=== PATIENT | male | born 1995 | race Caucasian/White ===

== ENCOUNTER 2022-10-15 05:54 | Inpatient (IN) | payer OTHER ==
[~2022-10-15 05:54] MED LIST: LORazepam 2 MG/ML INJ IV STA
[2022-10-15 06:49] LABS: Basophils # (A) 0.4 k/uL (0-0.2); Basophils % (A) 1 %; Eosinophils # (A) 0.1 k/uL (0-0.7); Eosinophils % (A) 0 %; HCT 53.2 % (39.0-53.0); Hyperchromasia Slight; Lymphocytes # (A) 1.1 k/uL (1.0-4.8); Lymphocytes % (A) 2 %; MCH 33.2 pg (25.0-35.0); MCHC 37.8 g/dL (31.0-37.0); MCV 87.9 fL (80.0-100.0); Mean Platelet Volume 8.3; Monocytes # (A) 3.8 k/uL (0-1.0); Monocytes % (A) 8 %; Neutrophils # (A) 44.9 k/uL (1.3-7.7); Neutrophils % (A) 88 %; Platelet Count 400 k/uL (150-450); RBC 6.05 m/uL (4.30-5.90)
[2022-10-15 06:52] LABS: HGB 20.1 gm/dL (13.0-17.5); WBC 51.1 k/uL (3.8-10.6)
[2022-10-15] MEDS ORDERED: SODIUM CHLORIDE 0.9% 1,000 ML IV STA (06:54)
[2022-10-15 06:55] LABS: INR 1.1 (<1.2); Partial Thromboplastin Time 23.8 sec (22.0-30.0); Prothrombin Time 11.5 sec (9.0-12.0)
--- NOTE | 2022-10-15 06:59 | ED ---
Altered Mental Status HPI <David Rudolph - Last Filed: 10/15/22 10:57> - General Source: family, EMS, RN notes reviewed Mode of arrival: EMS <Trisha Pickett - Last Filed: 10/15/22 11:16> - General Chief Complaint: Altered Mental Status Stated Complaint: AMS - History of Present Illness Initial Comments: Patient is a 27-year-old male brought in by EMS for altered mental status. His mother reports that she was hearing banging in the apartment that is adjacent to the home where he lives and when she went into the apartment to check on him and found him to be lying on the ground unresponsive and kicking and flailing his arms about. He is girlfriend and mother report that he has been not feeling well for approximately 3 days now with increase in sleeping, nausea or vomiting and body aches. They both state that he has never had an episode like his presentation currently and they deny any known seizure history but to report the muscle spasms as stated below. 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 He also has a history of pericarditis. She states that he they have been told in the past that his symptoms of cyclical nausea and vomiting were due to his marijuana usage. He also was having significant alcohol intake but his girlfriend states that his last drink was 09/02/2022. They deny any other drug use besides marijuana. His mother and brother and girlfriend deny any other significant past medical history. (Trisha Pickett) - Related Data Allergies Allergy/AdvReac Type Severity Reaction Status Date / Time Unable to Assess Allergy Verified 10/15/22 06:08 Review of Systems ROS Other: All systems not noted in ROS Statement are negative. Limitations: ROS unobtainable due to patients medical condition <David Rudolph - Last Filed: 10/15/22 10:57> ROS Other: All systems not noted in ROS Statement are negative. <Trisha Pickett - Last Filed: 10/15/22 11:16> ROS Statement: Those systems with pertinent positive or pertinent negative responses have been documented in the HPI. Past Medical History Past Medical History: Unable to Obtain History of Any Multi-Drug Resistant Organisms: Unobtainable Past Surgical History: Unable to Obtain Past Psychological History: Unable to Obtain Smoking Status: Unknown if ever smoked Past Alcohol Use History: Unable to Obtain Past Drug Use History: Unable to Obtain <Trisha Pickett - Last Filed: 10/15/22 11:16> General Exam Limitations: altered mental status Head exam: Present: other (Forehead abrasion) Neck exam: Present: normal inspection. Absent: tenderness, meningismus Respiratory exam: Present: normal lung sounds bilaterally Cardiovascular Exam: Present: regular rate, normal rhythm Expanded Peripheral pulses: 2+: Radial (R), Radial (L) GI/Abdominal exam: Present: soft. Absent: tenderness Extremities exam: Present: normal inspection Neurological exam: Present: altered. Absent: motor sensory deficit (Limited exam, does move all extremities) Expanded Neurological exam: Present: inattentive <David Rudolph - Last Filed: 10/15/22 10:57> Limitations: altered mental status General appearance: in no apparent distress Expanded Head exam: Present: abrasion (nasal bridge), hematoma (above right eye) Eye exam: Present: PERRL, periorbital swelling (trace). Absent: scleral icterus, conjunctival injection ENT exam: Present: other (unable to adequately assess oral mucosa due to lack of following command; dry blood on lips and teeth) Neck exam: Present: full ROM. Absent: tenderness Respiratory exam: Present: normal lung sounds bilaterally. Absent: respiratory distress, wheezes, rales, rhonchi, stridor Cardiovascular Exam: Present: regular rate, tachycardia, normal heart sounds. Absent: systolic murmur, diastolic murmur, rubs, gallop, clicks GI/Abdominal exam: Present: soft. Absent: distended Back exam: Present: full ROM Neurological exam: Present: altered Expanded Eye Response: (3) open to voice Motor Response: (4) withdraws to pain Verbal Response: incomprehensible sounds Wilder Total: 10 Psychiatric exam: Present: agitated Skin exam: Present: other (Multiple abrasions scratches and bruises to extremities back, buttocks, and face.) <Trisha Pickett - Last Filed: 10/15/22 11:16> Course - Reevaluation(s) Time: 07:36 Time: 09:38 - Consultations Time: 10:31 <Trisha Pickett - Last Filed: 10/15/22 11:16> Vital Signs 10/15/22 10/15/22 10/15/22 05:59 06:49 08:00 Temperature 98.5 F Pulse Rate 132 H 130 H Respiratory 20 16 18 Rate Blood Pressure 122/88 141/77 129/93 O2 Sat by Pulse 96 100 Oximetry 10/15/22 10/15/22 10/15/22 08:24 09:00 09:16 Temperature 101.2 F H Pulse Rate 110 H 142 H 123 H Respiratory 22 20 18 Rate Blood Pressure 149/80 142/96 149/93 O2 Sat by Pulse 100 100 100 Oximetry 10/15/22 10:57 Temperature 98.9 F Pulse Rate 96 Respiratory 18 Rate Blood Pressure 116/78 O2 Sat by Pulse 96 Oximetry - Reevaluation(s) Reevaluation #1: Patient's initial laboratory values have returned showing critical values of white blood cell count at 51.1, elevated hemoglobin at 20.1, Lactic acid 10.1, Chloride 54, carbon dioxide 41; noncritical but abnormal labs of elevated creatinine at 3.63, BUN 63, potassium 3.0. Significant electrolyte derangement noted. Septic protocol with IV fluid bolus vancomycin and Rocephin added. Urinalysis negative for infection. Blood cultures ordered and pending. Will order Mahmood given altered mental status and evidence of septic shock with YENI. Family updated regarding laboratory studies in current plan of care. Second dose of IV Ativan given for agitation. Will plan for covarrubias scanning once excessive movement improved. (Trisha Pickett) Reevaluation #2: Rectal temperature elevated 101.2. One view chest x-ray and one view abdominal x-ray interpreted by me showing no acute process. Cephid swab negative for Covid RSV and influenza. 1 g of IV Tylenol ordered. Will continue to monitor closely. (Trisha Pickett) - Consultations Consultation #1: Spoke with Dr. Horan for [facility] regarding admission for acute renal failure, possible septic shock along with rhabdomyolysis. Will place order for repeat electrolytes 1 hour after completion of potassium. He is accepting of admission to [facility] admission order. No further orders received at this time. (Trisha Pickett) Procedures - Sepsis Sepsis Focused Exam #1 Time Sepsis Criteria Met: 07:15 Sepsis Focused Exam Date: 10/15/22 Sepsis Focused Exam Time: 10:30 Sepsis Focused Exam Complete: Yes Vital Signs & RN Notes Reviewed: Yes Capillary Refill: < 2 Seconds: Fingers, Toes Peripheral Pulses: Normal: Radial (R), Radial (L) Skin Color: Normal for Patient Respiratory Exam: normal lung sounds Cardiovascular Exam: regular rate, normal rhythm <David Rudolph - Last Filed: 10/15/22 10:57> Medical Decision Making - Lab Data Result diagrams: 10/15/22 06:34 10/15/22 06:34 <David Rudolph - Last Filed: 10/15/22 10:57> - Lab Data Result diagrams: 10/15/22 06:34 10/15/22 06:34 - Radiology Data Radiology results: report reviewed, image reviewed <Trisha Pickett - Last Filed: 10/15/22 11:16> - Medical Decision Making Patient was reevaluated by myself several times. I was involved in management. Case also discussed with family who is present. Patient has had several episodes of this nausea and vomiting with associated dehydration and hospital admission. There was discussion regarding potential transfer request per family however at this time I do not feel patient is stable. Labs will be redrawn. Case also discussed with Dr. Jordan, who will admit covering hospital call. Tachycardia has improved. Patient has been significantly restless and this is also significantly improved. Lumbar puncture has not been able to be considered secondary to concern for harm to patient with associated restlessness. Patient did need multiple medications to help with this and continue with medical evaluation and treatment. (David Rudolph) 27-year-old male presenting to the emergency room with altered mental status found in his apartment on the ground flailing about with no known seizure history and reported drug use of marijuana only. Will begin workup with extensive laboratory studies including CMP CBC urine drug screen serum alcohol, lactic acid, CK, coags and urinalysis. Further laboratory studies pending results of initial studies. IV Ativan given upon arrival due to agitation. Will monitor response to initial dose. Excessive bruising throughout the body noted will order covarrubias scan including CT of the brain chest and abdomen x-rays of the femurs and tib-fib. EKG obtained upon arrival showing sinus tachycardia and ST elevation consistent with pericarditis. Initial lab results returned and documented as of below in reevaluation. Will continue with septic protocol with IV fluid boluses and IV antibiotics. Currently stable blood pressure respiratory rate and oxygen levels will continue to monitor closely. CT of the brain and abdomen chest image interpreted by me showing no acute intracranial anterior abdominal or chest processes. No evidence of pericarditis, free air in abdomen, respiratory consolidation, hemorrhage, mass or ischemia intracranially. CT of the facial bones image interpreted by me shows no facial bone fractures. Radiologist reports also reviewed. Restlessness has improved with the use of Geodon. Tachycardia has improved with IV hydration. Potassium and vancomycin IV medications both infusing at this time. Repeat electrolytes ordered for draw after completion of potassium. As stated in consults spoke with Dr. Horan regarding admission. Patient to be admitted to stepdown unit in serious condition. Case discussed with and evaluations completed by Dr. Rudolph. ([facility]) - Lab Data Lab Results 10/15/22 10/15/22 10/15/22 Range/Units 06:21 06:21 06:34 WBC 51.1 H* (3.8-10.6) k/uL RBC 6.05 H (4.30-5.90) m/uL Hgb 20.1 H* (13.0-17.5) gm/dL Hct 53.2 H (39.0-53.0) % MCV 87.9 (80.0-100.0) fL MCH 33.2 (25.0-35.0) pg MCHC 37.8 H (31.0-37.0) g/dL RDW 12.0 (11.5-15.5) % Plt Count 400 (150-450) k/uL MPV 8.3 Neutrophils % 88 % Lymphocytes % 2 % Monocytes % 8 % Eosinophils % 0 % Basophils % 1 % Neutrophils # 44.9 H (1.3-7.7) k/uL Lymphocytes # 1.1 (1.0-4.8) k/uL Monocytes # 3.8 H (0-1.0) k/uL Eosinophils # 0.1 (0-0.7) k/uL Basophils # 0.4 H (0-0.2) k/uL Manual Slide Review Performed Hyperchromasia Slight PT (9.0-12.0) sec INR (<1.2) APTT (22.0-30.0) sec VBG pH (7.31-7.41) VBG pCO2 (37-51) mmHg VBG HCO3 (24-28) mmol/L Sodium (137-145) mmol/L Potassium (3.5-5.1) mmol/L Chloride (98-107) mmol/L Carbon Dioxide (22-30) mmol/L Anion Gap mmol/L BUN (9-20) mg/dL Creatinine (0.66-1.25) mg/dL Est GFR (CKD-EPI)AfAm (>60 ml/min/1.73 sqM) Est GFR (CKD-EPI)NonAf (>60 ml/min/1.73 sqM) Glucose (74-99) mg/dL Lactic Ac Sepsis Rflx Plasma Lactic Acid Marshall (0.7-2.0) mmol/L Calcium (8.4-10.2) mg/dL Phosphorus (2.5-4.5) mg/dL Magnesium (1.6-2.3) mg/dL Total Bilirubin (0.2-1.3) mg/dL AST (17-59) U/L ALT (4-49) U/L Alkaline Phosphatase (38-126) U/L Ammonia (<30) umol/L Creatine Kinase (55-170) U/L Troponin I (0.000-0.034) ng/mL Total Protein (6.3-8.2) g/dL Albumin (3.5-5.0) g/dL Urine Color Yellow Urine Appearance Clear (Clear) Urine pH 6.5 (5.0-8.0) Ur Specific Bovey 1.015 (1.001-1.035) Urine Protein 2+ H (Negative) Urine Glucose (UA) Negative (Negative) Urine Ketones 1+ H (Negative) Urine Blood Small H (Negative) Urine Nitrite Negative (Negative) Urine Bilirubin Negative (Negative) Urine Urobilinogen <2.0 (<2.0) mg/dL Ur Leukocyte Esterase Negative (Negative) Urine RBC 1 (0-5) /hpf Urine WBC 2 (0-5) /hpf Hyaline Casts 4 H (0-2) /lpf Urine Opiates Screen Not Detected (NotDetected) Ur Oxycodone Screen Not Detected (NotDetected) Urine Methadone Screen Not Detected (NotDetected) Ur Propoxyphene Screen Not Detected (NotDetected) Ur Barbiturates Screen Not Detected (NotDetected) U Tricyclic Antidepress Not Detected (NotDetected) Ur Phencyclidine Scrn Not Detected (NotDetected) Ur Amphetamines Screen Not Detected (NotDetected) U Methamphetamines Scrn Not Detected (NotDetected) U Benzodiazepines Scrn Not Detected (NotDetected) Urine Cocaine Screen Not Detected (NotDetected) U Marijuana (THC) Screen Detected H (NotDetected) Serum Alcohol mg/dL Influenza Type A (PCR) (Not Detectd) Influenza Type B (PCR) (Not Detectd) RSV (PCR) (Not Detectd) SARS-CoV-2 (PCR) (Not Detectd) 10/15/22 10/15/22 10/15/22 Range/Units 06:34 06:34 06:34 WBC (3.8-10.6) k/uL RBC (4.30-5.90) m/uL Hgb (13.0-17.5) gm/dL Hct (39.0-53.0) % MCV (80.0-100.0) fL MCH (25.0-35.0) pg MCHC (31.0-37.0) g/dL RDW (11.5-15.5) % Plt Count (150-450) k/uL MPV Neutrophils % % Lymphocytes % % Monocytes % % Eosinophils % % Basophils % % Neutrophils # (1.3-7.7) k/uL Lymphocytes # (1.0-4.8) k/uL Monocytes # (0-1.0) k/uL Eosinophils # (0-0.7) k/uL Basophils # (0-0.2) k/uL Manual Slide Review Hyperchromasia PT 11.5 (9.0-12.0) sec INR 1.1 (<1.2) APTT 23.8 (22.0-30.0) sec VBG pH (7.31-7.41) VBG pCO2 (37-51) mmHg VBG HCO3 (24-28) mmol/L Sodium 124 L (137-145) mmol/L Potassium 3.0 L (3.5-5.1) mmol/L Chloride 54 L* (98-107) mmol/L Carbon Dioxide 41 H* (22-30) mmol/L Anion Gap 29 mmol/L BUN 63 H (9-20) mg/dL Creatinine 3.13 H (0.66-1.25) mg/dL Est GFR (CKD-EPI)AfAm 30 (>60 ml/min/1.73 sqM) Est GFR (CKD-EPI)NonAf 26 (>60 ml/min/1.73 sqM) Glucose 119 H (74-99) mg/dL Lactic Ac Sepsis Rflx Plasma Lactic Acid Marshall (0.7-2.0) mmol/L Calcium 10.3 H (8.4-10.2) mg/dL Phosphorus (2.5-4.5) mg/dL Magnesium (1.6-2.3) mg/dL Total Bilirubin 3.5 H (0.2-1.3) mg/dL AST 151 H (17-59) U/L ALT 65 H (4-49) U/L Alkaline Phosphatase 157 H (38-126) U/L Ammonia (<30) umol/L Creatine Kinase (55-170) U/L Troponin I 0.735 H* (0.000-0.034) ng/mL Total Protein 8.8 H (6.3-8.2) g/dL Albumin 5.5 H (3.5-5.0) g/dL Urine Color Urine Appearance (Clear) Urine pH (5.0-8.0) Ur Specific Bovey (1.001-1.035) Urine Protein (Negative) Urine Glucose (UA) (Negative) Urine Ketones (Negative) Urine Blood (Negative) Urine Nitrite (Negative) Urine Bilirubin (Negative) Urine Urobilinogen (<2.0) mg/dL Ur Leukocyte Esterase (Negative) Urine RBC (0-5) /hpf Urine WBC (0-5) /hpf Hyaline Casts (0-2) /lpf Urine Opiates Screen (NotDetected) Ur Oxycodone Screen (NotDetected) Urine Methadone Screen (NotDetected) Ur Propoxyphene Screen (NotDetected) Ur Barbiturates Screen (NotDetected) U Tricyclic Antidepress (NotDetected) Ur Phencyclidine Scrn (NotDetected) Ur Amphetamines Screen (NotDetected) U Methamphetamines Scrn (NotDetected) U Benzodiazepines Scrn (NotDetected) Urine Cocaine Screen (NotDetected) U Marijuana (THC) Screen (NotDetected) Serum Alcohol <10 mg/dL Influenza Type A (PCR) (Not Detectd) Influenza Type B (PCR) (Not Detectd) RSV (PCR) (Not Detectd) SARS-CoV-2 (PCR) (Not Detectd) 10/15/22 10/15/22 10/15/22 Range/Units 06:34 06:34 06:59 WBC (3.8-10.6) k/uL RBC (4.30-5.90) m/uL Hgb (13.0-17.5) gm/dL Hct (39.0-53.0) % MCV (80.0-100.0) fL MCH (25.0-35.0) pg MCHC (31.0-37.0) g/dL RDW (11.5-15.5) % Plt Count (150-450) k/uL MPV Neutrophils % % Lymphocytes % % Monocytes % % Eosinophils % % Basophils % % Neutrophils # (1.3-7.7) k/uL Lymphocytes # (1.0-4.8) k/uL Monocytes # (0-1.0) k/uL Eosinophils # (0-0.7) k/uL Basophils # (0-0.2) k/uL Manual Slide Review Hyperchromasia PT (9.0-12.0) sec INR (<1.2) APTT (22.0-30.0) sec VBG pH (7.31-7.41) VBG pCO2 (37-51) mmHg VBG HCO3 (24-28) mmol/L Sodium (137-145) mmol/L Potassium (3.5-5.1) mmol/L Chloride (98-107) mmol/L Carbon Dioxide (22-30) mmol/L Anion Gap mmol/L BUN (9-20) mg/dL Creatinine (0.66-1.25) mg/dL Est GFR (CKD-EPI)AfAm (>60 ml/min/1.73 sqM) Est GFR (CKD-EPI)NonAf (>60 ml/min/1.73 sqM) Glucose (74-99) mg/dL Lactic Ac Sepsis Rflx Plasma Lactic Acid Marshall 10.4 H* (0.7-2.0) mmol/L Calcium (8.4-10.2) mg/dL Phosphorus (2.5-4.5) mg/dL Magnesium (1.6-2.3) mg/dL Total Bilirubin (0.2-1.3) mg/dL AST (17-59) U/L ALT (4-49) U/L Alkaline Phosphatase (38-126) U/L Ammonia 19 (<30) umol/L Creatine Kinase 3001 H* (55-170) U/L Troponin I (0.000-0.034) ng/mL Total Protein (6.3-8.2) g/dL Albumin (3.5-5.0) g/dL Urine Color Urine Appearance (Clear) Urine pH (5.0-8.0) Ur Specific Bovey (1.001-1.035) Urine Protein (Negative) Urine Glucose (UA) (Negative) Urine Ketones (Negative) Urine Blood (Negative) Urine Nitrite (Negative) Urine Bilirubin (Negative) Urine Urobilinogen (<2.0) mg/dL Ur Leukocyte Esterase (Negative) Urine RBC (0-5) /hpf Urine WBC (0-5) /hpf Hyaline Casts (0-2) /lpf Urine Opiates Screen (NotDetected) Ur Oxycodone Screen (NotDetected) Urine Methadone Screen (NotDetected) Ur Propoxyphene Screen (NotDetected) Ur Barbiturates Screen (NotDetected) U Tricyclic Antidepress (NotDetected) Ur Phencyclidine Scrn (NotDetected) Ur Amphetamines Screen (NotDetected) U Methamphetamines Scrn (NotDetected) U Benzodiazepines Scrn (NotDetected) Urine Cocaine Screen (NotDetected) U Marijuana (THC) Screen (NotDetected) Serum Alcohol mg/dL Influenza Type A (PCR) Not Detected (Not Detectd) Influenza Type B (PCR) Not Detected (Not Detectd) RSV (PCR) Not Detected (Not Detectd) SARS-CoV-2 (PCR) Not Detected (Not Detectd) 10/15/22 10/15/22 10/15/22 Range/Units 07:14 07:30 07:39 WBC (3.8-10.6) k/uL RBC (4.30-5.90) m/uL Hgb (13.0-17.5) gm/dL Hct (39.0-53.0) % MCV (80.0-100.0) fL MCH (25.0-35.0) pg MCHC (31.0-37.0) g/dL RDW (11.5-15.5) % Plt Count (150-450) k/uL MPV Neutrophils % % Lymphocytes % % Monocytes % % Eosinophils % % Basophils % % Neutrophils # (1.3-7.7) k/uL Lymphocytes # (1.0-4.8) k/uL Monocytes # (0-1.0) k/uL Eosinophils # (0-0.7) k/uL Basophils # (0-0.2) k/uL Manual Slide Review Hyperchromasia PT (9.0-12.0) sec INR (<1.2) APTT (22.0-30.0) sec VBG pH 7.71 H* (7.31-7.41) VBG pCO2 36 L (37-51) mmHg VBG HCO3 47 H (24-28) mmol/L Sodium (137-145) mmol/L Potassium (3.5-5.1) mmol/L Chloride (98-107) mmol/L Carbon Dioxide (22-30) mmol/L Anion Gap mmol/L BUN (9-20) mg/dL Creatinine (0.66-1.25) mg/dL Est GFR (CKD-EPI)AfAm (>60 ml/min/1.73 sqM) Est GFR (CKD-EPI)NonAf (>60 ml/min/1.73 sqM) Glucose (74-99) mg/dL Lactic Ac Sepsis Rflx Y Plasma Lactic Acid Marshall (0.7-2.0) mmol/L Calcium (8.4-10.2) mg/dL Phosphorus 6.0 H (2.5-4.5) mg/dL Magnesium 2.8 H (1.6-2.3) mg/dL Total Bilirubin (0.2-1.3) mg/dL AST (17-59) U/L ALT (4-49) U/L Alkaline Phosphatase (38-126) U/L Ammonia (<30) umol/L Creatine Kinase (55-170) U/L Troponin I (0.000-0.034) ng/mL Total Protein (6.3-8.2) g/dL Albumin (3.5-5.0) g/dL Urine Color Urine Appearance (Clear) Urine pH (5.0-8.0) Ur Specific Bovey (1.001-1.035) Urine Protein (Negative) Urine Glucose (UA) (Negative) Urine Ketones (Negative) Urine Blood (Negative) Urine Nitrite (Negative) Urine Bilirubin (Negative) Urine Urobilinogen (<2.0) mg/dL Ur Leukocyte Esterase (Negative) Urine RBC (0-5) /hpf Urine WBC (0-5) /hpf Hyaline Casts (0-2) /lpf Urine Opiates Screen (NotDetected) Ur Oxycodone Screen (NotDetected) Urine Methadone Screen (NotDetected) Ur Propoxyphene Screen (NotDetected) Ur Barbiturates Screen (NotDetected) U Tricyclic Antidepress (NotDetected) Ur Phencyclidine Scrn (NotDetected) Ur Amphetamines Screen (NotDetected) U Methamphetamines Scrn (NotDetected) U Benzodiazepines Scrn (NotDetected) Urine Cocaine Screen (NotDetected) U Marijuana (THC) Screen (NotDetected) Serum Alcohol mg/dL Influenza Type A (PCR) (Not Detectd) Influenza Type B (PCR) (Not Detectd) RSV (PCR) (Not Detectd) SARS-CoV-2 (PCR) (Not Detectd) - EKG Data EKG Comments: EKG completed at 10 interpreted by me shows sinus tach cardia was shortened MD intervals ST elevation consistent with pericarditis, ventricular rate 136 bpm, MD interval 82 ms, QRS duration 86 ms, QT/QTC 346/426 ms, PRT axes 65, 96, 65 (Trisha Pickett) Critical Care Time Critical Care Time: Yes Total Critical Care Time: 33 <David Rudolph - Last Filed: 10/15/22 10:57> Disposition <David Rudolph - Last Filed: 10/15/22 10:57> Is patient prescribed a controlled substance at d/c from ED?: No Time of Disposition: 11:16 <Trisha Pickett - Last Filed: 10/15/22 11:16> Clinical Impression: Altered mental status, Sepsis, Acute kidney failure Disposition: ADMITTED IP TO THIS [facility] Condition: Serious Referrals: None,Stated [Primary Care Provider] - 1-2 days
[2022-10-15 07:01] LABS: African American GFR (CKD) 30 (>60 ml/min/1.73 sqM); Albumin 5.5 g/dL (3.5-5.0); Alcohol <10 mg/dL; Alkaline Phosphatase 157 U/L (38-126); Blood Urea Nitrogen 63 mg/dL (9-20); Calcium 10.3 mg/dL (8.4-10.2); Glucose 119 mg/dL (74-99); Non-African American GFR(CKD) 26 (>60 ml/min/1.73 sqM); Sodium 124 mmol/L (137-145); Total Bilirubin 3.5 mg/dL (0.2-1.3); Total Protein 8.8 g/dL (6.3-8.2)
[2022-10-15 07:03] LABS: Appearance,Urine Clear (Clear); Bilirubin,Urine Negative (Negative); Blood,Urine Small (Negative); Color,Urine Yellow; Glucose,Urine (UA) Negative (Negative); Hyaline Casts,Urine 4 /lpf (0-2); Ketones,Urine 1+ (Negative); Leukocyte Esterase,Urine Negative (Negative); Nitrite,Urine Negative (Negative); PH, Urine 6.5 (5.0-8.0); Protein,Urine 2+ (Negative); RBC,Urine 1 /hpf (0-5); Specific Gravity,Urine 1.015 (1.001-1.035); Urobilinogen,Urine <2.0 mg/dL (<2.0); WBC,Urine 2 /hpf (0-5)
[2022-10-15] MEDS ORDERED: LORazepam 2 MG/ML INJ IV STA ×2 (07:03→13:24)
[2022-10-15 07:08] LABS: Anion Gap 29 mmol/L
[2022-10-15 07:11] LABS: Amphetamine Screen,Urine Not Detected (NotDetected); Barbiturate Screen,Urine Not Detected (NotDetected); Benzodiazepines Screen,Urine Not Detected (NotDetected); Cocaine Screen,Urine Not Detected (NotDetected); Methadone Screen, Urine Not Detected (NotDetected); Opiate Screen,Urine Not Detected (NotDetected); Oxycodone Screen, Urine Not Detected (NotDetected); Phencyclidine Screen,Urine Not Detected (NotDetected); Tricyclic Antidepressant,Urine Not Detected (NotDetected); Urn Cannabinoid Scrn Detected (NotDetected)
[2022-10-15 07:13] LABS: Chloride 54 mmol/L (98-107)
[2022-10-15 07:14] LABS: ALT 65 U/L (4-49); AST 151 U/L (17-59); Carbon Dioxide 41 mmol/L (22-30); Lactic Acid, Venous 10.4 mmol/L (0.7-2.0)
[2022-10-15] MEDS ORDERED: VANCOMYCIN IV PER PHARMACY 1 EACH MISC MISCELLANE PRN (07:17)
[2022-10-15] MEDS ORDERED: POTASSIUM CHLORIDE 20 MEQ in WATER FOR INJECTION 1 100ML.BAG IVPB STA ×3 (07:20→12:51)
[2022-10-15] MEDS ORDERED: VANCOMYCIN 1,000 MG in SODIUM CHLORIDE 0.9% 250 ML IVPB STA (07:26)
[2022-10-15] MEDS ORDERED: SODIUM CHLORIDE 0.9% 1,000 ML IV SCH (07:30)
[2022-10-15 07:56] LABS: Magnesium 2.8 mg/dL (1.6-2.3)
[2022-10-15 08:07] LABS: VBG PH 7.71 (7.31-7.41)
[2022-10-15] MEDS: SODIUM CHLORIDE 0.9% 500 ML 500 ML IV SCH ×2 (08:17→09:42)
[2022-10-15] MEDS ORDERED: ZIPRASIDONE 20 MG VIAL IM STA ×2 (08:40→08:45)
[2022-10-15] MEDS ORDERED: ACETAMINOPHEN IV (For NPO) 1,000 MG in EMPTY BAG 1 BAG IVPB STA (09:15)
--- NOTE | 2022-10-15 09:20 | XR ---
EXAMINATION TYPE: XR chest 1V portable DATE OF EXAM: 10/15/2022 COMPARISON: NONE HISTORY: Chest pain TECHNIQUE: Single frontal view of the chest is obtained. FINDINGS: There is no focal air space opacity, pleural effusion, or pneumothorax seen. The cardiac silhouette size is within normal limits. The osseous structures are intact. IMPRESSION: 1. No acute process.
--- NOTE | 2022-10-15 09:21 | XR ---
EXAMINATION TYPE: XR abdomen 1V DATE OF EXAM: 10/15/2022 COMPARISON: NONE HISTORY: Pain TECHNIQUE: Single supine KUB image of the abdomen is obtained FINDINGS: Small bowel demonstrates no evidence for dilatation or air fluid levels. Gas and fecal material is seen in non-distended colon. No convincing evidence for pneumoperitoneum. No unusual calcifications. The lung bases are clear. The osseous structures are intact. IMPRESSION: 1. Overall nonobstructive bowel gas pattern.
[2022-10-15] MEDS ORDERED: NALOXONE 0.4 MG/ML 1 ML VIAL IV PRN (10:26)
--- NOTE | 2022-10-15 10:28 | CT ---
EXAMINATION TYPE: CT brain wo con DATE OF EXAM: 10/15/2022 COMPARISON: None HISTORY: Altered mental status. CT DLP: [address] of the brain was performed. The ventricles, basal cisterns and sulci overlying the cerebral convexities demonstrate a normal appe arance. There is no evidence for intracranial hemorrhage or sulcal effacement. No mass effects are seen. Osseous calvarium is intact. If symptoms persist consider MRI as clinically warranted. IMPRESSION: 1. No acute intracranial process is seen at this time.
--- NOTE | 2022-10-15 10:30 | CT ---
EXAMINATION TYPE: CT facial bones wo con DATE OF EXAM: 10/15/2022 COMPARISON: None HISTORY: Altered mental status. CT DLP: [address] of the facial bones was performed in the axial and coronal planes. Bone and soft tissu e window settings are submitted. Suggestion of mild soft tissue swelling frontal region. I do not see evidence for displaced facial bone fracture or depressed facial bone fracture. The globes are intact. Paranasal sinuses are well-aerated. IMPRESSION: 1. No evidence for depressed or displaced facial bone fracture.
--- NOTE | 2022-10-15 10:31 | CT ---
EXAMINATION TYPE: CT ChestAbdPelvis wo con DATE OF EXAM: 10/15/2022 COMPARISON: HISTORY: Altered mental status. CT DLP: 480.4 mGycm CONTRAST: Unenhanced CT of the chest abdomen and pelvis was performed. The lack of contrast does limit evaluati on of the solid and hollow abdominal viscera and vascular structures. Chest: LUNGS: There is no evidence for pneumothorax. The lungs are clear and free of focal contusion or ate lectasis. No pleural effusion MEDIASTINUM: Thoracic aorta is of normal caliber without CT evidence to suggest traumatic induced ao rtic injury. No mediastinal fluid or blood. No pericardial fluid or cardia abnormality. HILAR STRUCTURES: No evidence for mass. No hilar adenopathy is appreciated. OTHER: No significant abnormality. OSSEOUS: No displaced osseous fractures identified. CT ABDOMEN AND PELVIS FINDINGS: LIVER/GB: No focal laceration, contusion or subcapsular hemorrhage. No calcified gallstones. No s pace occupying hepatic lesion. Biliary tree is of normal caliber. PANCREAS: No evidence for transection. No inflammation. No distinct mass. SPLEEN: No focal laceration, contusion or subcapsular hemorrhage. ADRENALS: No hemorrhage. No nodule. No thickening. KIDNEYS/BLADDER: No focal laceration, contusion or subcapsular hemorrhage. No hydronephrosis. No n ephrolithiasis. No disctinct renal mass. Mahmood catheter is noted within the urinary bladder. BOWEL: Bowel is intact. No evidence for pneumoperitoneum. GENITAL ORGANS: No gross abnormality. LYMPH NODES: No greater than 1cm abdominal or pelvic lymph nodes are appreciated. AORTA: No traumatic aortic injury visualized. OSSEOUS STRUCTURES: No displaced fracture seen. OTHER: No evidence for hemoperitoneum. IMPRESSION: 1. No evidence for traumatic injury to the chest. 2. No evidence for traumatic injury to the abdomen or pelvis.
[2022-10-15 12:04] LABS: Calcium 7.7 mg/dL (8.4-10.2)
[2022-10-15 12:25] LABS: Potassium 2.1 mmol/L (3.5-5.1)
[2022-10-15] MEDS ORDERED: LACTATED RINGERS 1,000 ML with POTASSIUM CHLORIDE 40 MEQ IV ONE ×2 (12:44)
[2022-10-15] MEDS: LACTATED RINGERS 1,000 ML with POTASSIUM CHLORIDE 40 MEQ IV ONE ×4 (13:31→17:01)
[2022-10-15] MEDS: POTASSIUM CHLORIDE 10 MEQ in WATER FOR INJECTION 1 100ML.BAG IVPB SCH ×5 (13:32→23:39)
--- NOTE | 2022-10-15 13:50 | P.HPIM ---
History of Present Illness H&P Date: 10/15/22 Chief Complaint: AMS Patient is a 27-year-old with history of marijuana use, cannabis hyperemesis syndrome presenting with acute encephalopathy. Patient's mother is present in the room. She claims that she lives next door, and noted he was last well yesterday evening. He has been complaining of nausea and vomiting for the last 3 days. Overnight, she heard noises next-door, and decided to check on her son. She noted that he was naked and thrashing on the floor, his apartment was a mess. His speech was incoherent. She then decided to bring him to the hospital. She claims that he has not been complaining of any fevers or chills recently. To her knowledge, he does not use any other illicit drugs. He has had prior episodes of marijuana induced hyperemesis, recently was admitted to another hospital 2 months ago. However, this is the most severe he has been with nausea and vomiting. She denies any alcohol use. In the ED, he was tachycardic and febrile. His blood work showed WBC 51.1, hemoglobin 20.1, sodium 124, potassium 3.0, chloride 54, bicarb 41, BUN 63, creatinine 2.13, lactic acid 10.4, CK 3000, troponin 0.7, pH 7.71, pCO2 is 36. His covarrubias CT was negative. EKG showed sinus tachycardia. He was given 3 L of IV fluids, ziprasidone, Ativan, ceftriaxone and vancomycin. He was admitted for acute encephalopathy and severe metabolic derangements. Patient seen and examined at bedside. Pertinent positives and negatives as discussed in HPI, a complete review of systems was performed and all other systems are negative. Vital signs reviewed General: Mild distress, appears at stated age, agitated Derm: warm, dry Head: atraumatic, normocephalic, symmetric Eyes: Not opening eyes spontaneously, pupils equal round and reactive ENT: Nose and ears atraumatic Neck: No thyromegaly, supple Mouth: no lip lesion, mucus membranes moist Cardiovascular: S1S2 tachycardic, reg, no murmur, no edema Lungs: clear to auscultation bilateral, no rhonchi, no rales, no wheeze, no accessory muscle use Abdominal: soft, nontender to palpation, no guarding, no appreciable organomegaly Ext: Moving all extremities Neuro: Not opening eyes spontaneously, moves all extremities, not following commands Psych: Unable to assess Assessment/Plan: Acute metabolic encephalopathy Severe dehydration Nausea and vomiting Cannabis hyperemesis syndrome Hemoconcentration Leukocytosis Hyponatremia Hypokalemia Hypochloremic metabolic alkalosis Acute kidney injury Lactic acidosis Transaminitis Elevated CK Elevated troponin Sinus tachycardia -Negative serum alcohol -Covarrubias CT negative -Respiratory viral panel negative -ICU, nephrology, cardiology consulted -Continue to replete potassium -BMP every 4 hours -Continue aggressive IV fluid resuscitation -Monitor sodium levels closely -Continue antibiotics for now, however unlikely to be meningitis/encephalitis -If no improvement in mental status after correction of electrolytes, consider LP and neurology consult The patient is admitted with an anticipated greater than 2 midnight stay for evaluation of acute metabolic encephalopathy. Surrogate decision-maker: Mother CODE STATUS: Full code DVT prophylaxis: Subcu heparin Anticipated discharge date: Pending clinical course Anticipated discharge place: Pending clinical course A total of minutes was spent on the care of this complex patient more than 50% of the time was spent in counseling and care coordination. Past Medical History Past Medical History: Unable to Obtain History of Any Multi-Drug Resistant Organisms: Unobtainable Past Surgical History: Unable to Obtain Past Psychological History: Unable to Obtain Smoking Status: Unknown if ever smoked Past Alcohol Use History: Unable to Obtain Past Drug Use History: Unable to Obtain Medications and Allergies Home Medications Medication Instructions Recorded Confirmed Type No Known Home Medications 10/15/22 10/15/22 History Allergies Allergy/AdvReac Type Severity Reaction Status Date / Time No Known Allergies Allergy Unverified 10/15/22 12:20 Physical Exam Vitals: Vital Signs Temp Pulse Resp BP Pulse Ox 10/15/22 13:23 111 H 18 132/86 93 L 10/15/22 11:40 98.4 F 100 24 139/92 100 10/15/22 10:57 98.9 F 96 18 116/78 96 10/15/22 09:16 101.2 F H 123 H 18 149/93 100 10/15/22 09:00 142 H 20 142/96 100 10/15/22 08:24 110 H 22 149/80 100 10/15/22 08:00 130 H 18 129/93 100 10/15/22 06:49 16 141/77 10/15/22 05:59 98.5 F 132 H 20 122/88 96 Intake and Output 10/14/22 10/15/22 10/15/22 22:59 06:59 14:59 Other: Weight 56.699 kg Results CBC & Chem 7: 10/15/22 06:34 10/15/22 11:30 Labs: Abnormal Lab Results - Last 24 Hours (Table) 10/15/22 10/15/22 10/15/22 Range/Units 06:21 06:21 06:34 WBC 51.1 H* (3.8-10.6) k/uL RBC 6.05 H (4.30-5.90) m/uL Hgb 20.1 H* (13.0-17.5) gm/dL Hct 53.2 H (39.0-53.0) % MCHC 37.8 H (31.0-37.0) g/dL Neutrophils # 44.9 H (1.3-7.7) k/uL Monocytes # 3.8 H (0-1.0) k/uL Basophils # 0.4 H (0-0.2) k/uL VBG pH (7.31-7.41) VBG pCO2 (37-51) mmHg VBG HCO3 (24-28) mmol/L Sodium (137-145) mmol/L Potassium (3.5-5.1) mmol/L Chloride (98-107) mmol/L Carbon Dioxide (22-30) mmol/L BUN (9-20) mg/dL Creatinine (0.66-1.25) mg/dL Glucose (74-99) mg/dL Plasma Lactic Acid Marshall (0.7-2.0) mmol/L Calcium (8.4-10.2) mg/dL Phosphorus (2.5-4.5) mg/dL Magnesium (1.6-2.3) mg/dL Total Bilirubin (0.2-1.3) mg/dL AST (17-59) U/L ALT (4-49) U/L Alkaline Phosphatase (38-126) U/L Creatine Kinase (55-170) U/L Troponin I (0.000-0.034) ng/mL Total Protein (6.3-8.2) g/dL Albumin (3.5-5.0) g/dL Urine Protein 2+ H (Negative) Urine Ketones 1+ H (Negative) Urine Blood Small H (Negative) Hyaline Casts 4 H (0-2) /lpf U Marijuana (THC) Screen Detected H (NotDetected) 10/15/22 10/15/22 10/15/22 Range/Units 06:34 06:34 06:34 WBC (3.8-10.6) k/uL RBC (4.30-5.90) m/uL Hgb (13.0-17.5) gm/dL Hct (39.0-53.0) % MCHC (31.0-37.0) g/dL Neutrophils # (1.3-7.7) k/uL Monocytes # (0-1.0) k/uL Basophils # (0-0.2) k/uL VBG pH (7.31-7.41) VBG pCO2 (37-51) mmHg VBG HCO3 (24-28) mmol/L Sodium 124 L (137-145) mmol/L Potassium 3.0 L (3.5-5.1) mmol/L Chloride 54 L* (98-107) mmol/L Carbon Dioxide 41 H* (22-30) mmol/L BUN 63 H (9-20) mg/dL Creatinine 3.13 H (0.66-1.25) mg/dL Glucose 119 H (74-99) mg/dL Plasma Lactic Acid Marshall 10.4 H* (0.7-2.0) mmol/L Calcium 10.3 H (8.4-10.2) mg/dL Phosphorus (2.5-4.5) mg/dL Magnesium (1.6-2.3) mg/dL Total Bilirubin 3.5 H (0.2-1.3) mg/dL AST 151 H (17-59) U/L ALT 65 H (4-49) U/L Alkaline Phosphatase 157 H (38-126) U/L Creatine Kinase (55-170) U/L Troponin I 0.735 H* (0.000-0.034) ng/mL Total Protein 8.8 H (6.3-8.2) g/dL Albumin 5.5 H (3.5-5.0) g/dL Urine Protein (Negative) Urine Ketones (Negative) Urine Blood (Negative) Hyaline Casts (0-2) /lpf U Marijuana (THC) Screen (NotDetected) 10/15/22 10/15/22 10/15/22 Range/Units 06:34 07:30 07:39 WBC (3.8-10.6) k/uL RBC (4.30-5.90) m/uL Hgb (13.0-17.5) gm/dL Hct (39.0-53.0) % MCHC (31.0-37.0) g/dL Neutrophils # (1.3-7.7) k/uL Monocytes # (0-1.0) k/uL Basophils # (0-0.2) k/uL VBG pH 7.71 H* (7.31-7.41) VBG pCO2 36 L (37-51) mmHg VBG HCO3 47 H (24-28) mmol/L Sodium (137-145) mmol/L Potassium (3.5-5.1) mmol/L Chloride (98-107) mmol/L Carbon Dioxide (22-30) mmol/L BUN (9-20) mg/dL Creatinine (0.66-1.25) mg/dL Glucose (74-99) mg/dL Plasma Lactic Acid Marshall (0.7-2.0) mmol/L Calcium (8.4-10.2) mg/dL Phosphorus 6.0 H (2.5-4.5) mg/dL Magnesium 2.8 H (1.6-2.3) mg/dL Total Bilirubin (0.2-1.3) mg/dL AST (17-59) U/L ALT (4-49) U/L Alkaline Phosphatase (38-126) U/L Creatine Kinase 3001 H* (55-170) U/L Troponin I (0.000-0.034) ng/mL Total Protein (6.3-8.2) g/dL Albumin (3.5-5.0) g/dL Urine Protein (Negative) Urine Ketones (Negative) Urine Blood (Negative) Hyaline Casts (0-2) /lpf U Marijuana (THC) Screen (NotDetected) 10/15/22 Range/Units 11:30 WBC (3.8-10.6) k/uL RBC (4.30-5.90) m/uL Hgb (13.0-17.5) gm/dL Hct (39.0-53.0) % MCHC (31.0-37.0) g/dL Neutrophils # (1.3-7.7) k/uL Monocytes # (0-1.0) k/uL Basophils # (0-0.2) k/uL VBG pH (7.31-7.41) VBG pCO2 (37-51) mmHg VBG HCO3 (24-28) mmol/L Sodium 128 L (137-145) mmol/L Potassium 2.1 L* (3.5-5.1) mmol/L Chloride 76 L (98-107) mmol/L Carbon Dioxide 40 H (22-30) mmol/L BUN 58 H (9-20) mg/dL Creatinine 2.42 H (0.66-1.25) mg/dL Glucose 122 H (74-99) mg/dL Plasma Lactic Acid Marshall (0.7-2.0) mmol/L Calcium 7.7 L (8.4-10.2) mg/dL Phosphorus (2.5-4.5) mg/dL Magnesium (1.6-2.3) mg/dL Total Bilirubin (0.2-1.3) mg/dL AST (17-59) U/L ALT (4-49) U/L Alkaline Phosphatase (38-126) U/L Creatine Kinase (55-170) U/L Troponin I (0.000-0.034) ng/mL Total Protein (6.3-8.2) g/dL Albumin (3.5-5.0) g/dL Urine Protein (Negative) Urine Ketones (Negative) Urine Blood (Negative) Hyaline Casts (0-2) /lpf U Marijuana (THC) Screen (NotDetected)
[2022-10-15] MEDS: DEXMEDETOMIDINE/0.9% NACL(PMX) 400 MCG in EMPTY BAG 1 BAG IV SCH (14:27)
--- NOTE | 2022-10-15 15:12 | P.CNPUL ---
History of Present Illness Consult date: 10/15/22 Requesting physician: Daryl Horan Reason for consult: other Chief complaint: Severe agitation, encephalopathy. History of present illness: Pulmonary/critical care consult dated 10/15/2022. 27-year-old male, brought in by EMS, for mental status changes. He apparently was found at 4:30 in the morning, by his mother, on the floor, and unresponsive or poorly responsive. The patient was very agitated, kicking and screaming and flailing about. He was last seen to be normal about 3:30 the previous day. The patient apparently does not have any known medical history other than a bleeding ulcer for which she takes Prevacid. He apparently does not drink or smoke excessively, but does smoke marijuana. According to his mother, he has no significant past medical history. Denies hypertension, hyperlipidemia, diabetes, etc. According to the ER elizabeth, the patient does have a prior history of pericarditis. And also was told that he has a history of cyclic nausea and vomiting, due to marijuana use. He apparently used to drink socially/beer, but quit drinking in August. The patient is seen in the emergency department. He is on room air. Getting LR at 125 mL an hour. His drug screen was positive for marijuana. He himself can provide no additional history. He is extremely ortiz tated flailing about in bed. He is restrained. We are going to start him on some dexmedetomidine, and transfer him to the intensive care unit. White count 51.1, hemoglobin 20.1, hematocrit 53.2, and platelet count 400,000. Coagulation studies were normal. Venous blood gases show pCO2 of 36, and a pH of 7.71. Sodium 128, potassium 2.1, chloride 76, CO2 40, anion gap 12, BUN 58, creatinine 2.42. CK 3001. Troponin is 0.735. Albumin 5.5. Alcohol level less than 10. Screening for influenza A, and influenza B, or negative. Testing for RSV, and coronavirus were negative. Drug screen was positive for THC. Abdominal x-ray shows no obstruction. Chest x-ray was normal. Brain CT showed nothing acute. Facial CT was negative. Chest abdomen and pelvic CT was negative. Review of Systems REVIEW OF SYSTEMS: CONSTITUTIONAL: [Negative.] NEUROLOGIC: Extreme agitation, with mental status changes. HEENT: [ Negative.] CARDIAC: [Negative.] PULMONARY: [Negative.] GI: [Negative.] : [Negative.] RHEUMATOLOGIC: [ Negative.] IMMUNOLOGIC: [ Negative.] ENDOCRINE: [Negative. ] DERMATOLOGIC: [Negative.] Past Medical History Past Medical History: Unable to Obtain History of Any Multi-Drug Resistant Organisms: Unobtainable Past Surgical History: Unable to Obtain Past Psychological History: Unable to Obtain Smoking Status: Unknown if ever smoked Past Alcohol Use History: Unable to Obtain Past Drug Use History: Unable to Obtain Medications and Allergies Home Medications Medication Instructions Recorded Confirmed Type No Known Home Medications 10/15/22 10/15/22 History Allergies Allergy/AdvReac Type Severity Reaction Status Date / Time No Known Allergies Allergy Unverified 10/15/22 12:20 Physical Exam Osteopathic Statement: *. No significant issues noted on an osteopathic structural exam other than those noted in the History and Physical/Consult. Vitals: Vital Signs Temp Pulse Resp BP Pulse Ox 10/15/22 14:00 92 22 121/73 95 10/15/22 13:23 111 H 18 132/86 93 L 10/15/22 11:40 98.4 F 100 24 139/92 100 10/15/22 10:57 98.9 F 96 18 116/78 96 10/15/22 09:16 101.2 F H 123 H 18 149/93 100 10/15/22 09:00 142 H 20 142/96 100 10/15/22 08:24 110 H 22 149/80 100 10/15/22 08:00 130 H 18 129/93 100 10/15/22 06:49 16 141/77 10/15/22 05:59 98.5 F 132 H 20 122/88 96 Intake and Output 10/14/22 10/15/22 10/15/22 22:59 06:59 14:59 Other: Weight 56.699 kg Severely agitated, flailing about, yelling out, with no additional history being obtained from him. HEENT examination is grossly unremarkable. Facial bruises and lacerations noted. Neck supple. Full range of motion. No adenopathy thyromegaly or neck vein distention. Cardiovascular examination reveals regular rhythm rate. S1-S2 normal. No S3 or S4. No discernible murmur noted. Heart rate 111 bpm. Lungs reveal mostly clear breath sounds. Breath sounds are equal bilaterally. Minimal scattered rhonchi. No wheezes or crackles. I could not really get a good assessment of his lungs. Abdomen soft, without masses. Extremities are intact. No cyanosis clubbing or edema. Skin is without rash or lesion. Neurologic examination cannot be adequately assessed. Results - Laboratory Findings CBC and BMP: 10/15/22 06:34 10/15/22 11:30 PT/INR, D-dimer PT 11.5 sec (9.0-12.0) 10/15/22 06:34 INR 1.1 (<1.2) 10/15/22 06:34 Abnormal lab findings: Abnormal Labs 10/15/22 10/15/22 10/15/22 06:21 06:21 06:34 WBC 51.1 H* RBC 6.05 H Hgb 20.1 H* Hct 53.2 H MCHC 37.8 H Neutrophils # 44.9 H Monocytes # 3.8 H Basophils # 0.4 H VBG pH VBG pCO2 VBG HCO3 Sodium Potassium Chloride Carbon Dioxide BUN Creatinine Glucose Plasma Lactic Acid Marshall Calcium Phosphorus Magnesium Total Bilirubin AST ALT Alkaline Phosphatase Creatine Kinase Troponin I Total Protein Albumin Urine Protein 2+ H Urine Ketones 1+ H Urine Blood Small H Hyaline Casts 4 H U Marijuana (THC) Screen Detected H 10/15/22 10/15/22 10/15/22 06:34 06:34 06:34 WBC RBC Hgb Hct MCHC Neutrophils # Monocytes # Basophils # VBG pH VBG pCO2 VBG HCO3 Sodium 124 L Potassium 3.0 L Chloride 54 L* Carbon Dioxide 41 H* BUN 63 H Creatinine 3.13 H Glucose 119 H Plasma Lactic Acid Marshall 10.4 H* Calcium 10.3 H Phosphorus Magnesium Total Bilirubin 3.5 H AST 151 H ALT 65 H Alkaline Phosphatase 157 H Creatine Kinase Troponin I 0.735 H* Total Protein 8.8 H Albumin 5.5 H Urine Protein Urine Ketones Urine Blood Hyaline Casts U Marijuana (THC) Screen 10/15/22 10/15/22 10/15/22 06:34 07:30 07:39 WBC RBC Hgb Hct MCHC Neutrophils # Monocytes # Basophils # VBG pH 7.71 H* VBG pCO2 36 L VBG HCO3 47 H Sodium Potassium Chloride Carbon Dioxide BUN Creatinine Glucose Plasma Lactic Acid Marshall Calcium Phosphorus 6.0 H Magnesium 2.8 H Total Bilirubin AST ALT Alkaline Phosphatase Creatine Kinase 3001 H* Troponin I Total Protein Albumin Urine Protein Urine Ketones Urine Blood Hyaline Casts U Marijuana (THC) Screen 10/15/22 11:30 WBC RBC Hgb Hct MCHC Neutrophils # Monocytes # Basophils # VBG pH VBG pCO2 VBG HCO3 Sodium 128 L Potassium 2.1 L* Chloride 76 L Carbon Dioxide 40 H BUN 58 H Creatinine 2.42 H Glucose 122 H Plasma Lactic Acid Marshall Calcium 7.7 L Phosphorus Magnesium Total Bilirubin AST ALT Alkaline Phosphatase Creatine Kinase Troponin I Total Protein Albumin Urine Protein Urine Ketones Urine Blood Hyaline Casts U Marijuana (THC) Screen - Diagnostic Findings Chest x-ray: image reviewed CT scan - chest: image reviewed Assessment and Plan Assessment: Extreme agitation, with mental status changes of unclear etiology. Severe contraction alkalosis secondary to dehydration. Severe hypokalemia. Prerenal azotemia/acute kidney injury. Hyponatremia. Rhabdomyolysis. Lactic acidemia. History of bleeding ulcer. History of pericarditis. History of cyclic nausea and vomiting, secondary to marijuana use. Plan: Plan dated 10/15/2022. The patient is seen in the emergency department. He will be transferred to the intensive care unit for further monitoring and management. For his agitation, we'll place him on dexmedetomidine. I have spoken to the ICU charge nurse already. And, we will aggressively replace his potassium. Additional recommendations and suggestions are forthcoming. He needs significant volume repletion. He has a severe contraction alkalosis. He is also suffering from rhabdomyolysis. Prognosis is guarded. Once the patient is better controlled, consider a lumbar puncture to rule out CSF infection. Time with Patient: Greater than 30
[2022-10-15 16:23] LABS: Glucose,Whole Blood 107 mg/dL (70-110)
[2022-10-15] MEDS ORDERED: HALOPERIDOL LACTATE 5 MG/ML 1 ML VIAL IVP PRN (17:05)
[2022-10-15] MEDS: HEPARIN SODIUM,PORCINE/PF 5,000 UNIT/0.5 ML SYRINGE SQ SCH ×2 (17:07→23:37)
[2022-10-15] MEDS: LORazepam 2 MG/ML INJ IV PRN (19:18)
[2022-10-15] MEDS: HALOPERIDOL LACTATE 5 MG/ML 1 ML VIAL IVP PRN (19:34)
[2022-10-15 22:23] LABS: Calcium 7.9 mg/dL (8.4-10.2)
[2022-10-15 22:49] LABS: Potassium 2.4 mmol/L (3.5-5.1)
[2022-10-15] MEDS ORDERED: Potassium Replacement Protocol 1 EACH MISC MISCELLANE PRN (23:14)
--- NOTE | 2022-10-15 23:31 | P.MHFACE ---
Face to Face Restrain/Seclus - Evaluation Patient's Immediate Situation: Violent behavior Patient's Reaction to the Intervention: Other (see comment) Patient's Reaction to the Intervention - Comment: patient was medicated with haldol, currently sleeping comfortably Patient's Medical & Behavioral Condition: Sleeping Need to Continue or Terminate Restraint or Seclusion: Continue Face to Face Eval of Restraint Date: 10/15/22 Face to Face Eval of Restraint Time: 20:30
[2022-10-16] MEDS: POTASSIUM CHLORIDE 10 MEQ in WATER FOR INJECTION 1 100ML.BAG IVPB SCH ×15 (00:48→21:47)
[2022-10-16] MEDS: DEXMEDETOMIDINE/0.9% NACL(PMX) 400 MCG in EMPTY BAG 1 BAG IV SCH ×2 (04:54→14:38)
[2022-10-16 06:11] LABS: Basophils # (A) 0.1 k/uL (0-0.2); Basophils % (A) 1 %; Eosinophils % (A) 0 %; HCT 39.3 % (39.0-53.0); Lymphocytes # (A) 1.2 k/uL (1.0-4.8); Lymphocytes % (A) 8 %; MCH 33.2 pg (25.0-35.0); MCHC 35.9 g/dL (31.0-37.0); MCV 92.6 fL (80.0-100.0); Mean Platelet Volume 8.5; Monocytes # (A) 1.1 k/uL (0-1.0); Monocytes % (A) 7 %; Neutrophils # (A) 13.5 k/uL (1.3-7.7); Neutrophils % (A) 83 %; RBC 4.25 m/uL (4.30-5.90); RDW 11.7 % (11.5-15.5)
[2022-10-16 06:14] LABS: HGB 14.1 gm/dL (13.0-17.5)
--- NOTE | 2022-10-16 06:20 | P.MHFACE ---
Face to Face Restrain/Seclus - Evaluation Patient's Immediate Situation: Violent behavior Patient's Reaction to the Intervention - Comment: Patient is sleeping and sedated Patient's Medical & Behavioral Condition: Sleeping Need to Continue or Terminate Restraint or Seclusion: Terminate Need to Continue or Terminate Restraint/Seclusion - Comment: Terminate hard restraints only, maintain soft restraints due to patient unpredictable behavior with episodes of agitation trying to pull lines and resist care Face to Face Eval of Restraint Date: 10/16/22 Face to Face Eval of Restraint Time: 01:10
[2022-10-16] MEDS: HALOPERIDOL LACTATE 5 MG/ML 1 ML VIAL IVP PRN ×4 (06:34→21:46)
[2022-10-16 06:38] LABS: WBC 16.3 k/uL (3.8-10.6)
[2022-10-16 06:47] LABS: Platelet Count 195 k/uL (150-450)
[2022-10-16 06:48] LABS: RBC Morphology Normal
--- NOTE | 2022-10-16 07:38 | P.CRDCN ---
History of Present Illness Consult date: 10/16/22 Chief complaint: Reason for the consult is abnormal cardiac enzymes History of present illness: The patient is a 27-year-old gentleman with a past medical history significant for "pericarditis" who we consulted to see for further cardiac evaluation and abnormal cardiac enzymes. The patient currently is in the intensive care unit. Currently the patient is educated severe change in mental status and the history was taken from the chart as well as from the nurse taking care of the patient. The patient was in his usual state of health until yesterday and was found by his mother on the floor around 4:00 in the morning unresponsive. No indication that the patient was experiencing any symptoms of chest pain or chest discomfort or shortness of breath or any dizziness or lightheadedness or any feeling of heart racing or fluttering. He was brought by ambulance to the emergency department for further evaluation. Urine drug screen was performed and came in to be abnormal for marijuana and he is known to smoke marijuana. No other abnor malities was noted in the urine drug screen. The patient does not have any history of alcohol use. He was diagnosed with rhabdomyolysis. Apparently the patient before he was admitted and for the last few days he was experiencing symptoms of nausea and vomiting and diarrhea for about 3 days at least. He was also severely dehydrated. Currently he is on IV fluid. CK is extremely elevated. Troponin is a slightly elevated. He is also in renal failure with severe electrolytes abnormalities including hypokalemia and hyponatremia. He underwent also further investigation an EKG which showed sinus rhythm with sinus tachycardia at the beginning but currently is in sinus rhythm with normal heart rate. No significant ST or T-wave abnormalities noted. Chest x-ray showed no acute abnormalities. Computed tomography scan of the brain showed no acute abnormalities. Computed tomography scan of the abdomen and pelvis and the chest also showed no acute abnormalities. Currently the patient is hemodynamic stable and he has been maintaining normal sinus mechanism. An echocardiogram is in process to be performed. Past Medical History Past Medical History: GI Bleed Additional Past Medical History / Comment(s): pericarditis History of Any Multi-Drug Resistant Organisms: None Reported Past Surgical History: No Surgical Hx Reported Past Psychological History: No Psychological Hx Reported Smoking Status: Never smoker Past Alcohol Use History: None Reported Past Drug Use History: Marijuana Medications and Allergies Home Medications Medication Instructions Recorded Confirmed Type No Known Home Medications 10/15/22 10/15/22 History Allergies Allergy/AdvReac Type Severity Reaction Status Date / Time No Known Allergies Allergy Unverified 10/15/22 12:20 Physical Exam Vitals: Vital Signs Temp Pulse Resp BP BP Pulse Ox 10/16/22 07:00 67 24 116/77 95 10/16/22 06:45 65 22 116/77 94 L 10/16/22 06:30 92 12 98/60 95 10/16/22 06:15 77 21 98/60 93 L 10/16/22 06:00 68 24 93/55 95 10/16/22 05:45 71 22 93/55 96 10/16/22 05:30 70 23 107/61 97 10/16/22 05:15 70 24 107/61 98 10/16/22 05:00 66 22 97 10/16/22 04:45 69 24 99 10/16/22 04:30 86 14 87/55 100 10/16/22 04:15 60 20 87/55 98 10/16/22 04:00 98.1 F 59 L 20 97/57 92 L 10/16/22 03:45 62 20 97/57 98 10/16/22 03:30 61 20 101/62 10/16/22 03:15 61 22 101/62 98 10/16/22 03:00 61 22 105/73 90 L 10/16/22 02:45 71 16 105/73 100 10/16/22 02:30 67 13 93/56 100 10/16/22 02:15 61 21 93/56 98 10/16/22 02:00 63 21 95/59 98 10/16/22 01:45 62 24 95/59 98 10/16/22 01:30 61 22 94/56 98 10/16/22 01:15 62 24 94/56 98 10/16/22 01:00 66 25 H 102/57 98 10/16/22 00:45 67 21 102/57 98 10/16/22 00:30 67 22 93/58 99 10/16/22 00:15 67 11 L 92/56 10/16/22 00:00 97.9 F 67 24 98/52 98 10/15/22 23:45 66 24 98/52 98 10/15/22 23:30 70 23 97/52 98 10/15/22 23:15 70 26 H 105/58 98 10/15/22 23:09 70 25 H 105/58 98 10/15/22 23:00 74 27 H 97/56 98 10/15/22 22:45 71 18 97/56 99 10/15/22 22:30 72 26 H 89/59 99 10/15/22 22:15 73 27 H 98/69 99 10/15/22 22:00 73 25 H 98/52 99 10/15/22 21:45 71 27 H 98/52 98 10/15/22 21:30 114 H 26 H 116/85 98 10/15/22 21:15 72 28 H 102/48 97 10/15/22 21:00 72 28 H 97/43 97 10/15/22 20:45 73 28 H 97/43 97 10/15/22 20:30 73 27 H 97/51 97 10/15/22 20:15 73 48 H 98/51 98 10/15/22 20:00 97.7 F 75 33 H 105/72 98 10/15/22 19:45 93 38 H 105/72 99 10/15/22 19:30 82 21 98/66 98 10/15/22 19:15 86 27 H 95/60 99 10/15/22 19:00 75 21 97/52 97 10/15/22 18:45 71 29 H 98 10/15/22 18:41 98.7 F 22 97/52 96 10/15/22 18:30 73 33 H 92/48 98 10/15/22 18:15 73 30 H 92/52 98 10/15/22 18:00 76 34 H 100/58 97 10/15/22 17:45 77 36 H 100/58 97 10/15/22 17:30 76 34 H 91/48 97 10/15/22 17:25 98.6 F 32 H 100/58 10/15/22 17:15 78 19 107/57 97 10/15/22 17:14 98.7 F 22 107/57 10/15/22 17:00 91 18 103/84 97 10/15/22 16:45 105 H 13 103/84 96 10/15/22 16:30 98.6 F 83 18 96/56 98 10/15/22 15:44 138 H 24 130/89 98 10/15/22 15:00 140 H 26 H 148/96 96 10/15/22 14:00 100 20 110/68 97 10/15/22 13:23 111 H 18 132/86 93 L 10/15/22 11:40 98.4 F 100 24 139/92 100 10/15/22 10:57 98.9 F 96 18 116/78 96 10/15/22 09:16 101.2 F H 123 H 18 149/93 100 10/15/22 09:00 142 H 20 142/96 100 10/15/22 08:24 110 H 22 149/80 100 10/15/22 08:00 130 H 18 129/93 100 Intake and Output 10/15/22 10/16/22 10/16/22 22:59 06:59 14:59 Intake Total 514.181 9005.079 125 Output Total 2225 1190 45 Balance -1275.273 -139.921 80 Intake: IV 875 875 Lactated Ringers 1,000 ml 875 875 @ 125 mls/hr IV .Q8H10M ONE with Potassium Chloride 40 meq Rx#: [id number] Intake, IV Titration 74.727 175.079 125 Amount Dexmedetomidine/0.9% NaCl 74.727 50.079 (Pmx) 400 mcg In Empty Bag 1 bag @ 0.2 MCG/KG/HR 2.835 mls/hr IV .Q24H [facility] Rx#:[id number] Lactated Ringers 1,000 ml 125 125 @ 125 mls/hr IV .Q8H10M ONE with Potassium Chloride 40 meq Rx#: [id number] Output: Urine 2225 1190 45 Other: Voiding Method Indwelling Catheter Indwelling Catheter # Bowel Movements 1 1 Weight 56.699 kg 47.3 kg - Constitutional General appearance: no acute distress - Respiratory Respiratory: bilateral: diminished - Cardiovascular Rhythm: regular Results 10/16/22 04:53 10/16/22 04:53 Cardiac Enzymes 10/15/22 10/15/22 10/15/22 Range/Units 06:34 11:30 21:48 CK-MB (CK-2) 41.9 H (0.0-2.4) ng/mL Troponin I 0.735 H* 0.848 H* (0.000-0.034) ng/mL 10/15/22 Range/Units 21:48 CK-MB (CK-2) 42.4 H (0.0-2.4) ng/mL Troponin I (0.000-0.034) ng/mL CBC 10/16/22 Range/Units 04:53 WBC 16.3 H (3.8-10.6) k/uL RBC 4.25 L (4.30-5.90) m/uL Hgb 14.1 D (13.0-17.5) gm/dL Hct 39.3 (39.0-53.0) % Plt Count 195 D (150-450) k/uL Comprehensive Metabolic Panel 10/15/22 10/15/22 10/16/22 Range/Units 11:30 21:48 04:53 Sodium 128 L 129 L (137-145) mmol/L Potassium 2.1 L* 2.4 L* (3.5-5.1) mmol/L Chloride 76 L 85 L (98-107) mmol/L Carbon Dioxide 40 H 37 H (22-30) mmol/L BUN 58 H 56 H (9-20) mg/dL Creatinine 2.42 H 1.99 H 1.81 H (0.66-1.25) mg/dL Glucose 122 H 75 (74-99) mg/dL Calcium 7.7 L 7.9 L (8.4-10.2) mg/dL Current Medications Generic Name Dose Route Start Last Admin Trade Name Freq PRN Reason Stop Dose Admin Haloperidol Lactate 4 mg 10/15/22 17:05 10/16/22 06:34 Haloperidol Lactate 5 Mg/Ml 1 Ml Vial IVP 4 mg Q4H PRN Administration Agitation or Acute Psychosis Haloperidol Lactate 8 mg 10/15/22 17:05 Haloperidol Lactate 5 Mg/Ml 1 Ml Vial IVP Q4H PRN severe psychosis Heparin Sodium (Porcine) 5,000 unit 10/15/22 16:00 10/15/22 23:37 Heparin Sodium,Porcine/Pf 5,000 Unit/0.5 Ml Syringe SQ 5,000 unit Q8HR [facility] Administration Vancomycin HCl 1,000 mg/ 250 mls @ 125 mls/hr 10/16/22 09:00 Sodium Chloride IVPB 10/16/22 10:59 ONCE ONE Ceftriaxone Sodium 1 gm/ 50 mls @ 100 mls/hr 10/16/22 09:00 Sodium Chloride IVPB Q24HR [facility] Protocol Dexmedetomidine HCl 400 mcg/ 100 mls @ 2.835 mls/hr 10/15/22 14:30 10/16/22 06:39 IV Solution IV 0.8 mcg/kg/hr .Q24H [facility] 11.34 mls/hr Titration Protocol 0.2 MCG/KG/HR Vancomycin HCl 1,000 mg/ 250 mls @ 125 mls/hr 10/17/22 09:00 Sodium Chloride IVPB Q24HR [facility] Lorazepam 1 mg 10/15/22 17:05 10/15/22 19:18 Lorazepam 2 Mg/Ml Inj IV 1 mg Q4HR PRN Administration Anxiety Miscellaneous Information 1 each 10/15/22 23:14 Potassium Replacement Protocol 1 Each Misc MISCELLANE DAILY PRN Per Protocol Protocol Naloxone HCl 0.2 mg 10/15/22 10:26 Naloxone 0.4 Mg/Ml 1 Ml Vial IV Q2M PRN Opioid Reversal Intake and Output 10/15/22 10/16/22 10/16/22 22:59 06:59 14:59 Intake Total 476.300 7984.079 125 Output Total 2225 1190 45 Balance -1275.273 -139.921 80 Intake: IV 875 875 Lactated Ringers 1,000 ml 875 875 @ 125 mls/hr IV .Q8H10M ONE with Potassium Chloride 40 meq Rx#: [id number] Intake, IV Titration 74.727 175.079 125 Amount Dexmedetomidine/0.9% NaCl 74.727 50.079 (Pmx) 400 mcg In Empty Bag 1 bag @ 0.2 MCG/KG/HR 2.835 mls/hr IV .Q24H [facility] Rx#:[id number] Lactated Ringers 1,000 ml 125 125 @ 125 mls/hr IV .Q8H10M ONE with Potassium Chloride 40 meq Rx#: [id number] Output: Urine 2225 1190 45 Other: Voiding Method Indwelling Catheter Indwelling Catheter # Bowel Movements 1 1 Weight 56.699 kg 47.3 kg 10/16/22 04:53 10/16/22 04:53 Assessment and Plan Assessment: Assessment #1 rhabdomyolysis #2 severe dehydration #3 acute renal failure secondary to the above #4 electrolytes abnormalities secondary to the above #5 evidence of myocardial injury was no evidence of ischemia, likely secondary to renal failure #6 history of pericarditis by the chart #7 change in mental status/agitation #8 history of marijuana use Plan #1 follow-up on the echocardiogram #2 continue IV fluid #3 no need for further cardiac intervention at this point #4 the abnormal cardiac enzymes is likely related to the acute renal failure #5 further recommendation to follow the echo
[2022-10-16 07:43] LABS: Calcium 8.1 mg/dL (8.4-10.2); Potassium 2.9 mmol/L (3.5-5.1)
[2022-10-16] MEDS: HEPARIN SODIUM,PORCINE/PF 5,000 UNIT/0.5 ML SYRINGE SQ SCH ×2 (08:31→17:16)
[2022-10-16] MEDS ORDERED: VANCOMYCIN 1,000 MG in SODIUM CHLORIDE 0.9% 250 ML IVPB ONE (09:00)
--- NOTE | 2022-10-16 10:05 | P.NPCON ---
History of Present Illness - Reason for Consult acute renal failure, hyponatremia - History of Present Illness Reason for consultation: Acute kidney injury and electrolyte balance History of present illness: Patient is a 27-year-old male seen in renal consultation for acute kidney injury and electrolytic imbalance. Patient's creatinine on admission was 3.13 and is down to 1.68 today. Unknown baseline renal function. Patient's potassium level was as low as 2.1 this admission and is being aggressively replaced. It was 2.9 this morning. Magnesium level has not been low. Patient was brought to the hospital by the EMS due to altered mental status. Apparently patient's mother heard banging in the apartment and he was subsequently found lying on the ground unresponsive. It is noted in the chart as patient was not feeling well for about 3 days prior to admission and was having episodes of vomiting, body aches and fatigue. Patient tested negative for influenza, RSV as well as coronavirus. I don't see any medications and his home medication list. Patient's white count was significantly elevated and he is currently on IV antibiotics. Patient was just screaming and was given Ativan. He is currently sleeping. Drug screen was negative except for marijuana. Vital signs are stable. General: Resting in bed. HEENT: Head exam is unremarkable. LUNGS: Breath sounds decreased. HEART: Rate and Rhythm are regular. ABDOMEN: Soft, no distention. EXTREMITITES: No edema. Past Medical History Past Medical History: GI Bleed Additional Past Medical History / Comment(s): pericarditis History of Any Multi-Drug Resistant Organisms: None Reported Past Surgical History: No Surgical Hx Reported Past Psychological History: No Psychological Hx Reported Smoking Status: Never smoker Past Alcohol Use History: None Reported Past Drug Use History: Marijuana Medications and Allergies Home Medications Medication Instructions Recorded Confirmed Type No Known Home Medications 10/15/22 10/15/22 History Allergies Allergy/AdvReac Type Severity Reaction Status Date / Time No Known Allergies Allergy Unverified 10/15/22 12:20 Physical Exam Vitals: Vital Signs Temp Pulse Resp BP BP Pulse Ox 10/16/22 09:30 70 23 115/81 96 10/16/22 09:00 76 23 108/64 97 10/16/22 08:30 64 21 102/61 97 10/16/22 08:00 97.4 F L 64 22 112/63 97 10/16/22 07:30 65 27 H 108/65 94 L 10/16/22 07:00 67 24 116/77 95 10/16/22 06:45 65 22 116/77 94 L 10/16/22 06:30 92 12 98/60 95 10/16/22 06:15 77 21 98/60 93 L 10/16/22 06:00 68 24 93/55 95 10/16/22 05:45 71 22 93/55 96 10/16/22 05:30 70 23 107/61 97 10/16/22 05:15 70 24 107/61 98 10/16/22 05:00 66 22 97 10/16/22 04:45 69 24 99 10/16/22 04:30 86 14 87/55 100 10/16/22 04:15 60 20 87/55 98 10/16/22 04:00 98.1 F 59 L 20 97/57 92 L 10/16/22 03:45 62 20 97/57 98 10/16/22 03:30 61 20 101/62 10/16/22 03:15 61 22 101/62 98 10/16/22 03:00 61 22 105/73 90 L 10/16/22 02:45 71 16 105/73 100 10/16/22 02:30 67 13 93/56 100 10/16/22 02:15 61 21 93/56 98 10/16/22 02:00 63 21 95/59 98 10/16/22 01:45 62 24 95/59 98 10/16/22 01:30 61 22 94/56 98 10/16/22 01:15 62 24 94/56 98 10/16/22 01:00 66 25 H 102/57 98 10/16/22 00:45 67 21 102/57 98 10/16/22 00:30 67 22 93/58 99 10/16/22 00:15 67 11 L 92/56 10/16/22 00:00 97.9 F 67 24 98/52 98 10/15/22 23:45 66 24 98/52 98 10/15/22 23:30 70 23 97/52 98 10/15/22 23:15 70 26 H 105/58 98 10/15/22 23:09 70 25 H 105/58 98 10/15/22 23:00 74 27 H 97/56 98 10/15/22 22:45 71 18 97/56 99 10/15/22 22:30 72 26 H 89/59 99 10/15/22 22:15 73 27 H 98/69 99 10/15/22 22:00 73 25 H 98/52 99 10/15/22 21:45 71 27 H 98/52 98 10/15/22 21:30 114 H 26 H 116/85 98 10/15/22 21:15 72 28 H 102/48 97 10/15/22 21:00 72 28 H 97/43 97 10/15/22 20:45 73 28 H 97/43 97 10/15/22 20:30 73 27 H 97/51 97 10/15/22 20:15 73 48 H 98/51 98 10/15/22 20:00 97.7 F 75 33 H 105/72 98 10/15/22 19:45 93 38 H 105/72 99 10/15/22 19:30 82 21 98/66 98 10/15/22 19:15 86 27 H 95/60 99 10/15/22 19:00 75 21 97/52 97 10/15/22 18:45 71 29 H 98 10/15/22 18:41 98.7 F 22 97/52 96 10/15/22 18:30 73 33 H 92/48 98 10/15/22 18:15 73 30 H 92/52 98 10/15/22 18:00 76 34 H 100/58 97 10/15/22 17:45 77 36 H 100/58 97 10/15/22 17:30 76 34 H 91/48 97 10/15/22 17:25 98.6 F 32 H 100/58 10/15/22 17:15 78 19 107/57 97 10/15/22 17:14 98.7 F 22 107/57 10/15/22 17:00 91 18 103/84 97 10/15/22 16:45 105 H 13 103/84 96 10/15/22 16:30 98.6 F 83 18 96/56 98 10/15/22 15:44 138 H 24 130/89 98 10/15/22 15:00 140 H 26 H 148/96 96 10/15/22 14:00 100 20 110/68 97 10/15/22 13:23 111 H 18 132/86 93 L 10/15/22 11:40 98.4 F 100 24 139/92 100 10/15/22 10:57 98.9 F 96 18 116/78 96 Intake and Output 10/15/22 10/16/22 10/16/22 22:59 06:59 14:59 Intake Total 261.945 1621.079 895 Output Total 2225 1190 450 Balance -1275.273 -139.921 445 Intake: IV 875 875 250 Lactated Ringers 1,000 ml 875 875 250 @ 125 mls/hr IV .Q8H10M ONE with Potassium Chloride 40 meq Rx#: [id number] Intake, IV Titration 74.727 175.079 525 Amount Dexmedetomidine/0.9% NaCl 74.727 50.079 (Pmx) 400 mcg In Empty Bag 1 bag @ 0.2 MCG/KG/HR 2.835 mls/hr IV .Q24H [facility] Rx#:[id number] Lactated Ringers 1,000 ml 125 125 @ 125 mls/hr IV .Q8H10M ONE with Potassium Chloride 40 meq Rx#: [id number] Potassium Chloride 10 meq 100 In Water For Injection 1 100ml.bag @ 100 mls/hr IVPB Q1HR [facility] Rx#: [id number] Vancomycin 1,000 mg In 250 Sodium Chloride 0.9% 250 ml @ 125 mls/hr IVPB Q24HR [facility] Rx#:[id number] cefTRIAXone 1 gm In 50 Sodium Chloride 0.9% 50 ml @ 100 mls/hr IVPB Q24HR [facility] Rx#:[id number] Oral 120 Output: Urine 2225 1190 450 Other: Voiding Method Indwelling Catheter Indwelling Catheter # Bowel Movements 1 1 Weight 56.699 kg 47.3 kg Results - Lab Results Most recent lab results Calcium 8.1 mg/dL (8.4-10.2) L 10/16/22 06:53 Phosphorus 6.0 mg/dL (2.5-4.5) H 10/15/22 07:39 Magnesium 2.8 mg/dL (1.6-2.3) H 10/15/22 07:39 10/16/22 04:53 10/16/22 06:53 Assessment and Plan Plan: Assessment: 1. Acute kidney injury mostly prerenal secondary to hypovolemia improving with IV hydration. Creatinine was 3.13 on admission and is 1.68 today. Unknown baseline renal function. 2. Hypokalemia secondary to poor intake and intracellular shifting due to alkalosis. 3. Metabolic alkalosis secondary to vomiting, volume contraction, hypokalemia. Hypochloremia will also contribute to metabolic alkalosis by preventing bicarb secretion. 4. Hypovolemic hyponatremia improved with IV hydration. 6. Mental status changes. Unclear cause. Neurology following. 7. Rhabdomyolysis due to immobility. Plan: Change IV fluids to normal saline at 150 mL an hour. Continue to replace potassium aggressively. Continue to monitor renal function and urine output. Avoid nephrotoxins. Follow-up cultures. Thank you for the consultation. I will continue to follow the patient with you during his hospital stay.
--- NOTE | 2022-10-16 10:08 | P.PN ---
Subjective Progress Note Date: 10/16/22 Principal diagnosis: Severe agitation. Pulmonary/critical care consult dated 10/15/2022. 27-year-old male, brought in by EMS, for mental status changes. He apparently was found at 4:30 in the morning, by his mother, on the floor, and unresponsive or poorly responsive. The patient was very agitated, kicking and screaming and flailing about. He was last seen to be normal about 3:30 the previous day. The patient apparently does not have any known medical history other than a bleeding ulcer for which she takes Prevacid. He apparently does not drink or smoke excessively, but does smoke marijuana. According to his mother, he has no significant past medical history. Denies hypertension, hyperlipidemia, diabetes, etc. According to the ER elizabeth, the patient does have a prior history of pericarditis. And also was told that he has a history of cyclic nausea and vomiting, due to marijuana use. He apparently used to drink socially/beer, but quit drinking in August. The patient is seen in the emergency department. He is on room air. Getting LR at 125 mL an hour. His drug screen was positive for marijuana. He himself can provide no additional history. He is extremely agitated flailing about in bed. He is restrained. We are going to start him on some dexmedetomidine, and transfer him to the intensive care unit. White count 51.1, hemoglobin 20.1, hematocrit 53.2, and platelet count 400,000. Coagulation studies were normal. Venous blood gases show pCO2 of 36, and a pH of 7.71. Sodium 128, potassium 2.1, chloride 76, CO2 40, anion gap 12, BUN 58, creatinine 2.42. CK 3001. Troponin is 0.735. Albumin 5.5. Alcohol level less than 10. Screening for influenza A, and influenza B, or negative. Testing for RSV, and coronavirus were negative. Drug screen was positive for THC. Abdominal x-ray shows no obstruction. Chest x-ray was normal. Brain CT showed nothing acute. Facial CT was negative. Chest abdomen and pelvic CT was negative. Progress note dated 10/16/2022. 27-year-old male seen in the emergency room yesterday. He was brought in by EMS for severe agitation. He was found by his mother on the floor, and he been there for at least 8 hours, and maybe longer. Anyway, the patient was transferred to the ICU for better management and monitoring. His potassium was quite low and needed aggressive replacement. In addition, because of his agitation, he was given dexmedetomidine, and in addition, both Ativan and Haldol. Currently, he is seen in room 254. He is on 2 L of oxygen. Is getting lactated Ringer's at 125 mL an hour. Potassium is up to 2.9. He is getting dexmedetomidine at 0.8 mcg/kg/h. He is on vancomycin and ceftriaxone. White count 16.3 hemoglobin 14.1 hematocrit 39.3 and platelet count 295,000. Sodium 1 33, potassium 2.9, chlorides 90, CO2 36, BUN 52, and creatinine 1.68. CK is 5834. Objective - Vital Signs Vital signs: Vital Signs Temp 97.4 F L 10/16/22 08:00 Pulse 70 10/16/22 09:30 Resp 23 10/16/22 09:30 BP 115/81 10/16/22 09:30 Pulse Ox 96 10/16/22 09:30 FiO2 Intake & Output 10/15/22 10/16/22 10/16/22 18:59 06:59 18:59 Intake Total 910.083 4126.102 895 Output Total 1860 1555 450 Balance -1465.296 50.102 445 Weight 56.699 kg 47.3 kg Intake: IV 375 1375 250 Lactated Ringers 1,000 ml 375 1375 250 @ 125 mls/hr IV .Q8H10M ONE with Potassium Chloride 40 meq Rx#: [id number] Intake, IV Titration 19.704 230.102 525 Amount Dexmedetomidine/0.9% NaCl 19.704 105.102 (Pmx) 400 mcg In Empty Bag 1 bag @ 0.2 MCG/KG/HR 2.835 mls/hr IV .Q24H [facility] Rx#:[id number] Lactated Ringers 1,000 ml 125 125 @ 125 mls/hr IV .Q8H10M ONE with Potassium Chloride 40 meq Rx#: [id number] Potassium Chloride 10 meq 100 In Water For Injection 1 100ml.bag @ 100 mls/hr IVPB Q1HR [facility] Rx#: [id number] Vancomycin 1,000 mg In 250 Sodium Chloride 0.9% 250 ml @ 125 mls/hr IVPB Q24HR [facility] Rx#:[id number] cefTRIAXone 1 gm In 50 Sodium Chloride 0.9% 50 ml @ 100 mls/hr IVPB Q24HR [facility] Rx#:[id number] Oral 120 Output: Urine 1860 1555 450 Other: Voiding Method Indwelling Catheter Indwelling Catheter # Bowel Movements 1 - Exam Cough, resting, currently on 2 L of oxygen. HEENT examination is grossly unremarkable. Facial bruises and lacerations noted. Neck supple. Full range of motion. No adenopathy thyromegaly or neck vein distention. Cardiovascular examination reveals regular rhythm rate. S1-S2 normal. No S3 or S4. No discernible murmur noted. Heart rate 70 bpm. Lungs reveal mostly clear breath sounds. Breath sounds are equal bilaterally. Minimal scattered rhonchi. No wheezes or crackles. 2 L saturation is 97%. Abdomen soft, without masses. Extremities are intact. No cyanosis clubbing or edema. Skin is without rash or lesion. Neurologic examination appears relatively normal. - Labs CBC & Chem 7: 10/16/22 04:53 10/16/22 06:53 Labs: Abnormal Lab Results - Last 24 Hours (Table) 10/15/22 10/15/22 10/15/22 Range/Units 11:30 11:30 21:48 WBC (3.8-10.6) k/uL RBC (4.30-5.90) m/uL Neutrophils # (1.3-7.7) k/uL Monocytes # (0-1.0) k/uL Sodium 128 L (137-145) mmol/L Potassium 2.1 L* (3.5-5.1) mmol/L Chloride 76 L (98-107) mmol/L Carbon Dioxide 40 H (22-30) mmol/L BUN 58 H (9-20) mg/dL Creatinine 2.42 H (0.66-1.25) mg/dL Glucose 122 H (74-99) mg/dL Calcium 7.7 L (8.4-10.2) mg/dL Creatine Kinase (55-170) U/L CK-MB (CK-2) 41.9 H (0.0-2.4) ng/mL Troponin I 0.848 H* (0.000-0.034) ng/mL 10/15/22 10/15/2222 Range/Units 21:48 21:48 04:53 WBC (3.8-10.6) k/uL RBC (4.30-5.90) m/uL Neutrophils # (1.3-7.7) k/uL Monocytes # (0-1.0) k/uL Sodium 129 L (137-145) mmol/L Potassium 2.4 L* (3.5-5.1) mmol/L Chloride 85 L (98-107) mmol/L Carbon Dioxide 37 H (22-30) mmol/L BUN 56 H (9-20) mg/dL Creatinine 1.99 H 1.81 H (0.66-1.25) mg/dL Glucose (74-99) mg/dL Calcium 7.9 L (8.4-10.2) mg/dL Creatine Kinase (55-170) U/L CK-MB (CK-2) 42.4 H (0.0-2.4) ng/mL Troponin I (0.000-0.034) ng/mL 10/16/22 10/16/22 10/16/22 Range/Units 04:53 06:53 06:58 WBC 16.3 H (3.8-10.6) k/uL RBC 4.25 L (4.30-5.90) m/uL Neutrophils # 13.5 H (1.3-7.7) k/uL Monocytes # 1.1 H (0-1.0) k/uL Sodium 133 L (137-145) mmol/L Potassium 2.9 L (3.5-5.1) mmol/L Chloride 90 L (98-107) mmol/L Carbon Dioxide 36 H (22-30) mmol/L BUN 52 H (9-20) mg/dL Creatinine 1.68 H (0.66-1.25) mg/dL Glucose (74-99) mg/dL Calcium 8.1 L (8.4-10.2) mg/dL Creatine Kinase 5834 H* (55-170) U/L CK-MB (CK-2) (0.0-2.4) ng/mL Troponin I (0.000-0.034) ng/mL Microbiology - Last 24 Hours (Table) 10/15/22 07:30 Blood Culture - Preliminary Blood No Growth after 24 hours 10/15/22 07:15 Blood Culture - Preliminary Blood No Growth after 24 hours Assessment and Plan Assessment: Extreme agitation, with mental status changes of unclear etiology, much better this morning. Severe contraction alkalosis secondary to dehydration. Severe hypokalemia. Prerenal azotemia/acute kidney injury. Hyponatremia. Rhabdomyolysis. Lactic acidemia. History of bleeding ulcer. History of pericarditis. History of cyclic nausea and vomiting, secondary to marijuana use. Plan: Plan dated 10/15/2022. The patient is seen in the emergency department. He will be transferred to the intensive care unit for further monitoring and management. For his agitation, we'll place him on dexmedetomidine. I have spoken to the ICU charge nurse already. And, we will aggressively replace his potassium. Additional re commendations and suggestions are forthcoming. He needs significant volume repletion. He has a severe contraction alkalosis. He is also suffering from rhabdomyolysis. Prognosis is guarded. Once the patient is better controlled, consider a lumbar puncture to rule out CSF infection. Plan dated 10/16/2022. The patient remains on dexmedetomidine. The patient did receive both Ativan and Haldol last night. Potassium is up to 2.9. He is on vancomycin and ceftriaxone. He is getting lactated Ringer's at 125 mL an hour. Prognosis is guarded. Still don't have a good explanation for why he was so profoundly agitated in the emergency department yesterday. I did mention in my note that a lumbar puncture might be in order, to rule out meningitis, and or viral encephalitis. The patient is ready being treated for meningitis with vancomycin and ceftriaxone. We will continue to follow. I did tell the nurse, that the gold today to try to get him off the dexmedetomidine, and controlled him just with Haldol and Ativan. Time with Patient: Greater than 30
--- NOTE | 2022-10-16 10:22 | P.PN ---
Subjective Progress Note Date: 10/16/22 Principal diagnosis: AMS Hospital Course: 27-year-old with history of marijuana use, cannabis hyperemesis syndrome presenting with acute encephalopathy. In the ED, he was tachycardic and febrile. His blood work showed WBC 51.1, hemoglobin 20.1, sodium 124, potassium 3.0, chloride 54, bicarb 41, BUN 63, creatinine 2.13, lactic acid 10.4, CK 3000, troponin 0.7, pH 7.71, pCO2 is 36. His covarrubias CT was negative. EKG showed sinus tachycardia. He was given 3 L of IV fluids, ziprasidone, Ativan, ceftriaxone and vancomycin. He was admitted for acute encephalopathy and severe metabolic derangements. He currently remains in the ICU. Electrolytes improving. Subjective: Patient seen and examined at bedside. Overnight patient continue to have periods of agitation. He required Precedex drip, intermittent Haldol. Per nursing, patient has been having stools and good urine output. Pertinent positives and negatives as discussed above, a complete review of systems was performed and all other systems are negative. Vitals Signs Reviewed. General: No acute distress, appears at stated age, somnolent in 2 point soft (upper) restraints Derm: warm, dry Head: atraumatic, normocephalic, symmetric Eyes: Not opening eyes spontaneously, pupils equal round and reactive ENT: Nose and ears atraumatic Neck: No thyromegaly, supple Mouth: no lip lesion, mucus membranes moist Cardiovascular: S1S2 reg, no murmur, no edema Lungs: clear to auscultation bilateral, no rhonchi, no rales, no wheeze, no accessory muscle use Abdominal: soft, nontender to palpation, no guarding, no appreciable organomegaly Ext: Moving all extremities Neuro: Not opening eyes spontaneously, moves all extremities, not following commands Psych: Unable to assess Assessment and Plan: Acute metabolic encephalopathy Severe dehydration Nausea and vomiting Cannabis hyperemesis syndrome Hemoconcentration Leukocytosis Hyponatremia Hypokalemia Hypochloremic metabolic alkalosis Acute kidney injury Lactic acidosis Transaminitis Elevated CK, rhabdomyolysis Elevated troponin Sinus tachycardia -Currently on Precedex drip, plan is to switch him to when necessary Haldol -Negative serum alcohol -Covarrubias CT negative -Respiratory viral panel negative -ICU, nephrology, cardiology, neurology consulted -Continue to replete potassium, improving -Continue aggressive IV fluid resuscitation -Continue antibiotics for now, however unlikely to be meningitis/encephalitis -If no improvement in mental status after correction of electrolytes, consider LP -No cardiac interventions at the moment per cardiology -Echo pending DVT ppx: Subcu heparin Code status: Full code Anticipated discharge place: Pending Clinical course Anticipated discharge time: Pending clinical course Objective - Vital Signs Vital signs: Vital Signs Temp 97.4 F L 10/16/22 08:00 Pulse 70 10/16/22 09:30 Resp 23 10/16/22 09:30 BP 115/81 10/16/22 09:30 Pulse Ox 96 10/16/22 09:30 FiO2 Intake & Output 10/15/22 10/16/22 10/16/22 18:59 06:59 18:59 Intake Total 832.802 2331.102 895 Output Total 1860 1555 450 Balance -1465.296 50.102 445 Weight 56.699 kg 47.3 kg Intake: IV 375 1375 250 Lactated Ringers 1,000 ml 375 1375 250 @ 125 mls/hr IV .Q8H10M ONE with Potassium Chloride 40 meq Rx#: [id number] Intake, IV Titration 19.704 230.102 525 Amount Dexmedetomidine/0.9% NaCl 19.704 105.102 (Pmx) 400 mcg In Empty Bag 1 bag @ 0.2 MCG/KG/HR 2.835 mls/hr IV .Q24H [facility] Rx#:[id number] Lactated Ringers 1,000 ml 125 125 @ 125 mls/hr IV .Q8H10M ONE with Potassium Chloride 40 meq Rx#: [id number] Potassium Chloride 10 meq 100 In Water For Injection 1 100ml.bag @ 100 mls/hr IVPB Q1HR [facility] Rx#: [id number] Vancomycin 1,000 mg In 250 Sodium Chloride 0.9% 250 ml @ 125 mls/hr IVPB Q24HR [facility] Rx#:[id number] cefTRIAXone 1 gm In 50 Sodium Chloride 0.9% 50 ml @ 100 mls/hr IVPB Q24HR [facility] Rx#:[id number] Oral 120 Output: Urine 1860 1555 450 Other: Voiding Method Indwelling Catheter Indwelling Catheter # Bowel Movements 1 - Labs CBC & Chem 7: 10/16/22 04:53 10/16/22 06:53 Labs: Abnormal Lab Results - Last 24 Hours (Table) 10/15/22 10/15/22 10/15/22 Range/Units 11:30 11:30 21:48 WBC (3.8-10.6) k/uL RBC (4.30-5.90) m/uL Neutrophils # (1.3-7.7) k/uL Monocytes # (0-1.0) k/uL Sodium 128 L (137-145) mmol/L Potassium 2.1 L* (3.5-5.1) mmol/L Chloride 76 L (98-107) mmol/L Carbon Dioxide 40 H (22-30) mmol/L BUN 58 H (9-20) mg/dL Creatinine 2.42 H (0.66-1.25) mg/dL Glucose 122 H (74-99) mg/dL Calcium 7.7 L (8.4-10.2) mg/dL Creatine Kinase (55-170) U/L CK-MB (CK-2) 41.9 H (0.0-2.4) ng/mL Troponin I 0.848 H* (0.000-0.034) ng/mL 10/15/22 10/15/22 10/16/22 Range/Units 21:48 21:48 04:53 WBC (3.8-10.6) k/uL RBC (4.30-5.90) m/uL Neutrophils # (1.3-7.7) k/uL Monocytes # (0-1.0) k/uL Sodium 129 L (137-145) mmol/L Potassium 2.4 L* (3.5-5.1) mmol/L Chloride 85 L (98-107) mmol/L Carbon Dioxide 37 H (22-30) mmol/L BUN 56 H (9-20) mg/dL Creatinine 1.99 H 1.81 H (0.66-1.25) mg/dL Glucose (74-99) mg/dL Calcium 7.9 L (8.4-10.2) mg/dL Creatine Kinase (55-170) U/L CK-MB (CK-2) 42.4 H (0.0-2.4) ng/mL Troponin I (0.000-0.034) ng/mL 10/16/22 10/16/22 10/16/22 Range/Units 04:53 06:53 06:58 WBC 16.3 H (3.8-10.6) k/uL RBC 4.25 L (4.30-5.90) m/uL Neutrophils # 13.5 H (1.3-7.7) k/uL Monocytes # 1.1 H (0-1.0) k/uL Sodium 133 L (137-145) mmol/L Potassium 2.9 L (3.5-5.1) mmol/L Chloride 90 L (98-107) mmol/L Carbon Dioxide 36 H (22-30) mmol/L BUN 52 H (9-20) mg/dL Creatinine 1.68 H (0.66-1.25) mg/dL Glucose (74-99) mg/dL Calcium 8.1 L (8.4-10.2) mg/dL Creatine Kinase 5834 H* (55-170) U/L CK-MB (CK-2) (0.0-2.4) ng/mL Troponin I (0.000-0.034) ng/mL Microbiology - Last 24 Hours (Table) 10/15/22 07:30 Blood Culture - Preliminary Blood No Growth after 24 hours 10/15/22 07:15 Blood Culture - Preliminary Blood No Growth after 24 hours
[2022-10-16] MEDS: SODIUM CHLORIDE 0.9% 1,000 ML IV SCH ×2 (10:33→17:17)
--- NOTE | 2022-10-16 15:05 | CA ---
Transthoracic Echo Report Name: Florentino Zaragoza Age: 27 Gender: M : 1995 Exam Date: 10/15/2022 13:09 Exam Location: [facility] Ht (in): 65 Wt (lb): 125 Ordering Physician: David Rudolph DO Attending/Referring Phys: Culinary Arts Instructor Isabella Vee RDCS Procedure CPT: Indications: cardiac evaluation, elevated troponin Cardiac Hx: Technical Quality: Fair Contrast 1: Total Dose (mL): Contrast 2: Total Dose (mL): MEASUREMENTS (Male / Female) Normal Values 2D ECHO LV Diastolic Diameter PLAX 3.2 cm 4.2 - 5.9 / 3.9 - 5.3 cm LV Systolic Diameter PLAX 1.7 cm IVS Diastolic Thickness 1.2 cm 0.6 - 1.0 / 0.6 - 0.9 cm LVPW Diastolic Thickness 1.2 cm 0.6 - 1.0 / 0.6 - 0.9 cm LV Relative Wall Thickness 0.7 DOPPLER AV Peak Velocity 158.6 cm/s AV Peak Gradient 10.1 mmHg FINDINGS Left Ventricle Normal Left ventricular size, wall thickness, systolic function with no obvious regional wall motion abnormalities. Normal Left ventricular diastolic filling pattern. Left ventricular ejection fraction is estimated at 55 %. Right Ventricle Normal right ventricular size and function. Right Atrium Normal right atrial size. Left Atrium Normal left atrial size. Mitral Valve Structurally normal mitral valve. No mitral stenosis, regurgitation or prolapse. Aortic Valve No aortic valve stenosis or regurgitation. Tricuspid Valve Structurally normal tricuspid valve. Mild tricuspid regurgitation. Pulmonic Valve Trace pulmonic regurgitation. Pericardium No pericardial effusion. Bright echogenic pericardium, patient has a history of pericarditis. Aorta Normal size aortic root and proximal ascending aorta. CONCLUSIONS Normal left ventricular dimension and systolic function Previewed by: Dr. Brady Lau MD (Electronically Signed) Final Date: 16 October 2022 15:04
[2022-10-16] MEDS: LORazepam 2 MG/ML INJ IV PRN ×2 (16:03→22:17)
[2022-10-16 16:50] LABS: Potassium 3.4 mmol/L (3.5-5.1)
--- NOTE | 2022-10-16 16:52 | P.CNNES ---
History of Present Illness Consult date: 10/16/22 History of Present Illness: The patient is a 27-year-old male who is seen in neurologic consultation on October 16, 2022, via teleneurology. The patient was reportedly brought in by EMS for altered mental status. According to the emergency department note, the patient's mother "reported that she was hearing banging in the apartment that is adjacent to the home where she lives and when she went into the apartment to check on him. She found him to be lying on the ground unresponsive and kicking and flailing his arms about". The patient's girlfriend, who is present at the bedside at time of the evaluation reports that the patient is been "getting sick" every 3 months or so. She reports that the patient has been having nausea and vomiting and "cramping up" of his entire body. He has reportedly been not feeling well for approximately 3 days now, with increase in sleeping, nausea or vomiting and body aches. The patient's girlfriend is not sure if he has been vomiting or not. She believes that he may have been vomiting while she was at work, over the past week. The patient was admitted to a different hospital for marijuana hyperemesis syndrome. His symptoms were similar with the exception of the this severe confusion and unresponsiveness. There is no reported history of seizure. According to the patient's girlfriend, the patient is doing better today. He is more lucid however continues to be somewhat confused and lethargic. According to the girlfriend, their apartment was in marked disarray. She reports that there was blood on the floor. The girlfriend reports that she and the patient have decreased the frequency of marijuana use. She says they now only smoke one or 2 joints per day. The patient also has stopped drinking alcohol completely. CT scan of the brain was performed in the emergency department. There is no ev idence of acute hemorrhage or infarct. CT scan of the face revealed no signs of fracture. CT scan of the abdomen and pelvis revealed no abnormalities or fracture. Laboratory evaluation revealed a markedly elevated white blood cell count of 51.1. Hemoglobin was markedly elevated at 20. Potassium was found to be extremely low at 2.1 and sodium low at 128 Review of Systems ROS unobtainable: due to mental status Past Medical History Past Medical History: GI Bleed Additional Past Medical History / Comment(s): pericarditis History of Any Multi-Drug Resistant Organisms: None Reported Past Surgical History: No Surgical Hx Reported Past Psychological History: No Psychological Hx Reported Smoking Status: Never smoker Past Alcohol Use History: None Reported Past Drug Use History: Marijuana Medications and Allergies Home Medications Medication Instructions Recorded Confirmed Type No Known Home Medications 10/15/22 10/15/22 History Allergies Allergy/AdvReac Type Severity Reaction Status Date / Time No Known Allergies Allergy Unverified 10/15/22 12:20 Physical Examination - Vital Signs Vital Signs: Vital Signs Temp Pulse Resp BP BP Pulse Ox 10/16/22 12:00 98 F 69 25 H 114/61 97 10/16/22 11:30 80 28 H 101/68 95 10/16/22 11:00 61 23 94/56 96 10/16/22 10:30 66 24 97/61 95 10/16/22 10:00 69 23 106/67 95 10/16/22 09:30 70 23 115/81 96 10/16/22 09:00 76 23 108/64 97 10/16/22 08:30 64 21 102/61 97 10/16/22 08:00 97.4 F L 64 22 112/63 97 10/16/22 07:30 65 27 H 108/65 94 L 10/16/22 07:00 67 24 116/77 95 10/16/22 06:45 65 22 116/77 94 L 10/16/22 06:30 92 12 98/60 95 10/16/22 06:15 77 21 98/60 93 L 10/16/22 06:00 68 24 93/55 95 10/16/22 05:45 71 22 93/55 96 10/16/22 05:30 70 23 107/61 97 10/16/22 05:15 70 24 107/61 98 10/16/22 05:00 66 22 97 10/16/22 04:45 69 24 99 10/16/22 04:30 86 14 87/55 100 10/16/22 04:15 60 20 87/55 98 10/16/22 04:00 98.1 F 59 L 20 97/57 92 L 10/16/22 03:45 62 20 97/57 98 10/16/22 03:30 61 20 101/62 10/16/22 03:15 61 22 101/62 98 12/11/22 03:00 61 22 105/73 90 L 10/16/22 02:45 71 16 105/73 100 10/16/22 02:30 67 13 93/56 100 10/16/22 02:15 61 21 93/56 98 10/16/22 02:00 63 21 95/59 98 10/16/22 01:45 62 24 95/59 98 10/16/22 01:30 61 22 94/56 98 10/16/22 01:15 62 24 94/56 98 10/16/22 01:00 66 25 H 102/57 98 10/16/22 00:45 67 21 102/57 98 10/16/22 00:30 67 22 93/58 99 10/16/22 00:15 67 11 L 92/56 10/16/22 00:00 97.9 F 67 24 98/52 98 10/15/22 23:45 66 24 98/52 98 10/15/22 23:30 70 23 97/52 98 10/15/22 23:15 70 26 H 105/58 98 10/15/22 23:09 70 25 H 105/58 98 10/15/22 23:00 74 27 H 97/56 98 10/15/22 22:45 71 18 97/56 99 10/15/22 22:30 72 26 H 89/59 99 10/15/22 22:15 73 27 H 98/69 99 10/15/22 22:00 73 25 H 98/52 99 10/15/22 21:45 71 27 H 98/52 98 10/15/22 21:30 114 H 26 H 116/85 98 10/15/22 21:15 72 28 H 102/48 97 10/15/22 21:00 72 28 H 97/43 97 10/15/22 20:45 73 28 H 97/43 97 10/15/22 20:30 73 27 H 97/51 97 10/15/22 20:15 73 48 H 98/51 98 10/15/22 20:00 97.7 F 75 33 H 105/72 98 10/15/22 19:45 93 38 H 105/72 99 10/15/22 19:30 82 21 98/66 98 10/15/22 19:15 86 27 H 95/60 99 10/15/22 19:00 75 21 97/52 97 10/15/22 18:45 71 29 H 98 10/15/22 18:41 98.7 F 22 97/52 96 10/15/22 18:30 73 33 H 92/48 98 10/15/22 18:15 73 30 H 92/52 98 10/15/22 18:00 76 34 H 100/58 97 10/15/22 17:45 77 36 H 100/58 97 10/15/22 17:30 76 34 H 91/48 97 10/15/22 17:25 98.6 F 32 H 100/58 10/15/22 17:15 78 19 107/57 97 10/15/22 17:14 98.7 F 22 107/57 10/15/22 17:00 91 18 103/84 97 10/15/22 16:45 105 H 13 103/84 96 10/15/22 16:30 98.6 F 83 18 96/56 98 10/15/22 15:44 138 H 24 130/89 98 10/15/22 15:00 140 H 26 H 148/96 96 10/15/22 14:00 100 20 110/68 97 10/15/22 13:23 111 H 18 132/86 93 L Intake and Output 10/15/22 10/16/22 10/16/22 22:59 06:59 14:59 Intake Total 717.143 0466.079 1434.901 Output Total 2225 1190 1000 Balance -1275.273 -139.921 434.901 Intake: IV 875 875 250 Lactated Ringers 1,000 ml 875 875 250 @ 125 mls/hr IV .Q8H10M ONE with Potassium Chloride 40 meq Rx#: [id number] Intake, IV Titration 74.727 285.315 5402.901 Amount Dexmedetomidine/0.9% NaCl 74.727 50.079 39.901 (Pmx) 400 mcg In Empty Bag 1 bag @ 0.2 MCG/KG/HR 2.835 mls/hr IV .Q24H [facility] Rx#:[id number] Lactated Ringers 1,000 ml 125 125 @ 125 mls/hr IV .Q8H10M ONE with Potassium Chloride 40 meq Rx#: [id number] Potassium Chloride 10 meq 300 In Water For Injection 1 100ml.bag @ 100 mls/hr IVPB Q1HR [facility] Rx#: [id number] Sodium Chloride 0.9% 1, 300 000 ml @ 150 mls/hr IV . Q6H40M [facility] Rx#:[id number] Vancomycin 1,000 mg In 250 Sodium Chloride 0.9% 250 ml @ 125 mls/hr IVPB Q24HR [facility] Rx#:[id number] cefTRIAXone 1 gm In 50 Sodium Chloride 0.9% 50 ml @ 100 mls/hr IVPB Q24HR [facility] Rx#:[id number] Oral 120 Output: Urine 2225 1190 1000 Other: Voiding Method Indwelling Catheter Indwelling Catheter # Bowel Movements 1 1 1 Weight 56.699 kg 47.3 kg Gen.: The patient is reclining in the bed. He has difficulty staying awake. He is in no acute distress. HEENT: Head is normocephalic. There is evidence of ecchymosis and abrasions about the face. There is no scleral icterus. Fundus not visualized. Mucous membranes are moist. There appears to be evidence of ulcers on the right lateral aspect of the tongue. Neck: Supple without carotid bruits Heart: Regular rate and rhythm Extremities: Without edema Neurological examination Mental status: The patient is able to state his name, date of . He states his age to be "26". He initially reports the year to be "1992". When asked again and cued, the patient is able to correctly state the year. He reports the month to be "September". 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 The patient's speech is dysarthric. Cranial nerves: Pupils are 1 mm and sluggishly reactive. Visual martínez are difficult to assess secondary to lethargy. The patient does blink to threat. Extraocular movements are intact. There is no nystagmus. Facial sensation is intact. There is no obvious facial asymmetry. Hearing is grossly intact. Uvula and palate are midline. Shoulder shrug is symmetric. Tongue protrudes midline. There is no evidence of bite. Motor: Strength is 5/5 throughout Coordination: Finger to nose and rapid alternating movements are intact Sensation: Grossly intact to light touch throughout Deep tendon reflexes: Difficult to assess as the patient be begins to become agitated Gait: Not assessed Results - Laboratory Findings CBC and BMP: 10/16/22 04:53 10/16/22 06:53 Abnormal Lab Findings: Abnormal Labs 10/15/22 10/15/22 10/15/22 06:21 06:21 06:34 WBC 51.1 H* RBC 6.05 H Hgb 20.1 H* Hct 53.2 H MCHC 37.8 H Neutrophils # 44.9 H Monocytes # 3.8 H Basophils # 0.4 H VBG pH VBG pCO2 VBG HCO3 Sodium Potassium Chloride Carbon Dioxide BUN Creatinine Glucose Plasma Lactic Acid Marshall Calcium Phosphorus Magnesium Total Bilirubin AST ALT Alkaline Phosphatase Creatine Kinase CK-MB (CK-2) Troponin I Total Protein Albumin Urine Protein 2+ H Urine Ketones 1+ H Urine Blood Small H Hyaline Casts 4 H U Marijuana (THC) Screen Detected H 10/15/22 10/15/22 10/15/22 06:34 06:34 06:34 WBC RBC Hgb Hct MCHC Neutrophils # Monocytes # Basophils # VBG pH VBG pCO2 VBG HCO3 Sodium 124 L Potassium 3.0 L Chloride 54 L* Carbon Dioxide 41 H* BUN 63 H Creatinine 3.13 H Glucose 119 H Plasma Lactic Acid Marshall 10.4 H* Calcium 10.3 H Phosphorus Magnesium Total Bilirubin 3.5 H AST 151 H ALT 65 H Alkaline Phosphatase 157 H Creatine Kinase CK-MB (CK-2) Troponin I 0.735 H* Total Protein 8.8 H Albumin 5.5 H Urine Protein Urine Ketones Urine Blood Hyaline Casts U Marijuana (THC) Screen 10/15/22 10/15/22 10/15/22 06:34 07:30 07:39 WBC RBC Hgb Hct MCHC Neutrophils # Monocytes # Basophils # VBG pH 7.71 H* VBG pCO2 36 L VBG HCO3 47 H Sodium Potassium Chloride Carbon Dioxide BUN Creatinine Glucose Plasma Lactic Acid Marshall Calcium Phosphorus 6.0 H Magnesium 2.8 H Total Bilirubin AST ALT Alkaline Phosphatase Creatine Kinase 3001 H* CK-MB (CK-2) Troponin I Total Protein Albumin Urine Protein Urine Ketones Urine Blood Hyaline Casts U Marijuana (THC) Screen 10/15/22 10/15/22 10/15/22 11:30 11:30 21:48 WBC RBC Hgb Hct MCHC Neutrophils # Monocytes # Basophils # VBG pH VBG pCO2 VBG HCO3 Sodium 128 L Potassium 2.1 L* Chloride 76 L Carbon Dioxide 40 H BUN 58 H Creatinine 2.42 H Glucose 122 H Plasma Lactic Acid Marshall Calcium 7.7 L Phosphorus Magnesium Total Bilirubin AST ALT Alkaline Phosphatase Creatine Kinase CK-MB (CK-2) 41.9 H Troponin I 0.848 H* Total Protein Albumin Urine Protein Urine Ketones Urine Blood Hyaline Casts U Marijuana (THC) Screen 10/15/22 10/15/22 10/16/22 21:48 21:48 04:53 WBC RBC Hgb Hct MCHC Neutrophils # Monocytes # Basophils # VBG pH VBG pCO2 VBG HCO3 Sodium 129 L Potassium 2.4 L* Chloride 85 L Carbon Dioxide 37 H BUN 56 H Creatinine 1.99 H 1.81 H Glucose Plasma Lactic Acid Marshall Calcium 7.9 L Phosphorus Magnesium Total Bilirubin AST ALT Alkaline Phosphatase Creatine Kinase CK-MB (CK-2) 42.4 H Troponin I Total Protein Albumin Urine Protein Urine Ketones Urine Blood Hyaline Casts U Marijuana (THC) Screen 10/16/22 10/16/22 10/16/22 04:53 06:53 06:58 WBC 16.3 H RBC 4.25 L Hgb Hct MCHC Neutrophils # 13.5 H Monocytes # 1.1 H Basophils # VBG pH VBG pCO2 VBG HCO3 Sodium 133 L Potassium 2.9 L Chloride 90 L Carbon Dioxide 36 H BUN 52 H Creatinine 1.68 H Glucose Plasma Lactic Acid Marshall Calcium 8.1 L Phosphorus Magnesium Total Bilirubin AST ALT Alkaline Phosphatase Creatine Kinase 5834 H* CK-MB (CK-2) Troponin I Total Protein Albumin Urine Protein Urine Ketones Urine Blood Hyaline Casts U Marijuana (THC) Screen Assessment and Plan Assessment: 1. Toxic-metabolic encephalopathy, as a result of Marijuana hyperemesis syndrome, with hyponatremia, hypokalemia, 2. Possible unwitnessed seizure, with postictal state provoked by hyponatremia and/or hypokalemia 3. Marked dehydration 4. Leukocytosis Plan: 1. EEG has been ordered 2. The patient's girlfriend was advised that the only way to adequately treat/prevent marijuana hyperemesis syndrome is to stop using marijuana, simply cutting down on the usage is not effective 3. Consider repeat chest x-ray to rule out aspiration pneumonia as an etiology for the leukocytosis Thank you for allowing us to participate in the care of this patient Dr. Eduardo will assume neurologic coverage of this patient as of October 17, 2022 Time with Patient: Greater than 30 (Spent 35 minutes examining the patient and discussing findings and history with the patient's girlfriend and grandmother. An additional 25 minutes was spent reviewing labs, imaging reports, documentation and preparing this note)
[2022-10-16] MEDS ORDERED: Potassium Replacement Protocol 1 EACH MISC MISCELLANE PRN (17:03)
[2022-10-17] MEDS: HEPARIN SODIUM,PORCINE/PF 5,000 UNIT/0.5 ML SYRINGE SQ SCH ×4 (00:21→23:41)
[2022-10-17] MEDS: HALOPERIDOL LACTATE 5 MG/ML 1 ML VIAL IVP PRN ×4 (02:37→16:11)
[2022-10-17] MEDS: LORazepam 2 MG/ML INJ IV PRN ×2 (05:34→08:56)
[2022-10-17] MEDS: SODIUM CHLORIDE 0.9% 1,000 ML IV SCH ×4 (07:29→19:57)
[2022-10-17 07:41] LABS: African American GFR (CKD) >90 (>60 ml/min/1.73 sqM); Anion Gap 5 mmol/L; Blood Urea Nitrogen 20 mg/dL (9-20); Carbon Dioxide 31 mmol/L (22-30); Chloride 99 mmol/L (98-107); Glucose 97 mg/dL (74-99); Magnesium 1.9 mg/dL (1.6-2.3); Non-African American GFR(CKD) 78 (>60 ml/min/1.73 sqM); Potassium 3.2 mmol/L (3.5-5.1); Sodium 135 mmol/L (137-145)
[2022-10-17] MEDS ORDERED: Potassium Replacement Protocol 1 EACH MISC MISCELLANE PRN ×2 (08:04→09:01)
--- NOTE | 2022-10-17 08:56 | P.PN ---
Subjective Progress Note Date: 10/17/22 PROGRESS NOTE The patient is a 27-year-old male who presented with change in mental status, dehydration, acute renal injury with rhabdomyolysis. He had mild troponin elevation. He had evidence of toxic metabolic encephalopathy. He was receiving sedation. He continues to be somnolent. Answering some questions. Quite lethargic. He was diagnosed with hyper emesis syndrome related to the marijuana intake. He had an echocardiogram that showed a normal systolic function with mild tricuspid regurgitation. Hemodynamically he stable. He is in sinus mechanism. Medications: Haldol, subcu heparin, PHYSICAL EXAMINATION: Blood pressure 114/60 heart rate 85, severely lethargic LUNGS: Clear to auscultation HEART: Regular rate and rhythm, S1, S2. No S3. No systolic murmur ABDOMEN: Soft, nontender, no organomegaly EXTREMETIES: No edema LAB: Potassium 3.2, BUN 20, creatinine 1.25. CK down to 4238. IMPRESSION: 1. Metabolic encephalopathy 2. Marijuana use with hyperemesis 3. Acute renal injury resolved, dehydration and severe contraction alkalosis 4. Rhabdomyolysis 5. Mild troponin elevation representing type 2 event PLAN: 1. From the cardiac standpoint no further workup is needed 2. We will see him on as-needed basis 3. Please feel free to call us for any question Objective - Vital Signs Vital signs: Vital Signs Temp 99.0 F 10/17/22 04:00 Pulse 85 10/17/22 07:00 Resp 47 H 10/17/22 06:00 BP 114/67 10/17/22 07:00 Pulse Ox 93 L 10/17/22 07:36 FiO2 Intake & Output 10/16/22 10/17/22 10/17/22 18:59 06:59 18:59 Intake Total 3507.165 1837.375 150 Output Total 2340 2250 90 Balance 1167.165 -412.625 60 Weight 64 kg Intake: IV 250 Lactated Ringers 1,000 ml 250 @ 125 mls/hr IV .Q8H10M ONE with Potassium Chloride 40 meq Rx#: [id number] Intake, IV Titration 2657.165 1837.375 150 Amount Dexmedetomidine/0.9% NaCl 82.165 37.375 (Pmx) 400 mcg In Empty Bag 1 bag @ 0.2 MCG/KG/HR 2.835 mls/hr IV .Q24H [facility] Rx#:[id number] Lactated Ringers 1,000 ml 125 @ 125 mls/hr IV .Q8H10M ONE with Potassium Chloride 40 meq Rx#: [id number] Potassium Chloride 10 meq 600 In Water For Injection 1 100ml.bag @ 100 mls/hr IVPB Q1HR [facility] Rx#: [id number] Potassium Chloride 10 meq 200 In Water For Injection 1 100ml.bag @ 100 mls/hr IVPB Q1HR [facility] Rx#: [id number] Sodium Chloride 0.9% 1, 1350 1800 150 000 ml @ 150 mls/hr IV . Q6H40M [facility] Rx#:[id number] Vancomycin 1,000 mg In 250 Sodium Chloride 0.9% 250 ml @ 125 mls/hr IVPB Q24HR [facility] Rx#:[id number] cefTRIAXone 1 gm In 50 Sodium Chloride 0.9% 50 ml @ 100 mls/hr IVPB Q24HR [facility] Rx#:[id number] Oral 600 Output: Urine 2340 2250 90 Other: Voiding Method Indwelling Catheter Indwelling Catheter # Bowel Movements 1 1 - Labs CBC & Chem 7: 10/16/22 04:53 10/17/22 06:27 Labs: Abnormal Lab Results - Last 24 Hours (Table) 10/16/22 10/16/22 10/17/22 Range/Units 06:58 16:30 06:27 Sodium 135 L (137-145) mmol/L Potassium 3.4 L 3.2 L (3.5-5.1) mmol/L Carbon Dioxide 31 H (22-30) mmol/L Calcium 8.0 L (8.4-10.2) mg/dL Creatine Kinase 5834 H* 4238 H* (55-170) U/L Microbiology - Last 24 Hours (Table) 10/15/22 07:30 Blood Culture - Preliminary Blood No Growth after 24 hours 10/15/22 07:15 Blood Culture - Preliminary Blood No Growth after 24 hours
[2022-10-17] MEDS ORDERED: POTASSIUM CHLORIDE 10 MEQ in WATER FOR INJECTION 1 100ML.BAG IVPB SCH (09:00)
[2022-10-17] MEDS ORDERED: VANCOMYCIN 1,000 MG in SODIUM CHLORIDE 0.9% 250 ML IVPB SCH (09:00)
[2022-10-17] MEDS: POTASSIUM CHLORIDE ER 20 MEQ TAB.ER PO SCH ×4 (09:42→19:58)
--- NOTE | 2022-10-17 09:58 | XR ---
EXAMINATION TYPE: XR chest 1V portable DATE OF EXAM: 10/17/2022 9:43 AM COMPARISON: Chest radiographs from 10/15/2022 TECHNIQUE: XR chest 1V portable Portable AP radiograph of the chest. CLINICAL INDICATION:Male, 27 years old with history of hypoxia; FINDINGS: Lungs/Pleura: Hazy opacities throughout the left lung There is no evidence of pleural effusion, or pn eumothorax. Pulmonary vascularity: Unremarkable. Heart/mediastinum: Cardiomediastinal silhouette is unremarkable. Musculoskeletal: No acute osseous pathology. IMPRESSION: New airspace opacities throughout the left lung, correlate for pneumonia, consider mucous plugging an d or aspiration.
--- NOTE | 2022-10-17 11:01 | P.PN ---
Subjective Progress Note Date: 10/17/22 Principal diagnosis: AMS Hospital Course: 27-year-old with history of marijuana use, cannabis hyperemesis syndrome presenting with acute encephalopathy. In the ED, he was tachycardic and febrile. His blood work showed WBC 51.1, hemoglobin 20.1, sodium 124, potassium 3.0, chloride 54, bicarb 41, BUN 63, creatinine 2.13, lactic acid 10.4, CK 3000, troponin 0.7, pH 7.71, pCO2 is 36. His covarrubias CT was negative. EKG showed sinus tachycardia. He was given 3 L of IV fluids, ziprasidone, Ativan, ceftriaxone and vancomycin. He was admitted for acute encephalopathy and severe metabolic derangements. He currently remains in the ICU. Electrolytes improving. Renal function improving. Mental status improved. Remains on Precedex drip and receiving when necessary Ativan and Haldol. Neurology following. EEG pending. Patient was seen by cardiology. Echocardiogram showed normal systolic function. Nephrology following. Subjective: Patient seen and examined at bedside. Mental status has begun to improve slightly. Patient is able to respond to family. He denies any chest pain, shortness of breath, abdominal pain. Mahmood catheter is in place. Pertinent positives and negatives as discussed above, a complete review of systems was performed and all other systems are negative. Vitals Signs Reviewed. General: No acute distress, appears at stated age Derm: warm, dry Head: atraumatic, normocephalic, symmetric Eyes: Not opening eyes spontaneously, pupils equal round and reactive ENT: Nose and ears atraumatic Neck: No thyromegaly, supple Mouth: no lip lesion, mucus membranes moist Cardiovascular: S1S2 reg, no murmur, no edema Lungs: clear to auscultation bilateral, no rhonchi, no rales, no wheeze, no accessory muscle use Abdominal: soft, nontender to palpation, no guarding, no appreciable organomegaly Ext: Moving all extremities Neuro: Not opening eyes spontaneously, moves all extremities, not following commands Psych: Unable to assess Assessment and Plan: Acute metabolic encephalopathy Severe dehydration Nausea and vomiting Cannabis hyperemesis syndrome Hemoconcentration Leukocytosis Hyponatremia Hypokalemia Hypochloremic metabolic alkalosis Acute kidney injury Lactic acidosis Transaminitis Elevated CK, rhabdomyolysis Elevated troponin Sinus tachycardia -Remains on Precedex drip, plan is to switch him to when necessary Haldol -Negative serum alcohol -Covarrubias CT negative -Respiratory viral panel negative -ICU, nephrology, cardiology, neurology consulted -Continue to replete potassium, improving -Continue aggressive IV fluid resuscitation -Continue antibiotics for now, however unlikely to be meningitis/encephalitis -No cardiac interventions at the moment per cardiology -Echo normal -Mental status improved Acute hypoxic respiratory failure, likely aspiration pneumonia -Currently requiring 6 L oxygen -new opacity on CXR -On ceftriaxone DVT ppx: Subcu heparin Code status: Full code Anticipated discharge place: Pending Clinical course Anticipated discharge time: Pending clinical course Objective - Vital Signs Vital signs: Vital Signs Temp 98.2 F 10/17/22 09:00 Pulse 104 H 10/17/22 10:00 Resp 22 10/17/22 10:00 BP 120/79 10/17/22 09:30 Pulse Ox 90 L 10/17/22 10:00 FiO2 Intake & Output 10/16/22 10/17/22 10/17/22 18:59 06:59 18:59 Intake Total 3507.165 1253.608 8020.238 Output Total 2340 2250 1140 Balance 1167.165 -412.625 132.238 Weight 64 kg Intake: IV 250 Lactated Ringers 1,000 ml 250 @ 125 mls/hr IV .Q8H10M ONE with Potassium Chloride 40 meq Rx#: [id number] Intake, IV Titration 2657.165 1837.375 912.238 Amount Dexmedetomidine/0.9% NaCl 82.165 37.375 12.238 (Pmx) 400 mcg In Empty Bag 1 bag @ 0.2 MCG/KG/HR 2.835 mls/hr IV .Q24H [facility] Rx#:[id number] Lactated Ringers 1,000 ml 125 @ 125 mls/hr IV .Q8H10M ONE with Potassium Chloride 40 meq Rx#: [id number] Potassium Chloride 10 meq 600 In Water For Injection 1 100ml.bag @ 100 mls/hr IVPB Q1HR [facility] Rx#: [id number] Potassium Chloride 10 meq 200 In Water For Injection 1 100ml.bag @ 100 mls/hr IVPB Q1HR [facility] Rx#: [id number] Sodium Chloride 0.9% 1, 1350 1800 600 000 ml @ 150 mls/hr IV . Q6H40M [facility] Rx#:[id number] Vancomycin 1,000 mg In 250 Sodium Chloride 0.9% 250 ml @ 125 mls/hr IVPB Q12HR [facility] Rx#:[id number] Vancomycin 1,000 mg In 250 Sodium Chloride 0.9% 250 ml @ 125 mls/hr IVPB Q24HR [facility] Rx#:[id number] cefTRIAXone 1 gm In 50 50 Sodium Chloride 0.9% 50 ml @ 100 mls/hr IVPB Q24HR [facility] Rx#:[id number] Oral 600 360 Output: Urine 2340 2250 1140 Other: Voiding Method Indwelling Catheter Indwelling Catheter # Bowel Movements 1 1 1 - Labs CBC & Chem 7: 10/16/22 04:53 10/17/22 06:27 Labs: Abnormal Lab Results - Last 24 Hours (Table) 10/16/22 10/17/22 Range/Units 16:30 06:27 Sodium 135 L (137-145) mmol/L Potassium 3.4 L 3.2 L (3.5-5.1) mmol/L Carbon Dioxide 31 H (22-30) mmol/L Calcium 8.0 L (8.4-10.2) mg/dL Creatine Kinase 4238 H* (55-170) U/L Microbiology - Last 24 Hours (Table) 10/15/22 07:15 Blood Culture - Preliminary Blood No Growth after 48 hours 10/15/22 07:30 Blood Culture - Preliminary Blood No Growth after 48 hours
--- NOTE | 2022-10-17 11:20 | P.PN ---
Subjective Patient is seen in follow-up for acute kidney injury. Remains confused. Renal function improving. Nonoliguric. Potassium is being replaced. Hemodynamically stable. Vital signs are stable. General: Agitated. HEENT: Head exam is unremarkable. On nasal cannula. LUNGS: Breath sounds decreased. HEART: Rate and Rhythm are regular. ABDOMEN: Soft, no distention. EXTREMITITES: No edema. Objective - Vital Signs Vital signs: Vital Signs Temp 98.2 F 10/17/22 09:00 Pulse 104 H 10/17/22 10:00 Resp 22 10/17/22 10:00 BP 120/79 10/17/22 09:30 Pulse Ox 90 L 10/17/22 10:00 FiO2 Intake & Output 10/16/22 10/17/22 10/17/22 18:59 06:59 18:59 Intake Total 3507.165 7430.669 5562.238 Output Total 2340 2250 1140 Balance 1167.165 -412.625 132.238 Weight 64 kg Intake: IV 250 Lactated Ringers 1,000 ml 250 @ 125 mls/hr IV .Q8H10M ONE with Potassium Chloride 40 meq Rx#: [id number] Intake, IV Titration 2657.165 1837.375 912.238 Amount Dexmedetomidine/0.9% NaCl 82.165 37.375 12.238 (Pmx) 400 mcg In Empty Bag 1 bag @ 0.2 MCG/KG/HR 2.835 mls/hr IV .Q24H [facility] Rx#:[id number] Lactated Ringers 1,000 ml 125 @ 125 mls/hr IV .Q8H10M ONE with Potassium Chloride 40 meq Rx#: [id number] Potassium Chloride 10 meq 600 In Water For Injection 1 100ml.bag @ 100 mls/hr IVPB Q1HR [facility] Rx#: [id number] Potassium Chloride 10 meq 200 In Water For Injection 1 100ml.bag @ 100 mls/hr IVPB Q1HR [facility] Rx#: [id number] Sodium Chloride 0.9% 1, 1350 1800 600 000 ml @ 150 mls/hr IV . Q6H40M [facility] Rx#:[id number] Vancomycin 1,000 mg In 250 Sodium Chloride 0.9% 250 ml @ 125 mls/hr IVPB Q12HR [facility] Rx#:[id number] Vancomycin 1,000 mg In 250 Sodium Chloride 0.9% 250 ml @ 125 mls/hr IVPB Q24HR [facility] Rx#:[id number] cefTRIAXone 1 gm In 50 50 Sodium Chloride 0.9% 50 ml @ 100 mls/hr IVPB Q24HR [facility] Rx#:[id number] Oral 600 360 Output: Urine 2340 2250 1140 Other: Voiding Method Indwelling Catheter Indwelling Catheter # Bowel Movements 1 1 1 - Labs CBC & Chem 7: 10/16/22 04:53 10/17/22 06:27 Labs: Abnormal Lab Results - Last 24 Hours (Table) 10/16/22 10/17/22 Range/Units 16:30 06:27 Sodium 135 L (137-145) mmol/L Potassium 3.4 L 3.2 L (3.5-5.1) mmol/L Carbon Dioxide 31 H (22-30) mmol/L Calcium 8.0 L (8.4-10.2) mg/dL Creatine Kinase 4238 H* (55-170) U/L Microbiology - Last 24 Hours (Table) 10/15/22 07:15 Blood Culture - Preliminary Blood No Growth after 48 hours 10/15/22 07:30 Blood Culture - Preliminary Blood No Growth after 48 hours Assessment and Plan Plan: Assessment: 1. Acute kidney injury mostly prerenal secondary to hypovolemia improving with IV hydration. Creatinine was 3.13 on admission and is 1.25 today. Unknown baseline renal function. 2. Hypokalemia secondary to poor intake and intracellular shifting due to alkalosis. Improved. 3. Metabolic alkalosis secondary to vomiting, volume contraction, hypokalemia. Hypochloremia will also contribute to metabolic alkalosis by preventing bicarb secretion. Improved. 4. Hypovolemic hyponatremia improved with IV hydration. 6. Mental status changes. Unclear cause. Neurology following. 7. Rhabdomyolysis due to immobility. CK levels trending down. Plan: Maintain normal saline at 150 mL an hour. Continue to replace potassium. Continue to monitor renal function and urine output. Avoid nephrotoxins. Follow-up cultures.
[2022-10-17] MEDS: DEXMEDETOMIDINE/0.9% NACL(PMX) 400 MCG in EMPTY BAG 1 BAG IV SCH ×2 (11:25→19:59)
[2022-10-17 11:54] LABS: ALT 69 U/L (4-49); AST 166 U/L (17-59); Albumin 2.9 g/dL (3.5-5.0); Alkaline Phosphatase 75 U/L (38-126); Total Bilirubin 0.7 mg/dL (0.2-1.3)
[2022-10-17] MEDS ORDERED: LORazepam 2 MG/ML INJ IV PRN (13:23)
--- NOTE | 2022-10-17 14:21 | P.CN ---
Psychiatric Consult - . 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 REASON FOR REFERRAL: Psychiatry was consulted for "acute psychosis" HISTORY OF PRESENT ILLNESS: The patient presented to the hospital initially on 10/15 via EMS for altered mental status. Patient apparently was found laying on the ground in his room and was kicking and flailing according to ER report. Patient was tachycardic and restless as well. He is found to have been a chaotic. Computed tomography scan of brain was negative. Patient had severe disruption in his electrolytes including low potassium low sodium, elevated white cell count. Creatinine kinase was significantly elevated as well. Troponin was elevated at 0.8. Neurology has been consulted and believes that it is encephalopathy and is ruling out a seizure. Currently awaiting EEG results. Patient's UDS was positive for THC. Credentialing Manager spoke with patient's nurse outside a patient's room today who claims "patient was vomiting significantly before coming in the hospital and has been sleeping on and off and restless and also trying to get up out of bed at times. Credentialing Manager spoke with patient's girlfriend and mother outside of the patient's room who states that patient has been having nausea or vomiting, not really not feeling well at home for about 3 days. They claim that patient has been smoking marijuana daily and girlfriend claims that he has been using wax as well recently. She claims that he stopped drinking alcohol in September 02 of this year. He also claims that patient usually takes showers to feel better after he has been feeling nauseous. Mother also claims a patient's confusion has been on and off since he's been in the hospital. Patient was seen at the bedside with his eyes closed. He appeared to be fairly sedated and was slow to respond. He was mumbling at times during the interview. Poor concentration. He attempted to cooperate as best as he could. He states that he knows he is in "[facility]" and he knows his full name. He knows that it is "Monday" however had to be prompted to say October 2022 however does not know the actual date. He is denying any depression at this time, admits to some anxiety, he claims that he is smoking "quite a bit" at home and also using wax lately. He is denying any other recreational drugs including cigarettes. At this time patient denies any suicidal or homical ideations, intent or plan. Patient denies any auditory, visual hallucinations. Rest of patient's psychiatric history and social history was provided by patient's mother and girlfriend. PAST PSYCHIATRIC HISTORY: Patient has no known past psychiatric history. Patient's mother states that he may be "ADHD" however states that it was never formally diagnosed. Patient denies being on any psychiatric medications. Patient denies any previous psychiatric hospitalizations. Patient denies any psychiatric outpatient follow-up. Patient denies any history of suicide attempts in the past. Past Medical History: GI Bleed Additional Past Medical History / Comment(s): pericarditis History of Any Multi-Drug Resistant Organisms: None Reported Past Surgical History: No Surgical Hx Reported Past Psychological History: No Psychological Hx Reported Smoking Status: Never smoker Past Alcohol Use History: None Reported Past Drug Use History: Marijuana, heavy use. See HPI ALLERGIES: as per EMR. CHEMICAL DEPENDENCY HISTORY: as per HPI. FAMILY PSYCHIATRIC/SUBSTANCE USE HISTORY: denies SOCIAL HISTORY: Patient was born and raised in [place] and also in [place]. Patient has a twin brother. Patient completed up to the 11th grade in school. He does not have any legal history, unmarried, has no kids. 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 He lives in an apartment with his girlfriend. MENTAL STATUS EXAM: General Appearance: Patient appears to be thin, sedated, stated age is alert, attempts to cooperate, poor attention span. Patient appears to have poor hygiene and grooming wearing hospital gown with poor eye contact. Behavior: Patient is calmly lying in bed without any agitated behavior. Restless at times and poor attention span. Speech: Patient's speech is slow to respond, concrete. Mood/Affect: Patient reports their mood is "ok", affect is congruent and constricted Suicidality/Homicidality: Patient denies having any suicidal or homicidal ideation intent or plan. Perceptions: Patient denies any visual hallucinations and denies any auditory hallucinations Though content/process: Norbert is content, concrete. No delusions or paranoia. Memory and concentration: AOX2, had to be prompted on the today's date, poor attention span, poor memory recall. Follows minimal commands. Judgment and insight: poor IMPRESSIONS: Delirium likely etiology toxic metabolic cannabis use disorder severe dependence PLAN: -At this time patient DOES NOT meet criteria for inpatient psychiatric admission. 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 Please hold off on any anticholinergic medication as well. Start Prolixin by mouth 2 mg twice a day scheduled for delirium/psychosis. Continue w ith Haldol IV when necessary for agitation. -Continue 1:1 sitter for safety -social worker aide to provide patient with outpatient mental health/psychiatry resources for appropriate follow up upon discharge -Credentialing Manager spoke with patients family about substance abuse and the harmful effects on medical and mental health, and they verbally understood and agreed. loan underwriter will speak to patient about this once he clears more mentally. -Communicated plan to patient's nurse -Will continue to follow along -Please contact with any questions.
--- NOTE | 2022-10-17 15:12 | P.PN ---
Subjective Progress Note Date: 10/17/22 Patient was seen for a follow-up. Patient initially seen by Dr. Daley yesterday, please refer to her note for details. Patient was found with altered mental status. Patient's mother was present at this time, who also provided with a history. The last known well was 3 PM on Monday, and his mother found him altered at 4:30 AM Monday morning. He had been bouncing off the cano, falling, messed up the whole apartment. He was all by himself. Patient has long-standing history of smoking marijuana, and every 4-5 months, he gets hospitalized for persistent nausea vomiting which was felt to be related to cannabis hyperemesis syndrome. Once patient gets hydrated, electrolytes replacement, he goes home within a few hours. This is the first time patient was severely altered, with abrasions, periorbital ecchymosis. Patient's sister and brother also smokes nor of marijuana as well as his friends around. Patient's mother has repeatedly told him not to smoke, but he does. Patient's mother states that he has been smoking marijuana since he was a teenager. Even at this time he smoking 4-5 joints a day. Patient's mother also mentioned that he has been lately smoking wax, which is a condensed/concentrated form of marijuana. He has never smoked or did any other drugs. CT scan of the brain was performed in the emergency department. There is no evidence of acute hemorrhage or infarct. CT scan of the face revealed no signs of fracture. CT scan of the abdomen and pelvis revealed no abnormalities or fracture. Laboratory evaluation revealed a markedly elevated white blood cell count of 51.1. Hemoglobin was markedly elevated at 20. Potassium was found to be extremely low at 3.0, which came further down to 2.1 in the hospital and sodium low at 124". Objective - Vital Signs Vital signs: Vital Signs Temp 98.2 F 10/17/22 12:30 Pulse 74 10/17/22 14:00 Resp 31 H 10/17/22 14:00 BP 121/77 10/17/22 14:00 Pulse Ox 96 10/17/22 14:00 FiO2 50 10/17/22 14:00 Intake & Output 10/16/22 10/17/22 10/17/22 18:59 06:59 18:59 Intake Total 3507.165 8353.252 5899.635 Output Total 2340 2250 2140 Balance 1167.165 -412.625 -245.365 Weight 64 kg Intake: IV 250 Lactated Ringers 1,000 ml 250 @ 125 mls/hr IV .Q8H10M ONE with Potassium Chloride 40 meq Rx#: [id number] Intake, IV Titration 2657.165 0966.966 4157.635 Amount Dexmedetomidine/0.9% NaCl 82.165 37.375 34.635 (Pmx) 400 mcg In Empty Bag 1 bag @ 0.2 MCG/KG/HR 2.835 mls/hr IV .Q24H [facility] Rx#:[id number] Lactated Ringers 1,000 ml 125 @ 125 mls/hr IV .Q8H10M ONE with Potassium Chloride 40 meq Rx#: [id number] Potassium Chloride 10 meq 600 In Water For Injection 1 100ml.bag @ 100 mls/hr IVPB Q1HR [facility] Rx#: [id number] Potassium Chloride 10 meq 200 In Water For Injection 1 100ml.bag @ 100 mls/hr IVPB Q1HR [facility] Rx#: [id number] Sodium Chloride 0.9% 1, 1350 1800 1200 000 ml @ 150 mls/hr IV . Q6H40M [facility] Rx#:[id number] Vancomycin 1,000 mg In 250 Sodium Chloride 0.9% 250 ml @ 125 mls/hr IVPB Q12HR [facility] Rx#:[id number] Vancomycin 1,000 mg In 250 Sodium Chloride 0.9% 250 ml @ 125 mls/hr IVPB Q24HR [facility] Rx#:[id number] cefTRIAXone 1 gm In 50 50 Sodium Chloride 0.9% 50 ml @ 100 mls/hr IVPB Q24HR [facility] Rx#:[id number] Oral 600 360 Output: Urine 2340 2250 2140 Other: Voiding Method Indwelling Catheter Indwelling Catheter Indwelling Catheter # Bowel Movements 1 1 1 - Exam Patient is a young male, who is obviously encephalopathic, but wakes up, and answers appropriately, but is somnolent. Per nursing report, he is fairly well oriented when he is with it. At present he is on Precedex 0.6 mcg/kg/m. Patient's pupils are equal, round and reacting to light. Extraocular muscles are intact. Face is symmetric. Commanding Officer Garage is very equal bilaterally. He wiggles and moves his legs equally. He has multiple bruises around his eyes face and extremities from the falls. Reflexes are 2+ and plantars are upgoing bilaterally. Sensory touch is equal. Tone is equal. He has swelling of his extremities from the fall. No obvious seizure activity. - Labs CBC & Chem 7: 10/25/22 06:11 10/25/22 06:11 Labs: Abnormal Lab Results - Last 24 Hours (Table) 10/16/22 10/17/22 Range/Units 16:30 06:27 Sodium 135 L (137-145) mmol/L Potassium 3.4 L 3.2 L (3.5-5.1) mmol/L Carbon Dioxide 31 H (22-30) mmol/L Calcium 8.0 L (8.4-10.2) mg/dL AST 166 H (17-59) U/L ALT 69 H (4-49) U/L Creatine Kinase 4238 H* (55-170) U/L Total Protein 5.0 L (6.3-8.2) g/dL Albumin 2.9 L (3.5-5.0) g/dL Microbiology - Last 24 Hours (Table) 10/15/22 07:15 Blood Culture - Preliminary Blood No Growth after 48 hours 10/15/22 07:30 Blood Culture - Preliminary Blood No Growth after 48 hours Assessment and Plan Assessment: 1. Toxic-metabolic encephalopathy, as a result of Marijuana hyperemesis syndrome, with hyponatremia, hypokalemia, 2. Possible unwitnessed seizure, with postictal state provoked by hyponatremia and/or hypokalemia 3. Marked dehydration 4. Leukocytosis 5. Acute renal failure, resolving 6. Probable aspiration pneumonia, on antibiotics. Plan: 1. EEG was performed today. It was mildly abnormal due to background disorganization with fast and some slow frequency due to medication effect or encephalopathy. No epileptiform activity was seen. 2. The patient's mother and grandmother were advised that the only way to adequately treat/prevent marijuana hyperemesis syndrome is to stop using marijuana, simply cutting down on the usage is not effective 3. Patient is improving clinically. We will follow patient clinically. Discussed with patient's mother, grandmother and patient's nursing detail.
[2022-10-17] MEDS: PANTOPRAZOLE 40 MG/10 ML VIAL IVP SCH (15:28)
[2022-10-17] MEDS: IPRATROPIUM-ALBUTEROL 3 ML NEB INHALATION SCH ×3 (16:08→23:57)
--- NOTE | 2022-10-17 17:03 | P.PN ---
Subjective Progress Note Date: 10/17/22 27-year-old male, brought in by EMS, for mental status changes. He apparently was found at 4:30 in the morning, by his mother, on the floor, and unresponsive or poorly responsive. The patient was very agitated, kicking and screaming and flailing about. He was last seen to be normal about 3:30 the previous day. The patient apparently does not have any known medical history other than a bleeding ulcer for which she takes Prevacid. He apparently does not drink or smoke excessively, but does smoke marijuana. According to his mother, he has no significant past medical history. Denies hypertension, hyperlipidemia, diabetes, etc. According to the ER elizabeth, the patient does have a prior history of pericarditis. And also was told that he has a history of cyclic nausea and vomiting, due to marijuana use. He apparently used to drink socially/beer, but quit drinking in August. The patient is seen in the emergency department. He is on room air. Getting LR at 125 mL an hour. His drug screen was positive for marijuana. He himself can provide no additional history. He is extremely agitated flailing about in bed. He is restrained. We are going to start him on some dexmedetomidine, and transfer him to the intensive care unit. White count 51.1, hemoglobin 20.1, hematocrit 53.2, and platelet count 400,000. Coagulation studies were normal. Venous blood gases show pCO2 of 36, and a pH of 7.71. Sodium 128, potassium 2.1, chloride 76, CO2 40, anion gap 12, BUN 58, creatinine 2.42. CK 3001. Troponin is 0.735. Albumin 5.5. Alcohol level less than 10. Screening for influenza A, and influenza B, or negative. Testing for RSV, and coronavirus were negative. Drug screen was positive for THC. Abdominal x-ray shows no obstruction. Chest x-ray was normal. Brain CT showed nothing acute. Facial CT was negative. Chest abdomen and pelvic CT was negative. Progress note dated 10/16/2022. 27-year-old male seen in the emergency room yesterday. He was brought in by EMS for severe agitation. He was found by his mother on the floor, and he been there for at least 8 hours, and maybe longer. Anyway, the patient was transferred to the ICU for better management and monitoring. His potassium was quite low and needed aggressive replacement. In addition, because of his agita tion, he was given dexmedetomidine, and in addition, both Ativan and Haldol. Currently, he is seen in room 254. He is on 2 L of oxygen. Is getting lactated Ringer's at 125 mL an hour. Potassium is up to 2.9. He is getting dexmedetomidine at 0.8 mcg/kg/h. He is on vancomycin and ceftriaxone. White count 16.3 hemoglobin 14.1 hematocrit 39.3 and platelet count 295,000. Sodium 133, potassium 2.9, chlorides 90, CO2 36, BUN 52, and creatinine 1.68. CK is 5834. On today's evaluation of 10/17/2022, I'm seeing this patient for a follow-up. He is currently on Precedex and he is running at 0.6 mcg/kg/hr and the patient is also on Haldol on an as-needed basis. The patient is extremely restless in bed. The patient is restless, flailing and kicking and his movements are quite chaotic. CAT scan of the brain is measured at the time of admission was negative. EEG showed no evidence of any seizures and urine drug screen is positive for THC. The patient was seen by neurology and the patient was also seen by psychiatry. The working diagnosis for now is ongoing delirium secondary to toxic metabolic encephalopathy. The patient also has developed acute hypoxic respiratory failure with an ongoing pneumonia in the left lung. Earlier this morning, the patient was on 6 L of oxygen by nasal cannula. Nevertheless, the patient was showing improvement in his rhabdomyolysis. CPK is down to 4238. The patient was in acute kidney injury and the creatinine is improving and is currently down to 1.25 with a BUN of 20. Sodiums of 135 with a potassium level of 3.2. Serum bicarb is 31. The chest x-ray showing a airspace disease in the left lung consistent with pneumonia. The patient remains on broad-spectrum antibiotics. The patient remains on a combination of Rocephin and vancomycin for now. The patient is also on heparin subcu for DVT prophylaxis. Family the bedside and the patient has a one-to-one sitter for safety. Psychiatry has recommended starting this patient on Prolixin 2 mg twice a day for delirium. Benzodiazepines were discontinued. Objective - Vital Signs Vital signs: Vital Signs Temp 98.2 F 10/17/22 09:00 Pulse 104 H 10/17/22 10:00 Resp 22 10/17/22 10:00 BP 120/79 10/17/22 09:30 Pulse Ox 90 L 10/17/22 10:00 FiO2 Intake & Output 10/16/22 10/17/22 10/17/22 18:59 06:59 18:59 Intake Total 3507.165 5652.004 2434.238 Output Total 2340 2250 1140 Balance 1167.165 -412.625 132.238 Weight 64 kg Intake: IV 250 Lactated Ringers 1,000 ml 250 @ 125 mls/hr IV .Q8H10M ONE with Potassium Chloride 40 meq Rx#: [id number] Intake, IV Titration 2657.165 1837.375 912.238 Amount Dexmedetomidine/0.9% NaCl 82.165 37.375 12.238 (Pmx) 400 mcg In Empty Bag 1 bag @ 0.2 MCG/KG/HR 2.835 mls/hr IV .Q24H [facility] Rx#:[id number] Lactated Ringers 1,000 ml 125 @ 125 mls/hr IV .Q8H10M ONE with Potassium Chloride 40 meq Rx#: [id number] Potassium Chloride 10 meq 600 In Water For Injection 1 100ml.bag @ 100 mls/hr IVPB Q1HR [facility] Rx#: [id number] Potassium Chloride 10 meq 200 In Water For Injection 1 100ml.bag @ 100 mls/hr IVPB Q1HR [facility] Rx#: [id number] Sodium Chloride 0.9% 1, 1350 1800 600 000 ml @ 150 mls/hr IV . Q6H40M [facility] Rx#:[id number] Vancomycin 1,000 mg In 250 Sodium Chloride 0.9% 250 ml @ 125 mls/hr IVPB Q12HR [facility] Rx#:[id number] Vancomycin 1,000 mg In 250 Sodium Chloride 0.9% 250 ml @ 125 mls/hr IVPB Q24HR [facility] Rx#:[id number] cefTRIAXone 1 gm In 50 50 Sodium Chloride 0.9% 50 ml @ 100 mls/hr IVPB Q24HR [facility] Rx#:[id number] Oral 600 360 Output: Urine 2340 2250 1140 Other: Voiding Method Indwelling Catheter Indwelling Catheter # Bowel Movements 1 1 1 - Exam Cough, resting, currently on 6 L of oxygen. Restless in bed, seems to be somewhat sedated. He is alert and is cooperative and is a very poor attention span. He seems to be in a very poor hygienic condition. He has a bruises along his left eye which the family claims that this was related to a fall. He does have occasional restlessness and agitation. He is a very short bursts HEENT examination is grossly unremarkable. Facial bruises and lacerations noted. Neck supple. Full range of motion. No adenopathy thyromegaly or neck vein distention. Cardiovascular examination reveals regular rhythm rate. S1-S2 normal. No S3 or S4. No discernible murmur noted. Heart rate 70 bpm. Lungs reveal mostly clear breath sounds. Breath sounds are equal bilaterally. Minimal scattered rhonchi. No wheezes or crackles. 2 L saturation is 97%. Abdomen soft, without masses. Extremities are intact. No cyanosis clubbing or edema. Skin is without rash or lesion. Neurologic examination appears relatively normal.The patient will go for some of his without any limitation. Nevertheless, he is OA 2. Please refer to the detailed psychiatric evaluation that was done by psychiatry. - Labs CBC & Chem 7: 10/16/22 04:53 10/17/22 06:27 Labs: Abnormal Lab Results - Last 24 Hours (Table) 10/16/22 10/17/22 Range/Units 16:30 06:27 Sodium 135 L (137-145) mmol/L Potassium 3.4 L 3.2 L (3.5-5.1) mmol/L Carbon Dioxide 31 H (22-30) mmol/L Calcium 8.0 L (8.4-10.2) mg/dL Creatine Kinase 4238 H* (55-170) U/L Microbiology - Last 24 Hours (Table) 10/15/22 07:15 Blood Culture - Preliminary Blood No Growth after 48 hours 10/15/22 07:30 Blood Culture - Preliminary Blood No Growth after 48 hours Assessment and Plan Plan: Delerium , most likely related to substance abuse Acute hypoxic respiratory failure with a left lung pneumonia, currently on accommodation of Rocephin and vancomycin. Acute leukocytosis, WBC was as high as 51, dropped onto 16 Severe contraction alkalosis secondary to dehydration. Severe hypokalemia, potassium level is being replaced Acute kidney injury, improving Hyponatremia. Rhabdomyolysis, improving and the CPK level is declining Lactic acidemia. History of bleeding ulcer. History of pericarditis. History of cyclic nausea and vomiting, secondary to marijuana use. Plan Keep the patient in intensive care unit Keep the sitter at the bedside Continue Precedex Add Prolixin for agitation and goes of 2 mg po twice a day Haldol 4 mg IV every 1 hours on a when necessary basis IV fluids with normal saline in the 150 mL an hour Psychiatric consultation appreciated Neurologic consultation We'll continue to follow.
--- NOTE | 2022-10-17 20:27 | EEG ---
ELECTROENCEPHALOGRAM REPORT PREAMBLE: This is a 27-year-old male with altered mental status. This study is performed to evaluate for epileptiform activity. EEG FINDINGS: This is a 21-channel digital EEG recorded with video component, utilizing 10/20 international system with referential and bipolar montages. Background consists of well-developed, moderately well regulated, somewhat disorganized, mixed frequencies of fast frequency beta intermixed with some alpha and some theta range slowing in bihemispheric region. Background does not seem to be clearly reactive to eye opening or closing. Photic driving response was not clearly seen. Different stages of sleep were not seen. A lot of myogenic artifact was seen frequently during this study because of the patient's constant movement. No focal or generalized epileptiform activity was seen. IMPRESSION: This is an abnormal EEG due to background disorganization, with mixed fast and some slow frequency activity, suggestive of medication effect or related to encephalopathy. No obvious epileptiform activity was seen. [id number] / IJN: [id number] /
[2022-10-17] MEDS: VANCOMYCIN 1,000 MG in SODIUM CHLORIDE 0.9% 250 ML IVPB SCH (20:54)
[2022-10-17] MEDS: PIPERACILLIN-TAZOBACTAM 3.375 GM in SODIUM CHLORIDE 0.9% 100 ML IVPB SCH (21:55)
[2022-10-18] MEDS: SODIUM CHLORIDE 0.9% 1,000 ML IV SCH ×4 (02:03→23:18)
[2022-10-18] MEDS: DEXMEDETOMIDINE/0.9% NACL(PMX) 400 MCG in EMPTY BAG 1 BAG IV SCH ×3 (02:33→23:11)
[2022-10-18] MEDS: IPRATROPIUM-ALBUTEROL 3 ML NEB INHALATION SCH ×5 (04:02→19:23)
[2022-10-18] MEDS: PIPERACILLIN-TAZOBACTAM 3.375 GM in SODIUM CHLORIDE 0.9% 100 ML IVPB SCH ×3 (06:12→21:27)
[2022-10-18] MEDS: BENZONATATE 100 MG CAP PO PRN ×2 (06:21→14:35)
--- NOTE | 2022-10-18 07:30 | XR ---
EXAMINATION TYPE: XR chest 1V portable DATE OF EXAM: 10/18/2022 CLINICAL HISTORY: Difficulty breathing progress study. TECHNIQUE: Single AP portable semiupright view of the chest is obtained. COMPARISON: Chest x-ray from one day earlier and older studies. FINDINGS: Left lung increased opacity is improved aeration of the periphery. New right lower lung in creased opacity. Stable mild cardiomegaly. Osseous structures are intact. IMPRESSION: Improved but persistent left midlung acute infiltrate. New Right lower lung acute infilt rate.
[2022-10-18] MEDS ORDERED: VANCOMYCIN TROUGH DUE 1 EACH MISC MISCELLANE ONE (08:00)
[2022-10-18 08:53] LABS: Calcium 8.3 mg/dL (8.4-10.2); Magnesium 1.7 mg/dL (1.6-2.3); Potassium 4.3 mmol/L (3.5-5.1)
[2022-10-18 08:55] LABS: Basophils % (A) 0 %; Eosinophils # (A) 0.1 k/uL (0-0.7); Eosinophils % (A) 0 %; HCT 38.9 % (39.0-53.0); HGB 13.3 gm/dL (13.0-17.5); Lymphocytes # (A) 0.9 k/uL (1.0-4.8); Lymphocytes % (A) 5 %; MCH 32.5 pg (25.0-35.0); MCHC 34.2 g/dL (31.0-37.0); MCV 95.2 fL (80.0-100.0); Mean Platelet Volume 8.6; Monocytes # (A) 1.2 k/uL (0-1.0); Monocytes % (A) 7 %; Neutrophils # (A) 16.1 k/uL (1.3-7.7); Neutrophils % (A) 87 %; Platelet Count 203 k/uL (150-450); RBC 4.09 m/uL (4.30-5.90); RDW 11.8 % (11.5-15.5); WBC 18.5 k/uL (3.8-10.6)
[2022-10-18] MEDS: HEPARIN SODIUM,PORCINE/PF 5,000 UNIT/0.5 ML SYRINGE SQ SCH ×3 (09:04→23:11)
[2022-10-18] MEDS: PANTOPRAZOLE 40 MG/10 ML VIAL IVP SCH (09:10)
[2022-10-18] MEDS: ACETAMINOPHEN TAB 325 MG TAB PO PRN ×2 (10:21→21:26)
[2022-10-18] MEDS: guaiFENesin-DM 100-10MG/5ML 10 ML CUP PO PRN ×2 (10:23→18:24)
--- NOTE | 2022-10-18 10:32 | P.PN ---
Subjective Progress Note Date: 10/18/22 Principal diagnosis: AMS Hospital Course: 27-year-old with history of marijuana use, cannabis hyperemesis syndrome presenting with acute encephalopathy. In the ED, he was tachycardic and febrile. His blood work showed WBC 51.1, hemoglobin 20.1, sodium 124, potassium 3.0, chloride 54, bicarb 41, BUN 63, creatinine 2.13, lactic acid 10.4, CK 3000, troponin 0.7, pH 7.71, pCO2 is 36. His covarrubias CT was negative. EKG showed sinus tachycardia. He was given 3 L of IV fluids, ziprasidone, Ativan, ceftriaxone and vancomycin. He was admitted for acute encephalopathy and severe metabolic derangements. He currently remains in the ICU. Electrolytes improving. Renal function improving. Mental status improved. Remains on Precedex drip. Neurology following. EEG - no epileptiform discharges. Psychiatry following, patient started on fluphenazine. Patient was seen by cardiology. Echocardiogram showed normal systolic function. Nephrology following. Patient is also hypoxic, secondary to aspiration pneumonia. Remains on IV antibiotics. Subjective: Patient seen and examined at bedside. Mental status has remarkably improved. He is having some difficulty breathing. His cough is also slightly worse. He denies any chest pain, or abdominal pain. Mahmood catheter is in place. Patient having bowel movements. Pertinent positives and negatives as discussed above, a complete review of systems was performed and all other systems are negative. Vitals Signs Reviewed. General: In mild respiratory distress, appears at stated age Derm: warm, dry Head: atraumatic, normocephalic, symmetric Eyes: EOMI, pupils equal round and reactive ENT: Nose and ears atraumatic Neck: No thyromegaly, supple Mouth: no lip lesion, mucus membranes moist Cardiovascular: S1S2 reg, no murmur, no edema Lungs: Bilateral rhonchus breath sounds, no wheezing, on high flow nasal cannula Abdominal: soft, nontender to palpation, no guarding, no appreciable organomegaly Ext: Moving all extremities Neuro: Alert, no obvious neurological deficits Psych: Unable to assess Assessment and Plan: Acute hypoxic respiratory failure, likely aspiration pneumonia -Currently on high flow nasal cannula -new opacity on CXR -On vancomycin and Zosyn Acute metabolic encephalopathy Severe dehydration Nausea and vomiting Cannabis hyperemesis syndrome Hemoconcentration Leukocytosis Hyponatremia Hypokalemia Hypochloremic metabolic alkalosis Acute kidney injury Lactic acidosis Transaminitis Elevated CK, rhabdomyolysis Elevated troponin Sinus tachycardia -Remains on Precedex drip, also on fluphenazine, Haldol when necessary -Negative serum alcohol -Covarrubias CT negative -ICU, nephrology, cardiology, neurology, and psychiatry consulted -Remains on IV fluids -unlikely to be meningitis/encephalitis -No cardiac interventions at the moment per cardiology -Echo normal -Mental status improved -EEG shows no epileptiform discharges DVT ppx: Subcu heparin Code status: Full code Anticipated discharge place: Pending Clinical course Anticipated discharge time: Pending clinical course Objective - Vital Signs Vital signs: Vital Signs Temp 99.3 F 10/18/22 00:00 Pulse 105 H 10/18/22 07:00 Resp 60 H 10/18/22 07:00 BP 135/51 10/18/22 07:00 Pulse Ox 91 L 10/18/22 07:55 FiO2 75 10/18/22 07:55 Intake & Output 10/17/22 10/18/22 10/18/22 18:59 06:59 18:59 Intake Total 3043.710 3329.696 200 Output Total 3270 2470 925 Balance -226.290 859.696 -725 Weight 63.9 kg Intake: IV 1750 200 Piperacillin-Tazobactam 3 100 50 .375 gm In Sodium Chloride 0.9% 100 ml @ 25 mls/hr IVPB Q8H [facility] Rx#: [id number] Sodium Chloride 0.9% 1, 1650 150 000 ml @ 150 mls/hr IV . Q6H40M [facility] Rx#:[id number] Intake, IV Titration 2323.710 169.696 Amount Dexmedetomidine/0.9% NaCl 73.710 169.696 (Pmx) 400 mcg In Empty Bag 1 bag @ 0.2 MCG/KG/HR 2.835 mls/hr IV .Q24H [facility] Rx#:[id number] Sodium Chloride 0.9% 1, 1950 000 ml @ 150 mls/hr IV . Q6H40M [facility] Rx#:[id number] Vancomycin 1,000 mg In 250 Sodium Chloride 0.9% 250 ml @ 125 mls/hr IVPB Q12HR [facility] Rx#:[id number] cefTRIAXone 1 gm In 50 Sodium Chloride 0.9% 50 ml @ 100 mls/hr IVPB Q24HR [facility] Rx#:[id number] Oral 720 1160 Tube Feeding 250 Output: Urine 3270 2470 925 Other: Voiding Method Indwelling Catheter Indwelling Catheter # Bowel Movements 1 1 1 - Labs CBC & Chem 7: 10/18/22 08:14 10/18/22 08:14 Labs: Abnormal Lab Results - Last 24 Hours (Table) 10/17/22 10/18/22 10/18/22 Range/Units 06:27 08:14 08:14 WBC 18.5 H (3.8-10.6) k/uL RBC 4.09 L (4.30-5.90) m/uL Hct 38.9 L (39.0-53.0) % Neutrophils # 16.1 H (1.3-7.7) k/uL Lymphocytes # 0.9 L (1.0-4.8) k/uL Monocytes # 1.2 H (0-1.0) k/uL Sodium 135 L (137-145) mmol/L Potassium 3.2 L (3.5-5.1) mmol/L Carbon Dioxide 31 H (22-30) mmol/L Creatinine 1.31 H (0.66-1.25) mg/dL Glucose 105 H (74-99) mg/dL Calcium 8.0 L 8.3 L (8.4-10.2) mg/dL AST 166 H (17-59) U/L ALT 69 H (4-49) U/L Total Protein 5.0 L (6.3-8.2) g/dL Albumin 2.9 L (3.5-5.0) g/dL Microbiology - Last 24 Hours (Table) 10/15/22 07:15 Blood Culture - Preliminary Blood No Growth after 72 hours 10/15/22 07:30 Blood Culture - Preliminary Blood No Growth after 72 hours
[2022-10-18] MEDS: VANCOMYCIN 1,000 MG in SODIUM CHLORIDE 0.9% 250 ML IVPB SCH ×2 (10:45→20:37)
--- NOTE | 2022-10-18 11:08 | P.PN ---
Subjective Patient is seen for follow-up for acute kidney injury. Renal function has been improving. Patient is maintained on IV fluids. Good urine output Serum creatinine at 1.3 mg/dL Patient has diarrhea which is occasionally watery. C. diff toxin will be sent out. Objective - Vital Signs Vital signs: Vital Signs Temp 99.3 F 10/18/22 00:00 Pulse 105 H 10/18/22 07:00 Resp 60 H 10/18/22 07:00 BP 135/51 10/18/22 07:00 Pulse Ox 91 L 10/18/22 07:55 FiO2 80 10/18/22 10:56 Intake & Output 10/17/22 10/18/22 10/18/22 18:59 06:59 18:59 Intake Total 3043.710 3329.696 223.814 Output Total 3270 2470 925 Balance -226.290 859.696 -701.186 Weight 63.9 kg Intake: IV 1750 200 Piperacillin-Tazobactam 3 100 50 .375 gm In Sodium Chloride 0.9% 100 ml @ 25 mls/hr IVPB Q8H [facility] Rx#: [id number] Sodium Chloride 0.9% 1, 1650 150 000 ml @ 150 mls/hr IV . Q6H40M [facility] Rx#:[id number] Intake, IV Titration 2323.710 169.696 23.814 Amount Dexmedetomidine/0.9% NaCl 73.710 169.696 23.814 (Pmx) 400 mcg In Empty Bag 1 bag @ 0.2 MCG/KG/HR 2.835 mls/hr IV .Q24H [facility] Rx#:[id number] Sodium Chloride 0.9% 1, 1950 000 ml @ 150 mls/hr IV . Q6H40M [facility] Rx#:[id number] Vancomycin 1,000 mg In 250 Sodium Chloride 0.9% 250 ml @ 125 mls/hr IVPB Q12HR [facility] Rx#:[id number] cefTRIAXone 1 gm In 50 Sodium Chloride 0.9% 50 ml @ 100 mls/hr IVPB Q24HR [facility] Rx#:[id number] Oral 720 1160 Tube Feeding 250 Output: Urine 3270 2470 925 Other: Voiding Method Indwelling Catheter Indwelling Catheter # Bowel Movements 1 1 1 - Exam Awake, comfortable, no acute distress Alert oriented 3 Examination of the heart S1 and S2 Examination lungs decreased breath sounds at the bases Abdomen is soft nontender Exam in lower extremity shows no significant edema TIRE SPECIALIST exam grossly intact - Labs CBC & Chem 7: 10/18/22 08:14 10/18/22 08:14 Labs: Abnormal Lab Results - Last 24 Hours (Table) 10/17/22 10/18/22 10/18/22 Range/Units 06:27 08:14 08:14 WBC 18.5 H (3.8-10.6) k/uL RBC 4.09 L (4.30-5.90) m/uL Hct 38.9 L (39.0-53.0) % Neutrophils # 16.1 H (1.3-7.7) k/uL Lymphocytes # 0.9 L (1.0-4.8) k/uL Monocytes # 1.2 H (0-1.0) k/uL Sodium 135 L (137-145) mmol/L Potassium 3.2 L (3.5-5.1) mmol/L Carbon Dioxide 31 H (22-30) mmol/L Creatinine 1.31 H (0.66-1.25) mg/dL Glucose 105 H (74-99) mg/dL Calcium 8.0 L 8.3 L (8.4-10.2) mg/dL AST 166 H (17-59) U/L ALT 69 H (4-49) U/L Total Protein 5.0 L (6.3-8.2) g/dL Albumin 2.9 L (3.5-5.0) g/dL Microbiology - Last 24 Hours (Table) 10/15/22 07:15 Blood Culture - Preliminary Blood No Growth after 72 hours 10/15/22 07:30 Blood Culture - Preliminary Blood No Growth after 72 hours Assessment and Plan Assessment: 1. Acute kidney injury mostly prerenal secondary to hypovolemia improving with IV hydration. Creatinine was 3.13 on admission and is 1.3 today. Unknown baseline renal function. 2. Hypokalemia secondary to poor intake and intracellular shifting due to alkalosis. Improved. 3. Metabolic alkalosis secondary to vomiting, volume contraction, hypokalemia. Hypochloremia will also contribute to metabolic alkalosis by preventing bicarb secretion. Improved. 4. Hypovolemic hyponatremia improved with IV hydration. 6. Mental status changes. Unclear cause. Neurology following. Currently improved 7. Rhabdomyolysis due to immobility. CK levels trending down. Plan: Continue with normal saline Check stool for C. diff toxin Avoid nephrotoxic agents
--- NOTE | 2022-10-18 13:31 | P.PN ---
Subjective Progress Note Date: 10/18/22 27-year-old male, brought in by EMS, for mental status changes. He apparently was found at 4:30 in the morning, by his mother, on the floor, and unresponsive or poorly responsive. The patient was very agitated, kicking and screaming and flailing about. He was last seen to be normal about 3:30 the previous day. The patient apparently does not have any known medical history other than a bleeding ulcer for which she takes Prevacid. He apparently does not drink or smoke excessively, but does smoke marijuana. According to his mother, he has no significant past medical history. Denies hypertension, hyperlipidemia, diabetes, etc. According to the ER elizabeth, the patient does have a prior history of pericarditis. And also was told that he has a history of cyclic nausea and vomiting, due to marijuana use. He apparently used to drink socially/beer, but quit drinking in August. The patient is seen in the emergency department. He is on room air. Getting LR at 125 mL an hour. His drug screen was positive for marijuana. He himself can provide no additional history. He is extremely agitated flailing about in bed. He is restrained. We are going to start him on some dexmedetomidine, and transfer him to the intensive care unit. White count 51.1, hemoglobin 20.1, hematocrit 53.2, and platelet count 400,000. Coagulation studies were normal. Venous blood gases show pCO2 of 36, and a pH of 7.71. Sodium 128, potassium 2.1, chloride 76, CO2 40, anion gap 12, BUN 58, creatinine 2.42. CK 3001. Troponin is 0.735. Albumin 5.5. Alcohol level less than 10. Screening for influenza A, and influenza B, or negative. Testing for RSV, and coronavirus were negative. Drug screen was positive for THC. Abdominal x-ray shows no obstruction. Chest x-ray was normal. Brain CT showed nothing acute. Facial CT was negative. Chest abdomen and pelvic CT was negative. Progress note dated 10/16/2022. 27-year-old male seen in the emergency room yesterday. He was brought in by EMS for severe agitation. He was found by his mother on the floor, and he been there for at least 8 hours, and maybe longer. Anyway, the patient was transferred to the ICU for better management and monitoring. His potassium was quite low and needed aggressive replacement. In addition, because of his agita tion, he was given dexmedetomidine, and in addition, both Ativan and Haldol. Currently, he is seen in room 254. He is on 2 L of oxygen. Is getting lactated Ringer's at 125 mL an hour. Potassium is up to 2.9. He is getting dexmedetomidine at 0.8 mcg/kg/h. He is on vancomycin and ceftriaxone. White count 16.3 hemoglobin 14.1 hematocrit 39.3 and platelet count 295,000. Sodium 133, potassium 2.9, chlorides 90, CO2 36, BUN 52, and creatinine 1.68. CK is 5834. On today's evaluation of 10/17/2022, I'm seeing this patient for a follow-up. He is currently on Precedex and he is running at 0.6 mcg/kg/hr and the patient is also on Haldol on an as-needed basis. The patient is extremely restless in bed. The patient is restless, flailing and kicking and his movements are quite chaotic. CAT scan of the brain is measured at the time of admission was negative. EEG showed no evidence of any seizures and urine drug screen is positive for THC. The patient was seen by neurology and the patient was also seen by psychiatry. The working diagnosis for now is ongoing delirium secondary to toxic metabolic encephalopathy. The patient also has developed acute hypoxic respiratory failure with an ongoing pneumonia in the left lung. Earlier this morning, the patient was on 6 L of oxygen by nasal cannula. Nevertheless, the patient was showing improvement in his rhabdomyolysis. CPK is down to 4238. The patient was in acute kidney injury and the creatinine is improving and is currently down to 1.25 with a BUN of 20. Sodiums of 135 with a potassium level of 3.2. Serum bicarb is 31. The chest x-ray showing a airspace disease in the left lung consistent with pneumonia. The patient remains on broad-spectrum antibiotics. The patient remains on a combination of Rocephin and vancomycin for now. The patient is also on heparin subcu for DVT prophylaxis. Family the bedside and the patient has a one-to-one sitter for safety. Psychiatry has recommended starting this patient on Prolixin 2 mg twice a day for delirium. Benzodiazepines were discontinued. On 11/04/2022, the patient seems to much more comfortable compared to yesterday. The patient remains on Precedex 0.4 pg/kg/h. The patient is also on Prolixin 2 mg by mouth twice a day. Doing well. He is answering questions appropriately. He is still looking anxious. Meanwhile, the patient developed acute hypoxic respiratory failure. Oxygen requirements progressively went up and the patient today has been transitioned to high flow oxygen with a total of 35 L an FiO2 of 75%. Noted the chest x-ray was repeated today and the patient was found to have persistent left mid lung pulmonary infiltrate. There was also a new right lower lobe pulmonary infiltrate. Based on that, the patient was started on broad- spectrum antibiotics and the patient is currently on a combination of Zosyn and vancomycin. He is coughing. Is producing sputum and she should be able to culture the sputum. He is hemodynamically stable at this point in time. He is unresponsive 60 with a hemoglobin of 14 and a platelet count of 195. Creatinine is improved and is currently down to 1.2 with a BUN of 28. Potassium level is at 3.2 and a serum bicarb is 31 with a sodium level of 135. The patient remains on normal saline at the rate of 150 mL an hour. Family is at the bedside. Benzodiazepines of the discontinued. Objective - Vital Signs Vital signs: Vital Signs Temp 99.3 F 10/18/22 00:00 Pulse 105 H 10/18/22 07:00 Resp 60 H 10/18/22 07:00 BP 135/51 10/18/22 07:00 Pulse Ox 91 L 10/18/22 07:55 FiO2 75 10/18/22 07:55 Intake & Output 10/17/22 10/18/22 10/18/22 18:59 06:59 18:59 Intake Total 3043.710 3329.696 150 Output Total 3270 2470 250 Balance -226.290 859.696 -100 Weight 63.9 kg Intake: IV 1750 150 Piperacillin-Tazobactam 3 100 .375 gm In Sodium Chloride 0.9% 100 ml @ 25 mls/hr IVPB Q8H [facility] Rx#: [id number] Sodium Chloride 0.9% 1, 1650 150 000 ml @ 150 mls/hr IV . Q6H40M [facility] Rx#:[id number] Intake, IV Titration 2323.710 169.696 Amount Dexmedetomidine/0.9% NaCl 73.710 169.696 (Pmx) 400 mcg In Empty Bag 1 bag @ 0.2 MCG/KG/HR 2.835 mls/hr IV .Q24H [facility] Rx#:[id number] Sodium Chloride 0.9% 1, 1950 000 ml @ 150 mls/hr IV . Q6H40M [facility] Rx#:[id number] Vancomycin 1,000 mg In 250 Sodium Chloride 0.9% 250 ml @ 125 mls/hr IVPB Q12HR [facility] Rx#:[id number] cefTRIAXone 1 gm In 50 Sodium Chloride 0.9% 50 ml @ 100 mls/hr IVPB Q24HR [facility] Rx#:[id number] Oral 720 1160 Tube Feeding 250 Output: Urine 3270 2470 250 Other: Voiding Method Indwelling Catheter Indwelling Catheter # Bowel Movements 1 1 1 - Exam Cough, resting, currently on flaw 55 L an FiO2 of 75% and the patient is much more comfortable compared to yesterday, alert and awake and following commands. Agitation and restlessness improved. HEENT examination is grossly unremarkable. Facial bruises and lacerations noted. Neck supple. Full range of motion. No adenopathy thyromegaly or neck vein distention. Cardiovascular examination reveals regular rhythm rate. S1-S2 normal. No S3 or S4. No discernible murmur noted. Heart rate 70 bpm. Lungs reveal mostly clear breath sounds. Breath sounds are equal bilaterally. Minimal scattered rhonchi. No wheezes or crackles. 2 L saturation is 97%. Abdomen soft, without masses. Extremities are intact. No cyanosis clubbing or edema. Skin is without rash or lesion. Neurologic examination appears relatively normal.The patient will go for some of his without any limitation. - Labs CBC & Chem 7: 10/18/22 08:14 10/18/22 08:14 Labs: Abnormal Lab Results - Last 24 Hours (Table) 10/17/22 Range/Units 06:27 Sodium 135 L (137-145) mmol/L Potassium 3.2 L (3.5-5.1) mmol/L Carbon Dioxide 31 H (22-30) mmol/L Calcium 8.0 L (8.4-10.2) mg/dL AST 166 H (17-59) U/L ALT 69 H (4-49) U/L Total Protein 5.0 L (6.3-8.2) g/dL Albumin 2.9 L (3.5-5.0) g/dL Microbiology - Last 24 Hours (Table) 10/15/22 07:15 Blood Culture - Preliminary Blood No Growth after 48 hours 10/15/22 07:30 Blood Culture - Preliminary Blood No Growth after 48 hours Assessment and Plan Plan: Delerium , most likely related to substance abuse, clinically improving. This is likely related to substance abuse/metabolic factors and the patient is currently on Prolixin and Precedex which is being gradually weaned off. Acute hypoxic respiratory failure with a left lung pneumonia, currently on accommodation of Zosyn and vancomycin. The patient is a left perihilar and right lower lobe pulmonary infiltrate. Consider aspiration. Currently on high flow oxygen with an FiO2 of 75% with a flow of 55 L.. Acute leukocytosis, WBC was as high as 51, improving Severe contraction alkalosis secondary to dehydration, improving Severe hypokalemia, potassium level is being replaced Acute kidney injury, improving Hyponatremia, improved Rhabdomyolysis, improving and the CPK level is declining Lactic acidemia. History of bleeding ulcer. History of pericarditis. History of cyclic nausea and vomiting, secondary to marijuana use. Plan Keep the patient in intensive care unit Keep the sitter at the bedside Continue Precedex and gradually wean the Precedex based on his mental status and level of education Continue Prolixin for agitation and goes of 2 mg po twice a day Haldol 4 mg IV every 1 hours on a when necessary basis IV fluids with normal saline in the 150 mL an hour Titrate oxygen flow to maintain saturation above 90%, keep the patient on high flow oxygen for now Continue Zosyn and vancomycin repeat chest x-ray in the morning Psychiatry nsultation appreciated Neurologic consultation We'll continue to follow.
--- NOTE | 2022-10-18 14:13 | P.PN ---
Progress Note - Text Progress Note Date: 10/18/22 Interval History: Patient was seen today for psychiatric follow-up regarding patient's delirium. Patient remained in the ICU at this time. Patient's nurse states that patient has been improving mildly however continues to be mildly confused at times and somewhat restless during the day. Patient has been taking his medications and electrolytes have been improving, he still has evident pneumonia and is being treated with antibiotics. [employer] spoke with primary hospitalist who states the patient is overall doing a bit better with his mental status. Patient was seen today with his mother and grandmother at the bedside. He continues to be coughing and appears to be somewhat ill however patient was more awake today less sedated somewhat restless in the bed. He appears to have mild improvement in his attention span. He is able to answer most questions appropriately. He did appear to be mildly frustrated when asked about the date that he did not know. He knew that it was 2021 and the month was October. He knew his full name and where he is in the hospital and what city. He is denying any depression or anxiety at this time. His sleep has been on and off throughout the day. Patient's mother claims that patient is more alert today and his mental status is clear and improved compared to yesterday. At this time patient denies any suicidal or homical ideations, intent or plan. Patient denies any auditory, visual hallucinations and denies any paranoia or delusions. Patient denies any side effects from the medications and has been compliant with meds. Mental Status Exam: General Appearance: Patient appears to be thin, sedated, stated age is more alert, attempts to cooperate, improving attention span. Patient appears to have mildly hygiene and grooming wearing hospital gown with poor eye contact. Behavior: Patient is calmly lying in bed without any agitated behavior. Restless at times. So cooperate. Speech: Patient's speech is slow to respond, concrete. Mood/Affect: Patient reports their mood is "alright", affect is congruent and constricted Suicidality/Homicidality: Patient denies having any suicidal or homicidal ideation intent or plan. Perceptions: Patient denies any visual hallucinations and denies any auditory hallucinations Though content/process: pt is content, concrete. No delusions or paranoia. Memory and concentration: AOX2, had to be prompted on the today's date, mildly improving attention span, poor memory recall. Follows minimal commands. Judgment and insight: poor, improving mildly IMPRESSIONS: Delirium likely etiology toxic metabolic cannabis use disorder severe dependence PLAN: -At this time patient DOES NOT meet criteria for inpatient psychiatric admission. -Delirium precautions recommended with patient including - avoiding use of narcotics and [employer] sedatives, limit anticholinergic medications when possible, frequent re-orientation, minimize use of restraints, open window shades during the day and close them at night -Would recommend the following medication changes/additions: d/c benzos will likely make patient worse in terms of his confusion and delirium. Please hold off on any anticholinergic medication as well. will give an extra dose of Prolixin NOW and continue with by mouth 2 mg twice a day scheduled for delirium/psychosis. Continue with Haldol IV when necessary for agitation. added remeron 15 mg qhs for sleep/mood. -community support worker to provide patient with outpatient mental health/psychiatry re sources for appropriate follow up upon discharge -[employer] Professor spoke with patients family about substance abuse and the harmful effects on medical and mental health, and they verbally understood and agreed. technical document writer will speak to patient about this once he clears more mentally. -Communicated plan to patient's nurse -Will continue to follow along -Please contact with any questions.
[2022-10-18] MEDS: MIRTAZAPINE 15 MG TAB PO SCH ×2 (20:37→21:26)
[2022-10-19] MEDS: guaiFENesin-DM 100-10MG/5ML 10 ML CUP PO PRN ×2 (04:25→22:50)
[2022-10-19] MEDS: IPRATROPIUM-ALBUTEROL 3 ML NEB INHALATION SCH ×7 (04:38→23:38)
[2022-10-19] MEDS: SODIUM CHLORIDE 0.9% 1,000 ML IV SCH ×4 (05:48→20:26)
[2022-10-19 05:58] LABS: HCT 42.8 % (39.0-53.0); HGB 14.3 gm/dL (13.0-17.5); MCH 35.5 pg (25.0-35.0); MCHC 33.5 g/dL (31.0-37.0); MCV 106.2 fL (80.0-100.0); Macrocytosis Moderate; Mean Platelet Volume 14.2; Platelet Count 149 k/uL (150-450); RBC 4.03 m/uL (4.30-5.90); WBC 12.2 k/uL (3.8-10.6)
[2022-10-19 06:06] LABS: Magnesium 2.1 mg/dL (1.6-2.3); Potassium 4.1 mmol/L (3.5-5.1)
[2022-10-19 06:49] LABS: Band Neutrophils % 8 %; Lymphocytes # (M) 1.71 k/uL (1.0-4.8); Monocytes # (M) 0.49 k/uL (0-1.0); Neutrophils % (M) 74 %; Nucleated Red Blood Cells 0 /100 WBC (0-0); Total Cells Counted 100
[2022-10-19 06:50] LABS: Large Platelets Present; Polychromasia Present
[2022-10-19] MEDS: PIPERACILLIN-TAZOBACTAM 3.375 GM in SODIUM CHLORIDE 0.9% 100 ML IVPB SCH ×3 (06:53→22:51)
[2022-10-19] MEDS: ACETAMINOPHEN TAB 325 MG TAB PO PRN ×2 (08:37→16:42)
[2022-10-19] MEDS: PANTOPRAZOLE 40 MG/10 ML VIAL IVP SCH (08:37)
[2022-10-19] MEDS: VANCOMYCIN 1,000 MG in SODIUM CHLORIDE 0.9% 250 ML IVPB SCH ×2 (08:38→20:56)
[2022-10-19] MEDS: HEPARIN SODIUM,PORCINE/PF 5,000 UNIT/0.5 ML SYRINGE SQ SCH ×2 (08:38→16:58)
--- NOTE | 2022-10-19 08:56 | P.PN ---
Subjective Progress Note Date: 10/19/22 Patient is a 27-year-old female with known hyperemesis syndrome, chronic marijuana use, and prior pericarditis who presented with altered mentation. In the ER he was noted to be febrile and tachycardic. Initial laboratory analysis showed white blood cell count 51.1, hemoglobin 20.1, sodium 124, potassium 3, chloride 54, bicarb 41, BUN 63, creatinine 2.1 crit, and lactic acidosis 10.4. CK was 3000, troponin 0.7, an ABG revealed a pH of 7.71 with a CO2 of 36. He underwent a head CT which showed no acute process. EKG showed sinus tachycardia. He was given 3 L of IV fluids, Zyprexa, Ativan, Rocephin, and vancomycin. He was admitted to the ICU, additionally nephrology and neurology were consulted. Nephrology recommended IV fluids. Cardiology was consulted and recommended an echocardiogram. He was started on dexmedetomidine. He was seen by neurology who recommended an EEG. Patient has remained on antibiotics as well as Precedex. He has required multiple medications to help with agitation. He was founf to have pneumonia on repeat chest x-ray. Influenza A/B, RSV, and COVID-19 testing negative. Imaging: Abdominal [id number] bowel gas pattern Chest x-ray-no acute process Head CT-no acute intracranial process Facial bone CT-no depressed or displaced facial bone fractures CT chest/abdomen/pelvis-no evidence of traumatic injury EEG-background disorganization suggestive of medication effect related to encephalopathy, no epileptiform activity seen Echocardiogram-ejection fraction 55% Patient seen and examined at bedside. Hacing diarrhea the last 2 days, tried to get up to allow his bed to be changed and increased dyspnea, he is feeling a little light headed and dizzy. He wants the olivera out but is having blood tinged urine, we discussed that once his urine is lightened in color he can have his olivera out. General: nontoxic, no distress, appears at stated age Derm: warm, dry Head: Normocephalic, bruising bilateral orbital areas, bruising over the bridge of the nose Eyes: EOMI, no lid lag, anicteric sclera Mouth: no lip lesion, mucus membranes moist Cardiovascular: S1S2 reg, no murmur, positive posterior tibial pulse bilateral, Lungs: Coarse breath sounds bilateral, no rhonchi, no rales , no accessory muscle use Abdominal: soft, nontender to palpation, no guarding, no appreciable organomegaly Ext: no gross muscle atrophy, no edema, no contractures Neuro: CN II-XI grossly intact, no focal neuro deficits Psych: Alert, oriented X 3, appropriate affect Assessment/plan: Toxic metabolic encephalopathy Acute hypoxic Respiraotry Failure Aspiration pneumonia - conitnue with zosyn and vancomycin - Critical care recs - pulm hygeine YENI, improving - nephrology recs - IVF - avoid additional nephrotoxic agents - follow renal function Probable unwitnessed seizure - neurology recs Elevated troponin - echo normal - likely due to dehydration - cardiology signed off Hypokalemia, resolved Lacidosis, resolved Hemoconcentration, resolved Severe contraction Alkalosis , resolved Rhabdo, resolved Dehydration, Hyponatremia, resolved Chronic: Cannabis Hyperemesis Syndrome Objective - Vital Signs Vital signs: Vital Signs Temp 100.3 F H 10/19/22 04:00 Pulse 120 H 10/19/22 08:41 Resp 48 H 10/19/22 07:00 BP 168/78 10/19/22 07:00 Pulse Ox 91 L 10/19/22 06:00 FiO2 70 10/18/22 16:05 Intake & Output 10/18/22 10/19/22 10/19/22 18:59 06:59 18:59 Intake Total 1127.378 1650.304 150 Output Total 3650 3540 350 Balance -2010.692 -294.696 -200 Weight 61.6 kg Intake: IV 1050 2000 150 Piperacillin-Tazobactam 3 75 100 .375 gm In Sodium Chloride 0.9% 100 ml @ 25 mls/hr IVPB Q8H [facility] Rx#: [id number] Sodium Chloride 0.9% 1, 975 1650 150 000 ml @ 150 mls/hr IV . Q6H40M [facility] Rx#:[id number] Vancomycin 1,000 mg In 250 Sodium Chloride 0.9% 250 ml @ 125 mls/hr IVPB Q12HR [facility] Rx#:[id number] Intake, IV Titration 88.308 125.304 Amount Dexmedetomidine/0.9% NaCl 88.308 125.304 (Pmx) 400 mcg In Empty Bag 1 bag @ 0.2 MCG/KG/HR 2.835 mls/hr IV .Q24H [facility] Rx#:[id number] Oral 500 1120 Output: Urine 3650 3540 350 Other: Voiding Method Indwelling Catheter Indwelling Catheter # Bowel Movements 1 - Labs CBC & Chem 7: 10/19/22 05:25 10/19/22 05:25 Labs: Abnormal Lab Results - Last 24 Hours (Table) 10/19/22 10/19/22 Range/Units 05:25 05:25 WBC 12.2 H (3.8-10.6) k/uL RBC 4.03 L (4.30-5.90) m/uL MCV 106.2 H D (80.0-100.0) fL MCH 35.5 H (25.0-35.0) pg Plt Count 149 L (150-450) k/uL Neutrophils # (Manual) 10.00 H (1.3-7.7) k/uL Sodium 131 L (137-145) mmol/L BUN 58 H (9-20) mg/dL Creatinine 1.93 H (0.66-1.25) mg/dL Glucose 174 H (74-99) mg/dL Calcium 8.0 L (8.4-10.2) mg/dL Microbiology - Last 24 Hours (Table) 10/15/22 07:15 Blood Culture - Preliminary Blood No Growth after 72 hours 10/15/22 07:30 Blood Culture - Preliminary Blood No Growth after 72 hours
[2022-10-19] MEDS ORDERED: ACETAMINOPHEN IV (For NPO) 1,000 MG in EMPTY BAG 1 BAG IVPB STA (08:59)
[2022-10-19] MEDS: DEXMEDETOMIDINE/0.9% NACL(PMX) 400 MCG in EMPTY BAG 1 BAG IV SCH ×2 (09:33→22:54)
--- NOTE | 2022-10-19 10:13 | XR ---
EXAMINATION TYPE: XR chest 1V portable DATE OF EXAM: 10/19/2022 CLINICAL HISTORY: Difficulty breathing progress study. TECHNIQUE: Single AP portable upright view of the chest is obtained. COMPARISON: Chest x-ray from one day earlier and older studies. FINDINGS: Increasing bilateral multifocal increased opacities with significant right-sided progressi on noted. Cardiac silhouette size stable and upper limits of normal. Osseous structures are intact. IMPRESSION: Worsening bilateral multifocal acute infiltrates and/or edema. Correlate for possible cov id-19 infection.
[2022-10-19] MEDS: LEVOFLOXACIN 750MG-D5W PMX 750 MG in DEXTROSE/WATER 1 150ML.BAG IVPB SCH (10:37)
--- NOTE | 2022-10-19 14:10 | P.PN ---
Subjective Progress Note Date: 10/18/22 10/18/2022: Patient was seen for a follow-up. Patient's girlfriend and patient's brother were present. Patient's brother concurs that patient has been having episodic nausea vomiting with use of marijuana. It is happening once every few months. This was the most significant when patient developed significant electrolyte and metabolic dysfunction. Patient's mental functions has cleared up. He appears somewhat restless. 10/17/2022: Patient was seen for a follow-up. Patient initially seen by Dr. Daley yesterday, please refer to her note for details. Patient was found with altered mental status. Patient's mother was present at this time, who also provided with a history. The last known well was 3 PM on Monday, and his mother found him altered at 4:30 AM Monday morning. He had been bouncing off the cano, falling, messed up the whole apartment. He was all by himself. Patient has long-standing history of smoking marijuana, and every 4-5 months, he gets hospitalized for persistent nausea vomiting which was felt to be related to cannabis hyperemesis syndrome. Once patient gets hydrated, electrolytes replacement, he goes home within a few hours. This is the first time patient was severely altered, with abrasions, periorbital ecchymosis. Patient's sister and brother also smokes nor of marijuana as well as his friends around. Patient's mother has repeatedly told him not to smoke, but he does. Patient's mother states that he has been smoking marijuana since he was a teenager. Even at this time he smoking 4-5 joints a day. Patient's mother also mentioned that he has been lately smoking wax, which is a condensed/concentrated form of marijuana. He has never smoked or did any other drugs. CT scan of the brain was performed in the emergency department. There is no evidence of acute hemorrhage or infarct. CT scan of the face revealed no signs of fracture. CT scan of the abdomen and pelvis revealed no abnormalities or fracture. Laboratory evaluation revealed a markedly elevated white blood cell count of 51.1. Hemoglobin was markedly elevated at 20. Potassium was found to be extremely low at 2.1 and sodium low at 128". Objective - Vital Signs Vital signs: Vital Signs Temp 98.4 F 10/18/22 12:00 Pulse 105 H 10/18/22 18:00 Resp 24 10/18/22 18:00 BP 148/68 10/18/22 18:00 Pulse Ox 93 L 10/18/22 18:00 FiO2 70 10/18/22 16:05 Intake & Output 10/17/22 10/18/22 10/18/22 18:59 06:59 18:59 Intake Total 3043.710 3329.696 1638.308 Output Total 3270 2470 3650 Balance -226.290 859.696 -2011.692 Weight 63.9 kg Intake: IV 1750 1050 Piperacillin-Tazobactam 3 100 75 .375 gm In Sodium Chloride 0.9% 100 ml @ 25 mls/hr IVPB Q8H [facility] Rx#: [id number] Sodium Chloride 0.9% 1, 1650 975 000 ml @ 150 mls/hr IV . Q6H40M [facility] Rx#:[id number] Intake, IV Titration 2323.710 169.696 88.308 Amount Dexmedetomidine/0.9% NaCl 73.710 169.696 88.308 (Pmx) 400 mcg In Empty Bag 1 bag @ 0.2 MCG/KG/HR 2.835 mls/hr IV .Q24H [facility] Rx#:[id number] Sodium Chloride 0.9% 1, 1950 000 ml @ 150 mls/hr IV . Q6H40M [facility] Rx#:[id number] Vancomycin 1,000 mg In 250 Sodium Chloride 0.9% 250 ml @ 125 mls/hr IVPB Q12HR [facility] Rx#:[id number] cefTRIAXone 1 gm In 50 Sodium Chloride 0.9% 50 ml @ 100 mls/hr IVPB Q24HR [facility] Rx#:[id number] Oral 720 1160 500 Tube Feeding 250 Output: Urine 3270 2470 3650 Other: Voiding Method Indwelling Catheter Indwelling Catheter Indwelling Catheter # Bowel Movements 1 1 1 - Exam Patient is a young male, who is much more alert and awake, sitting in the bed, appears restless. His mental status, speech and language functions are normal. He still has very orbital bruising. Multiple other skin cuts, bruises from fall. Patient wants to go home. Patient's muscle strength, speech and language functions are normal. Patient is off sedation. - Labs CBC & Chem 7: 10/19/22 05:25 10/19/22 05:25 Labs: Abnormal Lab Results - Last 24 Hours (Table) 10/18/22 10/18/22 Range/Units 08:14 08:14 WBC 18.5 H (3.8-10.6) k/uL RBC 4.09 L (4.30-5.90) m/uL Hct 38.9 L (39.0-53.0) % Neutrophils # 16.1 H (1.3-7.7) k/uL Lymphocytes # 0.9 L (1.0-4.8) k/uL Monocytes # 1.2 H (0-1.0) k/uL Creatinine 1.31 H (0.66-1.25) mg/dL Glucose 105 H (74-99) mg/dL Calcium 8.3 L (8.4-10.2) mg/dL Microbiology - Last 24 Hours (Table) 10/15/22 07:15 Blood Culture - Preliminary Blood No Growth after 72 hours 10/15/22 07:30 Blood Culture - Preliminary Blood No Growth after 72 hours Assessment and Plan Assessment: 1. Toxic-metabolic encephalopathy, as a result of Marijuana hyperemesis syndrome, with metabolic derangements including hyponatremia, hypokalemia, acute renal failure. 2. Possible unwitnessed seizure, with postictal state provoked by hyponatremia and/or hypokalemia 3. Marked dehydration 4. Leukocytosis 5. Acute renal failure, resolving 6. Probable aspiration pneumonia, on antibiotics. Plan: 1. EEG 10/17/2022 was mildly abnormal due to background disorganization with fast and some slow frequency due to medication effect or encephalopathy. No epileptiform activity was seen. 2. The patient's mother and grandmother were advised that the only way to adequately treat/prevent marijuana hyperemesis syndrome is to stop using marijuana, simply cutting down on the usage is not effective 3. Patient is improving gradually clinically. His mentation seems to be back to normal. Discussed with patient's significant other and patient's brother in detail. Also with nursing staff.
--- NOTE | 2022-10-19 14:37 | P.PN ---
Subjective Progress Note Date: 10/19/22 27-year-old male, brought in by EMS, for mental status changes. He apparently was found at 4:30 in the morning, by his mother, on the floor, and unresponsive or poorly responsive. The patient was very agitated, kicking and screaming and flailing about. He was last seen to be normal about 3:30 the previous day. The patient apparently does not have any known medical history other than a bleeding ulcer for which she takes Prevacid. He apparently does not drink or smoke excessively, but does smoke marijuana. According to his mother, he has no significant past medical history. Denies hypertension, hyperlipidemia, diabetes, etc. According to the ER elizabeth, the patient does have a prior history of pericarditis. And also was told that he has a history of cyclic nausea and vomiting, due to marijuana use. He apparently used to drink socially/beer, but quit drinking in August. The patient is seen in the emergency department. He is on room air. Getting LR at 125 mL an hour. His drug screen was positive for marijuana. He himself can provide no additional history. He is extremely agitated flailing about in bed. He is restrained. We are going to start him on some dexmedetomidine, and transfer him to the intensive care unit. White count 51.1, hemoglobin 20.1, hematocrit 53.2, and platelet count 400,000. Coagulation studies were normal. Venous blood gases show pCO2 of 36, and a pH of 7.71. Sodium 128, potassium 2.1, chloride 76, CO2 40, anion gap 12, BUN 58, creatinine 2.42. CK 3001. Troponin is 0.735. Albumin 5.5. Alcohol level less than 10. Screening for influenza A, and influenza B, or negative. Testing for RSV, and coronavirus were negative. Drug screen was positive for THC. Abdominal x-ray shows no obstruction. Chest x-ray was normal. Brain CT showed nothing acute. Facial CT was negative. Chest abdomen and pelvic CT was negative. Progress note dated 10/16/2022. 27-year-old male seen in the emergency room yesterday. He was brought in by EMS for severe agitation. He was found by his mother on the floor, and he been there for at least 8 hours, and maybe longer. Anyway, the patient was transferred to the ICU for better management and monitoring. His potassium was quite low and needed aggressive replacement. In addition, because of his agita tion, he was given dexmedetomidine, and in addition, both Ativan and Haldol. Currently, he is seen in room 254. He is on 2 L of oxygen. Is getting lactated Ringer's at 125 mL an hour. Potassium is up to 2.9. He is getting dexmedetomidine at 0.8 mcg/kg/h. He is on vancomycin and ceftriaxone. White count 16.3 hemoglobin 14.1 hematocrit 39.3 and platelet count 295,000. Sodium 133, potassium 2.9, chlorides 90, CO2 36, BUN 52, and creatinine 1.68. CK is 5834. On today's evaluation of 10/17/2022, I'm seeing this patient for a follow-up. He is currently on Precedex and he is running at 0.6 mcg/kg/hr and the patient is also on Haldol on an as-needed basis. The patient is extremely restless in bed. The patient is restless, flailing and kicking and his movements are quite chaotic. CAT scan of the brain is measured at the time of admission was negative. EEG showed no evidence of any seizures and urine drug screen is positive for THC. The patient was seen by neurology and the patient was also seen by psychiatry. The working diagnosis for now is ongoing delirium secondary to toxic metabolic encephalopathy. The patient also has developed acute hypoxic respiratory failure with an ongoing pneumonia in the left lung. Earlier this morning, the patient was on 6 L of oxygen by nasal cannula. Nevertheless, the patient was showing improvement in his rhabdomyolysis. CPK is down to 4238. The patient was in acute kidney injury and the creatinine is improving and is currently down to 1.25 with a BUN of 20. Sodiums of 135 with a potassium level of 3.2. Serum bicarb is 31. The chest x-ray showing a airspace disease in the left lung consistent with pneumonia. The patient remains on broad-spectrum antibiotics. The patient remains on a combination of Rocephin and vancomycin for now. The patient is also on heparin subcu for DVT prophylaxis. Family the bedside and the patient has a one-to-one sitter for safety. Psychiatry has recommended starting this patient on Prolixin 2 mg twice a day for delirium. Benzodiazepines were discontinued. On 11/04/2022, the patient seems to much more comfortable compared to yesterday. The patient remains on Precedex 0.4 pg/kg/h. The patient is also on Prolixin 2 mg by mouth twice a day. Doing well. He is answering questions appropriately. He is still looking anxious. Meanwhile, the patient developed acute hypoxic respiratory failure. Oxygen requirements progressively went up and the patient today has been transitioned to high flow oxygen with a total of 35 L an FiO2 of 75%. Noted the chest x-ray was repeated today and the patient was found to have persistent left mid lung pulmonary infiltrate. There was also a new right lower lobe pulmonary infiltrate. Based on that, the patient was started on broad- spectrum antibiotics and the patient is currently on a combination of Zosyn and vancomycin. He is coughing. Is producing sputum and she should be able to culture the sputum. He is hemodynamically stable at this point in time. He is unresponsive 60 with a hemoglobin of 14 and a platelet count of 195. Creatinine is improved and is currently down to 1.2 with a BUN of 28. Potassium level is at 3.2 and a serum bicarb is 31 with a sodium level of 135. The patient remains on normal saline at the rate of 150 mL an hour. Family is at the bedside. Benzodiazepines of the discontinued. 10/19/2022, the patient clinically is looking better than his much more comfortable even compared to yesterday. He remains on Precedex at 0.7 g. No agitation. Following commands and answering questions appropriately. Nevertheless, there is no interval worsening in the patient's chest x-ray findings. The patient remains on a nonrebreather facemask that she prefers over a high flow oxygen. I reviewed the follow-up chest x-ray from today and the patient has multifocal airspace disease which could be development or progression of pneumonia versus ARDS. Note the patient has been covered with broad-spectrum antibiotic and the patient is currently on accommodation of Zosyn and vancomycin. Levaquin will be added regarding the possibility of atypical bacterial infection. The patient will have Legionella urine antigen checked. Also, on today's blood work, the creatinine is up to 1.9 and the patient remains on IV fluids. Urine operas adequate for now. Sodiums of 131. Potassium levels at 4.1. I'll discuss of 12.2 with hemoglobin 14.3 and a platelet count of 149. CPK is improving as the patient's rhabdomyolysis is recovering and the patient's CPK level is down to 737. Of concern is the ongoing hypoxic respiratory failure and the bilateral pneumonia and worsening in the chest x-ray findings. Objective - Vital Signs Vital signs: Vital Signs Temp 98.4 F 10/19/22 12:00 Pulse 84 10/19/22 13:00 Resp 22 10/19/22 13:00 BP 137/89 10/19/22 13:00 Pulse Ox 94 L 10/19/22 13:00 FiO2 70 10/18/22 16:05 Intake & Output 10/18/22 10/19/22 10/19/22 18:59 06:59 18:59 Intake Total 0994.180 8087.304 1205.254 Output Total 3650 3540 2150 Balance -2010.692 -294.696 -944.746 Weight 61.6 kg Intake: IV 1050 2000 1150 Levofloxacin 750Mg-D5w 150 Pmx 750 mg In Dextrose/ Water 1 150ml.bag @ 100 mls/hr IVPB Q24H [facility] Rx#: [id number] Piperacillin-Tazobactam 3 75 100 .375 gm In Sodium Chloride 0.9% 100 ml @ 25 mls/hr IVPB Q8H [facility] Rx#: [id number] Sodium Chloride 0.9% 1, 975 1650 750 000 ml @ 150 mls/hr IV . Q6H40M [facility] Rx#:[id number] Vancomycin 1,000 mg In 250 250 Sodium Chloride 0.9% 250 ml @ 125 mls/hr IVPB Q12HR [facility] Rx#:[id number] Intake, IV Titration 88.308 125.304 55.254 Amount Dexmedetomidine/0.9% NaCl 88.308 125.304 55.254 (Pmx) 400 mcg In Empty Bag 1 bag @ 0.2 MCG/KG/HR 2.835 mls/hr IV .Q24H [facility] Rx#:[id number] Oral 500 1120 Output: Urine 3650 3540 2150 Other: Voiding Method Indwelling Catheter Indwelling Catheter Indwelling Catheter # Bowel Movements 1 1 - Exam The patient is calm and comfortable and the patient is currently on 100% nonrebreather facemask. The patient prefers a full facemask over nasal cannula on high flow oxygen. HEENT examination is grossly unremarkable. Facial bruises and lacerations noted. Neck supple. Full range of motion. No adenopathy thyromegaly or neck vein distention. Cardiovascular examination reveals regular rhythm rate. S1-S2 normal. No S3 or S4. No discernible murmur noted. Heart rate 70 bpm. Lungs reveal mostly clear breath sounds. Breath sounds are equal bilaterally. Minimal scattered rhonchi. No wheezes or crackles. Abdomen soft, without masses. Extremities are intact. No cyanosis clubbing or edema. Skin is without rash or lesion. Neurologic examination appears relatively normal.The patient will go for some of his without any limitation. - Labs CBC & Chem 7: 10/19/22 05:25 10/19/22 05:25 Labs: Abnormal Lab Results - Last 24 Hours (Table) 10/19/22 10/19/22 10/19/22 Range/Units 05:25 05:25 12:39 WBC 12.2 H (3.8-10.6) k/uL RBC 4.03 L (4.30-5.90) m/uL MCV 106.2 H D (80.0-100.0) fL MCH 35.5 H (25.0-35.0) pg Plt Count 149 L (150-450) k/uL Neutrophils # (Manual) 10.00 H (1.3-7.7) k/uL Sodium 131 L (137-145) mmol/L BUN 58 H (9-20) mg/dL Creatinine 1.93 H (0.66-1.25) mg/dL Glucose 174 H (74-99) mg/dL Calcium 8.0 L (8.4-10.2) mg/dL Creatine Kinase 737 H (55-170) U/L Microbiology - Last 24 Hours (Table) 10/15/22 07:15 Blood Culture - Preliminary Blood No Growth after 96 hours 10/15/22 07:30 Blood Culture - Preliminary Blood No Growth after 96 hours Assessment and Plan Plan: Delerium , most likely related to substance abuse, clinically improving. The patient was weaned off the Precedex and the patient is currently on Prolixin. Acute hypoxic respiratory failure with multifocal pneumonia/ARDS. Currently on 100% nonrebreather facemask. Chest x-ray shows interval worsening and the patient is currently on a combination of Zosyn and Levaquin. The viral screen ing was negative. Acute leukocytosis, improving Severe contraction alkalosis secondary to dehydration, improvedSevere hypokalemia, potassium level is being replaced Acute kidney injury, creatinine is up to 1.9 Hyponatremia, improved Rhabdomyolysis, improving and the CPK level is declining Lactic acidemia. History of bleeding ulcer. History of pericarditis. History of cyclic nausea and vomiting, secondary to marijuana use. Plan Keep the patient in intensive care unit Continue Precedex and gradually wean the Precedex based on his mental status Continue Prolixin for agitation and goes of 2 mg po twice a day IV fluids with normal saline in the 150 mL an hour Keep the patient 100% on rebreather facemask Check Legionella urine antigen Continue Zosyn and vancomycin Add Levaquin for atypical coverage repeat chest x-ray in the morning Provide the patient incentive spirometer Psychiatry consultation appreciated Continue IV fluids and monitor renal function Neurologic consultation We'll continue to follow.
--- NOTE | 2022-10-19 15:38 | P.PN ---
Subjective Patient is seen for follow-up for acute kidney injury. Renal function has been improving. Patient is maintained on IV fluids. Good urine output Serum creatinine at 1.3 mg/dL, increased to 1.9 today UOP at 2.4L for last 8 hrs. Patient has diarrhea. Maintained on IVF at 150cc/ hr BPis not low. CXR findings are slightly worse. Maintained on Vancomycin. Level was 12.9 on 10/18/22 Objective - Vital Signs Vital signs: Vital Signs Temp 98.4 F 10/19/22 12:00 Pulse 106 H 10/19/22 14:00 Resp 22 10/19/22 14:00 BP 135/80 10/19/22 14:00 Pulse Ox 92 L 10/19/22 14:00 FiO2 70 10/18/22 16:05 Intake & Output 10/18/22 10/19/22 10/19/22 18:59 06:59 18:59 Intake Total 8632.282 4419.304 1205.254 Output Total 3650 3540 2150 Balance -2010.692 -294.696 -944.746 Weight 61.6 kg Intake: IV 1050 2000 1150 Levofloxacin 750Mg-D5w 150 Pmx 750 mg In Dextrose/ Water 1 150ml.bag @ 100 mls/hr IVPB Q24H [facility] Rx#: [id number] Piperacillin-Tazobactam 3 75 100 .375 gm In Sodium Chloride 0.9% 100 ml @ 25 mls/hr IVPB Q8H [facility] Rx#: [id number] Sodium Chloride 0.9% 1, 975 1650 750 000 ml @ 150 mls/hr IV . Q6H40M [facility] Rx#:[id number] Vancomycin 1,000 mg In 250 250 Sodium Chloride 0.9% 250 ml @ 125 mls/hr IVPB Q12HR [facility] Rx#:[id number] Intake, IV Titration 88.308 125.304 55.254 Amount Dexmedetomidine/0.9% NaCl 88.308 125.304 55.254 (Pmx) 400 mcg In Empty Bag 1 bag @ 0.2 MCG/KG/HR 2.835 mls/hr IV .Q24H [facility] Rx#:[id number] Oral 500 1120 Output: Urine 3650 3540 2150 Other: Voiding Method Indwelling Catheter Indwelling Catheter Indwelling Catheter # Bowel Movements 1 1 - Exam Awake, comfortable, no acute distress Alert oriented 3 On 100% NRB Examination of the heart S1 and S2 Examination lungs decreased breath sounds at the bases Abdomen is soft nontender Exam in lower extremity shows no significant edema FARM MECHANIC exam grossly intact - Labs CBC & Chem 7: 10/19/22 05:25 10/19/22 05:25 Labs: Abnormal Lab Results - Last 24 Hours (Table) 10/19/22 10/19/22 10/19/22 Range/Units 05:25 05:25 12:39 WBC 12.2 H (3.8-10.6) k/uL RBC 4.03 L (4.30-5.90) m/uL MCV 106.2 H D (80.0-100.0) fL MCH 35.5 H (25.0-35.0) pg Plt Count 149 L (150-450) k/uL Neutrophils # (Manual) 10.00 H (1.3-7.7) k/uL Sodium 131 L (137-145) mmol/L BUN 58 H (9-20) mg/dL Creatinine 1.93 H (0.66-1.25) mg/dL Glucose 174 H (74-99) mg/dL Calcium 8.0 L (8.4-10.2) mg/dL Creatine Kinase 737 H (55-170) U/L Microbiology - Last 24 Hours (Table) 10/15/22 07:15 Blood Culture - Preliminary Blood No Growth after 96 hours 10/15/22 07:30 Blood Culture - Preliminary Blood No Growth after 96 hours Assessment and Plan Assessment: 1. Acute kidney injury mostly prerenal secondary to hypovolemia improved with IV hydration. Creatinine increased to 1.9 today from 1.3 yesterday. Unknown baseline renal function. 2. Hypokalemia secondary to poor intake and intracellular shifting due to alkalosis. Improved. 3. Metabolic alkalosis secondary to vomiting, volume contraction, hypokalemia. Hypochloremia will also contribute to metabolic alkalosis by preventing bicarb secretion. Improved. 4. Hypovolemic hyponatremia improved with IV hydration. Sodium is slightly lower today associated with worsening renal function. 6. Mental status changes. Unclear cause. Neurology following. Currently improved 7. Rhabdomyolysis due to immobility. CK levels trending down. Plan: Continue with normal saline Avoid nephrotoxic medications. Maintained on Vancomycin for pneumonia. Monitor level closely. Check serologies, protein noted on U/A
--- NOTE | 2022-10-19 15:44 | P.PN ---
Progress Note - Text Progress Note Date: 10/19/22 Interval History: Patient was seen today for psychiatric follow-up regarding patient's delirium. Patient's nurse claims that the Precedex has been weaned off and patient is doing fairly well more alert and appropriate. Patient's mother claims that she believes patient has been doing better with his mental status today. Patient was seen laying in bed today resting and was agreeable to speak to bond writer. He recognizes bond writer from yesterday. He answered most questions today and appeared to be less irritable and less frustrated. His attention span is improving. He was fairly appropriate and calmer during the interview. He continues to answer questions fairly concretely. He knew today's date, knows his full name doses location. He answered other questions fairly well and has a improving fund of knowledge. He claims that he slept "on and off" however does not remember how much he slept at night time. Claims to have been improving appetite. He is denying any depression or anxiety at this time. At this time patient denies any suicidal or homical ideations, intent or plan. Patient denies any auditory, visual hallucinations and denies any paranoia or delusions. Patient denies any side effects from the medications and has been compliant with meds. Mental Status Exam: General Appearance: Patient appears to be thin, sedated, stated age is more alert, attempts to cooperate, improving attention span. Patient appears to have mildly hygiene and grooming wearing hospital gown with improving eye contact. Behavior: Patient is calmly lying in bed without any agitated behavior. Last Restless. Attempts to cooperate. Speech: Patient's speech is slow to respond, concrete, improving mildly Mood/Affect: Patient reports their mood is "a bit better", affect is congruent and constricted Suicidality/Homicidality: Patient denies having any suicidal or homicidal ideation intent or plan. Perceptions: Patient denies any visual hallucinations and denies any auditory hallucinations Though content/process: pt is concrete. No delusions or paranoia. Poverty of content. Memory and concentration: AOX2, had to be prompted on the today's date, mildly improving attention span, poor memory recall. Follows more commands. Judgment and insight: improving mildly IMPRESSIONS: Delirium likely etiology toxic metabolic cannabis use disorder severe dependence PLAN: -At this time patient DOES NOT meet criteria for inpatient psychiatric admission. -Delirium precautions recommended with patient including - avoiding use of narcotics and AUTOMATIC STACKER sedatives, limit anticholinergic medications when possible, frequent re-orientation, minimize use of restraints, open window shades during the day and close them at night -Would recommend the following medication changes/additions: continue with her Victoria by mouth 2 mg twice a day scheduled for delirium/psychosis for one more day and tomorrow will start to wean down. Continue with Haldol IV when necessary for agitation. remeron 15 mg qhs for sleep/mood. -continue treating underling medical conditions and infection. 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 -Please contact with any questions.
[2022-10-19] MEDS ORDERED: SODIUM CHLORIDE 0.65% NASAL SPRAY 44 ML BTL NASAL PRN (17:53)
[2022-10-19] MEDS ORDERED: VANCOMYCIN TROUGH DUE 1 EACH MISC MISCELLANE ONE (20:00)
[2022-10-19] MEDS: MIRTAZAPINE 15 MG TAB PO SCH (20:26)
[2022-10-19] MEDS: BENZONATATE 100 MG CAP PO PRN (22:50)
[2022-10-20] MEDS: HEPARIN SODIUM,PORCINE/PF 5,000 UNIT/0.5 ML SYRINGE SQ SCH ×4 (00:08→23:54)
[2022-10-20 00:39] LABS: ABG Base Excess 2.3 mmol/L; ABG HCO3 25 mmol/L (21-25); ABG Oxygen Saturation 91.8 % (94-97); ABG PCO2 32 mmHg (35-45); ABG PH 7.51 (7.35-7.45); ABG TCO2 26 mmol/L (19-24); Allen Test Performed? Yes
[2022-10-20 00:41] LABS: ABG PO2 53 mmHg (83-108)
--- NOTE | 2022-10-20 01:38 | XR ---
EXAMINATION TYPE: XR chest 1V portable DATE OF EXAM: 10/20/2022 COMPARISON: Yesterday HISTORY: Respiratory failure TECHNIQUE: FINDINGS: Endotracheal tube is 4 cm from the delta. There is nasogastric tube in the stomach. There is moderate pulmonary airspace edema. There are chest leads. No pleural effusion. There is distended gas-filled stomach. IMPRESSION: There is pulmonary edema which is slightly worse than yesterday and consistent with worse sathish RDS. Mildly dilated gas-filled stomach
[2022-10-20 01:44] LABS: Hepatitis B Surface AB- Quant 7.6 mIU/mL; Hepatitis B Surface Antibody Nonreactive (Nonreactive)
[2022-10-20] MEDS: fentaNYL (PF). 1,000 MCG in SODIUM CHLORIDE 0.9% 80 ML IV SCH ×2 (01:56→10:47)
[2022-10-20] MEDS: CISATRACURIUM 200 MG in SODIUM CHLORIDE 0.9% 180 ML IV SCH (02:20)
[2022-10-20 02:31] LABS: Anti-DNA, DS unit <1.0 IU/mL; DNA Double-Stranded NEGATIVE (NEGATIVE)
[2022-10-20 02:53] LABS: ABG Base Excess 0.8 mmol/L; ABG HCO3 26 mmol/L (21-25); ABG Oxygen Saturation 99.4 % (94-97); ABG PCO2 45 mmHg (35-45); ABG PH 7.37 (7.35-7.45); ABG PO2 136 mmHg (83-108); ABG TCO2 27 mmol/L (19-24); Allen Test Performed? Yes
[2022-10-20] MEDS: IPRATROPIUM-ALBUTEROL 3 ML NEB INHALATION SCH ×6 (02:55→23:30)
[2022-10-20 03:27] LABS: Hepatitis B Surface Antigen Nonreactive (Nonreactive); Hepatitis C IgG Antibody Nonreactive (Nonreactive)
--- NOTE | 2022-10-20 05:01 | P.PN ---
Subjective Progress Note Date: 10/20/22 27-year-old male, brought in by EMS, for mental status changes. He apparently was found at 4:30 in the morning, by his mother, on the floor, and unresponsive or poorly responsive. The patient was very agitated, kicking and screaming and flailing about. He was last seen to be normal about 3:30 the previous day. The patient apparently does not have any known medical history other than a bleeding ulcer for which she takes Prevacid. He apparently does not drink or smoke excessively, but does smoke marijuana. According to his mother, he has no significant past medical history. Denies hypertension, hyperlipidemia, diabetes, etc. According to the ER elizabeth, the patient does have a prior history of pericarditis. And also was told that he has a history of cyclic nausea and vomiting, due to marijuana use. He apparently used to drink socially/beer, but quit drinking in August. The patient is seen in the emergency department. He is on room air. Getting LR at 125 mL an hour. His drug screen was positive for marijuana. He himself can provide no additional history. He is extremely agitated flailing about in bed. He is restrained. We are going to start him on some dexmedetomidine, and transfer him to the intensive care unit. White count 51.1, hemoglobin 20.1, hematocrit 53.2, and platelet count 400,000. Coagulation studies were normal. Venous blood gases show pCO2 of 36, and a pH of 7.71. Sodium 128, potassium 2.1, chloride 76, CO2 40, anion gap 12, BUN 58, creatinine 2.42. CK 3001. Troponin is 0.735. Albumin 5.5. Alcohol level less than 10. Screening for influenza A, and influenza B, or negative. Testing for RSV, and coronavirus were negative. Drug screen was positive for THC. Abdominal x-ray shows no obstruction. Chest x-ray was normal. Brain CT showed nothing acute. Facial CT was negative. Chest abdomen and pelvic CT was negative. Progress note dated 10/16/2022. 27-year-old male seen in the emergency room yesterday. He was brought in by EMS for severe agitation. He was found by his mother on the floor, and he been there for at least 8 hours, and maybe longer. Anyway, the patient was transferred to the ICU for better management and monitoring. His potassium was quite low and needed aggressive replacement. In addition, because of his agita tion, he was given dexmedetomidine, and in addition, both Ativan and Haldol. Currently, he is seen in room 254. He is on 2 L of oxygen. Is getting lactated Ringer's at 125 mL an hour. Potassium is up to 2.9. He is getting dexmedetomidine at 0.8 mcg/kg/h. He is on vancomycin and ceftriaxone. White count 16.3 hemoglobin 14.1 hematocrit 39.3 and platelet count 295,000. Sodium 133, potassium 2.9, chlorides 90, CO2 36, BUN 52, and creatinine 1.68. CK is 5834. On today's evaluation of 10/17/2022, I'm seeing this patient for a follow-up. He is currently on Precedex and he is running at 0.6 mcg/kg/hr and the patient is also on Haldol on an as-needed basis. The patient is extremely restless in bed. The patient is restless, flailing and kicking and his movements are quite chaotic. CAT scan of the brain is measured at the time of admission was negative. EEG showed no evidence of any seizures and urine drug screen is positive for THC. The patient was seen by neurology and the patient was also seen by psychiatry. The working diagnosis for now is ongoing delirium secondary to toxic metabolic encephalopathy. The patient also has developed acute hypoxic respiratory failure with an ongoing pneumonia in the left lung. Earlier this morning, the patient was on 6 L of oxygen by nasal cannula. Nevertheless, the patient was showing improvement in his rhabdomyolysis. CPK is down to 4238. The patient was in acute kidney injury and the creatinine is improving and is currently down to 1.25 with a BUN of 20. Sodiums of 135 with a potassium level of 3.2. Serum bicarb is 31. The chest x-ray showing a airspace disease in the left lung consistent with pneumonia. The patient remains on broad-spectrum antibiotics. The patient remains on a combination of Rocephin and vancomycin for now. The patient is also on heparin subcu for DVT prophylaxis. Family the bedside and the patient has a one-to-one sitter for safety. Psychiatry has recommended starting this patient on Prolixin 2 mg twice a day for delirium. Benzodiazepines were discontinued. On 11/04/2022, the patient seems to much more comfortable compared to yesterday. The patient remains on Precedex 0.4 pg/kg/h. The patient is also on Prolixin 2 mg by mouth twice a day. Doing well. He is answering questions appropriately. He is still looking anxious. Meanwhile, the patient developed acute hypoxic respiratory failure. Oxygen requirements progressively went up and the patient today has been transitioned to high flow oxygen with a total of 35 L an FiO2 of 75%. Noted the chest x-ray was repeated today and the patient was found to have persistent left mid lung pulmonary infiltrate. There was also a new right lower lobe pulmonary infiltrate. Based on that, the patient was started on broad- spectrum antibiotics and the patient is currently on a combination of Zosyn and vancomycin. He is coughing. Is producing sputum and she should be able to culture the sputum. He is hemodynamically stable at this point in time. He is unresponsive 60 with a hemoglobin of 14 and a platelet count of 195. Creatinine is improved and is currently down to 1.2 with a BUN of 28. Potassium level is at 3.2 and a serum bicarb is 31 with a sodium level of 135. The patient remains on normal saline at the rate of 150 mL an hour. Family is at the bedside. Benzodiazepines of the discontinued. 10/19/2022, the patient clinically is looking better than his much more comfortable even compared to yesterday. He remains on Precedex at 0.7 g. No agitation. Following commands and answering questions appropriately. Nevertheless, there is no interval worsening in the patient's chest x-ray findings. The patient remains on a nonrebreather facemask that she prefers over a high flow oxygen. I reviewed the follow-up chest x-ray from today and the patient has multifocal airspace disease which could be development or progression of pneumonia versus ARDS. Note the patient has been covered with broad-spectrum antibiotic and the patient is currently on accommodation of Zosyn and vancomycin. Levaquin will be added regarding the possibility of atypical bacterial infection. The patient will have Legionella urine antigen checked. Also, on today's blood work, the creatinine is up to 1.9 and the patient remains on IV fluids. Urine operas adequate for now. Sodiums of 131. Potassium levels at 4.1. I'll discuss of 12.2 with hemoglobin 14.3 and a platelet count of 149. CPK is improving as the patient's rhabdomyolysis is recovering and the patient's CPK level is down to 737. Of concern is the ongoing hypoxic respiratory failure and the bilateral pneumonia and worsening in the chest x-ray findings. 10/20/2022, I'm seeing the patient in the [facility] hours. I came to the time of this patient as the patient was becoming progressively more short of breath and hypoxic. I was informed at around 1 AM that the patient was becoming progressively more hypoxic. The blood gas was done and the patient was hypoxic and his blood gas was done while him being on 100% nonrebreather facemask. Noted the patient was quite restless and he was not keeping the mask on. I try to put him back on Precedex which resulted in limited success and the patient continued to be short of breath, tachypneic, respiratory rate was in the high 30s to low 40s and the patient was also hypoxic. At that point, I made the decision to intubate the patient put him on a mechanical ventilator. It was very difficult to sedate this patient. Based on that, the patient was placed on a combination of propofol and fentanyl. He was paralyzed and postintubation he was kept on a mechanical ventilator on assist control mode at the rate of 28 with a tidal volume of 400 and FiO2 of 100% with a PEEP of 10. The blood. Was done post intubation showed improvement in oxygenation. Current pulse ox is 98%. Blood gases showed a pH of 7.37. PCO2 of 44 and pO2 of 136. At this point in time, the patient is on propofol running at the rate of 50 microvascular kilogram per minute. Is also on fentanyl at 2 mcg/kg/h. His also on Nimbex at 2 microvascular kilogram per minutes. His well sedated and paralyzed. His peak airway pressure is 24. His chest x-ray postintubation showed diffuse bilateral airspace disease and tube is in a good location. I had to the ICU. I the next discussion with the patient's mother with concerns and questions and I addressed all other concerns. I explained to her that this could be potentially a bad pneumonia. Aspiration cannot be ruled out. Acute lung injury from using various forms of cannabis cannot be also ruled out in this situation. The patient is currently hemodynamically stable. The patient is not requiring any pressors. The patient is on IV fluids running at 1 50 mL a n hour and the patient is producing adequate amount of urine output. As mentioned earlier, the rhabdomyolysis was improving. Creatinine was up to 1.9 yesterday and the labs from today are still pending. Meanwhile I do have a CBC from today that shows no significant leukocytosis. The white cell count is currently at 12. Hemoglobin is also adequate for now. Currently is intubated on a mechanical ventilator. Orogastric tube is also in place. Abdomen is nondistended. He is afebrile. He is covered with broad-spectrum antibiotics including a combination of Zosyn and Levaquin and vancomycin. His HUSSEIN is negative. His Legionella urine antigen his still pending for now. A bronchoscopy will be also done with a bronchioloalveolar lavage. The patient will be started on systemic steroids. CPK has dropped Objective - Vital Signs Vital signs: Vital Signs Temp 100.7 F H 10/20/22 00:00 Pulse 112 H 10/20/22 03:06 Resp 28 H 10/20/22 03:00 BP 146/88 10/20/22 03:00 Pulse Ox 100 10/20/22 03:00 FiO2 80 10/20/22 03:37 Intake & Output 10/19/22 10/19/22 10/20/22 06:59 18:59 06:59 Intake Total 3245.304 6633.498 9568.888 Output Total 3540 2900 1145 Balance -294.696 -1094.746 896.888 Weight 61.6 kg 58.7 kg Intake: IV 2000 1750 1850 Levofloxacin 750Mg-D5w 150 Pmx 750 mg In Dextrose/ Water 1 150ml.bag @ 100 mls/hr IVPB Q24H [facility] Rx#: [id number] Piperacillin-Tazobactam 3 100 100 .375 gm In Sodium Chloride 0.9% 100 ml @ 25 mls/hr IVPB Q8H [facility] Rx#: [id number] Sodium Chloride 0.9% 1, 1650 1350 1500 000 ml @ 150 mls/hr IV . Q6H40M [facility] Rx#:[id number] Vancomycin 1,000 mg In 250 250 250 Sodium Chloride 0.9% 250 ml @ 125 mls/hr IVPB Q12HR [facility] Rx#:[id number] Intake, IV Titration 125.304 55.254 41.888 Amount Cisatracurium 200 mg In 0.308 Sodium Chloride 0.9% 180 ml @ 1 MCG/KG/MIN 3.696 mls/hr IV .Q24H [facility] Rx#: [id number] Dexmedetomidine/0.9% NaCl 125.304 55.254 (Pmx) 400 mcg In Empty Bag 1 bag @ 0.2 MCG/KG/HR 2.835 mls/hr IV .Q24H [facility] Rx#:[id number] Dexmedetomidine/0.9% NaCl 7.7 (Pmx) 400 mcg In Empty Bag 1 bag @ 0.2 MCG/KG/HR 3.08 mls/hr IV .Q24H [facility] Rx#:[id number] fentaNYL (PF). 1,000 mcg 4.466 In Sodium Chloride 0.9% 80 ml @ 0.5 MCG/KG/HR 3. 08 mls/hr IV .Q24H [facility] Rx #:[id number] propofoL 1,000 mg In 29.414 Empty Bag 1 bag @ 15 MCG/ KG/MIN 5.544 mls/hr IV . Q18H3M [facility] Rx#:[id number] Oral 1120 150 Output: Urine 3540 2900 1145 Other: Voiding Method Indwelling Catheter Indwelling Catheter Indwelling Catheter # Bowel Movements 1 1 - Exam The patient is currently sedated and paralyzed. The patient is on accommodation of propofol and fentanyl. The patient is also on Nimbex. The patient is intubated on a mechanical ventilator. Orogastric and orotracheal tube are both in place. Synchronous a mechanical ventilator. Head exam was generally normal. There was no scleral icterus or corneal arcus. Mucous membranes were moist. Neck supple. Full range of motion. No adenopathy thyromegaly or neck vein distention.Left IJ triple-lumen catheter was inserted Cardiovascular examination reveals regular rhythm rate. S1-S2 normal. No S3 or S4. No discernible murmur noted. . Lungs reveal mostly clear breath sounds. Breath sounds are equal bilaterally. Minimal scattered rhonchi. No wheezes or crackles. Abdomen soft, without masses. Extremities are intact. No cyanosis clubbing or edema. An arterial line was a lso inserted in the left radial artery. Skin is without rash or lesion. Neurologic examination is limited the patient is currently sedated and paralyzed. - Labs CBC & Chem 7: 10/19/22 05:25 10/19/22 05:25 Labs: Abnormal Lab Results - Last 24 Hours (Table) 10/19/22 10/19/22 10/19/22 Range/Units 05:25 05:25 12:39 WBC 12.2 H (3.8-10.6) k/uL RBC 4.03 L (4.30-5.90) m/uL MCV 106.2 H D (80.0-100.0) fL MCH 35.5 H (25.0-35.0) pg Plt Count 149 L (150-450) k/uL Neutrophils # (Manual) 10.00 H (1.3-7.7) k/uL ABG pH (7.35-7.45) ABG pCO2 (35-45) mmHg ABG pO2 (83-108) mmHg ABG HCO3 (21-25) mmol/L ABG Total CO2 (19-24) mmol/L ABG O2 Saturation (94-97) % Sodium 131 L (137-145) mmol/L BUN 58 H (9-20) mg/dL Creatinine 1.93 H (0.66-1.25) mg/dL Glucose 174 H (74-99) mg/dL Calcium 8.0 L (8.4-10.2) mg/dL Creatine Kinase 737 H (55-170) U/L Vitamin B12 (200.0-944.0) pg/mL 10/19/22 10/20/22 10/20/22 Range/Units 19:59 00:33 02:50 WBC (3.8-10.6) k/uL RBC (4.30-5.90) m/uL MCV (80.0-100.0) fL MCH (25.0-35.0) pg Plt Count (150-450) k/uL Neutrophils # (Manual) (1.3-7.7) k/uL ABG pH 7.51 H (7.35-7.45) ABG pCO2 32 L (35-45) mmHg ABG pO2 53 L* 136 H (83-108) mmHg ABG HCO3 26 H (21-25) mmol/L ABG Total CO2 26 H 27 H (19-24) mmol/L ABG O2 Saturation 91.8 L 99.4 H (94-97) % Sodium (137-145) mmol/L BUN (9-20) mg/dL Creatinine (0.66-1.25) mg/dL Glucose (74-99) mg/dL Calcium (8.4-10.2) mg/dL Creatine Kinase (55-170) U/L Vitamin B12 1071.0 H (200.0-944.0) pg/mL Microbiology - Last 24 Hours (Table) 10/15/22 07:15 Blood Culture - Preliminary Blood No Growth after 96 hours 10/15/22 07:30 Blood Culture - Preliminary Blood No Growth after 96 hours Assessment and Plan Plan: Acute hypoxic respiratory failure with multifocal pneumonia/ consider po ssibility of an acute lung injury post aspiration. Acute lung injury related to inhalation of large quantities of cannabis and various forms could also cause a similar form of acute lung injury. The patient is currently covered with broad- spectrum antibiotics. He is on a combination of Zosyn and Levaquin and vancomycin. Currently intubated on a mechanical ventilator because of worsening hypoxemia. The viral screening was negative. Acute respiratory failure requiring intubation mechanical ventilation, currently under investigation Delerium , most likely related to substance abuse, clinically improving. The patient showed improvement in the mental status with Prolixin. Nevertheless, because of worsening respiratory status and the composition, the patient is currently intubated on a mechanical ventilator and is sedated. Is requiring higher doses of sedatives and currently is on a combination of propofol and fentanyl. Acute leukocytosis, improving Severe contraction alkalosis secondary to dehydration, improvedSevere hypokalemia, potassium level is being replaced Acute kidney injury, creatinine is up to 1.9 from yesterday and the repeat labs from today still pending. Hyponatremia, improved Rhabdomyolysis, improving and the CPK level is declining Lactic acidemia. History of bleeding ulcer. History of pericarditis. History of cyclic nausea and vomiting, secondary to marijuana use. Plan Keep the patient in intensive care unit Give the patient sedated with a combination of propofol and fentanyl Keep Nimbex for now we'll give the patient paralytic holiday later on during the day Continue ventilator support and dropped FiO2 down to 70% and repeat blood gases will be done in the morning at around 7 AM. Continue with the same antibiotic coverage included a combination of Zosyn and Levaquin and vancomycin I'm going to start The patient IV Solu-Medrol 60 mg every 8 hours We'll do a bronchoscopy and a bronchial lavage A triple-lumen catheter was established Arterial line was established Change IV fluids to 75 mL an hour Initiate enteral feeding for nutritional support We'll continue to follow. I had a lengthy discussion with the mother the bedside. She is very much concerned. I am concerned also of his ongoing progress. Nevertheless, I believe that everything is being done for this patient. She brought up the possibility of transferring him to another facility. I'm open to that suggestion if she wants to pursue it. I'm personally very comfortable in taking care of him here in our facility and trans fers to be done this will be essentially appears normal family decision. His condition is critical We'll obtain an echocardiogram We'll act check a pro-calcitonin leve we'll continue to follow Appreciate consultation from other specialists including neurology and psychiatry This evaluation was on a more than 30 minutes excluding time to do any procedures. Time with Patient: Greater than 30
--- NOTE | 2022-10-20 05:14 | P.PCN ---
Date of Procedure: 10/20/22 Preoperative Diagnosis: bilateral pneumonia Postoperative Diagnosis: bilateral pneumonia Procedure(s) Performed: central line arterial line bronchoscopy and BAL of the RML Anesthesia: DANAEA Surgeon: Amanda Ruiz Estimated Blood Loss (ml): 0 Pathology: other Condition: critical Disposition: ICU Operative Findings: ARTERIAL LINE Indication: Hemodynamic monitoring. A time-out was completed verifying correct patient, procedure, site, positioning, and implant(s) or special equipment if applicable. Tomi s test was performed to ensure adequate perfusion. The patients left wrist was prepped and draped in sterile fashion. 1% Lidocaine was used to anesthetize the area. An 18G Arrow arterial line was introduced into the radial (left) artery. The catheter was threaded over the guide wire and the needle was removed with appropriate pulsatile blood return. Blood loss was minimal. The catheter was then sutured in place to the skin and a sterile dressing applied. Perfusion to the extremity distal to the point of catheter insertion was checked and found to be adequate. The patient tolerated the procedure well and there were no complications. CENTRAL lINE Indication: Hemodynamic monitoring/Intravenous access. A time-out was completed verifying correct patient, procedure, site, positioning, and implant(s) or special equipment if applicable. The patient was placed in a dependent position appropriate for central line placement based on the vein to be cannulated. The patients left neck was prepped and draped in sterile fashion. 1% Lidocaine was used to anesthetize the surrounding skin area. A triple lumen 9F Cordis catheter was introduced into the LEFT IJ vein using Seldinger technique. The catheter was threaded sm oothly over the guide wire and appropriate blood return was obtained. Each lumen of the catheter was evacuated of air and flushed with sterile saline. The catheter was then sutured in place to the skin and a sterile dressing applied. Perfusion to the extremity distal to the point of catheter insertion was checked and found to be adequate. The patient tolerated the procedure well and there were no complications. Bronchoscopy and the BAL This procedure was done in the intensive care unit. The patient was on propofol. The patient was paralyzed with Nimbex and the patient was placed on a percent FiO2 on the mechanical ventilator. Irregular that was attached to the orotracheal tube and following to the bronchoscope was advanced further orotracheal tube with was moved to the lower trachea. The tip of the ET tube was seen at 3 cm above the delta. Airway inspection was done and the visualized there was included a bilateral mainstem bronchi, right upper lobe bronchus and middle lobe bronchus and right lower lobe bronchus and the various 10 segments on the right. Exam of the left side included the left upper lobe bronchus and left lower lobe bronchus, left mainstem bronchus and the various segments of the left. No evidence of any endobronchial tumors or lesions. Posterior secretions were scant. The bronchoscope was wedged into the right middle lobe and bronchial lavage was done. A total of 80 mL of fluid was infused and 20 mL was aspirated without any major difficulties. Aspirate was nonbloody. Therapeutic airway suctioning was done. The bronchoscope was removed and the procedure was terminated. The bronchial lavage from the right middle lobe will be sent for microbial analysis.
[2022-10-20 05:43] LABS: HGB 12.6 gm/dL (13.0-17.5); MCH 32.3 pg (25.0-35.0); MCHC 34.2 g/dL (31.0-37.0); Mean Platelet Volume 8.7; Platelet Count 246 k/uL (150-450); RBC 3.92 m/uL (4.30-5.90); RDW 12.5 % (11.5-15.5); WBC 21.2 k/uL (3.8-10.6)
[2022-10-20] MEDS: ARTIFICIAL TEARS-HYPROMELLOSE DROPS 15 ML BTL BOTH EYES SCH ×6 (05:43→23:54)
[2022-10-20] MEDS: PIPERACILLIN-TAZOBACTAM 3.375 GM in SODIUM CHLORIDE 0.9% 100 ML IVPB SCH ×3 (05:48→21:32)
[2022-10-20 05:52] LABS: MCV 94.3 fL (80.0-100.0)
[2022-10-20 05:56] LABS: ALT 48 U/L (4-49); AST 38 U/L (17-59); African American GFR (CKD) >90 (>60 ml/min/1.73 sqM); Albumin 2.8 g/dL (3.5-5.0); Alkaline Phosphatase 81 U/L (38-126); Anion Gap 6 mmol/L; Blood Urea Nitrogen 9 mg/dL (9-20); Calcium 7.1 mg/dL (8.4-10.2); Carbon Dioxide 25 mmol/L (22-30); Chloride 105 mmol/L (98-107); Glucose 136 mg/dL (74-99); Magnesium 1.4 mg/dL (1.6-2.3); Non-African American GFR(CKD) 82 (>60 ml/min/1.73 sqM); Phosphorus 3.9 mg/dL (2.5-4.5); Potassium 3.3 mmol/L (3.5-5.1); Sodium 136 mmol/L (137-145); Total Bilirubin 0.5 mg/dL (0.2-1.3); Total Protein 5.2 g/dL (6.3-8.2)
[2022-10-20] MEDS ORDERED: Potassium Replacement Protocol 1 EACH MISC MISCELLANE PRN (06:16)
[2022-10-20] MEDS ORDERED: Magnesium Replacement Protocol 1 EACH MISC MISCELLANE PRN (06:16)
[2022-10-20] MEDS: POTASSIUM BICARBONATE/CIT AC 20 MEQ TABLET.EFF NG-TUBE SCH ×2 (06:53→09:07)
[2022-10-20] MEDS: MAGNESIUM SULFATE-D5W PMX 1 GM in DEXTROSE/WATER 1 100ML.BAG IVPB SCH ×3 (06:53→10:55)
[2022-10-20 07:21] LABS: ABG Base Excess 1.7 mmol/L; ABG HCO3 26 mmol/L (21-25); ABG PCO2 38 mmHg (35-45); ABG PH 7.44 (7.35-7.45); ABG PO2 200 mmHg (83-108); ABG TCO2 27 mmol/L (19-24)
[2022-10-20 07:22] LABS: Allen Test Performed? no
[2022-10-20] MEDS ORDERED: SODIUM CHLORIDE 0.9% 1,000 ML IV ONE (07:35)
--- NOTE | 2022-10-20 08:15 | XR ---
EXAMINATION TYPE: XR chest 1V portable DATE OF EXAM: 10/20/2022 6:40 AM COMPARISON: Chest radiographs from earlier same day TECHNIQUE: XR chest 1V portable Portable AP radiograph of the chest. CLINICAL INDICATION:Male, 27 years old with history of Tube placement; FINDINGS: Lungs/Pleura: Multifocal airspace opacities. There is no evidence of pleural effusion, focal consolid ation, or pneumothorax. Pulmonary vascularity: Unremarkable. Heart/mediastinum: Cardiomediastinal silhouette is unremarkable. Musculoskeletal: No acute osseous pathology. Other findings: None Lines/Tubes: Endotracheal tube with distal tip 5.1 cm above the delta Nasogastric tube with its distal tip and side-port projecting under the diaphragm. IMPRESSION: Support tubes in appropriate position similar multifocal pneumonia
[2022-10-20] MEDS ORDERED: MIDAZOLAM 1 MG/ML 5 ML VIAL IV STA (08:48)
--- NOTE | 2022-10-20 09:05 | P.PN ---
Subjective Progress Note Date: 10/20/22 Patient is a 27-year-old female with known hyperemesis syndrome, chronic marijuana use, and prior pericarditis who presented with altered mentation. In the ER he was noted to be febrile and tachycardic. Initial laboratory analysis showed white blood cell count 51.1, hemoglobin 20.1, sodium 124, potassium 3, chloride 54, bicarb 41, BUN 63, creatinine 2.1 crit, and lactic acidosis 10.4. CK was 3000, troponin 0.7, an ABG revealed a pH of 7.71 with a CO2 of 36. He underwent a head CT which showed no acute process. EKG showed sinus tachycardia. He was given 3 L of IV fluids, Zyprexa, Ativan, Rocephin, and vancomycin. He was admitted to the ICU, additionally nephrology and neurology were consulted. Nephrology recommended IV fluids. Cardiology was consulted and recommended an echocardiogram. He was started on dexmedetomidine. He was seen by neurology who recommended an EEG. Patient has remained on antibiotics as well as Precedex. He has required multiple medications to help with agitation. He was found to have pneumonia on repeat chest x-ray. Influenza A/B, RSV, and COVID-19 testing negative. Over the late evening of 10/20 to early AM on 10/20 his respiratory status declined, He required intubation, bronch with BAL, and right IJ TLC and artline was placed. Imaging: Abdominal b-rmb-azbnygqgerukdr bowel gas pattern Chest x-ray-no acute process Head CT-no acute intracranial process Facial bone CT-no depressed or displaced facial bone fractures CT chest/abdomen/pelvis-no evidence of traumatic injury EEG-background disorganization suggestive of medication effect related to encephalopathy, no epileptiform activity seen Echocardiogram-ejection fraction 55% Patient seen and examined at bedside. He is agitated on the vent. CXR from today review by self and after bronch shows worsening fluffy infilatrated bilaterally. Urine is less pink tinged. General: ill appering, moderate distress due to agitation, appears at stated age Derm: warm, dry Head: Normocephalic, bruising bilateral orbital areas, bruising over the bridge of the nose Mouth: no lip lesion, mucus membranes dry, ET tube inplace Cardiovascular: S1S2 reg, no murmur, positive posterior tibial pulse bilateral, Lungs: Coarse breath sounds bilateral, no rhonchi, no rales , no accessory muscle use Abdominal: soft, nontender to palpation, no guarding, no appreciable organomegaly Ext: no gross muscle atrophy, no edema, no contractures Neuro: All 4 cavities independently, breathing overnight, positive cough, positive gag Psych: Sedated on vent Assessment/plan: Toxic metabolic encephalopathy Acute hypoxic Respiraotry Failure Aspiration pneumonia - conitnue with zosyn and vancomycin - Critical care recs - pulm hygeine -Steroids order by pulmonary if hypersensitivity, - per nursing family states that he not only smoke marijuana, but uses wax bases THC products which contain butane YENI, improving - nephrology recs - IVF - avoid additional nephrotoxic agents - follow renal function Probable unwitnessed seizure - neurology recs Elevated troponin - echo normal - likely due to dehydration - cardiology signed off Hypokalemia, resolved Lacidosis, resolved Hemoconcentration, resolved Severe contraction Alkalosis , resolved Rhabdo, resolved Dehydration, Hyponatremia, resolved Chronic: Cannabis Hyperemesis Syndrome DVT prophylaxis: Heparin Discussed with: nursing, no family present Anticipated discharge: pending clinical course Anticipated discharge place: pending clinical course A total of 45 minutes was spent on the care of this complex patient more than 50% of the time was spent in counseling and care coordination. Objective - Vital Signs Vital signs: Vital Signs Temp 98.3 F 10/20/22 04:00 Pulse 90 10/20/22 08:41 Resp 28 H 10/20/22 07:00 BP 101/57 10/20/22 07:00 Pulse Ox 100 10/20/22 07:00 FiO2 50 10/20/22 07:22 Intake & Output 10/19/22 10/20/22 10/20/22 18:59 06:59 18:59 Intake Total 1417.384 6685.356 173.069 Output Total 2900 2490 600 Balance -1094.746 -291.644 -426.931 Weight 58.7 kg Intake: IV 1750 2000 75 Levofloxacin 750Mg-D5w 150 Pmx 750 mg In Dextrose/ Water 1 150ml.bag @ 100 mls/hr IVPB Q24H [facility] Rx#: [id number] Piperacillin-Tazobactam 3 100 .375 gm In Sodium Chloride 0.9% 100 ml @ 25 mls/hr IVPB Q8H [facility] Rx#: [id number] Sodium Chloride 0.9% 1, 1350 1650 75 000 ml @ 75 mls/hr IV . [id number] [facility] Rx#:[id number] Vancomycin 1,000 mg In 250 250 Sodium Chloride 0.9% 250 ml @ 125 mls/hr IVPB Q12HR [facility] Rx#:[id number] Intake, IV Titration 55.254 48.356 38.069 Amount Cisatracurium 200 mg In 0.308 38.069 Sodium Chloride 0.9% 180 ml @ 1 MCG/KG/MIN 3.696 mls/hr IV .Q24H [facility] Rx#: [id number] Dexmedetomidine/0.9% NaCl 55.254 (Pmx) 400 mcg In Empty Bag 1 bag @ 0.2 MCG/KG/HR 2.835 mls/hr IV .Q24H [facility] Rx#:[id number] Dexmedetomidine/0.9% NaCl 7.7 (Pmx) 400 mcg In Empty Bag 1 bag @ 0.2 MCG/KG/HR 3.08 mls/hr IV .Q24H [facility] Rx#:[id number] fentaNYL (PF). 1,000 mcg 4.466 In Sodium Chloride 0.9% 80 ml @ 0.5 MCG/KG/HR 3. 08 mls/hr IV .Q24H [facility] Rx #:[id number] propofoL 1,000 mg In 35.882 Empty Bag 1 bag @ 15 MCG/ KG/MIN 5.544 mls/hr IV . Q18H3M [facility] Rx#:[id number] Oral 150 Other 60 Output: Gastric Drainage 400 Urine 2900 2490 200 Other: Voiding Method Indwelling Catheter Indwelling Catheter # Bowel Movements 1 1 ABP, PAP, CO, CI - Last Documented Arterial Blood Pressure 72/51 - Labs CBC & Chem 7: 10/20/22 05:00 10/20/22 05:00 Labs: Abnormal Lab Results - Last 24 Hours (Table) 10/19/22 10/19/22 10/20/22 Range/Units 12:39 19:59 00:33 WBC (3.8-10.6) k/uL RBC (4.30-5.90) m/uL Hgb (13.0-17.5) gm/dL Hct (39.0-53.0) % ABG pH 7.51 H (7.35-7.45) ABG pCO2 32 L (35-45) mmHg ABG pO2 53 L* (83-108) mmHg ABG HCO3 (21-25) mmol/L ABG Total CO2 26 H (19-24) mmol/L ABG O2 Saturation 91.8 L (94-97) % Sodium (137-145) mmol/L Potassium (3.5-5.1) mmol/L Glucose (74-99) mg/dL Calcium (8.4-10.2) mg/dL Magnesium (1.6-2.3) mg/dL Creatine Kinase 737 H (55-170) U/L Total Protein (6.3-8.2) g/dL Albumin (3.5-5.0) g/dL Vitamin B12 1071.0 H (200.0-944.0) pg/mL 10/20/22 10/20/22 10/20/22 Range/Units 02:50 05:00 05:00 WBC 21.2 H (3.8-10.6) k/uL RBC 3.92 L (4.30-5.90) m/uL Hgb 12.6 L (13.0-17.5) gm/dL Hct 37.0 L (39.0-53.0) % ABG pH (7.35-7.45) ABG pCO2 (35-45) mmHg ABG pO2 136 H (83-108) mmHg ABG HCO3 26 H (21-25) mmol/L ABG Total CO2 27 H (19-24) mmol/L ABG O2 Saturation 99.4 H (94-97) % Sodium 136 L (137-145) mmol/L Potassium 3.3 L (3.5-5.1) mmol/L Glucose 136 H (74-99) mg/dL Calcium 7.1 L (8.4-10.2) mg/dL Magnesium 1.4 L (1.6-2.3) mg/dL Creatine Kinase (55-170) U/L Total Protein 5.2 L (6.3-8.2) g/dL Albumin 2.8 L (3.5-5.0) g/dL Vitamin B12 (200.0-944.0) pg/mL 10/20/22 Range/Units 07:18 WBC (3.8-10.6) k/uL RBC (4.30-5.90) m/uL Hgb (13.0-17.5) gm/dL Hct (39.0-53.0) % ABG pH (7.35-7.45) ABG pCO2 (35-45) mmHg ABG pO2 200 H (83-108) mmHg ABG HCO3 26 H (21-25) mmol/L ABG Total CO2 27 H (19-24) mmol/L ABG O2 Saturation 100.0 H (94-97) % Sodium (137-145) mmol/L Potassium (3.5-5.1) mmol/L Glucose (74-99) mg/dL Calcium (8.4-10.2) mg/dL Magnesium (1.6-2.3) mg/dL Creatine Kinase (55-170) U/L Total Protein (6.3-8.2) g/dL Albumin (3.5-5.0) g/dL Vitamin B12 (200.0-944.0) pg/mL Microbiology - Last 24 Hours (Table) 10/15/22 07:15 Blood Culture - Preliminary Blood No Growth after 96 hours 10/15/22 07:30 Blood Culture - Preliminary Blood No Growth after 96 hours
[2022-10-20] MEDS: PANTOPRAZOLE 40 MG/10 ML VIAL IVP SCH (09:07)
[2022-10-20] MEDS: methylPREDNISolone SOD SUCCI 125 MG/2 ML VIAL IV SCH ×3 (09:08→23:55)
[2022-10-20] MEDS: CHLORHEXIDINE GLUCONATE 15 ML CUP MUCOUS MEM SCH ×2 (09:08→20:20)
--- NOTE | 2022-10-20 09:35 | P.PN ---
Subjective Progress Note Date: 10/19/22 10/19/2022: Patient was seen for follow-up. Patient's mother was present today. Patient's mental condition has much improved. Patient tells me that he used to drink a lot of alcohol. He would drink 10+ beer every day since age 18. He quit drinking on 09/02/2022. Patient coughing a lot. 10/18/2022: Patient was seen for a follow-up. Patient's girlfriend and patient's brother were present. Patient's brother concurs that patient has been having episodic nausea vomiting with use of marijuana. It is happening once every few months. This was the most significant when patient developed significant electrolyte and metabolic dysfunction. Patient's mental functions has cleared up. He appears somewhat restless. 10/17/2022: Patient was seen for a follow-up. Patient initially seen by Dr. Daley yesterday, please refer to her note for details. Patient was found with altered mental status. Patient's mother was present at this time, who also provided with a history. The last known well was 3 PM on Monday, and his mother found him altered at 4:30 AM Monday morning. He had been bouncing off the cano, falling, messed up the whole apartment. He was all by himself. Patient has long-standing history of smoking marijuana, and every 4-5 months, he gets hospitalized for persistent nausea vomiting which was felt to be related to cannabis hyperemesis syndrome. Once patient gets hydrated, electrolytes replacement, he goes home within a few hours. This is the first time patient was severely altered, with abrasions, periorbital ecchymosis. Patient's sister and brother also smokes nor of marijuana as well as his friends around. Adelina ent's mother has repeatedly told him not to smoke, but he does. Patient's mother states that he has been smoking marijuana since he was a teenager. Even at this time he smoking 4-5 joints a day. Patient's mother also mentioned that he has been lately smoking wax, which is a condensed/concentrated form of marijuana. He has never smoked or did any other drugs. CT scan of the brain was performed in the emergency department. There is no evidence of acute hemorrhage or infarct. CT scan of the face revealed no signs of fracture. CT scan of the abdomen and pelvis revealed no abnormalities or fracture. Laboratory evaluation revealed a markedly elevated white blood cell count of 51.1. Hemoglobin was markedly elevated at 20. Potassium was found to be extremely low at 2.1 and sodium low at 128". Objective - Vital Signs Vital signs: Vital Signs Temp 98.4 F 10/19/22 12:00 Pulse 124 H 10/19/22 17:00 Resp 58 H 10/19/22 17:00 BP 131/90 10/19/22 17:00 Pulse Ox 89 L 10/19/22 17:00 FiO2 70 10/18/22 16:05 Intake & Output 10/18/22 10/19/22 10/19/22 18:59 06:59 18:59 Intake Total 9218.919 5938.304 1655.254 Output Total 3650 3540 2650 Balance -2010.692 -294.696 -994.746 Weight 61.6 kg Intake: IV 1050 2000 1600 Levofloxacin 750Mg-D5w 150 Pmx 750 mg In Dextrose/ Water 1 150ml.bag @ 100 mls/hr IVPB Q24H [facility] Rx#: [id number] Piperacillin-Tazobactam 3 75 100 .375 gm In Sodium Chloride 0.9% 100 ml @ 25 mls/hr IVPB Q8H [facility] Rx#: [id number] Sodium Chloride 0.9% 1, 975 1650 1200 000 ml @ 150 mls/hr IV . Q6H40M [facility] Rx#:[id number] Vancomycin 1,000 mg In 250 250 Sodium Chloride 0.9% 250 ml @ 125 mls/hr IVPB Q12HR [facility] Rx#:[id number] Intake, IV Titration 88.308 125.304 55.254 Amount Dexmedetomidine/0.9% NaCl 88.308 125.304 55.254 (Pmx) 400 mcg In Empty Bag 1 bag @ 0.2 MCG/KG/HR 2.835 mls/hr IV .Q24H [facility] Rx#:[id number] Oral 500 1120 Output: Urine 3650 3540 2650 Other: Voiding Method Indwelling Catheter Indwelling Catheter Indwelling Catheter # Bowel Movements 1 1 - Exam Patient is a young male, fully alert and awake. Patient appears to be slightly short of breath. Patient is coughing a lot. Speech and language functions are normal. Attention, concentration and fund of knowledge is adequate. Cranial nerves are all normal. Visual martínez are full. Face is symmetric and tongue protrudes the midline. On muscle strength testing, there is no pronator drift and the strength is normal in arms and legs distally and proximally. Sensory to touch is equal with no neglect. No ataxia for yaxblc-si-lqzz testing. Deep tendon reflexes are symmetric, 2+ at the biceps, 2+ brachioradialis, 3 at the knees and 2+ ankles and plantars are upgoing bilaterally. - Labs CBC & Chem 7: 10/20/22 05:00 10/20/22 05:00 Labs: Abnormal Lab Results - Last 24 Hours (Table) 10/19/22 10/19/22 10/19/22 Range/Units 05:25 05:25 12:39 WBC 12.2 H (3.8-10.6) k/uL RBC 4.03 L (4.30-5.90) m/uL MCV 106.2 H D (80.0-100.0) fL MCH 35.5 H (25.0-35.0) pg Plt Count 149 L (150-450) k/uL Neutrophils # (Manual) 10.00 H (1.3-7.7) k/uL Sodium 131 L (137-145) mmol/L BUN 58 H (9-20) mg/dL Creatinine 1.93 H (0.66-1.25) mg/dL Glucose 174 H (74-99) mg/dL Calcium 8.0 L (8.4-10.2) mg/dL Creatine Kinase 737 H (55-170) U/L Microbiology - Last 24 Hours (Table) 10/15/22 07:15 Blood Culture - Preliminary Blood No Growth after 96 hours 10/15/22 07:30 Blood Culture - Preliminary Blood No Growth after 96 hours Assessment and Plan Assessment: 1. Toxic-metabolic encephalopathy, as a result of Marijuana hyperemesis syndrome, with metabolic derangements including hyponatremia, hypokalemia, acute renal failure. 2. Possible unwitnessed seizure, with postictal state provoked by hyponatremia (124 on admission) and/or hypokalemia 3.0 3. Marked dehydration 4. Leukocytosis 5. Acute renal failure, improving. 6. Multifocal pneumonia, on antibiotics. 7. Marijuana use. 8. Long-standing history of heavy alcoholism, quit 09/02/2022 per patient. Plan: 1. EEG 10/17/2022 was mildly abnormal due to background disorganization with fast and some slow frequency due to medication effect or encephalopathy. No epileptiform activity was seen. 2. The patient's mother and grandmother were advised that the only way to adequately treat/prevent marijuana hyperemesis syndrome is to stop using marijuana, simply cutting down on the usage is not effective 3. Patient is improving gradually clinically. His mentation seems to be back to normal. Discussed with patient's mother and with nursing staff. 4. Patient has brisk reflexes. We will check B12, folate, MMA, B6
[2022-10-20] MEDS: NOREPINEPHRINE 32 MG in SODIUM CHLORIDE 0.9% 218 ML IV SCH (10:34)
[2022-10-20] MEDS: VANCOMYCIN 1,250 MG in SODIUM CHLORIDE 0.9% 250 ML IVPB SCH ×2 (10:36→20:20)
[2022-10-20] MEDS: SODIUM CHLORIDE 0.9% 1,000 ML IV SCH ×2 (10:43→18:58)
--- NOTE | 2022-10-20 11:14 | P.PN ---
Subjective Patient is seen for follow-up for acute kidney injury. Patient's respiratory status continued to deteriorate and he was eventually intubated yesterday. Slightly hypotensive and maintained on very low-dose levo fed. Urine output 100 - 170 ML per hour Serum creatinine improved to 1.19 mg/dL. Patient remains on IV fluids. Objective - Vital Signs Vital signs: Vital Signs Temp 97.5 F L 10/20/22 08:00 Pulse 92 10/20/22 10:00 Resp 28 H 10/20/22 10:00 BP 125/65 10/20/22 10:00 Pulse Ox 96 10/20/22 10:00 FiO2 50 10/20/22 11:09 Intake & Output 10/19/22 10/20/22 10/20/22 18:59 06:59 18:59 Intake Total 6521.472 5964.356 1363.108 Output Total 2900 2490 830 Balance -1094.746 -291.644 533.108 Weight 58.7 kg 58.7 kg Intake: IV 1750 2000 1075 Levofloxacin 750Mg-D5w 150 Pmx 750 mg In Dextrose/ Water 1 150ml.bag @ 100 mls/hr IVPB Q24H [facility] Rx#: [id number] Piperacillin-Tazobactam 3 100 .375 gm In Sodium Chloride 0.9% 100 ml @ 25 mls/hr IVPB Q8H [facility] Rx#: [id number] Sodium Chloride 0.9% 1, 1350 1650 75 000 ml @ 75 mls/hr IV . [id number] [facility] Rx#:[id number] Sodium Chloride 0.9% 1, 1000 000 ml @ 999 mls/hr IV . Q1H1M [facility] Rx#:[id number] Vancomycin 1,000 mg In 250 250 Sodium Chloride 0.9% 250 ml @ 125 mls/hr IVPB Q12HR [facility] Rx#:[id number] Intake, IV Titration 55.254 48.356 228.108 Amount Cisatracurium 200 mg In 0.308 38.069 Sodium Chloride 0.9% 180 ml @ 1 MCG/KG/MIN 3.696 mls/hr IV .Q24H [facility] Rx#: [id number] Dexmedetomidine/0.9% NaCl 55.254 (Pmx) 400 mcg In Empty Bag 1 bag @ 0.2 MCG/KG/HR 2.835 mls/hr IV .Q24H [facility] Rx#:[id number] Dexmedetomidine/0.9% NaCl 7.7 (Pmx) 400 mcg In Empty Bag 1 bag @ 0.2 MCG/KG/HR 3.08 mls/hr IV .Q24H [facility] Rx#:[id number] fentaNYL (PF). 1,000 mcg 4.466 90.039 In Sodium Chloride 0.9% 80 ml @ 0.5 MCG/KG/HR 3. 08 mls/hr IV .Q24H [facility] Rx #:[id number] propofoL 1,000 mg In 35.882 100 Empty Bag 1 bag @ 15 MCG/ KG/MIN 5.544 mls/hr IV . Q18H3M [facility] Rx#:[id number] Oral 150 Other 60 Output: Gastric Drainage 400 Urine 2900 2490 430 Other: Voiding Method Indwelling Catheter Indwelling Catheter Indwelling Catheter # Bowel Movements 1 1 ABP, PAP, CO, CI - Last Documented Arterial Blood Pressure 106/56 - Exam sedated and on the vent Examination of the heart S1 and S2 Examination lungs decreased breath sounds at the bases Abdomen is soft nontender Exam in lower extremity shows no significant edema [employer]ING [employer] COORDIN[employer] exam cannot be assessed - Labs CBC & Chem 7: 10/20/22 05:00 10/20/22 05:00 Labs: Abnormal Lab Results - Last 24 Hours (Table) 10/19/22 10/19/22 10/20/22 Range/Units 12:39 19:59 00:33 WBC (3.8-10.6) k/uL RBC (4.30-5.90) m/uL Hgb (13.0-17.5) gm/dL Hct (39.0-53.0) % ABG pH 7.51 H (7.35-7.45) ABG pCO2 32 L (35-45) mmHg ABG pO2 53 L* (83-108) mmHg ABG HCO3 (21-25) mmol/L ABG Total CO2 26 H (19-24) mmol/L ABG O2 Saturation 91.8 L (94-97) % Sodium (137-145) mmol/L Potassium (3.5-5.1) mmol/L Glucose (74-99) mg/dL Calcium (8.4-10.2) mg/dL Magnesium (1.6-2.3) mg/dL Creatine Kinase 737 H (55-170) U/L Total Protein (6.3-8.2) g/dL Albumin (3.5-5.0) g/dL Vitamin B12 1071.0 H (200.0-944.0) pg/mL Procalcitonin (0.02-0.09) ng/mL 10/20/22 10/20/22 10/20/22 Range/Units 02:50 05:00 05:00 WBC 21.2 H (3.8-10.6) k/uL RBC 3.92 L (4.30-5.90) m/uL Hgb 12.6 L (13.0-17.5) gm/dL Hct 37.0 L (39.0-53.0) % ABG pH (7.35-7.45) ABG pCO2 (35-45) mmHg ABG pO2 136 H (83-108) mmHg ABG HCO3 26 H (21-25) mmol/L ABG Total CO2 27 H (19-24) mmol/L ABG O2 Saturation 99.4 H (94-97) % Sodium 136 L (137-145) mmol/L Potassium 3.3 L (3.5-5.1) mmol/L Glucose 136 H (74-99) mg/dL Calcium 7.1 L (8.4-10.2) mg/dL Magnesium 1.4 L (1.6-2.3) mg/dL Creatine Kinase (55-170) U/L Total Protein 5.2 L (6.3-8.2) g/dL Albumin 2.8 L (3.5-5.0) g/dL Vitamin B12 (200.0-944.0) pg/mL Procalcitonin (0.02-0.09) ng/mL 10/20/22 10/20/22 Range/Units 05:00 07:18 WBC (3.8-10.6) k/uL RBC (4.30-5.90) m/uL Hgb (13.0-17.5) gm/dL Hct (39.0-53.0) % ABG pH (7.35-7.45) ABG pCO2 (35-45) mmHg ABG pO2 200 H (83-108) mmHg ABG HCO3 26 H (21-25) mmol/L ABG Total CO2 27 H (19-24) mmol/L ABG O2 Saturation 100.0 H (94-97) % Sodium (137-145) mmol/L Potassium (3.5-5.1) mmol/L Glucose (74-99) mg/dL Calcium (8.4-10.2) mg/dL Magnesium (1.6-2.3) mg/dL Creatine Kinase (55-170) U/L Total Protein (6.3-8.2) g/dL Albumin (3.5-5.0) g/dL Vitamin B12 (200.0-944.0) pg/mL Procalcitonin 0.53 H (0.02-0.09) ng/mL Microbiology - Last 24 Hours (Table) 10/15/22 07:15 Blood Culture - Preliminary Blood No Growth after 120 hours 10/15/22 07:30 Blood Culture - Preliminary Blood No Growth after 120 hours 10/20/22 01:45 Sputum Culture - Preliminary Sputum Assessment and Plan Assessment: 1. Acute kidney injury mostly prerenal secondary to hypovolemia improved with IV hydration. Creatinine increased to 1.9 yesterday and down to 1.19 today 2. Hypokalemia secondary to poor intake and intracellular shifting due to alkalosis. Improved. 3. Metabolic alkalosis secondary to vomiting, volume contraction, hypokalemia. Hypochloremia will also contribute to metabolic alkalosis by preventing bicarb secretion. Improved. 4. Hypovolemic hyponatremia improved with IV hydration. Sodium is slightly lower today associated with worsening renal function. 6. Acute hypoxic respiratory failure currently on the vent. Patient. Etiology pneumonia 7. Rhabdomyolysis due to immobility. CK levels trending down. 8. Hypokalemia currently being replaced Plan: Continue with normal saline Avoid nephrotoxic medications. Maintained on Vancomycin for pneumonia. Monitor l evel closely. Serologies for possible pulmonary renal syndrome negative thus far
[2022-10-20 13:22] LABS: HIV 2 AB Non-Reactive (Non-Reactive); HIV AB P24 Non-Reactive (Non-Reactive); HIV P24 AG Non-Reactive (Non-Reactive)
[2022-10-20] MEDS: LEVOFLOXACIN 750MG-D5W PMX 750 MG in DEXTROSE/WATER 1 150ML.BAG IVPB SCH (14:12)
[2022-10-20] MEDS: DEXMEDETOMIDINE/0.9% NACL(PMX) 400 MCG in EMPTY BAG 1 BAG IV SCH (14:47)
[2022-10-20 15:06] LABS: C-ANCA <1:20 Titer (<1:20)
[2022-10-20 18:37] LABS: Appearance,BF Bloody
[2022-10-20] MEDS ORDERED: POTASSIUM BICARBONATE/CIT AC 20 MEQ TABLET.EFF NG-TUBE SCH (20:00)
[2022-10-20] MEDS: MIRTAZAPINE 15 MG TAB PO SCH (20:20)
--- NOTE | 2022-10-20 22:23 | P.CONS ---
History of Present Illness - Reason for Consult Consult date: 10/20/22 Atypical pneumonia Requesting physician: Ruby Caal - Chief Complaint Worsening shortness of breath x 1 day - History of Present Illness Patient is a 27 year old male presenting to the ER about 5 days ago for evaluation of mental status changes patient apparently was noticed to be on the ground unresponsive taking and feeling his arms out apparently the patient seemed to have a symptoms of cold a week prior to that and the patient subsequently was having a problem with the nausea vomiting and diarrhea patient on presentation to the hospital did have a fever of 101.3 degrees Fahrenheit patient fever subsequently resolved however patient has been spiking fever again since yesterday, patient also in respiratory distress and is admitting intubated no significant purulent secretions through the ED reported by the nursing staff, patient did have white count of 51,000 on admission subsequently white count came down to 12.2 yesterday however it is up to 21,000 today, patient did have a negative influenza RSV COVID antigen testing was negative hepatitis panel was negative and C. difficile was negative rheumatological work-up was negative as well he did have bronchial washing today after the patient was intubated with Lovenox cultures pending patient did have blood culture on admission was negative patient did have a chest x-ray on admission that was negative for acute pulmonary process chest x-ray this morning multifocal airspace opacities in fectious disease was consulted today after the patient has been in the hospital for 5 days for further management of antibiotic therapy most of the information has been obtained from review the chart talking to his mother and the nursing staff Review of Systems Positive points has been mentioned in HPI complete review could not be obtained because of his underlying mental status Past Medical History Past Medical History: GI Bleed Additional Past Medical History / Comment(s): pericarditis History of Any Multi-Drug Resistant Organisms: None Reported Past Surgical History: No Surgical Hx Reported Past Psychological History: No Psychological Hx Reported Smoking Status: Never smoker Past Alcohol Use History: None Reported Past Drug Use History: Marijuana Medications and Allergies Home Medications Medication Instructions Recorded Confirmed Type Amoxic-Pot Clav 875-125Mg 1 each PO Q12HR #8 tab 10/25/22 Rx [Augmentin 875-125] Fluconazole [Diflucan] 100 mg PO DAILY #14 tab 10/25/22 Rx Mirtazapine [Remeron] 15 mg PO HS #15 tab 10/25/22 Rx Nystatin 100,000 Unit/ml Susp 500,000 unit PO QID 14 Days #280 ml 10/25/22 Rx [Mycostatin Oral Susp] Pantoprazole [Protonix] 40 mg PO DAILY #30 tab 10/25/22 Rx Prochlorperazine [Compazine] 5 mg PO Q6HR PRN #30 tab 10/25/22 Rx hydrOXYzine pamoate [Vistaril] 25 mg PO Q8HR PRN #30 cap 10/25/22 Rx predniSONE [Deltasone] 40 mg PO DAILY #14 tab 10/25/22 Rx Allergies Allergy/AdvReac Type Severity Reaction Status Date / Time No Known Allergies Allergy Unverified 10/15/22 12:20 Physical Exam Vitals: Vital Signs Temp Pulse Resp BP Pulse Ox FiO2 10/20/22 08:51 115 H 10/20/22 08:41 90 10/20/22 07:22 50 10/20/22 07:00 87 28 H 101/57 100 10/20/22 06:00 98 28 H 136/88 100 70 10/20/22 05:42 70 10/20/22 05:00 103 H 28 H 178/104 100 10/20/22 04:00 98.3 F 96 28 H 98/56 100 100 10/20/22 03:37 80 10/20/22 03:06 112 H 10/20/22 03:00 114 H 28 H 146/88 100 10/20/22 02:55 114 H 10/20/22 02:40 100 10/20/22 02:00 121 H 28 H 164/90 83 L 100 10/20/22 01:04 100 10/20/22 01:00 111 H 44 H 149/81 93 L 10/20/22 00:00 100.7 F H 109 H 51 H 157/98 91 L 10/19/22 23:50 103 H 10/19/22 23:39 101 H 10/19/22 23:00 111 H 42 H 172/101 94 L 10/19/22 22:00 125 H 45 H 156/95 92 L 10/19/22 21:00 134 H 44 H 157/96 95 10/19/22 20:00 99.8 F H 120 H 32 H 153/90 95 12/14/22 19:32 111 H 10/19/22 19:21 116 H 10/19/22 19:00 113 H 26 H 146/88 96 10/19/22 18:00 120 H 28 H 155/95 90 L 10/19/22 17:00 124 H 58 H 131/90 89 L 10/19/22 16:32 125 H 10/19/22 16:23 125 H 10/19/22 16:00 101 H 47 H 153/97 96 10/19/22 15:00 105 H 27 H 146/97 86 L 10/19/22 14:00 106 H 22 135/80 92 L 10/19/22 13:00 84 22 137/89 94 L 10/19/22 12:00 98.4 F 91 28 H 139/83 97 10/19/22 11:00 98 32 H 138/81 96 10/19/22 10:00 109 H 14 180/97 95 Intake and Output 10/19/22 10/20/22 10/20/22 22:59 06:59 14:59 Intake Total 1700 0513.288 5320.063 Output Total 1705 1535 830 Balance -5 -436.644 514.063 Intake: IV 1550 1050 1075 Piperacillin-Tazobactam 3 100 .375 gm In Sodium Chloride 0.9% 100 ml @ 25 mls/hr IVPB Q8H [facility] Rx#: [id number] Sodium Chloride 0.9% 1, 1200 1050 75 000 ml @ 75 mls/hr IV . [id number] [facility] Rx#:[id number] Sodium Chloride 0.9% 1, 1000 000 ml @ 999 mls/hr IV . Q1H1M ONE Rx#:[id number] Vancomycin 1,000 mg In 250 Sodium Chloride 0.9% 250 ml @ 125 mls/hr IVPB Q12HR [facility] Rx#:[id number] Intake, IV Titration 48.356 209.063 Amount Cisatracurium 200 mg In 0.308 38.069 Sodium Chloride 0.9% 180 ml @ 1 MCG/KG/MIN 3.696 mls/hr IV .Q24H [facility] Rx#: [id number] Dexmedetomidine/0.9% NaCl 7.7 (Pmx) 400 mcg In Empty Bag 1 bag @ 0.2 MCG/KG/HR 3.08 mls/hr IV .Q24H [facility] Rx#:[id number] fentaNYL (PF). 1,000 mcg 4.466 70.994 In Sodium Chloride 0.9% 80 ml @ 0.5 MCG/KG/HR 3. 08 mls/hr IV .Q24H [facility] Rx #:[id number] propofoL 1,000 mg In 35.882 100 Empty Bag 1 bag @ 15 MCG/ KG/MIN 5.544 mls/hr IV . Q18H3M [facility] Rx#:[id number] Oral 150 Other 60 Output: Gastric Drainage 400 Urine 1705 1535 430 Other: Voiding Method Indwelling Catheter Indwelling Catheter # Bowel Movements 1 1 Weight 58.7 kg ABP, PAP, CO, CI - Last 8 Hours Arterial Blood Pressure 72/51 Arterial Blood Pressure 82/42 Arterial Blood Pressure 123/75 GENERAL DESCRIPTION: Middle-aged male intubated on the vent. HEENT: Shows Pallor , no scleral icterus. Oral mucous membrane is dry. No pharyngeal erythema or thrush NECK: Trachea central, no thyromegaly. LUNGS: Unlabored breathing. Decreased breath sounds at the base HEART: S1, S2, regular rate and rhythm. No loud murmur ABDOMEN: Soft, no tenderness , guarding or rigidity, no organomegaly EXTREMITIES: No edema of feet. SKIN: No rash, no masses palpable. NEUROLOGICAL: The patient is sedated on the vent Results CBC & Chem 7: 10/25/22 06:11 10/25/22 06:11 Labs: Abnormal Lab Results - Last 24 Hours (Table) 10/19/22 10/19/22 10/20/22 Range/Units 12:39 19:59 00:33 WBC (3.8-10.6) k/uL RBC (4.30-5.90) m/uL Hgb (13.0-17.5) gm/dL Hct (39.0-53.0) % ABG pH 7.51 H (7.35-7.45) ABG pCO2 32 L (35-45) mmHg ABG pO2 53 L* (83-108) mmHg ABG HCO3 (21-25) mmol/L ABG Total CO2 26 H (19-24) mmol/L ABG O2 Saturation 91.8 L (94-97) % Sodium (137-145) mmol/L Potassium (3.5-5.1) mmol/L Glucose (74-99) mg/dL Calcium (8.4-10.2) mg/dL Magnesium (1.6-2.3) mg/dL Creatine Kinase 737 H (55-170) U/L Total Protein (6.3-8.2) g/dL Albumin (3.5-5.0) g/dL Vitamin B12 1071.0 H (200.0-944.0) pg/mL Procalcitonin (0.02-0.09) ng/mL 10/20/22 10/20/22 10/20/22 Range/Units 02:50 05:00 05:00 WBC 21.2 H (3.8-10.6) k/uL RBC 3.92 L (4.30-5.90) m/uL Hgb 12.6 L (13.0-17.5) gm/dL Hct 37.0 L (39.0-53.0) % ABG pH (7.35-7.45) ABG pCO2 (35-45) mmHg ABG pO2 136 H (83-108) mmHg ABG HCO3 26 H (21-25) mmol/L ABG Total CO2 27 H (19-24) mmol/L ABG O2 Saturation 99.4 H (94-97) % Sodium 136 L (137-145) mmol/L Potassium 3.3 L (3.5-5.1) mmol/L Glucose 136 H (74-99) mg/dL Calcium 7.1 L (8.4-10.2) mg/dL Magnesium 1.4 L (1.6-2.3) mg/dL Creatine Kinase (55-170) U/L Total Protein 5.2 L (6.3-8.2) g/dL Albumin 2.8 L (3.5-5.0) g/dL Vitamin B12 (200.0-944.0) pg/mL Procalcitonin (0.02-0.09) ng/mL 10/20/22 10/20/22 Range/Units 05:00 07:18 WBC (3.8-10.6) k/uL RBC (4.30-5.90) m/uL Hgb (13.0-17.5) gm/dL Hct (39.0-53.0) % ABG pH (7.35-7.45) ABG pCO2 (35-45) mmHg ABG pO2 200 H (83-108) mmHg ABG HCO3 26 H (21-25) mmol/L ABG Total CO2 27 H (19-24) mmol/L ABG O2 Saturation 100.0 H (94-97) % Sodium (137-145) mmol/L Potassium (3.5-5.1) mmol/L Glucose (74-99) mg/dL Calcium (8.4-10.2) mg/dL Magnesium (1.6-2.3) mg/dL Creatine Kinase (55-170) U/L Total Protein (6.3-8.2) g/dL Albumin (3.5-5.0) g/dL Vitamin B12 (200.0-944.0) pg/mL Procalcitonin 0.53 H (0.02-0.09) ng/mL Microbiology - Last 24 Hours (Table) 10/15/22 07:15 Blood Culture - Preliminary Blood No Growth after 120 hours 10/15/22 07:30 Blood Culture - Preliminary Blood No Growth after 120 hours 10/20/22 01:45 Sputum Culture - Preliminary Sputum Assessment and Plan (1) Pneumonia Status: Acute Code(s): J18.9 - PNEUMONIA, UNSPECIFIED ORGANISM SNOMED Code(s): 763883302 Plan: 1patient with acute respiratory failure with which is likely multifactorial in this patient initial admission to the hospital with mental status changes and decreased level of responsiveness patient fever initially resolved but now has worsening of his respiratory status requiring intubation and recurrence of fever elevated white count with a question of possible aspiration pneumonia blood culture has been negative so far. 2we will wait for the particular lavage cultures to finalize 3-we will obtain urine for urine antigen CRP and procalcitonin 4-continue with the Zosyn and Levaquin while waiting for the culture to finalize We will follow on clinical condition and cultures to further adjust medication if needed Thank you for this consultation will follow this patient along with you Time with Patient: Greater than 30
[2022-10-21] MEDS: IPRATROPIUM-ALBUTEROL 3 ML NEB INHALATION SCH ×6 (03:16→23:44)
[2022-10-21] MEDS: fentaNYL (PF). 1,000 MCG in SODIUM CHLORIDE 0.9% 80 ML IV SCH ×2 (03:51→22:30)
[2022-10-21] MEDS: ARTIFICIAL TEARS-HYPROMELLOSE DROPS 15 ML BTL BOTH EYES SCH ×5 (04:28→20:11)
[2022-10-21] MEDS: CISATRACURIUM 200 MG in SODIUM CHLORIDE 0.9% 180 ML IV SCH (05:24)
[2022-10-21 05:30] LABS: ABG Base Excess 0.2 mmol/L; ABG HCO3 25 mmol/L (21-25); ABG Oxygen Saturation 99.2 % (94-97); ABG PCO2 41 mmHg (35-45); ABG PH 7.39 (7.35-7.45); ABG PO2 130 mmHg (83-108); ABG TCO2 26 mmol/L (19-24); Allen Test Performed? Yes
[2022-10-21] MEDS: PIPERACILLIN-TAZOBACTAM 3.375 GM in SODIUM CHLORIDE 0.9% 100 ML IVPB SCH ×3 (06:51→20:10)
[2022-10-21 06:57] LABS: HCT 31.7 % (39.0-53.0); HGB 11.2 gm/dL (13.0-17.5); MCH 34.1 pg (25.0-35.0); MCHC 35.4 g/dL (31.0-37.0); MCV 96.2 fL (80.0-100.0); Mean Platelet Volume 8.2; Platelet Count 270 k/uL (150-450); RDW 12.4 % (11.5-15.5)
[2022-10-21 07:07] LABS: ALT 32 U/L (4-49); AST 16 U/L (17-59); African American GFR (CKD) >90 (>60 ml/min/1.73 sqM); Albumin 2.3 g/dL (3.5-5.0); Alkaline Phosphatase 72 U/L (38-126); Anion Gap 5 mmol/L; Blood Urea Nitrogen 14 mg/dL (9-20); Carbon Dioxide 24 mmol/L (22-30); Chloride 109 mmol/L (98-107); Glucose 151 mg/dL (74-99); Magnesium 2.4 mg/dL (1.6-2.3); Non-African American GFR(CKD) >90 (>60 ml/min/1.73 sqM); Phosphorus 3.5 mg/dL (2.5-4.5); Potassium 3.9 mmol/L (3.5-5.1); Sodium 138 mmol/L (137-145); Total Bilirubin 0.2 mg/dL (0.2-1.3); Total Protein 4.5 g/dL (6.3-8.2)
[2022-10-21 07:24] LABS: Prothrombin Time 10.4 sec (9.0-12.0)
--- NOTE | 2022-10-21 07:32 | XR ---
EXAMINATION TYPE: XR chest 1V portable DATE OF EXAM: 10/21/2022 COMPARISON: 10/20/2022 INDICATION: Tube placement TECHNIQUE: Single frontal view of the chest is obtained. FINDINGS: The heart size is normal. The pulmonary vasculature is prominent. Patchy infiltrates are in the upper and mid lungs bilaterally. This is improved from comparison. Endotracheal tube tip is above the delta. Nasogastric tube transverses the thorax. Left central veno us catheter tips in the proximal right atrium. IMPRESSION: 1. Improving bilateral lung infiltrates. 2. Lines and catheters discussed above
--- NOTE | 2022-10-21 09:07 | P.PN ---
Subjective Progress Note Date: 10/20/22 10/20/2022: Patient apparently developed respiratory distress, tachypneic, tachycardic, was significantly hypoxemic, with pH of 7.51, pO2 53 with saturation 91% on ABG. He underwent elective intubation with mechanical ventilation for impending respiratory failure early this morning at 1:30 AM. Patient's significant other and patient's mother were present today. At present patient is sedated on propofol and fentanyl. 10/19/2022: Patient was seen for follow-up. Patient's mother was present today. Patient's mental condition has much improved. Patient tells me that he used to drink a lot of alcohol. He would drink 10+ beer every day since age 18. He quit drinking on 09/02/2022. Patient coughing a lot. 10/18/2022: Patient was seen for a follow-up. Patient's girlfriend and patient's brother were present. Patient's brother concurs that patient has been having episodic nausea vomiting with use of marijuana. It is happening once every few months. This was the most significant when patient developed significant electrolyte and metabolic dysfunction. Patient's mental functions has cleared up. He appears somewhat restless. 10/17/2022: Patient was seen for a follow-up. Patient initially seen by Dr. Daley yesterday, please refer to her note for details. Patient was found with altered mental status. Patient's mother was present at this time, who also provided with a history. The last known well was 3 PM on Monday, and his mother found him altered at 4:30 AM Monday morning. He had been bouncing off the cano, falling, messed up the whole apartment. He was all by himself. Patient has long-standing history of smoking marijuana, and every 4-5 months, he gets hospitalized for persistent nausea vomiting which was felt to be related to cannabis hyperemesis syndrome. Once patient gets hydrated, electrolytes replacement, he goes home within a few hours. This is the first time patient was severely altered, with abrasions, periorbital ecchymosis. Patient's sister and brother also smokes nor of marijuana as well as his friends around. Patient's mother has repeatedly told him not to smoke, but he does. Patient's mother states that he has been smoking marijuana since he was a teenager. Even at this time he smoking 4-5 joints a day. Patient's mother also mentioned that he has been lately smoking wax, which is a condensed/concentrated form of marijuana. He has never smoked or did any other drugs. CT scan of the brain was performed in the emergency department. There is no evidence of acute hemorrhage or infarct. CT scan of the face revealed no signs of fracture. CT scan of the abdomen and pelvis revealed no abnormalities or fracture. Laboratory evaluation revealed a markedly elevated white blood cell count of 51.1. Hemoglobin was markedly elevated at 20. Potassium was found to be extremely low at 2.1 and sodium low at 128". Objective - Vital Signs Vital signs: Vital Signs Temp 98.2 F 10/20/22 16:00 Pulse 85 10/20/22 19:00 Resp 28 H 10/20/22 19:00 BP 126/74 10/20/22 19:00 Pulse Ox 100 10/20/22 19:00 FiO2 50 10/20/22 20:44 Intake & Output 10/20/22 10/20/22 10/21/22 06:59 18:59 06:59 Intake Total 2198.356 2263.770 85 Output Total 2490 2080 125 Balance -291.644 183.770 -40 Weight 58.7 kg 58.7 kg Intake: IV 2000 1750 75 Piperacillin-Tazobactam 3 100 .375 gm In Sodium Chloride 0.9% 100 ml @ 25 mls/hr IVPB Q8H [facility] Rx#: [id number] Sodium Chloride 0.9% 1, 1650 750 75 000 ml @ 75 mls/hr IV . [id number] [facility] Rx#:[id number] Sodium Chloride 0.9% 1, 1000 000 ml @ 999 mls/hr IV . Q1H1M ONE Rx#:[id number] Vancomycin 1,000 mg In 250 Sodium Chloride 0.9% 250 ml @ 125 mls/hr IVPB Q12HR [facility] Rx#:[id number] Intake, IV Titration 48.356 413.770 Amount Cisatracurium 200 mg In 0.308 38.069 Sodium Chloride 0.9% 180 ml @ 1 MCG/KG/MIN 3.696 mls/hr IV .Q24H [facility] Rx#: [id number] Dexmedetomidine/0.9% NaCl 7.7 (Pmx) 400 mcg In Empty Bag 1 bag @ 0.2 MCG/KG/HR 3.08 mls/hr IV .Q24H [facility] Rx#:[id number] fentaNYL (PF). 1,000 mcg 4.466 90.039 In Sodium Chloride 0.9% 80 ml @ 0.5 MCG/KG/HR 3. 08 mls/hr IV .Q24H [facility] Rx #:[id number] propofoL 1,000 mg In 35.882 285.662 Empty Bag 1 bag @ 15 MCG/ KG/MIN 5.544 mls/hr IV . Q18H3M [facility] Rx#:[id number] Oral 150 Tube Feeding 40 10 Other 60 Output: Gastric Drainage 400 Urine 2490 1680 125 Other: Voiding Method Indwelling Catheter Indwelling Catheter # Bowel Movements 1 ABP, PAP, CO, CI - Last Documented Arterial Blood Pressure 116/56 - Exam 10/20/2022: Patient intubated, sedated. Examination limited. 10/19/2022: Patient is a young male, fully alert and awake. Patient appears to be slightly short of breath. Patient is coughing a lot. Speech and language functions are normal. Attention, concentration and fund of knowledge is adequate. Cranial nerves are all normal. Visual martínez are full. Face is symmetric and tongue protrudes the midline. On muscle strength testing, there is no pronator drift and the strength is normal in arms and legs distally and proximally. Sensory to touch is equal with no neglect. No ataxia for [id number] testing. Deep tendon reflexes are symmetric, 2+ at the biceps, 2+ brachioradialis, 3 at the knees and 2+ ankles and plantars are upgoing bilaterally. - Labs CBC & Chem 7: 10/21/22 04:37 10/21/22 04:37 Labs: Abnormal Lab Results - Last 24 Hours (Table) 10/19/22 10/20/22 10/20/22 Range/Units 19:59 00:33 02:50 WBC (3.8-10.6) k/uL RBC (4.30-5.90) m/uL Hgb (13.0-17.5) gm/dL Hct (39.0-53.0) % ABG pH 7.51 H (7.35-7.45) ABG pCO2 32 L (35-45) mmHg ABG pO2 53 L* 136 H (83-108) mmHg ABG HCO3 26 H (21-25) mmol/L ABG Total CO2 26 H 27 H (19-24) mmol/L ABG O2 Saturation 91.8 L 99.4 H (94-97) % Sodium (137-145) mmol/L Potassium (3.5-5.1) mmol/L Glucose (74-99) mg/dL Calcium (8.4-10.2) mg/dL Magnesium (1.6-2.3) mg/dL Total Protein (6.3-8.2) g/dL Albumin (3.5-5.0) g/dL Vitamin B12 1071.0 H (200.0-944.0) pg/mL Procalcitonin (0.02-0.09) ng/mL 10/20/22 10/20/22 10/20/22 Range/Units 05:00 05:00 05:00 WBC 21.2 H (3.8-10.6) k/uL RBC 3.92 L (4.30-5.90) m/uL Hgb 12.6 L (13.0-17.5) gm/dL Hct 37.0 L (39.0-53.0) % ABG pH (7.35-7.45) ABG pCO2 (35-45) mmHg ABG pO2 (83-108) mmHg ABG HCO3 (21-25) mmol/L ABG Total CO2 (19-24) mmol/L ABG O2 Saturation (94-97) % Sodium 136 L (137-145) mmol/L Potassium 3.3 L (3.5-5.1) mmol/L Glucose 136 H (74-99) mg/dL Calcium 7.1 L (8.4-10.2) mg/dL Magnesium 1.4 L (1.6-2.3) mg/dL Total Protein 5.2 L (6.3-8.2) g/dL Albumin 2.8 L (3.5-5.0) g/dL Vitamin B12 (200.0-944.0) pg/mL Procalcitonin 0.53 H (0.02-0.09) ng/mL 10/20/22 Range/Units 07:18 WBC (3.8-10.6) k/uL RBC (4.30-5.90) m/uL Hgb (13.0-17.5) gm/dL Hct (39.0-53.0) % ABG pH (7.35-7.45) ABG pCO2 (35-45) mmHg ABG pO2 200 H (83-108) mmHg ABG HCO3 26 H (21-25) mmol/L ABG Total CO2 27 H (19-24) mmol/L ABG O2 Saturation 100.0 H (94-97) % Sodium (137-145) mmol/L Potassium (3.5-5.1) mmol/L Glucose (74-99) mg/dL Calcium (8.4-10.2) mg/dL Magnesium (1.6-2.3) mg/dL Total Protein (6.3-8.2) g/dL Albumin (3.5-5.0) g/dL Vitamin B12 (200.0-944.0) pg/mL Procalcitonin (0.02-0.09) ng/mL Microbiology - Last 24 Hours (Table) 10/20/22 05:19 Bronchial Washings Culture - Preliminary Bronchial Washings - Random 10/20/22 05:19 Acid Fast Bacilli Culture - Preliminary Bronchial Washings - Random 10/20/22 05:19 Fungal Culture - Preliminary Bronchial Washings - Random 10/15/22 07:15 Blood Culture - Preliminary Blood No Growth after 120 hours 10/15/22 07:30 Blood Culture - Preliminary Blood No Growth after 120 hours 10/20/22 01:45 Sputum Culture - Preliminary Sputum Assessment and Plan Assessment: 1. Toxic-metabolic encephalopathy, as a result of Marijuana hyperemesis syndrome, with metabolic derangements including hyponatremia, hypokalemia, acute renal failure. 2. Possible unwitnessed seizure, with postictal state provoked by hyponatremia (124 on admission) and/or hypokalemia 3.0 3. Acute hypoxic respiratory failure with multifocal pneumonia, requiring mechanical ventilation. 4. Leukocytosis 5. Acute renal failure, improving. 6. Multifocal pneumonia, on antibiotics. 7. Marijuana use. 8. Long-standing history of heavy alcoholism, quit 09/02/2022 per patient. Plan: 1. EEG 10/17/2022 was mildly abnormal due to background disorganization with fast and some slow frequency due to medication effect or encephalopathy. No epileptiform activity was seen. 2. The patient's mother and significant other were advised that the only way to adequately treat/prevent marijuana hyperemesis syndrome is to stop using marij uana, simply cutting down on the usage is not effective 3. Patient was improving neurologically, but has developed worsening respiratory status, now on mechanical ventilation. Patient has developed multifocal pneumonia. Patient on vancomycin, Zosyn and Levaquin. 4. Patient has brisk reflexes. B12 1071, folate 15.2, MMA, B6 levels pending 5. If patient's HUSSEIN negative, myeloperoxidase antibodies, dsDNA, C and P-ANCA, hepatitis panel, HIV, price virus negative. 6. Discussed with patient's family and nursing staff.
[2022-10-21] MEDS: PANTOPRAZOLE 40 MG/10 ML VIAL IVP SCH (09:27)
[2022-10-21] MEDS: CHLORHEXIDINE GLUCONATE 15 ML CUP MUCOUS MEM SCH ×2 (09:27→20:10)
[2022-10-21] MEDS: HEPARIN SODIUM,PORCINE/PF 5,000 UNIT/0.5 ML SYRINGE SQ SCH ×2 (09:27→16:12)
[2022-10-21] MEDS: LEVOFLOXACIN 750MG-D5W PMX 750 MG in DEXTROSE/WATER 1 150ML.BAG IVPB SCH (09:27)
[2022-10-21] MEDS: methylPREDNISolone SOD SUCCI 125 MG/2 ML VIAL IV SCH ×2 (09:28→16:12)
[2022-10-21 10:04] LABS: Amorphous Sediment,Urine Moderate /hpf; Appearance,Urine Turbid (Clear); Bacteria,Urine Occasional /hpf; Bilirubin,Urine Negative (Negative); Blood,Urine Large (Negative); Color,Urine Light Red; Glucose,Urine (UA) 3+ (Negative); Ketones,Urine Negative (Negative); Leukocyte Esterase,Urine Small (Negative); Mucus,Urine Rare /hpf; Nitrite,Urine Negative (Negative); PH, Urine 5.5 (5.0-8.0); Protein,Urine 1+ (Negative); RBC,Urine >182 /hpf (0-5); Specific Gravity,Urine 1.028 (1.001-1.035); Urobilinogen,Urine <2.0 mg/dL (<2.0)
[2022-10-21] MEDS: NOREPINEPHRINE 32 MG in SODIUM CHLORIDE 0.9% 218 ML IV SCH (10:20)
--- NOTE | 2022-10-21 10:32 | P.PN ---
Subjective Patient is seen for follow-up for acute kidney injury. Patient's respiratory status continued to deteriorate and he was eventually intubated . Remains off of levo fed urine output at 50 mL an hour Serum creatinine improved to 1. 0 mg/dL. Positive balance of about 1.5 L for last 24 hours. IV fluids discontinued this morning. FiO2 at 50% Objective - Vital Signs Vital signs: Vital Signs Temp 98.4 F 10/21/22 04:00 Pulse 90 10/21/22 07:27 Resp 28 H 10/21/22 07:00 BP 121/68 10/21/22 05:00 Pulse Ox 100 10/21/22 07:00 FiO2 50 10/21/22 08:59 Intake & Output 10/20/22 10/21/22 10/21/22 18:59 06:59 18:59 Intake Total 2263.770 1874.467 335.656 Output Total 2080 595 35 Balance 415.166 3401.467 300.656 Weight 58.7 kg 58.7 kg Intake: IV 1750 1250 175 Piperacillin-Tazobactam 3 100 100 .375 gm In Sodium Chloride 0.9% 100 ml @ 25 mls/hr IVPB Q8H [facility] Rx#: [id number] Sodium Chloride 0.9% 1, 750 900 75 000 ml @ 75 mls/hr IV . [id number] [facility] Rx#:[id number] Sodium Chloride 0.9% 1, 1000 000 ml @ 999 mls/hr IV . Q1H1M [facility] Rx#:[id number] Vancomycin 1,000 mg In 250 Sodium Chloride 0.9% 250 ml @ 125 mls/hr IVPB Q12HR [facility] Rx#:[id number] Intake, IV Titration 413.770 404.467 140.656 Amount Cisatracurium 200 mg In 38.069 118.642 Sodium Chloride 0.9% 180 ml @ 1 MCG/KG/MIN 3.696 mls/hr IV .Q24H [facility] Rx#: [id number] Norepinephrine 32 mg In 10.303 Sodium Chloride 0.9% 218 ml @ 0.03 MCG/KG/MIN 0. 825 mls/hr IV .Q24H [facility] Rx#:[id number] fentaNYL (PF). 1,000 mcg 90.039 100.000 In Sodium Chloride 0.9% 80 ml @ 0.5 MCG/KG/HR 3. 08 mls/hr IV .Q24H [facility] Rx #:[id number] propofoL 1,000 mg In 285.662 175.522 140.656 Empty Bag 1 bag @ 15 MCG/ KG/MIN 5.544 mls/hr IV . Q18H3M [facility] Rx#:[id number] Tube Feeding 40 130 20 Other 60 90 Output: Gastric Drainage 400 Urine 1680 595 35 Other: Voiding Method Indwelling Catheter Indwelling Catheter ABP, PAP, CO, CI - Last Documented Arterial Blood Pressure 110/47 - Exam Sedated and on the vent Examination of the heart S1 and S2 Examination lungs decreased breath sounds at the bases Abdomen is soft nontender Exam in lower extremity shows no significant edema PLSQL DEVELOPER exam cannot be assessed - Labs CBC & Chem 7: 10/21/22 04:37 10/21/22 04:37 Labs: Abnormal Lab Results - Last 24 Hours (Table) 10/21/22 10/21/22 10/21/22 Range/Units 04:37 04:37 05:15 RBC 3.30 L (4.30-5.90) m/uL Hgb 11.2 L (13.0-17.5) gm/dL Hct 31.7 L (39.0-53.0) % ABG pO2 (83-108) mmHg ABG Total CO2 (19-24) mmol/L ABG O2 Saturation (94-97) % Chloride 109 H (98-107) mmol/L Glucose 151 H (74-99) mg/dL Calcium 7.0 L (8.4-10.2) mg/dL Magnesium 2.4 H (1.6-2.3) mg/dL AST 16 L (17-59) U/L Total Protein 4.5 L (6.3-8.2) g/dL Albumin 2.3 L (3.5-5.0) g/dL Urine Protein 1+ H (Negative) Urine Glucose (UA) 3+ H (Negative) Urine Blood Large H (Negative) Ur Leukocyte Esterase Small H (Negative) Urine RBC >182 H (0-5) /hpf Amorphous Sediment Moderate H (None) /hpf Urine Bacteria Occasional H (None) /hpf Urine Mucus Rare H (None) /hpf 10/21/22 Range/Units 05:25 RBC (4.30-5.90) m/uL Hgb (13.0-17.5) gm/dL Hct (39.0-53.0) % ABG pO2 130 H (83-108) mmHg ABG Total CO2 26 H (19-24) mmol/L ABG O2 Saturation 99.2 H (94-97) % Chloride (98-107) mmol/L Glucose (74-99) mg/dL Calcium (8.4-10.2) mg/dL Magnesium (1.6-2.3) mg/dL AST (17-59) U/L Total Protein (6.3-8.2) g/dL Albumin (3.5-5.0) g/dL Urine Protein (Negative) Urine Glucose (UA) (Negative) Urine Blood (Negative) Ur Leukocyte Esterase (Negative) Urine RBC (0-5) /hpf Amorphous Sediment (None) /hpf Urine Bacteria (None) /hpf Urine Mucus (None) /hpf Microbiology - Last 24 Hours (Table) 10/15/22 07:30 Blood Culture - Final Blood No Growth after 144 hours 10/15/22 07:15 Blood Culture - Final Blood No Growth after 144 hours 10/20/22 01:45 Gram Stain - Preliminary Sputum Sputum Culture - Preliminary 10/20/22 05:19 Bronchial Washings Culture - Preliminary Bronchial Washings - Random 10/20/22 05:19 Acid Fast Bacilli Culture - Preliminary Bronchial Washings - Random 10/20/22 05:19 Fungal Culture - Preliminary Bronchial Washings - Random Assessment and Plan Assessment: 1. Acute kidney injury mostly prerenal secondary to hypovolemia improved with IV hydration. Creatinine increased to 1.9 yesterday and down to 1.0 today 2. Hypokalemia secondary to poor intake and intracellular shifting due to alkalosis. Improved. 3. Metabolic alkalosis secondary to vomiting, volume contraction, hypokalemia. Hypochloremia will also contribute to metabolic alkalosis by preventing bicarb secretion. Improved. 4. Hypovolemic hyponatremia improved with IV hydration. Sodium is slightly lower today associated with worsening renal function. 6. Acute hypoxic respiratory failure currently on the vent. Patient. Etiology pneumonia 7. Rhabdomyolysis due to immobility. CK levels trending down. Plan: Avoid nephrotoxic medications. Maintained on Vancomycin for pneumonia. Monitor level closely. Workup for hypokalemia as outpatient as patient's mother states that he did develop significant hypokalemia and severe cramps with any acute illness regardless of medications used. Possible underlying hypokalemic periodic paralysis. Electrolytes are currently within range.
[2022-10-21 11:30] LABS: Anti-Glomerular Basement Memb 3 UNITS (0-20)
--- NOTE | 2022-10-21 12:39 | P.PN ---
Subjective Progress Note Date: 10/21/22 27-year-old male, brought in by EMS, for mental status changes. He apparently was found at 4:30 in the morning, by his mother, on the floor, and unresponsive or poorly responsive. The patient was very agitated, kicking and screaming and flailing about. He was last seen to be normal about 3:30 the previous day. The patient apparently does not have any known medical history other than a bleeding ulcer for which she takes Prevacid. He apparently does not drink or smoke excessively, but does smoke marijuana. According to his mother, he has no significant past medical history. Denies hypertension, hyperlipidemia, diabetes, etc. According to the ER elizabeth, the patient does have a prior history of pericarditis. And also was told that he has a history of cyclic nausea and vomiting, due to marijuana use. He apparently used to drink socially/beer, but quit drinking in August. The patient is seen in the emergency department. He is on room air. Getting LR at 125 mL an hour. His drug screen was positive for marijuana. He himself can provide no additional history. He is extremely agitated flailing about in bed. He is restrained. We are going to start him on some dexmedetomidine, and transfer him to the intensive care unit. White count 51.1, hemoglobin 20.1, hematocrit 53.2, and platelet count 400,000. Coagulation studies were normal. Venous blood gases show pCO2 of 36, and a pH of 7.71. Sodium 128, potassium 2.1, chloride 76, CO2 40, anion gap 12, BUN 58, creatinine 2.42. CK 3001. Troponin is 0.735. Albumin 5.5. Alcohol level less than 10. Screening for influenza A, and influenza B, or negative. Testing for RSV, and coronavirus were negative. Drug screen was positive for THC. Abdominal x-ray shows no obstruction. Chest x-ray was normal. Brain CT showed nothing acute. Facial CT was negative. Chest abdomen and pelvic CT was negative. Progress note dated 10/16/2022. 27-year-old male seen in the emergency room yesterday. He was brought in by EMS for severe agitation. He was found by his mother on the floor, and he been there for at least 8 hours, and maybe longer. Anyway, the patient was transferred to the ICU for better management and monitoring. His potassium was quite low and needed aggressive replacement. In addition, because of his agita tion, he was given dexmedetomidine, and in addition, both Ativan and Haldol. Currently, he is seen in room 254. He is on 2 L of oxygen. Is getting lactated Ringer's at 125 mL an hour. Potassium is up to 2.9. He is getting dexmedetomidine at 0.8 mcg/kg/h. He is on vancomycin and ceftriaxone. White count 16.3 hemoglobin 14.1 hematocrit 39.3 and platelet count 295,000. Sodium 133, potassium 2.9, chlorides 90, CO2 36, BUN 52, and creatinine 1.68. CK is 5834. On today's evaluation of 10/17/2022, I'm seeing this patient for a follow-up. He is currently on Precedex and he is running at 0.6 mcg/kg/hr and the patient is also on Haldol on an as-needed basis. The patient is extremely restless in bed. The patient is restless, flailing and kicking and his movements are quite chaotic. CAT scan of the brain is measured at the time of admission was negative. EEG showed no evidence of any seizures and urine drug screen is positive for THC. The patient was seen by neurology and the patient was also seen by psychiatry. The working diagnosis for now is ongoing delirium secondary to toxic metabolic encephalopathy. The patient also has developed acute hypoxic respiratory failure with an ongoing pneumonia in the left lung. Earlier this morning, the patient was on 6 L of oxygen by nasal cannula. Nevertheless, the patient was showing improvement in his rhabdomyolysis. CPK is down to 4238. The patient was in acute kidney injury and the creatinine is improving and is currently down to 1.25 with a BUN of 20. Sodiums of 135 with a potassium level of 3.2. Serum bicarb is 31. The chest x-ray showing a airspace disease in the left lung consistent with pneumonia. The patient remains on broad-spectrum antibiotics. The patient remains on a combination of Rocephin and vancomycin for now. The patient is also on heparin subcu for DVT prophylaxis. Family the bedside and the patient has a one-to-one sitter for safety. Psychiatry has recommended starting this patient on Prolixin 2 mg twice a day for delirium. Benzodiazepines were discontinued. On 11/04/2022, the patient seems to much more comfortable compared to yesterday. The patient remains on Precedex 0.4 pg/kg/h. The patient is also on Prolixin 2 mg by mouth twice a day. Doing well. He is answering questions appropriately. He is still looking anxious. Meanwhile, the patient developed acute hypoxic respiratory failure. Oxygen requirements progressively went up and the patient today has been transitioned to high flow oxygen with a total of 35 L an FiO2 of 75%. Noted the chest x-ray was repeated today and the patient was found to have persistent left mid lung pulmonary infiltrate. There was also a new right lower lobe pulmonary infiltrate. Based on that, the patient was started on broad- spectrum antibiotics and the patient is currently on a combination of Zosyn and vancomycin. He is coughing. Is producing sputum and she should be able to culture the sputum. He is hemodynamically stable at this point in time. He is unresponsive 60 with a hemoglobin of 14 and a platelet count of 195. Creatinine is improved and is currently down to 1.2 with a BUN of 28. Potassium level is at 3.2 and a serum bicarb is 31 with a sodium level of 135. The patient remains on normal saline at the rate of 150 mL an hour. Family is at the bedside. Benzodiazepines of the discontinued. 10/19/2022, the patient clinically is looking better than his much more comfortable even compared to yesterday. He remains on Precedex at 0.7 g. No agitation. Following commands and answering questions appropriately. Nevertheless, there is no interval worsening in the patient's chest x-ray findings. The patient remains on a nonrebreather facemask that she prefers over a high flow oxygen. I reviewed the follow-up chest x-ray from today and the patient has multifocal airspace disease which could be development or progression of pneumonia versus ARDS. Note the patient has been covered with broad-spectrum antibiotic and the patient is currently on accommodation of Zosyn and vancomycin. Levaquin will be added regarding the possibility of atypical bacterial infection. The patient will have Legionella urine antigen checked. Also, on today's blood work, the creatinine is up to 1.9 and the patient remains on IV fluids. Urine operas adequate for now. Sodiums of 131. Potassium levels at 4.1. I'll discuss of 12.2 with hemoglobin 14.3 and a platelet count of 149. CPK is improving as the patient's rhabdomyolysis is recovering and the patient's CPK level is down to 737. Of concern is the ongoing hypoxic respiratory failure and the bilateral pneumonia and worsening in the chest x-ray findings. 10/20/2022, I'm seeing the patient in the [facility]. I came to the time of this patient as the patient was becoming progressively more short of breath and hypoxic. I was informed at around 1 AM that the patient was becoming progressively more hypoxic. The blood gas was done and the patient was hypoxic and his blood gas was done while him being on 100% nonrebreather facemask. Noted the patient was quite restless and he was not keeping the mask on. I try to put him back on Precedex which resulted in limited success and the patient continued to be short of breath, tachypneic, respiratory rate was in the high 30s to low 40s and the patient was also hypoxic. At that point, I made the decision to intubate the patient put him on a mechanical ventilator. It was very difficult to sedate this patient. Based on that, the patient was placed on a combination of propofol and fentanyl. He was paralyzed and postintubation he was kept on a mechanical ventilator on assist control mode at the rate of 28 with a tidal volume of 400 and FiO2 of 100% with a PEEP of 10. The blood. Was done post intubation showed improvement in oxygenation. Current pulse ox is 98%. Blood gases showed a pH of 7.37. PCO2 of 44 and pO2 of 136. At this point in time, the patient is on propofol running at the rate of 50 microvascular kilogram per minute. Is also on fentanyl at 2 mcg/kg/h. His also on Nimbex at 2 microvascular kilogram per minutes. His well sedated and paralyzed. His peak airway pressure is 24. His chest x-ray postintubation showed diffuse bilateral airspace disease and tube is in a good location. I had to the ICU. I the next discussion with the patient's mother with concerns and questions and I addressed all other concerns. I explained to her that this could be potentially a bad pneumonia. Aspiration cannot be ruled out. Acute lung injury from using various forms of cannabis cannot be also ruled out in this situation. The patient is currently hemodynamically stable. The patient is not requiring any pressors. The patient is on IV fluids running at 1 50 mL a n hour and the patient is producing adequate amount of urine output. As mentioned earlier, the rhabdomyolysis was improving. Creatinine was up to 1.9 yesterday and the labs from today are still pending. Meanwhile I do have a CBC from today that shows no significant leukocytosis. The white cell count is currently at 12. Hemoglobin is also adequate for now. Currently is intubated on a mechanical ventilator. Orogastric tube is also in place. Abdomen is nondistended. He is afebrile. He is covered with broad-spectrum antibiotics including a combination of Zosyn and Levaquin and vancomycin. His HUSSEIN is negative. His Legionella urine antigen his still pending for now. A bronchoscopy will be also done with a bronchioloalveolar lavage. The patient will be started on systemic steroids. CPK has dropped 10/21/2022, seeing the patient for a follow-up. Remains intubated on a mechanical ventilator, sedated and paralyzed. The patient currently is on propofol running at 50 mcg/kg/m. The patient is also on fentanyl at 1 mcg/kg/h and the patient is also on Nimbex at 2 mcg/kg/m. The patient is adequately sedated and paralyzed and the patient is very much interested mechanical venti lator. Today, the patient is on assist control mode at the rate of 28 with a tidal volume of 400 and FiO2 is currently is a 50% with a PEEP of 8. The patient has a blood gas that showed a pH of 7.39 with a pCO2 of 41 and pO2 of 1:30. The fluid balance is +660 mL over the past 24 hours and the patient is receiving normal saline at the rate of 75 mL an hour. The patient is on no pressors. The patient was also started on enteral feeding for nutritional support. Chest x-ray from today shows improvement in the right upper lobe infiltrates. The patient is still on broad-spectrum antibiotics. The bronchoalveolar lavage was negative. The pro-calcitonin level was at 0.5. The white cell count was 8 with a hemoglobin of 11.2 and a platelet count of 270. The BUN is at 40 with a creatinine of 1 and sodium level is at 138. The patient is afebrile. The patient on systemic steroids. No other significant issues in his overall condition is stable. Objective - Vital Signs Vital signs: Vital Signs Temp 98.9 F 10/21/22 12:00 Pulse 116 H 10/21/22 12:00 Resp 26 H 10/21/22 12:00 BP 121/68 10/21/22 05:00 Pulse Ox 100 10/21/22 12:00 FiO2 50 10/21/22 12:00 Intake & Output 10/20/22 10/21/22 10/21/22 18:59 06:59 18:59 Intake Total 2263.770 1874.467 653.150 Output Total 2080 595 430 Balance 131.101 2982.467 223.150 Weight 58.7 kg 63.4 kg Intake: IV 1750 1250 198 Piperacillin-Tazobactam 3 100 100 .375 gm In Sodium Chloride 0.9% 100 ml @ 25 mls/hr IVPB Q8H [facility] Rx#: [id number] Sodium Chloride 0.9% 1, 750 900 98 000 ml @ 10 mls/hr IV . Q24H [facility] Rx#:[id number] Sodium Chloride 0.9% 1, 1000 000 ml @ 999 mls/hr IV . Q1H1M [facility] Rx#:[id number] Vancomycin 1,000 mg In 250 Sodium Chloride 0.9% 250 ml @ 125 mls/hr IVPB Q12HR [facility] Rx#:[id number] Intake, IV Titration 413.770 404.467 435.150 Amount Cisatracurium 200 mg In 38.069 118.642 47.494 Sodium Chloride 0.9% 180 ml @ 1 MCG/KG/MIN 3.696 mls/hr IV .Q24H [facility] Rx#: [id number] Norepinephrine 32 mg In 10.303 Sodium Chloride 0.9% 218 ml @ 0.03 MCG/KG/MIN 0. 825 mls/hr IV .Q24H [facility] Rx#:[id number] Piperacillin-Tazobactam 3 100 .375 gm In Sodium Chloride 0.9% 100 ml @ 25 mls/hr IVPB Q8H [facility] Rx#: [id number] Sodium Chloride 0.9% 1, 147 000 ml @ 10 mls/hr IV . Q24H [facility] Rx#:[id number] fentaNYL (PF). 1,000 mcg 90.039 100.000 In Sodium Chloride 0.9% 80 ml @ 0.5 MCG/KG/HR 3. 08 mls/hr IV .Q24H [facility] Rx #:[id number] propofoL 1,000 mg In 285.662 175.522 140.656 Empty Bag 1 bag @ 15 MCG/ KG/MIN 5.544 mls/hr IV . Q18H3M [facility] Rx#:[id number] Tube Feeding 40 130 20 Other 60 90 Output: Gastric Drainage 400 Urine 1680 595 430 Other: Voiding Method Indwelling Catheter Indwelling Catheter Indwelling Catheter ABP, PAP, CO, CI - Last Documented Arterial Blood Pressure 144/66 - Exam The patient is currently sedated and paralyzed. The patient is on accommodation of propofol and fentanyl. The patient is also on Nimbex. The patient is intubated on a mechanical ventilator. Orogastric and orotracheal tube are both in place. Synchronous a mechanical ventilator. Head exam was generally normal. There was no scleral icterus or corneal arcus. Mucous membranes were moist. Neck supple. Full range of motion. No adenopathy thyromegaly or neck vein distention.Left IJ triple-lumen catheter was inserted Cardiovascular examination reveals regular rhythm rate. S1-S2 normal. No S3 or S4. No discernible murmur noted. . Lungs reveal mostly clear breath sounds. Breath sounds are equal bilaterally. Minimal scattered rhonchi. No wheezes or crackles. Abdomen soft, without masses. Extremities are intact. No cyanosis clubbing or edema. An arterial line was also inserted in the left radial artery. Skin is without rash or lesion. Neurologic examination is limited the patient is currently sedated and paralyzed. - Labs CBC & Chem 7: 10/21/22 04:37 10/21/22 04:37 Labs: Abnormal Lab Results - Last 24 Hours (Table) 10/21/22 10/21/22 10/21/22 Range/Units 04:37 04:37 05:15 RBC 3.30 L (4.30-5.90) m/uL Hgb 11.2 L (13.0-17.5) gm/dL Hct 31.7 L (39.0-53.0) % ABG pO2 (83-108) mmHg ABG Total CO2 (19-24) mmol/L ABG O2 Saturation (94-97) % Chloride 109 H (98-107) mmol/L Glucose 151 H (74-99) mg/dL Calcium 7.0 L (8.4-10.2) mg/dL Magnesium 2.4 H (1.6-2.3) mg/dL AST 16 L (17-59) U/L Total Protein 4.5 L (6.3-8.2) g/dL Albumin 2.3 L (3.5-5.0) g/dL Urine Protein 1+ H (Negative) Urine Glucose (UA) 3+ H (Negative) Urine Blood Large H (Negative) Ur Leukocyte Esterase Small H (Negative) Urine RBC >182 H (0-5) /hpf Amorphous Sediment Moderate H (None) /hpf Urine Bacteria Occasional H (None) /hpf Urine Mucus Rare H (None) /hpf 10/21/22 Range/Units 05:25 RBC (4.30-5.90) m/uL Hgb (13.0-17.5) gm/dL Hct (39.0-53.0) % ABG pO2 130 H (83-108) mmHg ABG Total CO2 26 H (19-24) mmol/L ABG O2 Saturation 99.2 H (94-97) % Chloride (98-107) mmol/L Glucose (74-99) mg/dL Calcium (8.4-10.2) mg/dL Magnesium (1.6-2.3) mg/dL AST (17-59) U/L Total Protein (6.3-8.2) g/dL Albumin (3.5-5.0) g/dL Urine Protein (Negative) Urine Glucose (UA) (Negative) Urine Blood (Negative) Ur Leukocyte Esterase (Negative) Urine RBC (0-5) /hpf Amorphous Sediment (None) /hpf Urine Bacteria (None) /hpf Urine Mucus (None) /hpf Microbiology - Last 24 Hours (Table) 10/20/22 05:19 Gram Stain - Preliminary Bronchial Washings - Random Bronchial Washings Culture - Preliminary 10/15/22 07:30 Blood Culture - Final Blood No Growth after 144 hours 10/15/22 07:15 Blood Culture - Final Blood No Growth after 144 hours 10/20/22 01:45 Gram Stain - Preliminary Sputum Sputum Culture - Preliminary 10/20/22 05:19 Acid Fast Bacilli Culture - Preliminary Bronchial Washings - Random 10/20/22 05:19 Fungal Culture - Preliminary Bronchial Washings - Random Assessment and Plan Plan: Acute hypoxic respiratory failure with multifocal pneumonia/ consider possibility of an acute lung injury post aspiration. Acute lung injury related to inhalation of large quantities of cannabis and various forms could also cause a similar form of acute lung injury. The patient is currently covered with broad-spectrum antibiotics. He is on a combination of Zosyn and Levaquin and vancomycin. Currently intubated on a mechanical ventilator because of worsening hypoxemia. The viral screening was negative. The pro calcitonin level is not elevated and the bronchial lavage is negative and the patient's responding to steroids. There is improvement in diffuse bilateral pulmonary infiltrates and improvement in oxygenation. There may sedated and paralyzed. Acute respiratory failure requiring intubation mechanical ventilation, currently under investigation Delerium , most likely related to substance abuse, clinically improving. The patient showed improvement in the mental status with Prolixin. Nevertheless, because of worsening respiratory status and the composition, the patient is currently intubated on a mechanical ventilator and is sedated. Is requiring higher doses of sedatives and currently is on a combination of propofol and fentanyl. Acute leukocytosis, improving Severe contraction alkalosis secondary to dehydration, improvedSevere hypokalemia, potassium level is being replaced Acute kidney injury, creatinine is up to 1.9 from yesterday and the repeat shows normalization of the renal function Hyponatremia, improved Rhabdomyolysis, improving and the CPK level is declining Lactic acidemia. History of bleeding ulcer. History of pericarditis. History of cyclic nausea and vomiting, secondary to marijuana use. Plan Keep the patient in intensive care unit Keep patient sedated with a combination of propofol and fentanyl Give the patient for a lipid holiday and discontinue the politics Discontinue the vancomycin keep the patient on Zosyn and Levaquin Awaiting the final results of the bronchial alveolar lavage Continue IV Solu-Medrol Change IV fluids to KVO Dropped down the PEEP to 5 Continue enteral feeding for nutritional support Echo was noted and the patient has a normal LV function Family was updated on his condition. The patient is still considerable improved and more stable. We'll continue to follow. This evaluation was on a more than 30 minutes excluding time to do any procedures. Time with Patient: Greater than 30
[2022-10-21 14:07] LABS: ABG Base Excess 2.5 mmol/L; ABG HCO3 27 mmol/L (21-25); ABG Oxygen Saturation 99.8 % (94-97); ABG PCO2 39 mmHg (35-45); ABG PH 7.45 (7.35-7.45); ABG PO2 161 mmHg (83-108); ABG TCO2 28 mmol/L (19-24)
[2022-10-21 14:09] LABS: Allen Test Performed? no
--- NOTE | 2022-10-21 16:53 | P.PN ---
Subjective Progress Note Date: 10/21/22 (delayed charting seen at 0930) Patient is a 27-year-old female with known hyperemesis syndrome, chronic ma rijuana use, and prior pericarditis who presented with altered mentation. In the ER he was noted to be febrile and tachycardic. Initial laboratory analysis showed white blood cell count 51.1, hemoglobin 20.1, sodium 124, potassium 3, chloride 54, bicarb 41, BUN 63, creatinine 2.1 crit, and lactic acidosis 10.4. CK was 3000, troponin 0.7, an ABG revealed a pH of 7.71 with a CO2 of 36. He underwent a head CT which showed no acute process. EKG showed sinus tachycardia. He was given 3 L of IV fluids, Zyprexa, Ativan, Rocephin, and vancomycin. He was admitted to the ICU, additionally nephrology and neurology were consulted. Nephrology recommended IV fluids. Cardiology was consulted and recommended an echocardiogram. He was started on dexmedetomidine. He was seen by neurology who recommended an EEG. Patient has remained on antibiotics as well as Precedex. He has required multiple medications to help with agitation. He was found to have pneumonia on repeat chest x-ray. Influenza A/B, RSV, and COVID-19 testing negative. Over the late evening of 10/20 to early AM on 10/20 his respiratory status declined, He required intubation, bronch with BAL, and right IJ TLC and artline was placed. He did require levophed for one day. His vent requirements decreased be 10/21. Imaging: Abdominal a-yke-mskbdpihcpkonw bowel gas pattern Chest x-ray-no acute process Head CT-no acute intracranial process Facial bone CT-no depressed or displaced facial bone fractures CT chest/abdomen/pelvis-no evidence of traumatic injury EEG-background disorganization suggestive of medication effect related to encephalopathy, no epileptiform activity seen Echocardiogram-ejection fraction 55% Patient seen and examined at bedside. Sedated at intubated on vent General: ill appering, no distress, appears at stated age Derm: warm, dry Head: Normocephalic, bruising bilateral orbital areas, bruising over the bridge of the nose Mouth: no lip lesion, mucus membranes dry, ET tube inplace Cardiovascular: S1S2 reg, no murmur, positive posterior tibial pulse bilateral, Lungs: Coarse breath sounds bilateral, no rhonchi, no rales , no accessory muscle use Abdominal: soft, nontender to palpation, no guarding, no appreciable organomegaly Ext: no gross muscle atrophy, no edema, no contractures Neuro: + Train 2/4 on nimbex, Psych: Sedated on vent : olivera with dark urine Assessment/plan: Toxic metabolic encephalopathy Acute hypoxic Respiraotry Failure Aspiration pneumonia vs inflammatory rxn - continue with zosyn, levauqin, off vanco - ID recs appreciated - Critical care recs - pulm hygeine - Improvement in CXR and O2 requirements after starting steroids on 10/20/22-- concern for inflammatory reaction given procal <2 - per nursing family states that he not only smoke marijuana, but uses wax bases THC products which contain butane HUSSEIN, c-ANCA, p-ANCA, myeloperoxidase, double-stranded DNA, and GBM negative C. diff negative Hepatitis negative HIV is negative YENI, improving - nephrology recs: D/W Dr. Joshua will have hypokalemic perodic paralysis work-up as outpatient in clinic, added to discharge tab. - IVF - avoid additional nephrotoxic agents - follow renal function Microscopic hematuria - suspect due to olivera trauma, continue to monitor Probable unwitnessed seizure - neurology recs Elevated troponin - echo normal - likely due to dehydration - cardiology signed off Hypokalemia, resolved Lacidosis, resolved Hemoconcentration, resolved Severe contraction Alkalosis , resolved Rhabdo, resolved Dehydration, Hyponatremia, resolved Transaminitis, resolved Chronic: Cannabis Hyperemesis Syndrome DVT prophylaxis: Heparin Discussed with: nursing, Dr. Ruiz, Mother Anticipated discharge: pending clinical course Anticipated discharge place: pending clinical course A total of 45 minutes was spent on the care of this complex patient more than 50% of the time was spent in counseling and care coordination. Active Medications Generic Name Dose Route Start Last Admin Trade Name Freq PRN Reason Stop Dose Admin Acetaminophen 650 mg 10/18/22 09:15 10/19/22 16:42 Acetaminophen Tab 325 Mg Tab PO 650 mg Q6HR PRN Administration Fever and/ or Pain Albuterol/Ipratropium 3 ml 10/17/22 16:00 10/21/22 15:49 Ipratropium-Albuterol 3 Ml Neb INHALATION 3 ml RT-Q4H [facility] Administration Artificial Tears 2 drops 10/20/22 04:00 10/21/22 16:12 Artificial Tears-Hypromellose Drops 15 Ml Btl BOTH EYES 2 drops Q4HR [facility] Administration Benzonatate 200 mg 10/18/22 05:59 10/19/22 22:50 Benzonatate 100 Mg Cap PO 200 mg TID PRN Administration Cough Chlorhexidine Gluconate 15 ml 10/20/22 09:00 10/21/22 09:27 Chlorhexidine Gluconate 15 Ml Cup MUCOUS MEM 15 ml BID [facility] Administration Guaifenesin/Dextromethorphan 10 ml 10/18/22 09:15 10/19/22 22:50 Guaifenesin-Dm 100-10mg/5ml 10 Ml Cup PO 10 ml Q6HR PRN Administration Cough Haloperidol Lactate 4 mg 10/17/22 11:22 10/17/22 16:11 Haloperidol Lactate 5 Mg/Ml 1 Ml Vial IVP 4 mg Q1H PRN Administration Agitation or Acute Psychosis Heparin Sodium (Porcine) 5,000 unit 10/15/22 16:00 10/21/22 16:12 Heparin Sodium,Porcine/Pf 5,000 Unit/0.5 Ml Syringe SQ 5,000 unit Q8HR [facility] Administration Sodium Chloride 1,000 mls @ 10 mls/hr 10/16/22 10:00 10/20/22 18:58 Saline 0.9% IV 75 mls/hr .Q24H [facility] Administration Piperacillin Sod/Tazobactam 100 mls @ 25 mls/hr 10/17/22 22:00 10/21/22 14:46 Sod 3.375 gm/ Sodium Chloride IVPB 25 mls/hr Q8H [facility] Administration Protocol Levofloxacin 750 mg/ IV 150 mls @ 100 mls/hr 10/19/22 10:00 10/21/22 09:27 Solution IVPB 100 mls/hr Q24H [facility] Administration Protocol Propofol 1,000 mg/ IV Solution 100 mls @ 5.544 mls/hr 10/20/22 01:00 10/21/22 15:40 IV 75 mcg/kg/min .Q18H3M [facility] 27.72 mls/hr Titration Protocol 15 MCG/KG/MIN Fentanyl Citrate 1,000 mcg/ 100 mls @ 3.08 mls/hr 10/20/22 01:45 10/21/22 15:32 Sodium Chloride IV 1 mcg/kg/hr .Q24H [facility] 6.16 mls/hr Titration Protocol 0.5 MCG/KG/HR Cisatracurium Besylate 200 mg/ 200 mls @ 3.696 mls/hr 10/20/22 02:15 10/21/22 14:40 Sodium Chloride IV 0 mcg/kg/min .Q24H [facility] 0 mls/hr Titration Protocol 1 MCG/KG/MIN Norepinephrine Bitartrate 32 250 mls @ 0.825 mls/hr 10/20/22 09:45 10/21/22 10:20 mg/ Sodium Chloride IV Not Given .Q24H [facility] Protocol 0.03 MCG/KG/MIN Methylprednisolone Sodium Succinate 60 mg 10/20/22 08:00 10/21/22 16:12 Methylprednisolone Sod Succi 125 Mg/2 Ml Vial IV 60 mg Q8HR [facility] Administration Mirtazapine 15 mg 10/18/22 21:00 10/20/22 20:20 Mirtazapine 15 Mg Tab PO 15 mg HS [facility] Administration Miscellaneous Information 1 each 10/17/22 09:01 Potassium Replacement Protocol 1 Each Misc MISCELLANE DAILY PRN Per Protocol Protocol Miscellaneous Information 1 each 10/20/22 06:16 Magnesium Replacement Protocol 1 Each Misc MISCELLANE DAILY PRN Per Protocol Protocol Naloxone HCl 0.2 mg 10/15/22 10:26 Naloxone 0.4 Mg/Ml 1 Ml Vial IV Q2M PRN Opioid Reversal Pantoprazole Sodium 40 mg 10/17/22 15:30 10/21/22 09:27 Pantoprazole 40 Mg/10 Ml Vial IVP 40 mg DAILY [facility] Administration Sodium Chloride 2 spray 10/19/22 17:53 10/19/22 18:41 Sodium Chloride 0.65% Nasal Moira 44 Ml Btl NASAL 2 spray QID PRN Administration Nasal Congestion Objective - Vital Signs Vital signs: Vital Signs Temp 98.8 F 10/21/22 16:00 Pulse 112 H 10/21/22 16:23 Resp 25 H 10/21/22 16:00 BP 121/68 10/21/22 05:00 Pulse Ox 98 10/21/22 16:00 FiO2 40 10/21/22 16:00 Intake & Output 10/20/22 10/21/22 10/21/22 18:59 06:59 18:59 Intake Total 2263.770 5718.467 9674.049 Output Total 2080 595 590 Balance 730.578 8762.467 464.049 Weight 58.7 kg 63.4 kg Intake: IV 1750 1250 390 Piperacillin-Tazobactam 3 100 200 .375 gm In Sodium Chloride 0.9% 100 ml @ 25 mls/hr IVPB Q8H [facility] Rx#: [id number] Sodium Chloride 0.9% 1, 750 900 190 000 ml @ 10 mls/hr IV . Q24H [facility] Rx#:[id number] Sodium Chloride 0.9% 1, 1000 000 ml @ 999 mls/hr IV . Q1H1M [facility] Rx#:[id number] Vancomycin 1,000 mg In 250 Sodium Chloride 0.9% 250 ml @ 125 mls/hr IVPB Q12HR [facility] Rx#:[id number] Intake, IV Titration 413.770 404.467 644.049 Amount Cisatracurium 200 mg In 38.069 118.642 54.517 Sodium Chloride 0.9% 180 ml @ 1 MCG/KG/MIN 3.696 mls/hr IV .Q24H [facility] Rx#: [id number] Norepinephrine 32 mg In 10.303 Sodium Chloride 0.9% 218 ml @ 0.03 MCG/KG/MIN 0. 825 mls/hr IV .Q24H [facility] Rx#:[id number] Piperacillin-Tazobactam 3 100 .375 gm In Sodium Chloride 0.9% 100 ml @ 25 mls/hr IVPB Q8H [facility] Rx#: [id number] Sodium Chloride 0.9% 1, 147 000 ml @ 10 mls/hr IV . Q24H [facility] Rx#:[id number] fentaNYL (PF). 1,000 mcg 90.039 100.000 78.591 In Sodium Chloride 0.9% 80 ml @ 0.5 MCG/KG/HR 3. 08 mls/hr IV .Q24H [facility] Rx #:[id number] propofoL 1,000 mg In 285.662 175.522 263.941 Empty Bag 1 bag @ 15 MCG/ KG/MIN 5.544 mls/hr IV . Q18H3M [facility] Rx#:[id number] Tube Feeding 40 130 20 Other 60 90 Output: Gastric Drainage 400 Urine 1680 595 590 Other: Voiding Method Indwelling Catheter Indwelling Catheter Indwelling Catheter ABP, PAP, CO, CI - Last Documented Arterial Blood Pressure 105/45 - Labs CBC & Chem 7: 10/21/22 04:37 10/21/22 04:37 Labs: Abnormal Lab Results - Last 24 Hours (Table) 10/21/22 10/21/22 10/21/22 Range/Units 04:37 04:37 05:15 RBC 3.30 L (4.30-5.90) m/uL Hgb 11.2 L (13.0-17.5) gm/dL Hct 31.7 L (39.0-53.0) % ABG pO2 (83-108) mmHg ABG HCO3 (21-25) mmol/L ABG Total CO2 (19-24) mmol/L ABG O2 Saturation (94-97) % Chloride 109 H (98-107) mmol/L Glucose 151 H (74-99) mg/dL Calcium 7.0 L (8.4-10.2) mg/dL Magnesium 2.4 H (1.6-2.3) mg/dL AST 16 L (17-59) U/L Total Protein 4.5 L (6.3-8.2) g/dL Albumin 2.3 L (3.5-5.0) g/dL Urine Protein 1+ H (Negative) Urine Glucose (UA) 3+ H (Negative) Urine Blood Large H (Negative) Ur Leukocyte Esterase Small H (Negative) Urine RBC >182 H (0-5) /hpf Amorphous Sediment Moderate H (None) /hpf Urine Bacteria Occasional H (None) /hpf Urine Mucus Rare H (None) /hpf 10/21/22 10/21/22 Range/Units 05:25 14:06 RBC (4.30-5.90) m/uL Hgb (13.0-17.5) gm/dL Hct (39.0-53.0) % ABG pO2 130 H 161 H (83-108) mmHg ABG HCO3 27 H (21-25) mmol/L ABG Total CO2 26 H 28 H (19-24) mmol/L ABG O2 Saturation 99.2 H 99.8 H (94-97) % Chloride (98-107) mmol/L Glucose (74-99) mg/dL Calcium (8.4-10.2) mg/dL Magnesium (1.6-2.3) mg/dL AST (17-59) U/L Total Protein (6.3-8.2) g/dL Albumin (3.5-5.0) g/dL Urine Protein (Negative) Urine Glucose (UA) (Negative) Urine Blood (Negative) Ur Leukocyte Esterase (Negative) Urine RBC (0-5) /hpf Amorphous Sediment (None) /hpf Urine Bacteria (None) /hpf Urine Mucus (None) /hpf Microbiology - Last 24 Hours (Table) 10/20/22 05:19 Gram Stain - Preliminary Bronchial Washings - Random Bronchial Washings Culture - Preliminary 10/20/22 01:45 Gram Stain - Preliminary Sputum Sputum Culture - Preliminary Saige albicans 10/15/22 07:30 Blood Culture - Final Blood No Growth after 144 hours 10/15/22 07:15 Blood Culture - Final Blood No Growth after 144 hours 10/20/22 05:19 Acid Fast Bacilli Culture - Preliminary Bronchial Washings - Random 10/20/22 05:19 Fungal Culture - Preliminary Bronchial Washings - Random
--- NOTE | 2022-10-21 19:14 | P.PN ---
Subjective Progress Note Date: 10/21/22 10/21/2022: Patient's mother and patient's grandmother were present today. Patient currently on propofol 60 g per program per minute. Also on fentanyl 1 mcg/kg/h. Patient also on Nimbex 1 mcg/kg/m. Patient is sedated, on mechanical ventilation. 10/20/2022: Patient apparently developed respiratory distress, tachypneic, tachycardic, was significantly hypoxemic, with pH of 7.51, pO2 53 with saturation 91% on ABG. He underwent elective intubation with mechanical ventilation for impending respiratory failure early this morning at 1:30 AM. Patient's significant other and patient's mother were present today. At present patient is sedated on propofol and fentanyl. 10/19/2022: Patient was seen for follow-up. Patient's mother was present today. Patient's mental condition has much improved. Patient tells me that he used to drink a lot of alcohol. He would drink 10+ beer every day since age 18. He quit drinking on 09/02/2022. Patient coughing a lot. 10/18/2022: Patient was seen for a follow-up. Patient's girlfriend and patient's brother were present. Patient's brother concurs that patient has been having episodic nausea vomiting with use of marijuana. It is happening once every few months. This was the most significant when patient developed significant electrolyte and metabolic dysfunction. Patient's mental functions has cleared up. He appears somewhat restless. 10/17/2022: Patient was seen for a follow-up. Patient initially seen by Dr. Daley yesterday, please refer to her note for details. Patient was found with altered mental status. Patient's mother was present at this time, who also provided with a history. The last known well was 3 PM on Monday, and his mother found him altered at 4:30 AM Monday morning. He had been bouncing off the cano, falling, messed up the whole apartment. He was all by himself. Patient has long-standing history of smoking marijuana, and every 4-5 months, he gets hospitalized for persistent nausea vomiting which was felt to be related to cannabis hyperemesis syndrome. Once patient gets hydrated, electrolytes replacement, he goes home within a few hours. This is the first time patient was severely altered, with abrasions, periorbital ecchymosis. Patient's sister and brother also smokes nor of marijuana as well as his friends around. Patient's mother has repeatedly told him not to smoke, but he does. Patient's mother states that he has been smoking marijuana since he was a teenager. Even at this time he smoking 4-5 joints a day. Patient's mother also mentioned that he has been lately smoking wax, which is a condensed/concentrated form of marijuana. He has never smoked or did any other drugs. CT scan of the brain was performed in the emergency department. There is no evidence of acute hemorrhage or infarct. CT scan of the face revealed no signs of fracture. CT scan of the abdomen and pelvis revealed no abnormalities or fracture. Laboratory evaluation revealed a markedly elevated white blood cell count of 51.1. Hemoglobin was markedly elevated at 20. Potassium was found to be extremely low at 2.1 and sodium low at 128". Objective - Vital Signs Vital signs: Vital Signs Temp 98.8 F 10/21/22 16:00 Pulse 107 H 10/21/22 18:00 Resp 27 H 10/21/22 18:00 BP 121/68 10/21/22 05:00 Pulse Ox 98 10/21/22 18:00 FiO2 40 10/21/22 16:00 Intake & Output 10/21/22 10/21/22 10/22/22 06:59 18:59 06:59 Intake Total 7894.891 1711.647 Output Total 595 590 Balance 1279.467 523.647 Weight 63.4 kg Intake: IV 1250 390 Piperacillin-Tazobactam 3 100 200 .375 gm In Sodium Chloride 0.9% 100 ml @ 25 mls/hr IVPB Q8H [facility] Rx#: [id number] Sodium Chloride 0.9% 1, 900 190 000 ml @ 10 mls/hr IV . Q24H [facility] Rx#:[id number] Vancomycin 1,000 mg In 250 Sodium Chloride 0.9% 250 ml @ 125 mls/hr IVPB Q12HR [facility] Rx#:[id number] Intake, IV Titration 404.467 703.647 Amount Cisatracurium 200 mg In 118.642 54.517 Sodium Chloride 0.9% 180 ml @ 1 MCG/KG/MIN 3.696 mls/hr IV .Q24H [facility] Rx#: [id number] Norepinephrine 32 mg In 10.303 Sodium Chloride 0.9% 218 ml @ 0.03 MCG/KG/MIN 0. 825 mls/hr IV .Q24H [facility] Rx#:[id number] Piperacillin-Tazobactam 3 100 .375 gm In Sodium Chloride 0.9% 100 ml @ 25 mls/hr IVPB Q8H [facility] Rx#: [id number] Sodium Chloride 0.9% 1, 147 000 ml @ 10 mls/hr IV . Q24H [facility] Rx#:[id number] fentaNYL (PF). 1,000 mcg 100.000 78.591 In Sodium Chloride 0.9% 80 ml @ 0.5 MCG/KG/HR 3. 08 mls/hr IV .Q24H [facility] Rx #:[id number] propofoL 1,000 mg In 175.522 323.539 Empty Bag 1 bag @ 15 MCG/ KG/MIN 5.544 mls/hr IV . Q18H3M [facility] Rx#:[id number] Tube Feeding 130 20 Other 90 Output: Urine 595 590 Other: Voiding Method Indwelling Catheter Indwelling Catheter ABP, PAP, CO, CI - Last Documented Arterial Blood Pressure 111/48 - Exam 10/21/2022: Patient intubated, sedated. Examination limited. Patient does squeeze hands slightly and wiggles his toes. 10/19/2022: Patient is a young male, fully alert and awake. Patient appears to be slightly short of breath. Patient is coughing a lot. Speech and language functions are normal. Attention, concentration and fund of knowledge is adequate. Cranial nerves are all normal. Visual martínez are full. Face is symmetric and tongue protrudes the midline. On muscle strength testing, there is no pronator drift and the strength is normal in arms and legs distally and proximally. Sensory to touch is equal with no neglect. No ataxia for [id number]-lbaa testing. Deep tendon reflexes are symmetric, 2+ at the biceps, 2+ brachioradialis, 3 at the knees and 2+ ankles and plantars are upgoing bilaterally. - Labs CBC & Chem 7: 10/21/22 04:37 10/21/22 04:37 Labs: Abnormal Lab Results - Last 24 Hours (Table) 10/21/22 10/21/2222 Range/Units 04:37 04:37 05:15 RBC 3.30 L (4.30-5.90) m/uL Hgb 11.2 L (13.0-17.5) gm/dL Hct 31.7 L (39.0-53.0) % ABG pO2 (83-108) mmHg ABG HCO3 (21-25) mmol/L ABG Total CO2 (19-24) mmol/L ABG O2 Saturation (94-97) % Chloride 109 H (98-107) mmol/L Glucose 151 H (74-99) mg/dL Calcium 7.0 L (8.4-10.2) mg/dL Magnesium 2.4 H (1.6-2.3) mg/dL AST 16 L (17-59) U/L Total Protein 4.5 L (6.3-8.2) g/dL Albumin 2.3 L (3.5-5.0) g/dL Urine Protein 1+ H (Negative) Urine Glucose (UA) 3+ H (Negative) Urine Blood Large H (Negative) Ur Leukocyte Esterase Small H (Negative) Urine RBC >182 H (0-5) /hpf Amorphous Sediment Moderate H (None) /hpf Urine Bacteria Occasional H (None) /hpf Urine Mucus Rare H (None) /hpf 10/21/22 10/21/22 Range/Units 05:25 14:06 RBC (4.30-5.90) m/uL Hgb (13.0-17.5) gm/dL Hct (39.0-53.0) % ABG pO2 130 H 161 H (83-108) mmHg ABG HCO3 27 H (21-25) mmol/L ABG Total CO2 26 H 28 H (19-24) mmol/L ABG O2 Saturation 99.2 H 99.8 H (94-97) % Chloride (98-107) mmol/L Glucose (74-99) mg/dL Calcium (8.4-10.2) mg/dL Magnesium (1.6-2.3) mg/dL AST (17-59) U/L Total Protein (6.3-8.2) g/dL Albumin (3.5-5.0) g/dL Urine Protein (Negative) Urine Glucose (UA) (Negative) Urine Blood (Negative) Ur Leukocyte Esterase (Negative) Urine RBC (0-5) /hpf Amorphous Sediment (None) /hpf Urine Bacteria (None) /hpf Urine Mucus (None) /hpf Microbiology - Last 24 Hours (Table) 10/20/22 05:19 Acid Fast Bacilli Smear - Final Bronchial Washings - Random Acid Fast Bacilli Culture - Preliminary 10/20/22 05:19 Gram Stain - Preliminary Bronchial Washings - Random Bronchial Washings Culture - Preliminary 10/20/22 01:45 Gram Stain - Preliminary Sputum Sputum Culture - Preliminary Saige albicans 10/15/22 07:30 Blood Culture - Final Blood No Growth after 144 hours 10/15/22 07:15 Blood Culture - Final Blood No Growth after 144 hours 10/20/22 05:19 Fungal Culture - Preliminary Bronchial Washings - Random Assessment and Plan Assessment: 1. Toxic-metabolic encephalopathy, as a result of Marijuana hyperemesis syndrome, with metabolic derangements including hyponatremia, hypokalemia, pneumonia, hypoxemia and acute renal failure. 2. Possible unwitnessed seizure, with postictal state provoked by hyponatremia (124 on admission) and/or hypokalemia 3.0 3. Acute hypoxic respiratory failure with multifocal pneumonia, requiring mechanical ventilation 10/20/2022. 4. Leukocytosis 5. Acute renal failure, recovered completely. 6. Multifocal pneumonia, on antibiotics. 7. Marijuana use. 8. Long-standing history of heavy alcoholism, quit 09/02/2022 per patient. Plan: 1. EEG 10/17/2022 was mildly abnormal due to background disorganization with fast and some slow frequency due to medication effect or encephalopathy. No epileptiform activity was seen. 2. The patient's mother and significant other were advised that the only way to adequately treat/prevent marijuana hyperemesis syndrome is to stop using m tracyjuana, simply cutting down on the usage is not effective 3. Patient was improving neurologically, but has developed worsening respiratory status, now on mechanical ventilation. Patient has developed multifocal pneumonia. Patient on vancomycin, Zosyn and Levaquin. 4. Patient has brisk reflexes. B12 1071, folate 15.2, MMA, B6 levels pending 5. If patient's HUSSEIN negative, myeloperoxidase antibodies, dsDNA, C and P-ANCA, hepatitis panel, HIV, price virus negative. 6. Discussed with patient's family and nursing staff. Dr. Anand Ac Will resume neurology service in the morning.
--- NOTE | 2022-10-21 19:38 | P.PN ---
Subjective Progress Note Date: 10/21/22 Principal diagnosis: Pneumonia Patient is a 27-year-old male presenting to the hospital for decreased level of consciousness weakness did have nausea vomiting and cold symptoms prior to that patient did have worsening respiratory status requiring intubation. On today's evaluation that is 10/21/2022, the patient is afebrile the patient is off pressure support the patient's FiO2 is down to 50% no significant purulent secretions with the diarrhea or any other changes reported by the nursing staff Objective - Vital Signs Vital signs: Vital Signs Temp 98.4 F 10/21/22 04:00 Pulse 110 H 10/21/22 11:21 Resp 28 H 10/21/22 07:00 BP 121/68 10/21/22 05:00 Pulse Ox 100 10/21/22 07:00 FiO2 50 10/21/22 11:06 Intake & Output 10/20/22 10/21/22 10/21/22 18:59 06:59 18:59 Intake Total 2263.770 1874.467 377.421 Output Total 2080 595 35 Balance 399.776 3868.467 342.421 Weight 58.7 kg 58.7 kg Intake: IV 1750 1250 175 Piperacillin-Tazobactam 3 100 100 .375 gm In Sodium Chloride 0.9% 100 ml @ 25 mls/hr IVPB Q8H [facility] Rx#: [id number] Sodium Chloride 0.9% 1, 750 900 75 000 ml @ 75 mls/hr IV . [id number] [facility] Rx#:[id number] Sodium Chloride 0.9% 1, 1000 000 ml @ 999 mls/hr IV . Q1H1M [facility] Rx#:[id number] Vancomycin 1,000 mg In 250 Sodium Chloride 0.9% 250 ml @ 125 mls/hr IVPB Q12HR [facility] Rx#:[id number] Intake, IV Titration 413.770 404.467 182.421 Amount Cisatracurium 200 mg In 38.069 118.642 41.765 Sodium Chloride 0.9% 180 ml @ 1 MCG/KG/MIN 3.696 mls/hr IV .Q24H [facility] Rx#: [id number] Norepinephrine 32 mg In 10.303 Sodium Chloride 0.9% 218 ml @ 0.03 MCG/KG/MIN 0. 825 mls/hr IV .Q24H [facility] Rx#:[id number] fentaNYL (PF). 1,000 mcg 90.039 100.000 In Sodium Chloride 0.9% 80 ml @ 0.5 MCG/KG/HR 3. 08 mls/hr IV .Q24H [facility] Rx #:[id number] propofoL 1,000 mg In 285.662 175.522 140.656 Empty Bag 1 bag @ 15 MCG/ KG/MIN 5.544 mls/hr IV . Q18H3M [facility] Rx#:[id number] Tube Feeding 40 130 20 Other 60 90 Output: Gastric Drainage 400 Urine 1680 595 35 Other: Voiding Method Indwelling Catheter Indwelling Catheter ABP, PAP, CO, CI - Last Documented Arterial Blood Pressure 110/47 - Exam GENERAL DESCRIPTION: Middle-aged intubated on the vent RESPIRATORY SYSTEM: Unlabored breathing , decreased breath sounds at bases HEART: S1 S2 regular rate and rhythm , ABDOMEN: Soft , no tenderness EXTREMITIES: No edema feet - Labs CBC & Chem 7: 10/25/22 06:11 10/25/22 06:11 Labs: Abnormal Lab Results - Last 24 Hours (Table) 10/21/22 10/21/22 10/21/22 Range/Units 04:37 04:37 05:15 RBC 3.30 L (4.30-5.90) m/uL Hgb 11.2 L (13.0-17.5) gm/dL Hct 31.7 L (39.0-53.0) % ABG pO2 (83-108) mmHg ABG Total CO2 (19-24) mmol/L ABG O2 Saturation (94-97) % Chloride 109 H (98-107) mmol/L Glucose 151 H (74-99) mg/dL Calcium 7.0 L (8.4-10.2) mg/dL Magnesium 2.4 H (1.6-2.3) mg/dL AST 16 L (17-59) U/L Total Protein 4.5 L (6.3-8.2) g/dL Albumin 2.3 L (3.5-5.0) g/dL Urine Protein 1+ H (Negative) Urine Glucose (UA) 3+ H (Negative) Urine Blood Large H (Negative) Ur Leukocyte Esterase Small H (Negative) Urine RBC >182 H (0-5) /hpf Amorphous Sediment Moderate H (None) /hpf Urine Bacteria Occasional H (None) /hpf Urine Mucus Rare H (None) /hpf 10/21/22 Range/Units 05:25 RBC (4.30-5.90) m/uL Hgb (13.0-17.5) gm/dL Hct (39.0-53.0) % ABG pO2 130 H (83-108) mmHg ABG Total CO2 26 H (19-24) mmol/L ABG O2 Saturation 99.2 H (94-97) % Chloride (98-107) mmol/L Glucose (74-99) mg/dL Calcium (8.4-10.2) mg/dL Magnesium (1.6-2.3) mg/dL AST (17-59) U/L Total Protein (6.3-8.2) g/dL Albumin (3.5-5.0) g/dL Urine Protein (Negative) Urine Glucose (UA) (Negative) Urine Blood (Negative) Ur Leukocyte Esterase (Negative) Urine RBC (0-5) /hpf Amorphous Sediment (None) /hpf Urine Bacteria (None) /hpf Urine Mucus (None) /hpf Microbiology - Last 24 Hours (Table) 10/20/22 05:19 Gram Stain - Preliminary Bronchial Washings - Random Bronchial Washings Culture - Preliminary 10/15/22 07:30 Blood Culture - Final Blood No Growth after 144 hours 10/15/22 07:15 Blood Culture - Final Blood No Growth after 144 hours 10/20/22 01:45 Gram Stain - Preliminary Sputum Sputum Culture - Preliminary 10/20/22 05:19 Acid Fast Bacilli Culture - Preliminary Bronchial Washings - Random 10/20/22 05:19 Fungal Culture - Preliminary Bronchial Washings - Random Assessment and Plan (1) Pneumonia Status: Acute Code(s): J18.9 - PNEUMONIA, UNSPECIFIED ORGANISM SNOMED Code(s): 209301582 Plan: 1patient with acute respiratory failure with which is likely multifactorial in this patient initial admission to the hospital with mental status changes and decreased level of responsiveness patient fever initially resolved but now has worsening of his respiratory status requiring intubation and recurrence of fever elevated white count with a question of possible aspiration pneumonia blood culture has been negative so far. 2BAL cultures are currently pending 3-patient to with the Zosyn and Levaquin while waiting for the culture to finalize Family the bedside questions were answered
[2022-10-21] MEDS: SODIUM CHLORIDE 0.9% 1,000 ML IV SCH (20:10)
[2022-10-21] MEDS: MIRTAZAPINE 15 MG TAB PO SCH (20:13)
[2022-10-22] MEDS ORDERED: MELATONIN 5 MG TABLET PO STA (00:25)
[2022-10-22] MEDS: ARTIFICIAL TEARS-HYPROMELLOSE DROPS 15 ML BTL BOTH EYES SCH ×3 (00:34→11:11)
[2022-10-22] MEDS: HEPARIN SODIUM,PORCINE/PF 5,000 UNIT/0.5 ML SYRINGE SQ SCH ×4 (00:35→23:27)
[2022-10-22] MEDS: methylPREDNISolone SOD SUCCI 125 MG/2 ML VIAL IV SCH ×4 (00:35→23:26)
[2022-10-22] MEDS: IPRATROPIUM-ALBUTEROL 3 ML NEB INHALATION SCH ×5 (03:18→19:27)
[2022-10-22] MEDS: CISATRACURIUM 200 MG in SODIUM CHLORIDE 0.9% 180 ML IV SCH (03:47)
[2022-10-22 04:41] LABS: Basophils % (A) 0 %; Eosinophils % (A) 0 %; HCT 35.3 % (39.0-53.0); HGB 11.7 gm/dL (13.0-17.5); Lymphocytes # (A) 0.5 k/uL (1.0-4.8); Lymphocytes % (A) 4 %; MCH 31.9 pg (25.0-35.0); MCHC 33.1 g/dL (31.0-37.0); MCV 96.2 fL (80.0-100.0); Mean Platelet Volume 8.3; Monocytes # (A) 0.5 k/uL (0-1.0); Monocytes % (A) 4 %; Neutrophils % (A) 90 %; Platelet Count 418 k/uL (150-450); RBC 3.67 m/uL (4.30-5.90); WBC 12.2 k/uL (3.8-10.6)
[2022-10-22 04:56] LABS: African American GFR (CKD) >90 (>60 ml/min/1.73 sqM); Anion Gap 5 mmol/L; Blood Urea Nitrogen 30 mg/dL (9-20); Calcium 8.2 mg/dL (8.4-10.2); Carbon Dioxide 26 mmol/L (22-30); Chloride 111 mmol/L (98-107); Glucose 148 mg/dL (74-99); Non-African American GFR(CKD) 86 (>60 ml/min/1.73 sqM); Potassium 4.1 mmol/L (3.5-5.1); Sodium 142 mmol/L (137-145)
[2022-10-22] MEDS: PIPERACILLIN-TAZOBACTAM 3.375 GM in SODIUM CHLORIDE 0.9% 100 ML IVPB SCH ×3 (08:30→20:55)
--- NOTE | 2022-10-22 10:00 | P.PN ---
Subjective Progress Note Date: 10/22/22 Patient is a 27-year-old female with known hyperemesis syndrome, chronic marijuana use, and prior pericarditis who presented with altered mentation. In the ER he was noted to be febrile and tachycardic. Initial laboratory analysis showed white blood cell count 51.1, hemoglobin 20.1, sodium 124, potassium 3, chloride 54, bicarb 41, BUN 63, creatinine 2.1 crit, and lactic acidosis 10.4. CK was 3000, troponin 0.7, an ABG revealed a pH of 7.71 with a CO2 of 36. He underwent a head CT which showed no acute process. EKG showed sinus tachycardia. He was given 3 L of IV fluids, Zyprexa, Ativan, Rocephin, and vancomycin. He was admitted to the ICU, additionally nephrology and neurology were consulted. Nephrology recommended IV fluids. Cardiology was consulted and recommended an echocardiogram. He was started on dexmedetomidine. He was seen by neurology who recommended an EEG. Patient has remained on antibiotics as well as Precedex. He has required multiple medications to help with agitation. He was found to have pneumonia vs inflammatory reaction on repeat chest x-ray. Influenza A/B, RSV, and COVID-19 testing negative. Over the late evening of 10/20 to early AM on 10/20 his respiratory status declined, He required intubation, bronch with BAL, and right IJ TLC and artline was placed. He did require levophed for one day. His vent requirements decreased be 10/21, He was successfully extubated on the morning of 10/22/22. Imaging: Abdominal m-tfe-[id number] bowel gas pattern Chest x-ray-no acute process Head CT-no acute intracranial process Facial bone CT-no depressed or displaced facial bone fractures CT chest/abdomen/pelvis-no evidence of traumatic injury EEG-background disorganization suggestive of medication effect related to encephalopathy, no epileptiform activity seen Echocardiogram-ejection fraction 55% Patient seen and examined at bedside. C/o being thirst and have a sore throat, breathing is much better, no nausea or vomiting. Wants to be able to walk. General: ill appering, no distress, appears at stated age Derm: warm, dry Head: Normocephalic, bruising bilateral orbital areas, bruising over the bridge of the nose Mouth: no lip lesion, mucus membranes dry, ET tube inplace Cardiovascular: S1S2 reg, no murmur, positive posterior tibial pulse bilateral, Lungs: Coarse breath sounds bilateral, no rhonchi, no rales , no accessory muscle use Abdominal: soft, nontender to palpation, no guarding, no appreciable organ omegaly Ext: no gross muscle atrophy, no edema, no contractures Neuro: CN II-XII grossly intact, no focal neuro deficits Psych: Appropriate affect : olivera with dark urine Assessment/plan: Toxic metabolic encephalopathy Acute hypoxic Respiraotry Failure Aspiration pneumonia vs inflammatory rxn - continue with zosyn, levauqin, off vanco - ID recs appreciated - Critical care recs - pulm hygeine - Improvement in CXR and O2 requirements after starting steroids on 10/20/22-- concern for inflammatory reaction given procal <2 -HUSSEIN, c-ANCA, p-ANCA, myeloperoxidase, double-stranded DNA, and GBM negative -C. diff negative -Hepatitis negative -HIV is negative - Sputum culture with Saige - WBC increasing likely due to steroids, will continue to follow. YENI, improving - nephrology recs: hypokalemic perodic paralysis work-up as outpatient in clinic, added to discharge tab. - IVF - avoid additional nephrotoxic agents - follow renal function Microscopic hematuria - suspect due to olivera trauma, continue to monitor Probable unwitnessed seizure - neurology recs Elevated troponin - echo normal - likely due to dehydration - cardiology signed off Hypokalemia, resolved Lacidosis, resolved Hemoconcentration, resolved Severe contraction Alkalosis , resolved Rhabdo, resolved Dehydration, Hyponatremia, resolved Transaminitis, resolved Chronic: Cannabis Hyperemesis Syndrome Short term disability form completed DVT prophylaxis: Heparin Discussed with: nursing, Mother Anticipated discharge: pending clinical course Anticipated discharge place: pending clinical course A total of 45 minutes was spent on the care of this complex patient more than 50% of the time was spent in counseling and care coordination. Active Medications Generic Name Dose Route Start Last Admin Trade Name Freq PRN Reason Stop Dose Admin Acetaminophen 650 mg 10/18/22 09:15 10/19/22 16:42 Acetaminophen Tab 325 Mg Tab PO 650 mg Q6HR PRN Administration Fever and/ or Pain Albuterol/Ipratropium 3 ml 10/17/22 16:00 10/22/22 07:43 Ipratropium-Albuterol 3 Ml Neb INHALATION 3 ml RT-Q4H [facility] Administration Benzonatate 200 mg 10/18/22 05:59 10/19/22 22:50 Benzonatate 100 Mg Cap PO 200 mg TID PRN Administration Cough Guaifenesin 600 mg 10/22/22 10:00 Guaifenesin 600 Mg Tablet.Er PO Q12HR [facility] Guaifenesin/Dextromethorphan 10 ml 10/18/22 09:15 10/19/22 22:50 Guaifenesin-Dm 100-10mg/5ml 10 Ml Cup PO 10 ml Q6HR PRN Administration Cough Haloperidol Lactate 4 mg 10/17/22 11:22 10/17/22 16:11 Haloperidol Lactate 5 Mg/Ml 1 Ml Vial IVP 4 mg Q1H PRN Administration Agitation or Acute Psychosis Heparin Sodium (Porcine) 5,000 unit 10/15/22 16:00 10/22/22 00:35 Heparin Sodium,Porcine/Pf 5,000 Unit/0.5 Ml Syringe SQ 5,000 unit Q8HR [facility] Administration Sodium Chloride 1,000 mls @ 10 mls/hr 10/16/22 10:00 10/21/22 20:10 Saline 0.9% IV 10 mls/hr .Q24H [facility] Administration Piperacillin Sod/Tazobactam 100 mls @ 25 mls/hr 10/17/22 22:00 10/21/22 20:10 Sod 3.375 gm/ Sodium Chloride IVPB 25 mls/hr Q8H [facility] Administration Protocol Levofloxacin 750 mg/ IV 150 mls @ 100 mls/hr 10/19/22 10:00 10/21/22 09:27 Solution IVPB 100 mls/hr Q24H [facility] Administration Protocol Propofol 1,000 mg/ IV Solution 100 mls @ 5.544 mls/hr 10/20/22 01:00 10/22/22 03:48 IV 0 mcg/kg/min .Q18H3M [facility] 0 mls/hr Titration Protocol 15 MCG/KG/MIN Fentanyl Citrate 1,000 mcg/ 100 mls @ 3.08 mls/hr 10/20/22 01:45 10/22/22 03:47 Sodium Chloride IV 0 mcg/kg/hr .Q24H [facility] 0 mls/hr Titration Protocol 0.5 MCG/KG/HR Cisatracurium Besylate 200 mg/ 200 mls @ 3.696 mls/hr 10/20/22 02:15 10/22/22 03:47 Sodium Chloride IV Not Given .Q24H [facility] Protocol 1 MCG/KG/MIN Norepinephrine Bitartrate 32 250 mls @ 0.825 mls/hr 10/20/22 09:45 10/21/22 10:20 mg/ Sodium Chloride IV Not Given .Q24H [facility] Protocol 0.03 MCG/KG/MIN Methylprednisolone Sodium Succinate 60 mg 10/20/22 08:00 10/22/22 00:35 Methylprednisolone Sod Succi 125 Mg/2 Ml Vial IV 60 mg Q8HR [facility] Administration Mirtazapine 15 mg 10/18/22 21:00 10/21/22 20:13 Mirtazapine 15 Mg Tab PO 15 mg HS [facility] Administration Miscellaneous Information 1 each 10/17/22 09:01 Potassium Replacement Protocol 1 Each Misc MISCELLANE DAILY PRN Per Protocol Protocol Miscellaneous Information 1 each 10/20/22 06:16 Magnesium Replacement Protocol 1 Each Misc MISCELLANE DAILY PRN Per Protocol Protocol Naloxone HCl 0.2 mg 10/15/22 10:26 Naloxone 0.4 Mg/Ml 1 Ml Vial IV Q2M PRN Opioid Reversal Pantoprazole Sodium 40 mg 10/17/22 15:30 10/21/22 09:27 Pantoprazole 40 Mg/10 Ml Vial IVP 40 mg DAILY [facility] Administration Sodium Chloride 2 spray 10/19/22 17:53 10/19/22 18:41 Sodium Chloride 0.65% Nasal [place] 44 Ml Btl NASAL 2 spray QID PRN Administration Nasal Congestion Objective - Vital Signs Vital signs: Vital Signs Temp 98.7 F 10/22/22 04:00 Pulse 99 10/22/22 09:00 Resp 12 10/22/22 09:00 BP 121/68 10/21/22 05:00 Pulse Ox 98 10/22/22 09:00 FiO2 40 10/22/22 07:47 Intake & Output 10/21/22 10/22/22 10/22/22 18:59 06:59 18:59 Intake Total 1159.647 957.138 123 Output Total 670 775 90 Balance 489.647 182.138 33 Weight 63.4 kg 62.2 kg Intake: IV 436 376 123 Piperacillin-Tazobactam 3 200 100 100 .375 gm In Sodium Chloride 0.9% 100 ml @ 25 mls/hr IVPB Q8H [facility] Rx#: [id number] Sodium Chloride 0.9% 1, 236 276 23 000 ml @ 10 mls/hr IV . Q24H [facility] Rx#:[id number] Intake, IV Titration 703.647 261.138 Amount Cisatracurium 200 mg In 54.517 Sodium Chloride 0.9% 180 ml @ 1 MCG/KG/MIN 3.696 mls/hr IV .Q24H [facility] Rx#: [id number] Piperacillin-Tazobactam 3 100 .375 gm In Sodium Chloride 0.9% 100 ml @ 25 mls/hr IVPB Q8H [facility] Rx#: [id number] Sodium Chloride 0.9% 1, 147 000 ml @ 10 mls/hr IV . Q24H [facility] Rx#:[id number] fentaNYL (PF). 1,000 mcg 78.591 53.954 In Sodium Chloride 0.9% 80 ml @ 0.5 MCG/KG/HR 3. 08 mls/hr IV .Q24H [facility] Rx #:[id number] propofoL 1,000 mg In 323.539 207.184 Empty Bag 1 bag @ 15 MCG/ KG/MIN 5.544 mls/hr IV . Q18H3M [facility] Rx#:[id number] Tube Feeding 20 210 Other 110 Output: Urine 670 775 90 Other: Voiding Method Indwelling Catheter Indwelling Catheter ABP, PAP, CO, CI - Last Documented Arterial Blood Pressure 118/65 - Labs CBC & Chem 7: 10/22/22 04:27 10/22/22 04:27 Labs: Abnormal Lab Results - Last 24 Hours (Table) 10/21/22 10/21/22 10/22/22 Range/Units 05:15 14:06 04:27 WBC 12.2 H (3.8-10.6) k/uL RBC 3.67 L (4.30-5.90) m/uL Hgb 11.7 L (13.0-17.5) gm/dL Hct 35.3 L (39.0-53.0) % Neutrophils # 11.0 H (1.3-7.7) k/uL Lymphocytes # 0.5 L (1.0-4.8) k/uL ABG pO2 161 H (83-108) mmHg ABG HCO3 27 H (21-25) mmol/L ABG Total CO2 28 H (19-24) mmol/L ABG O2 Saturation 99.8 H (94-97) % Chloride (98-107) mmol/L BUN (9-20) mg/dL Glucose (74-99) mg/dL Calcium (8.4-10.2) mg/dL Urine Protein 1+ H (Negative) Urine Glucose (UA) 3+ H (Negative) Urine Blood Large H (Negative) Ur Leukocyte Esterase Small H (Negative) Urine RBC >182 H (0-5) /hpf Amorphous Sediment Moderate H (None) /hpf Urine Bacteria Occasional H (None) /hpf Urine Mucus Rare H (None) /hpf 10/22/22 Range/Units 04:27 WBC (3.8-10.6) k/uL RBC (4.30-5.90) m/uL Hgb (13.0-17.5) gm/dL Hct (39.0-53.0) % Neutrophils # (1.3-7.7) k/uL Lymphocytes # (1.0-4.8) k/uL ABG pO2 (83-108) mmHg ABG HCO3 (21-25) mmol/L ABG Total CO2 (19-24) mmol/L ABG O2 Saturation (94-97) % Chloride 111 H (98-107) mmol/L BUN 30 H (9-20) mg/dL Glucose 148 H (74-99) mg/dL Calcium 8.2 L (8.4-10.2) mg/dL Urine Protein (Negative) Urine Glucose (UA) (Negative) Urine Blood (Negative) Ur Leukocyte Esterase (Negative) Urine RBC (0-5) /hpf Amorphous Sediment (None) /hpf Urine Bacteria (None) /hpf Urine Mucus (None) /hpf Microbiology - Last 24 Hours (Table) 10/20/22 01:45 Gram Stain - Final Sputum Sputum Culture - Final Saige albicans 10/20/22 05:19 Gram Stain - Final Bronchial Washings - Random Bronchial Washings Culture - Final 10/20/22 05:19 Acid Fast Bacilli Smear - Final Bronchial Washings - Random Acid Fast Bacilli Culture - Preliminary 10/15/22 07:30 Blood Culture - Final Blood No Growth after 144 hours 10/15/22 07:15 Blood Culture - Final Blood No Growth after 144 hours
[2022-10-22] MEDS: LEVOFLOXACIN 750MG-D5W PMX 750 MG in DEXTROSE/WATER 1 150ML.BAG IVPB SCH (10:11)
[2022-10-22] MEDS: guaiFENesin 600 MG TABLET.ER PO SCH ×2 (10:11→20:55)
[2022-10-22] MEDS: PANTOPRAZOLE 40 MG/10 ML VIAL IVP SCH (10:11)
--- NOTE | 2022-10-22 10:30 | P.PN ---
Subjective Patient is seen for follow-up for acute kidney injury. Patient was extubated this morning. Maintained on 5 L nasal cannula. He continues to have good urine output Patient remains off of IV fluids Awake alert oriented 3. Objective - Vital Signs Vital signs: Vital Signs Temp 98.7 F 10/22/22 04:00 Pulse 99 10/22/22 09:00 Resp 12 10/22/22 09:00 BP 121/68 10/21/22 05:00 Pulse Ox 98 10/22/22 09:00 FiO2 40 10/22/22 07:47 Intake & Output 10/21/22 10/22/22 10/22/22 18:59 06:59 18:59 Intake Total 1159.647 957.138 123 Output Total 670 775 90 Balance 489.647 182.138 33 Weight 63.4 kg 62.2 kg Intake: IV 436 376 123 Piperacillin-Tazobactam 3 200 100 100 .375 gm In Sodium Chloride 0.9% 100 ml @ 25 mls/hr IVPB Q8H [facility] Rx#: [id number] Sodium Chloride 0.9% 1, 236 276 23 000 ml @ 10 mls/hr IV . Q24H [facility] Rx#:[id number] Intake, IV Titration 703.647 261.138 Amount Cisatracurium 200 mg In 54.517 Sodium Chloride 0.9% 180 ml @ 1 MCG/KG/MIN 3.696 mls/hr IV .Q24H [facility] Rx#: [id number] Piperacillin-Tazobactam 3 100 .375 gm In Sodium Chloride 0.9% 100 ml @ 25 mls/hr IVPB Q8H [facility] Rx#: [id number] Sodium Chloride 0.9% 1, 147 000 ml @ 10 mls/hr IV . Q24H [facility] Rx#:[id number] fentaNYL (PF). 1,000 mcg 78.591 53.954 In Sodium Chloride 0.9% 80 ml @ 0.5 MCG/KG/HR 3. 08 mls/hr IV .Q24H [facility] Rx #:[id number] propofoL 1,000 mg In 323.539 207.184 Empty Bag 1 bag @ 15 MCG/ KG/MIN 5.544 mls/hr IV . Q18H3M [facility] Rx#:[id number] Tube Feeding 20 210 Other 110 Output: Urine 670 775 90 Other: Voiding Method Indwelling Catheter Indwelling Catheter ABP, PAP, CO, CI - Last Documented Arterial Blood Pressure 118/65 - Exam Awake alert oriented 3 Examination of the heart S1 and S2 Examination lungs decreased breath sounds at the bases Abdomen is soft nontender Exam in lower extremity shows no significant edema [employer] exam grossly intact [place] at - Labs CBC & Chem 7: 10/22/22 04:27 10/22/22 04:27 Labs: Abnormal Lab Results - Last 24 Hours (Table) 10/21/22 10/22/22 10/22/22 Range/Units 14:06 04:27 04:27 WBC 12.2 H (3.8-10.6) k/uL RBC 3.67 L (4.30-5.90) m/uL Hgb 11.7 L (13.0-17.5) gm/dL Hct 35.3 L (39.0-53.0) % Neutrophils # 11.0 H (1.3-7.7) k/uL Lymphocytes # 0.5 L (1.0-4.8) k/uL ABG pO2 161 H (83-108) mmHg ABG HCO3 27 H (21-25) mmol/L ABG Total CO2 28 H (19-24) mmol/L ABG O2 Saturation 99.8 H (94-97) % Chloride 111 H (98-107) mmol/L BUN 30 H (9-20) mg/dL Glucose 148 H (74-99) mg/dL Calcium 8.2 L (8.4-10.2) mg/dL Microbiology - Last 24 Hours (Table) 10/20/22 01:45 Gram Stain - Final Sputum Sputum Culture - Final Saige albicans 10/20/22 05:19 Gram Stain - Final Bronchial Washings - Random Bronchial Washings Culture - Final 10/20/22 05:19 Acid Fast Bacilli Smear - Final Bronchial Washings - Random Acid Fast Bacilli Culture - Preliminary 10/15/22 07:30 Blood Culture - Final Blood No Growth after 144 hours 10/15/22 07:15 Blood Culture - Final Blood No Growth after 144 hours Assessment and Plan Assessment: 1. Acute kidney injury mostly prerenal secondary to hypovolemia improved with IV hydration. Creatinine increased to 1.9 yesterday and down to 1.0 to 1.1 2. Hypokalemia secondary to poor intake and intracellular shifting due to alkalosis. Improved. Rule out underlying chronic condition with hypokalemic periodic paralysis. Patient's mother states that patient had has always developed severe hypokalemia with muscle cramps associated with any illness. No family history of such 3. Metabolic alkalosis secondary to vomiting, volume contraction, hypokalemia. Hypochloremia will also contribute to metabolic alkalosis by preventing bicarb secretion. Improved. 4. Hypovolemic hyponatremia improved with IV hydration. Sodium is slightly lower today associated with worsening renal function. 6. Acute hypoxic respiratory failure, status post extubation. Etiology pneumonia 7. Rhabdomyolysis due to immobility. CK levels trending down. Plan: Avoid nephrotoxic medications. Maintained on Vancomycin for pneumonia. Monitor level closely. Workup for hypokalemia as outpatient as patient's mother states that he develops significant hypokalemia and severe cramps with any acute illness regardless of medications used. Possible underlying hypokalemic periodic paralysis. Electrolytes are currently within range.
--- NOTE | 2022-10-22 10:56 | P.PN ---
Subjective Progress Note Date: 10/22/22 Principal diagnosis: Pneumonia Patient is a 27-year-old male presenting to the hospital for decreased level of consciousness weakness did have nausea vomiting and cold symptoms prior to that patient did have worsening respiratory status requiring intubation. The patient was successfully extubated on 10/22/2022 On today's evaluation that is 10/22/2022, the patient remains to be afebrile the patient is breathing comfortably on 5 L nasal cannula, the patient denies having any chest pain occasional cough and no sputum no abdominal pain and no diarrhea Objective - Vital Signs Vital signs: Vital Signs Temp 97.6 F 10/22/22 10:00 Pulse 96 10/22/22 10:00 Resp 18 10/22/22 10:00 BP 121/68 10/21/22 05:00 Pulse Ox 95 10/22/22 10:00 FiO2 40 10/22/22 07:47 Intake & Output 10/21/22 10/22/22 10/22/22 18:59 06:59 18:59 Intake Total 1159.647 957.138 303 Output Total 670 775 265 Balance 489.647 182.138 38 Weight 63.4 kg 62.2 kg Intake: IV 436 376 303 Levofloxacin 750Mg-D5w 150 Pmx 750 mg In Dextrose/ Water 1 150ml.bag @ 100 mls/hr IVPB Q24H [facility] Rx#: [id number] Piperacillin-Tazobactam 3 200 100 100 .375 gm In Sodium Chloride 0.9% 100 ml @ 25 mls/hr IVPB Q8H [facility] Rx#: [id number] Sodium Chloride 0.9% 1, 236 276 53 000 ml @ 10 mls/hr IV . Q24H [facility] Rx#:[id number] Intake, IV Titration 703.647 261.138 Amount Cisatracurium 200 mg In 54.517 Sodium Chloride 0.9% 180 ml @ 1 MCG/KG/MIN 3.696 mls/hr IV .Q24H [facility] Rx#: [id number] Piperacillin-Tazobactam 3 100 .375 gm In Sodium Chloride 0.9% 100 ml @ 25 mls/hr IVPB Q8H [facility] Rx#: [id number] Sodium Chloride 0.9% 1, 147 000 ml @ 10 mls/hr IV . Q24H [facility] Rx#:[id number] fentaNYL (PF). 1,000 mcg 78.591 53.954 In Sodium Chloride 0.9% 80 ml @ 0.5 MCG/KG/HR 3. 08 mls/hr IV .Q24H [facility] Rx #:[id number] propofoL 1,000 mg In 323.539 207.184 Empty Bag 1 bag @ 15 MCG/ KG/MIN 5.544 mls/hr IV . Q18H3M [facility] Rx#:[id number] Tube Feeding 20 210 Other 110 Output: Urine 670 775 265 Other: Voiding Method Indwelling Catheter Indwelling Catheter ABP, PAP, CO, CI - Last Documented Arterial Blood Pressure 156/84 - Exam GENERAL DESCRIPTION: Middle-aged intubated on the vent RESPIRATORY SYSTEM: Unlabored breathing , decreased breath sounds at bases HEART: S1 S2 regular rate and rhythm , ABDOMEN: Soft , no tenderness EXTREMITIES: No edema feet - Labs CBC & Chem 7: 10/22/22 04:27 10/22/22 04:27 Labs: Abnormal Lab Results - Last 24 Hours (Table) 10/21/22 10/22/22 10/22/22 Range/Units 14:06 04:27 04:27 WBC 12.2 H (3.8-10.6) k/uL RBC 3.67 L (4.30-5.90) m/uL Hgb 11.7 L (13.0-17.5) gm/dL Hct 35.3 L (39.0-53.0) % Neutrophils # 11.0 H (1.3-7.7) k/uL Lymphocytes # 0.5 L (1.0-4.8) k/uL ABG pO2 161 H (83-108) mmHg ABG HCO3 27 H (21-25) mmol/L ABG Total CO2 28 H (19-24) mmol/L ABG O2 Saturation 99.8 H (94-97) % Chloride 111 H (98-107) mmol/L BUN 30 H (9-20) mg/dL Glucose 148 H (74-99) mg/dL Calcium 8.2 L (8.4-10.2) mg/dL Microbiology - Last 24 Hours (Table) 10/20/22 01:45 Gram Stain - Final Sputum Sputum Culture - Final Saige albicans 10/20/22 05:19 Gram Stain - Final Bronchial Washings - Random Bronchial Washings Culture - Final 10/20/22 05:19 Acid Fast Bacilli Smear - Final Bronchial Washings - Random Acid Fast Bacilli Culture - Preliminary 10/15/22 07:30 Blood Culture - Final Blood No Growth after 144 hours 10/15/22 07:15 Blood Culture - Final Blood No Growth after 144 hours Assessment and Plan (1) Pneumonia Current Visit: Yes Status: Acute Code(s): J18.9 - PNEUMONIA, UNSPECIFIED ORGANISM SNOMED Code(s): 273985832 Plan: 1patient with acute respiratory failure with which is likely multifactorial in this patient initial admission to the hospital with mental status changes and decreased level of responsiveness patient fever initially resolved but now has worsening of his respiratory status requiring intubation and recurrence of fever elevated white count with a question of possible aspiration pneumonia blood culture has been negative so far. 2BAL cultures are currently pending, sputum culture showing Saige more likely colonizer 3-patient seemed to have shown clinical improvement and will continue with the Zosyn and Levaquin and monitor clinical course closely Mother at the bedside questions were answered Time with Patient: Less than 30
[2022-10-22] MEDS: NOREPINEPHRINE 32 MG in SODIUM CHLORIDE 0.9% 218 ML IV SCH (11:11)
[2022-10-22] MEDS ORDERED: predniSONE 20 MG TAB PO SCH (12:15)
--- NOTE | 2022-10-22 12:41 | XR ---
EXAMINATION TYPE: XR chest 1V DATE OF EXAM: 10/22/2022 12:17 PM COMPARISON: Chest radiographs from 10/21/2022 TECHNIQUE: XR chest 1V Portable AP radiograph of the chest. CLINICAL INDICATION:Male, 27 years old with history of respiratory failure; FINDINGS: Lungs/Pleura: Improved aeration today's exam. There is no evidence of pleural effusion, focal consoli dation, or pneumothorax. Pulmonary vascularity: Unremarkable. Heart/mediastinum: Cardiomediastinal silhouette is unremarkable. Musculoskeletal: No acute osseous pathology. Lines left central venous catheter with tip projecting the right atrium IMPRESSION: Improving airspace of opacities
[2022-10-22] MEDS: ONDANSETRON 4 MG/2 ML VIAL IVP PRN (13:46)
[2022-10-22] MEDS ORDERED: hydrOXYzine pamoate 25 MG CAP PO PRN (15:23)
[2022-10-22] MEDS ORDERED: LORazepam 2 MG/ML INJ IV PRN (15:23)
[2022-10-22] MEDS: PROCHLORPERAZINE INJ 10 MG/2 ML VIAL IVP PRN ×2 (16:04→23:48)
--- NOTE | 2022-10-22 16:31 | P.PN ---
Subjective Progress Note Date: 10/22/22 27-year-old male, brought in by EMS, for mental status changes. He apparently was found at 4:30 in the morning, by his mother, on the floor, and unresponsive or poorly responsive. The patient was very agitated, kicking and screaming and flailing about. He was last seen to be normal about 3:30 the previous day. The patient apparently does not have any known medical history other than a bleeding ulcer for which she takes Prevacid. He apparently does not drink or smoke excessively, but does smoke marijuana. According to his mother, he has no significant past medical history. Denies hypertension, hyperlipidemia, diabetes, etc. According to the ER elizabeth, the patient does have a prior history of pericarditis. And also was told that he has a history of cyclic nausea and vomiting, due to marijuana use. He apparently used to drink socially/beer, but quit drinking in August. The patient is seen in the emergency department. He is on room air. Getting LR at 125 mL an hour. His drug screen was positive for marijuana. He himself can provide no additional history. He is extremely agitated flailing about in bed. He is restrained. We are going to start him on some dexmedetomidine, and transfer him to the intensive care unit. White count 51.1, hemoglobin 20.1, hematocrit 53.2, and platelet count 400,000. Coagulation studies were normal. Venous blood gases show pCO2 of 36, and a pH of 7.71. Sodium 128, potassium 2.1, chloride 76, CO2 40, anion gap 12, BUN 58, creatinine 2.42. CK 3001. Troponin is 0.735. Albumin 5.5. Alcohol level less than 10. Screening for influenza A, and influenza B, or negative. Testing for RSV, and coronavirus were negative. Drug screen was positive for THC. Abdominal x-ray shows no obstruction. Chest x-ray was normal. Brain CT showed nothing acute. Facial CT was negative. Chest abdomen and pelvic CT was negative. Progress note dated 10/16/2022. 27-year-old male seen in the emergency room yesterday. He was brought in by EMS for severe agitation. He was found by his mother on the floor, and he been there for at least 8 hours, and maybe longer. Anyway, the patient was transferred to the ICU for better management and monitoring. His potassium was quite low and needed aggressive replacement. In addition, because of his agita tion, he was given dexmedetomidine, and in addition, both Ativan and Haldol. Currently, he is seen in room 254. He is on 2 L of oxygen. Is getting lactated Ringer's at 125 mL an hour. Potassium is up to 2.9. He is getting dexmedetomidine at 0.8 mcg/kg/h. He is on vancomycin and ceftriaxone. White count 16.3 hemoglobin 14.1 hematocrit 39.3 and platelet count 295,000. Sodium 133, potassium 2.9, chlorides 90, CO2 36, BUN 52, and creatinine 1.68. CK is 5834. On today's evaluation of 10/17/2022, I'm seeing this patient for a follow-up. He is currently on Precedex and he is running at 0.6 mcg/kg/hr and the patient is also on Haldol on an as-needed basis. The patient is extremely restless in bed. The patient is restless, flailing and kicking and his movements are quite chaotic. CAT scan of the brain is measured at the time of admission was negative. EEG showed no evidence of any seizures and urine drug screen is positive for THC. The patient was seen by neurology and the patient was also seen by psychiatry. The working diagnosis for now is ongoing delirium secondary to toxic metabolic encephalopathy. The patient also has developed acute hypoxic respiratory failure with an ongoing pneumonia in the left lung. Earlier this morning, the patient was on 6 L of oxygen by nasal cannula. Nevertheless, the patient was showing improvement in his rhabdomyolysis. CPK is down to 4238. The patient was in acute kidney injury and the creatinine is improving and is currently down to 1.25 with a BUN of 20. Sodiums of 135 with a potassium level of 3.2. Serum bicarb is 31. The chest x-ray showing a airspace disease in the left lung consistent with pneumonia. The patient remains on broad-spectrum antibiotics. The patient remains on a combination of Rocephin and vancomycin for now. The patient is also on heparin subcu for DVT prophylaxis. Family the bedside and the patient has a one-to-one sitter for safety. Psychiatry has recommended starting this patient on Prolixin 2 mg twice a day for delirium. Benzodiazepines were discontinued. On 11/04/2022, the patient seems to much more comfortable compared to yesterday. The patient remains on Precedex 0.4 pg/kg/h. The patient is also on Prolixin 2 mg by mouth twice a day. Doing well. He is answering questions appropriately. He is still looking anxious. Meanwhile, the patient developed acute hypoxic respiratory failure. Oxygen requirements progressively went up and the patient today has been transitioned to high flow oxygen with a total of 35 L an FiO2 of 75%. Noted the chest x-ray was repeated today and the patient was found to have persistent left mid lung pulmonary infiltrate. There was also a new right lower lobe pulmonary infiltrate. Based on that, the patient was started on broad- spectrum antibiotics and the patient is currently on a combination of Zosyn and vancomycin. He is coughing. Is producing sputum and she should be able to culture the sputum. He is hemodynamically stable at this point in time. He is unresponsive 60 with a hemoglobin of 14 and a platelet count of 195. Creatinine is improved and is currently down to 1.2 with a BUN of 28. Potassium level is at 3.2 and a serum bicarb is 31 with a sodium level of 135. The patient remains on normal saline at the rate of 150 mL an hour. Family is at the bedside. Benzodiazepines of the discontinued. 10/19/2022, the patient clinically is looking better than his much more comfortable even compared to yesterday. He remains on Precedex at 0.7 g. No agitation. Following commands and answering questions appropriately. Nevertheless, there is no interval worsening in the patient's chest x-ray findings. The patient remains on a nonrebreather facemask that she prefers over a high flow oxygen. I reviewed the follow-up chest x-ray from today and the patient has multifocal airspace disease which could be development or progression of pneumonia versus ARDS. Note the patient has been covered with broad-spectrum antibiotic and the patient is currently on accommodation of Zosyn and vancomycin. Levaquin will be added regarding the possibility of atypical bacterial infection. The patient will have Legionella urine antigen checked. Also, on today's blood work, the creatinine is up to 1.9 and the patient remains on IV fluids. Urine operas adequate for now. Sodiums of 131. Potassium levels at 4.1. I'll discuss of 12.2 with hemoglobin 14.3 and a platelet count of 149. CPK is improving as the patient's rhabdomyolysis is recovering and the patient's CPK level is down to 737. Of concern is the ongoing hypoxic respiratory failure and the bilateral pneumonia and worsening in the chest x-ray findings. 10/20/2022, I'm seeing the patient in the senior sql server database developer hours. I came to the time of this patient as the patient was becoming progressively more short of breath and hypoxic. I was informed at around 1 AM that the patient was becoming progressively more hypoxic. The blood gas was done and the patient was hypoxic and his blood gas was done while him being on 100% nonrebreather facemask. Noted the patient was quite restless and he was not keeping the mask on. I try to put him back on Precedex which resulted in limited success and the patient continued to be short of breath, tachypneic, respiratory rate was in the high 30s to low 40s and the patient was also hypoxic. At that point, I made the decision to intubate the patient put him on a mechanical ventilator. It was very difficult to sedate this patient. Based on that, the patient was placed on a combination of propofol and fentanyl. He was paralyzed and postintubation he was kept on a mechanical ventilator on assist control mode at the rate of 28 with a tidal volume of 400 and FiO2 of 100% with a PEEP of 10. The blood. Was done post intubation showed improvement in oxygenation. Current pulse ox is 98%. Blood gases showed a pH of 7.37. PCO2 of 44 and pO2 of 136. At this point in time, the patient is on propofol running at the rate of 50 microvascular kilogram per minute. Is also on fentanyl at 2 mcg/kg/h. His also on Nimbex at 2 microvascular kilogram per minutes. His well sedated and paralyzed. His peak airway pressure is 24. His chest x-ray postintubation showed diffuse bilateral airspace disease and tube is in a good location. I had to the ICU. I the next discussion with the patient's mother with concerns and questions and I addressed all other concerns. I explained to her that this could be potentially a bad pneumonia. Aspiration cannot be ruled out. Acute lung injury from using various forms of cannabis cannot be also ruled out in this situation. The patient is currently hemodynamically stable. The patient is not requiring any pressors. The patient is on IV fluids running at 1 50 mL a n hour and the patient is producing adequate amount of urine output. As mentioned earlier, the rhabdomyolysis was improving. Creatinine was up to 1.9 yesterday and the labs from today are still pending. Meanwhile I do have a CBC from today that shows no significant leukocytosis. The white cell count is currently at 12. Hemoglobin is also adequate for now. Currently is intubated on a mechanical ventilator. Orogastric tube is also in place. Abdomen is nondistended. He is afebrile. He is covered with broad-spectrum antibiotics including a combination of Zosyn and Levaquin and vancomycin. His HUSSEIN is negative. His Legionella urine antigen his still pending for now. A bronchoscopy will be also done with a bronchioloalveolar lavage. The patient will be started on systemic steroids. CPK has dropped 10/21/2022, seeing the patient for a follow-up. Remains intubated on a mechanical ventilator, sedated and paralyzed. The patient currently is on propofol running at 50 mcg/kg/m. The patient is also on fentanyl at 1 mcg/kg/h and the patient is also on Nimbex at 2 mcg/kg/m. The patient is adequately sedated and paralyzed and the patient is very much interested mechanical venti lator. Today, the patient is on assist control mode at the rate of 28 with a tidal volume of 400 and FiO2 is currently is a 50% with a PEEP of 8. The patient has a blood gas that showed a pH of 7.39 with a pCO2 of 41 and pO2 of 1:30. The fluid balance is +660 mL over the past 24 hours and the patient is receiving normal saline at the rate of 75 mL an hour. The patient is on no pressors. The patient was also started on enteral feeding for nutritional support. Chest x-ray from today shows improvement in the right upper lobe infiltrates. The patient is still on broad-spectrum antibiotics. The bronchoalveolar lavage was negative. The pro-calcitonin level was at 0.5. The white cell count was 8 with a hemoglobin of 11.2 and a platelet count of 270. The BUN is at 40 with a creatinine of 1 and sodium level is at 138. The patient is afebrile. The patient on systemic steroids. No other significant issues in his overall condition is stable. On 10/22/2022, the patient is doing well. In the senior sql server database developer hours, the patient was gradually weaned off the sedation. The patient was already off paralytics. The patient did extremely well. The patient was able to breathe on his own and he was able to maintain saturation above 90% while doing his BREATHING trial for a brief period of time. At that point, I made the decision to extubate the patient. The patient is currently extubated and the patient is currently on 5 L of Oxymizer nasal cannula. Chest x-ray shows further imp rovement in the bilateral pulmonary infiltrates. He is awake and alert and is requesting for more foods. No chest pain. No altered mentation. No other new complaints otherwise for now. He remains on Zosyn and Levaquin. He is on IV Solu-Medrol and I'm going to start him on a prednisone burst taper. IV fluids are currently of KVO. The patient's family the bedside.The blood work from today shows a white cell count of 12.2 with a hemoglobin 11.7 and a platelet count of 418. Sodiums of 142, BUN is at 30 with a creatinine of 1.1. The bronchoalveolar lavages been essentially negative. Objective - Vital Signs Vital signs: Vital Signs Temp 98.4 F 10/22/22 16:00 Pulse 105 H 10/22/22 16:00 Resp 22 10/22/22 16:00 BP 172/106 10/22/22 16:00 Pulse Ox 95 10/22/22 16:00 FiO2 40 10/22/22 07:47 Intake & Output 10/21/22 10/22/22 10/22/22 18:59 06:59 18:59 Intake Total 1159.647 957.138 443 Output Total 670 775 900 Balance 489.647 182.138 -457 Weight 63.4 kg 62.2 kg Intake: IV 436 376 443 Levofloxacin 750Mg-D5w 150 Pmx 750 mg In Dextrose/ Water 1 150ml.bag @ 100 mls/hr IVPB Q24H [facility] Rx#: [id number] Piperacillin-Tazobactam 3 200 100 200 .375 gm In Sodium Chloride 0.9% 100 ml @ 25 mls/hr IVPB Q8H [facility] Rx#: [id number] Sodium Chloride 0.9% 1, 236 276 93 000 ml @ 10 mls/hr IV . Q24H [facility] Rx#:[id number] Intake, IV Titration 703.647 261.138 Amount Cisatracurium 200 mg In 54.517 Sodium Chloride 0.9% 180 ml @ 1 MCG/KG/MIN 3.696 mls/hr IV .Q24H [facility] Rx#: [id number] Piperacillin-Tazobactam 3 100 .375 gm In Sodium Chloride 0.9% 100 ml @ 25 mls/hr IVPB Q8H [facility] Rx#: [id number] Sodium Chloride 0.9% 1, 147 000 ml @ 10 mls/hr IV . Q24H [facility] Rx#:[id number] fentaNYL (PF). 1,000 mcg 78.591 53.954 In Sodium Chloride 0.9% 80 ml @ 0.5 MCG/KG/HR 3. 08 mls/hr IV .Q24H [facility] Rx #:[id number] propofoL 1,000 mg In 323.539 207.184 Empty Bag 1 bag @ 15 MCG/ KG/MIN 5.544 mls/hr IV . Q18H3M [facility] Rx#:[id number] Tube Feeding 20 210 Other 110 Output: Urine 670 775 900 Other: Voiding Method Indwelling Catheter Indwelling Catheter Indwelling Catheter ABP, PAP, CO, CI - Last Documented Arterial Blood Pressure 147/90 - Exam The patient is awake and alert on 5 L of oxygen by nasal cannula Head exam was generally normal. There was no scleral icterus or corneal arcus. Mucous membranes were moist. Neck supple. Full range of motion. No adenopathy thyromegaly or neck vein distention.Left IJ triple-lumen catheter was inserted Cardiovascular examination reveals regular rhythm rate. S1-S2 normal. No S3 or S4. No discernible murmur noted. . Lungs reveal mostly clear breath sounds. Breath sounds are equal bilaterally. Minimal scattered rhonchi. No wheezes or crackles. Abdomen soft, without masses. Extremities are intact. No cyanosis clubbing or edema. An arterial line was also inserted in the left radial artery. Skin is without rash or lesion. Neurologically, the patient is awake and alert and the patient does not have any focal neurological deficit. Cranial nerves are essentially intact. - Labs CBC & Chem 7: 10/22/22 04:27 10/22/22 04:27 Labs: Abnormal Lab Results - Last 24 Hours (Table) 10/22/22 10/22/22 Range/Units 04:27 04:27 WBC 12.2 H (3.8-10.6) k/uL RBC 3.67 L (4.30-5.90) m/uL Hgb 11.7 L (13.0-17.5) gm/dL Hct 35.3 L (39.0-53.0) % Neutrophils # 11.0 H (1.3-7.7) k/uL Lymphocytes # 0.5 L (1.0-4.8) k/uL Chloride 111 H (98-107) mmol/L BUN 30 H (9-20) mg/dL Glucose 148 H (74-99) mg/dL Calcium 8.2 L (8.4-10.2) mg/dL Microbiology - Last 24 Hours (Table) 10/20/22 01:45 Gram Stain - Final Sputum Sputum Culture - Final Saige albicans 10/20/22 05:19 Gram Stain - Final Bronchial Washings - Random Bronchial Washings Culture - Final 10/20/22 05:19 Acid Fast Bacilli Smear - Final Bronchial Washings - Random Acid Fast Bacilli Culture - Preliminary Assessment and Plan Plan: Acute hypoxic respiratory failure with multifocal pneumonia/ consider possibility of an acute lung injury post aspiration. Acute lung injury related to inhalation of large quantities of cannabis and various forms could also cause a similar form of acute lung injury. The patient is currently covered with broad-spectrum antibiotics. He is on a combination of Zosyn and Levaquin and vancomycin. patient was also treated with systemic steroids. Clinically improved. Pulmonary infiltrates were gradually improving. oxygenation impr iza. Accordingly, the patient was weaned off the mechanical ventilator and the patient was extubated and currently the patient on 5 L of oxygen by nasal cannula. Awake and alert. The bronchoalveolar lavage has been essentially negative. Acute respiratory failure requiring intubation mechanical ventilation, improved Delerium , most likely related to substance abuse, clinically improved Acute leukocytosis, improving Severe contraction alkalosis secondary to dehydration, improvedSevere hypokalemia, potassium level is being replaced Acute kidney injury, creatinine is up to 1.9 from yesterday and the repeat shows normalization of the renal function, improved Hyponatremia, improved Rhabdomyolysis, improving and the CPK level is declining Lactic acidemia. History of bleeding ulcer. History of pericarditis. History of cyclic nausea and vomiting, secondary to marijuana use. Plan Patient has been extubated to 5 L of oxygen by nasal cannula Continue using the senna spirometer Chest x-rays improving Advance diet Discontinue the IV Solu-Medrol and start the patient a prednisone burst taper Change Levaquin to oral Completed total of seven-day course of Zosyn and then discontinue Blood work is essentially within normal limits Neurologically stable We'll continue to follow This evaluation was on a more than 30 minutes excluding time to do any procedures. Time with Patient: Greater than 30
[2022-10-22] MEDS: MIRTAZAPINE 15 MG TAB PO SCH (20:55)
[2022-10-22] MEDS: SODIUM CHLORIDE 0.9% 1,000 ML IV SCH (22:35)
[2022-10-23] MEDS: IPRATROPIUM-ALBUTEROL 3 ML NEB INHALATION SCH ×6 (00:02→19:39)
[2022-10-23] MEDS: PIPERACILLIN-TAZOBACTAM 3.375 GM in SODIUM CHLORIDE 0.9% 100 ML IVPB SCH ×3 (05:42→23:28)
[2022-10-23] MEDS: methylPREDNISolone SOD SUCCI 125 MG/2 ML VIAL IV SCH ×4 (05:42→23:30)
--- NOTE | 2022-10-23 07:15 | XR ---
EXAMINATION TYPE: XR chest 1V portable DATE OF EXAM: 10/23/2022 5:51 AM COMPARISON: Chest radiograph from one day prior. TECHNIQUE: XR chest 1V portable Portable AP radiograph of the chest. CLINICAL INDICATION:Male, 27 years old with history of SOB; FINDINGS: Lungs/Pleura: Similar multifocal airspace opacities. No evidence of pneumothorax or pleural effusion. Pulmonary vascularity: Unremarkable. Heart/mediastinum: Cardiomediastinal silhouette is unremarkable. Musculoskeletal: No acute osseous pathology. Lines/Tubes: Left internal jugular central venous catheter with distal tip at the cavoatrial junction. IMPRESSION: Similar multifocal airspace opacities.
[2022-10-23] MEDS: guaiFENesin 600 MG TABLET.ER PO SCH ×2 (08:30→20:15)
[2022-10-23] MEDS: PANTOPRAZOLE 40 MG/10 ML VIAL IVP SCH (08:31)
[2022-10-23] MEDS: HEPARIN SODIUM,PORCINE/PF 5,000 UNIT/0.5 ML SYRINGE SQ SCH ×3 (08:31→23:28)
[2022-10-23] MEDS ORDERED: LEVOFLOXACIN 750 MG TAB PO SCH (10:00)
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
[2022-10-23] MEDS: NOREPINEPHRINE 32 MG in SODIUM CHLORIDE 0.9% 218 ML IV SCH (11:54)
--- NOTE | 2022-10-23 13:08 | P.PN ---
Subjective Progress Note Date: 10/23/22 27-year-old male, brought in by EMS, for mental status changes. He apparently was found at 4:30 in the morning, by his mother, on the floor, and unresponsive or poorly responsive. The patient was very agitated, kicking and screaming and flailing about. He was last seen to be normal about 3:30 the previous day. The patient apparently does not have any known medical history other than a bleeding ulcer for which she takes Prevacid. He apparently does not drink or smoke excessively, but does smoke marijuana. According to his mother, he has no significant past medical history. Denies hypertension, hyperlipidemia, diabetes, etc. According to the ER elizabeth, the patient does have a prior history of pericarditis. And also was told that he has a history of cyclic nausea and vomiting, due to marijuana use. He apparently used to drink socially/beer, but quit drinking in August. The patient is seen in the emergency department. He is on room air. Getting LR at 125 mL an hour. His drug screen was positive for marijuana. He himself can provide no additional history. He is extremely agitated flailing about in bed. He is restrained. We are going to start him on some dexmedetomidine, and transfer him to the intensive care unit. White count 51.1, hemoglobin 20.1, hematocrit 53.2, and platelet count 400,000. Coagulation studies were normal. Venous blood gases show pCO2 of 36, and a pH of 7.71. Sodium 128, potassium 2.1, chloride 76, CO2 40, anion gap 12, BUN 58, creatinine 2.42. CK 3001. Troponin is 0.735. Albumin 5.5. Alcohol level less than 10. Screening for influenza A, and influenza B, or negative. Testing for RSV, and coronavirus were negative. Drug screen was positive for THC. Abdominal x-ray shows no obstruction. Chest x-ray was normal. Brain CT showed nothing acute. Facial CT was negative. Chest abdomen and pelvic CT was negative. Progress note dated 10/16/2022. 27-year-old male seen in the emergency room yesterday. He was brought in by EMS for severe agitation. He was found by his mother on the floor, and he been there for at least 8 hours, and maybe longer. Anyway, the patient was transferred to the ICU for better management and monitoring. His potassium was quite low and needed aggressive replacement. In addition, because of his agita tion, he was given dexmedetomidine, and in addition, both Ativan and Haldol. Currently, he is seen in room 254. He is on 2 L of oxygen. Is getting lactated Ringer's at 125 mL an hour. Potassium is up to 2.9. He is getting dexmedetomidine at 0.8 mcg/kg/h. He is on vancomycin and ceftriaxone. White count 16.3 hemoglobin 14.1 hematocrit 39.3 and platelet count 295,000. Sodium 133, potassium 2.9, chlorides 90, CO2 36, BUN 52, and creatinine 1.68. CK is 5834. On today's evaluation of 10/17/2022, I'm seeing this patient for a follow-up. He is currently on Precedex and he is running at 0.6 mcg/kg/hr and the patient is also on Haldol on an as-needed basis. The patient is extremely restless in bed. The patient is restless, flailing and kicking and his movements are quite chaotic. CAT scan of the brain is measured at the time of admission was negative. EEG showed no evidence of any seizures and urine drug screen is positive for THC. The patient was seen by neurology and the patient was also seen by psychiatry. The working diagnosis for now is ongoing delirium secondary to toxic metabolic encephalopathy. The patient also has developed acute hypoxic respiratory failure with an ongoing pneumonia in the left lung. Earlier this morning, the patient was on 6 L of oxygen by nasal cannula. Nevertheless, the patient was showing improvement in his rhabdomyolysis. CPK is down to 4238. The patient was in acute kidney injury and the creatinine is improving and is currently down to 1.25 with a BUN of 20. Sodiums of 135 with a potassium level of 3.2. Serum bicarb is 31. The chest x-ray showing a airspace disease in the left lung consistent with pneumonia. The patient remains on broad-spectrum antibiotics. The patient remains on a combination of Rocephin and vancomycin for now. The patient is also on heparin subcu for DVT prophylaxis. Family the bedside and the patient has a one-to-one sitter for safety. Psychiatry has recommended starting this patient on Prolixin 2 mg twice a day for delirium. Benzodiazepines were discontinued. On 11/04/2022, the patient seems to much more comfortable compared to yesterday. The patient remains on Precedex 0.4 pg/kg/h. The patient is also on Prolixin 2 mg by mouth twice a day. Doing well. He is answering questions appropriately. He is still looking anxious. Meanwhile, the patient developed acute hypoxic respiratory failure. Oxygen requirements progressively went up and the patient today has been transitioned to high flow oxygen with a total of 35 L an FiO2 of 75%. Noted the chest x-ray was repeated today and the patient was found to have persistent left mid lung pulmonary infiltrate. There was also a new right lower lobe pulmonary infiltrate. Based on that, the patient was started on broad- spectrum antibiotics and the patient is currently on a combination of Zosyn and vancomycin. He is coughing. Is producing sputum and she should be able to culture the sputum. He is hemodynamically stable at this point in time. He is unresponsive 60 with a hemoglobin of 14 and a platelet count of 195. Creatinine is improved and is currently down to 1.2 with a BUN of 28. Potassium level is at 3.2 and a serum bicarb is 31 with a sodium level of 135. The patient remains on normal saline at the rate of 150 mL an hour. Family is at the bedside. Benzodiazepines of the discontinued. 10/19/2022, the patient clinically is looking better than his much more comfortable even compared to yesterday. He remains on Precedex at 0.7 g. No agitation. Following commands and answering questions appropriately. Nevertheless, there is no interval worsening in the patient's chest x-ray findings. The patient remains on a nonrebreather facemask that she prefers over a high flow oxygen. I reviewed the follow-up chest x-ray from today and the patient has multifocal airspace disease which could be development or progression of pneumonia versus ARDS. Note the patient has been covered with broad-spectrum antibiotic and the patient is currently on accommodation of Zosyn and vancomycin. Levaquin will be added regarding the possibility of atypical bacterial infection. The patient will have Legionella urine antigen checked. Also, on today's blood work, the creatinine is up to 1.9 and the patient remains on IV fluids. Urine operas adequate for now. Sodiums of 131. Potassium levels at 4.1. I'll discuss of 12.2 with hemoglobin 14.3 and a platelet count of 149. CPK is improving as the patient's rhabdomyolysis is recovering and the patient's CPK level is down to 737. Of concern is the ongoing hypoxic respiratory failure and the bilateral pneumonia and worsening in the chest x-ray findings. 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 I came to the time of this patient as the patient was becoming progressively more short of breath and hypoxic. I was informed at around 1 AM that the patient was becoming progressively more hypoxic. The blood gas was done and the patient was hypoxic and his blood gas was done while him being on 100% nonrebreather facemask. Noted the patient was quite restless and he was not keeping the mask on. I try to put him back on Precedex which resulted in limited success and the patient continued to be short of breath, tachypneic, respiratory rate was in the high 30s to low 40s and the patient was also hypoxic. At that point, I made the decision to intubate the patient put him on a mechanical ventilator. It was very difficult to sedate this patient. Based on that, the patient was placed on a combination of propofol and fentanyl. He was paralyzed and postintubation he was kept on a mechanical ventilator on assist control mode at the rate of 28 with a tidal volume of 400 and FiO2 of 100% with a PEEP of 10. The blood. Was done post intubation showed improvement in oxygenation. Current pulse ox is 98%. Blood gases showed a pH of 7.37. PCO2 of 44 and pO2 of 136. At this point in time, the patient is on propofol running at the rate of 50 microvascular kilogram per minute. Is also on fentanyl at 2 mcg/kg/h. His also on Nimbex at 2 microvascular kilogram per minutes. His well sedated and paralyzed. His peak airway pressure is 24. His chest x-ray postintubation showed diffuse bilateral airspace disease and tube is in a good location. I had to the ICU. I the next discussion with the patient's mother with concerns and questions and I addressed all other concerns. I explained to her that this could be potentially a bad pneumonia. Aspiration cannot be ruled out. Acute lung injury from using various forms of cannabis cannot be also ruled out in this situation. The patient is currently hemodynamically stable. The patient is not requiring any pressors. The patient is on IV fluids running at 1 50 mL a n hour and the patient is producing adequate amount of urine output. As mentioned earlier, the rhabdomyolysis was improving. Creatinine was up to 1.9 yesterday and the labs from today are still pending. Meanwhile I do have a CBC from today that shows no significant leukocytosis. The white cell count is currently at 12. Hemoglobin is also adequate for now. Currently is intubated on a mechanical ventilator. Orogastric tube is also in place. Abdomen is nondistended. He is afebrile. He is covered with broad-spectrum antibiotics including a combination of Zosyn and Levaquin and vancomycin. His HUSSEIN is negative. His Legionella urine antigen his still pending for now. A bronchoscopy will be also done with a bronchioloalveolar lavage. The patient will be started on systemic steroids. CPK has dropped 10/21/2022, seeing the patient for a follow-up. Remains intubated on a mechanical ventilator, sedated and paralyzed. The patient currently is on propofol running at 50 mcg/kg/m. The patient is also on fentanyl at 1 mcg/kg/h and the patient is also on Nimbex at 2 mcg/kg/m. The patient is adequately sedated and paralyzed and the patient is very much interested mechanical venti lator. Today, the patient is on assist control mode at the rate of 28 with a tidal volume of 400 and FiO2 is currently is a 50% with a PEEP of 8. The patient has a blood gas that showed a pH of 7.39 with a pCO2 of 41 and pO2 of 1:30. The fluid balance is +660 mL over the past 24 hours and the patient is receiving normal saline at the rate of 75 mL an hour. The patient is on no pressors. The patient was also started on enteral feeding for nutritional support. Chest x-ray from today shows improvement in the right upper lobe infiltrates. The patient is still on broad-spectrum antibiotics. The bronchoalveolar lavage was negative. The pro-calcitonin level was at 0.5. The white cell count was 8 with a hemoglobin of 11.2 and a platelet count of 270. The BUN is at 40 with a creatinine of 1 and sodium level is at 138. The patient is afebrile. The patient on systemic steroids. No other significant issues in his overall condition is stable. On 10/22/2022, the patient is doing well. In the early childhood aide classroom hours, the patient was gradually weaned off the sedation. The patient was already off paralytics. The patient did extremely well. The patient was able to breathe on his own and he was able to maintain saturation above 90% while doing his BREATHING trial for a brief period of time. At that point, I made the decision to extubate the patient. The patient is currently extubated and the patient is currently on 5 L of Oxymizer nasal cannula. Chest x-ray shows further imp rovement in the bilateral pulmonary infiltrates. He is awake and alert and is requesting for more foods. No chest pain. No altered mentation. No other new complaints otherwise for now. He remains on Zosyn and Levaquin. He is on IV Solu-Medrol and I'm going to start him on a prednisone burst taper. IV fluids are currently of KVO. The patient's family the bedside.The blood work from today shows a white cell count of 12.2 with a hemoglobin 11.7 and a platelet count of 418. Sodiums of 142, BUN is at 30 with a creatinine of 1.1. The bronchoalveolar lavages been essentially negative. On 10/23/2022, the patient is being seen for a follow-up. Earlier this morning, the patient was on high flow oxygen with a flow of 40 L. After being extubated, the patient nasalcannula.Yesterday, the patient had a large meal followed by and emesis. At that point, his oxygen requirements went up. I was able to put him back on 7 L and we're in the process of weaning him slowly. Chest x-ray shows ongoing improvement of bilateral pulmonary infiltrates which I think it's an acute lung injury from inhalation injury of marijuana and its derivatives and additives. Cultures are negative. Is having some liquidy diarrhea. We'll recheck stool for C. diff. The patient remains on accommodation of Levaquin and Zosyn. Levaquin will be discontinued today. IV fluids are currently of KVO. His resting comfortably in bed. He is back on IV Solu-Medrol 60 mg every 6 hours. Blood work shows a white second of 12.2 with a hemoglobin 11.7 and all of the electrolytes are within normal limits Objective - Vital Signs Vital signs: Vital Signs Temp 98.4 F 10/23/22 12:00 Pulse 103 H 10/23/22 12:00 Resp 14 10/23/22 12:00 BP 148/96 10/23/22 12:00 Pulse Ox 99 10/23/22 12:00 FiO2 55 10/23/22 08:35 Intake & Output 10/22/22 10/23/22 10/23/22 18:59 06:59 18:59 Intake Total 443 175 20 Output Total 1200 1350 550 Balance -757 -1175 -530 Intake: IV 443 175 20 Levofloxacin 750Mg-D5w 150 Pmx 750 mg In Dextrose/ Water 1 150ml.bag @ 100 mls/hr IVPB Q24H [facility] Rx#: [id number] Piperacillin-Tazobactam 3 200 125 .375 gm In Sodium Chloride 0.9% 100 ml @ 25 mls/hr IVPB Q8H [facility] Rx#: [id number] Sodium Chloride 0.9% 1, 93 50 20 000 ml @ 10 mls/hr IV . Q24H [facility] Rx#:[id number] Output: Urine 1200 1350 550 Other: Voiding Method Indwelling Catheter Indwelling Catheter Indwelling Catheter # Voids 0 ABP, PAP, CO, CI - Last Documented Arterial Blood Pressure 147/90 - Exam The patient is awake and alert on 7 L of oxygen by nasal cannula Head exam was generally normal. There was no scleral icterus or corneal arcus. Mucous membranes were moist. Neck supple. Full range of motion. No adenopathy thyromegaly or neck vein distention.Left IJ triple-lumen catheter was inserted Cardiovascular examination reveals regular rhythm rate. S1-S2 normal. No S3 or S4. No discernible murmur noted. . Lungs reveal mostly clear breath sounds. Breath sounds are equal bilaterally. Minimal scattered rhonchi. No wheezes or crackles. Abdomen soft, without masses. Extremities are intact. No cyanosis clubbing or edema. An arterial line was also inserted in the left radial artery. Skin is without rash or lesion. Neurologically, the patient is awake and alert and the patient does not have any focal neurological deficit. Cranial nerves are essentially intact. - Labs CBC & Chem 7: 10/22/22 04:27 10/22/22 04:27 Labs: Microbiology - Last 24 Hours (Table) 10/20/22 01:45 Gram Stain - Final Sputum Sputum Culture - Final Saige albicans 10/20/22 05:19 Gram Stain - Final Bronchial Washings - Random Bronchial Washings Culture - Final Assessment and Plan Plan: Acute hypoxic respiratory failure with multifocal pneumonia/ consider possibility of an acute lung injury post aspiration. Acute lung injury related to inhalation of large quantities of cannabis and various forms could also cause a similar form of acute lung injury. The patient is currently covered with broad-spectrum antibiotics. He is on a combination of Zosyn and Levaquin and vancomycin. Cultures came back all negative. Antibiotics were modified. Torsten israel is also on steroids. Pulmonary infiltrates are improving. Currently on 7 L of oxygen by nasal cannula Acute respiratory failure requiring intubation mechanical ventilation, improved Delerium , most likely related to substance abuse, clinically improved Acute leukocytosis, improving Severe contraction alkalosis secondary to dehydration, improvedSevere hypoka lemia, potassium level is being replaced Acute kidney injury, creatinine is up to 1.9 from yesterday and the repeat shows normalization of the renal function, improved Hyponatremia, improved Rhabdomyolysis, improving and the CPK level is declining Lactic acidemia. History of bleeding ulcer. History of pericarditis. History of cyclic nausea and vomiting, secondary to marijuana use. Plan Patient has been extubated to 7 L of oxygen by nasal cannula Continue using the senna spirometer Chest x-rays improving Advance diet continue the IV Solu-Medrol Stop Levaquin and continue the course of Zosyn Check stool for C. diff Blood work is essentially within normal limits Neurologically stable We'll continue to follow
[2022-10-23 15:31] LABS: HCT 38.5 % (39.0-53.0); HGB 13.2 gm/dL (13.0-17.5); MCH 33.1 pg (25.0-35.0); MCHC 34.3 g/dL (31.0-37.0); MCV 96.7 fL (80.0-100.0); Mean Platelet Volume 7.4; Platelet Count 366 k/uL (150-450); RBC 3.98 m/uL (4.30-5.90); RDW 12.6 % (11.5-15.5); WBC 15.1 k/uL (3.8-10.6)
[2022-10-23 15:38] LABS: ALT 91 U/L (4-49); AST 50 U/L (17-59); African American GFR (CKD) >90 (>60 ml/min/1.73 sqM); Albumin 3.1 g/dL (3.5-5.0); Alkaline Phosphatase 87 U/L (38-126); Anion Gap 6 mmol/L; Blood Urea Nitrogen 28 mg/dL (9-20); Calcium 8.2 mg/dL (8.4-10.2); Carbon Dioxide 26 mmol/L (22-30); Chloride 99 mmol/L (98-107); Glucose 125 mg/dL (74-99); Non-African American GFR(CKD) >90 (>60 ml/min/1.73 sqM); Sodium 131 mmol/L (137-145); Total Bilirubin 0.6 mg/dL (0.2-1.3); Total Protein 5.6 g/dL (6.3-8.2)
[2022-10-23] MEDS: MIRTAZAPINE 15 MG TAB PO SCH (20:16)
--- NOTE | 2022-10-23 20:58 | P.PN ---
Subjective Progress Note Date: 10/23/22 Principal diagnosis: Pneumonia Patient is a 27-year-old male presenting to the hospital for decreased level of consciousness weakness did have nausea vomiting and cold symptoms prior to that patient did have worsening respiratory status requiring intubation. The patient was successfully extubated on 10/22/2022 On today's evaluation that is 10/23/2022, the patient continues to be afebrile the patient is breathing comfortably on 4 L nasal cannula oxygen, the patient denies having any chest pain, the patient did have occasional cough but not bringing up any sputum no abdominal pain and no diarrhea Objective - Vital Signs Vital signs: Vital Signs Temp 98.4 F 10/23/22 12:00 Pulse 93 10/23/22 13:00 Resp 24 10/23/22 13:00 BP 132/72 10/23/22 13:00 Pulse Ox 99 10/23/22 13:00 FiO2 55 10/23/22 08:35 Intake & Output 10/22/22 10/23/22 10/23/22 18:59 06:59 18:59 Intake Total 443 175 20 Output Total 1200 1350 550 Balance -757 -1175 -530 Intake: IV 443 175 20 Levofloxacin 750Mg-D5w 150 Pmx 750 mg In Dextrose/ Water 1 150ml.bag @ 100 mls/hr IVPB Q24H [facility] Rx#: [id number] Piperacillin-Tazobactam 3 200 125 .375 gm In Sodium Chloride 0.9% 100 ml @ 25 mls/hr IVPB Q8H [facility] Rx#: [id number] Sodium Chloride 0.9% 1, 93 50 20 000 ml @ 10 mls/hr IV . Q24H [facility] Rx#:[id number] Output: Urine 1200 1350 550 Other: Voiding Method Indwelling Catheter Indwelling Catheter Indwelling Catheter # Voids 0 ABP, PAP, CO, CI - Last Documented Arterial Blood Pressure 147/90 - Exam GENERAL DESCRIPTION: Middle-aged intubated on the vent RESPIRATORY SYSTEM: Unlabored breathing , decreased breath sounds at bases HEART: S1 S2 regular rate and rhythm , ABDOMEN: Soft , no tenderness EXTREMITIES: No edema feet - Labs CBC & Chem 7: 10/23/22 15:06 10/23/22 15:06 Labs: Microbiology - Last 24 Hours (Table) 10/20/22 01:45 Gram Stain - Final Sputum Sputum Culture - Final Saige albicans Assessment and Plan (1) Pneumonia Current Visit: Yes Status: Acute Code(s): J18.9 - PNEUMONIA, UNSPECIFIED ORGANISM SNOMED Code(s): 483800064 Plan: 1patient with acute respiratory failure with which is likely multifactorial in this patient initial admission to the hospital with mental status changes and decreased level of responsiveness patient fever initially resolved but now has worsening of his respiratory status requiring intubation and recurrence of fever elevated white count with a question of possible aspiration pneumonia blood culture has been negative so far. 2BAL cultures are currently pending, sputum culture showing Saige more likely colonizer 3-patient seemed to have shown clinical improvement and will continue with the Zosyn, 4-the patient did have worsening of the white count more likely related to Solu-Medrol and a questionable possible oropharyngeal candidiasis will add nystatin swish and swallow and follow closely Time with Patient: Less than 30
[2022-10-23] MEDS: NYSTATIN 100,000 UNIT/ML SUSP 500,000 UNIT/5 ML CUP PO SCH (23:28)
[2022-10-24] MEDS: IPRATROPIUM-ALBUTEROL 3 ML NEB INHALATION SCH ×7 (00:35→23:01)
[2022-10-24] MEDS: ONDANSETRON 4 MG/2 ML VIAL IVP PRN ×2 (03:39→09:45)
[2022-10-24] MEDS: methylPREDNISolone SOD SUCCI 125 MG/2 ML VIAL IV SCH ×3 (06:29→18:22)
[2022-10-24] MEDS: PIPERACILLIN-TAZOBACTAM 3.375 GM in SODIUM CHLORIDE 0.9% 100 ML IVPB SCH ×3 (06:30→21:56)
--- NOTE | 2022-10-24 08:41 | P.PN ---
Subjective Progress Note Date: 10/24/22 Patient is a 27-year-old female with known hyperemesis syndrome, chronic marijuana use, and prior pericarditis who presented with altered mentation. In the ER he was noted to be febrile and tachycardic. Initial laboratory analysis showed white blood cell count 51.1, hemoglobin 20.1, sodium 124, potassium 3, chloride 54, bicarb 41, BUN 63, creatinine 2.1 crit, and lactic acidosis 10.4. CK was 3000, troponin 0.7, an ABG revealed a pH of 7.71 with a CO2 of 36. He underwent a head CT which showed no acute process. EKG showed sinus tachycardia. He was given 3 L of IV fluids, Zyprexa, Ativan, Rocephin, and vancomycin. He was admitted to the ICU, additionally nephrology and neurology were consulted. Nephrology recommended IV fluids. Cardiology was consulted and recommended an echocardiogram. He was started on dexmedetomidine. He was seen by neurology who recommended an EEG. Patient has remained on antibiotics as well as Precedex. He has required multiple medications to help with agitation. He was found to have pneumonia vs inflammatory reaction on repeat chest x-ray. Influenza A/B, RSV, and COVID-19 testing negative. Over the late evening of 10/20 to early AM on 10/20 his respiratory status declined, He required intubation, bronch with BAL, and right IJ TLC and artline was placed. He did require levophed for one day. His vent requirements decreased be 10/21, He was successfully extubated on the morning of 10/22/22. He did develop some nausea and vomiting after eating on 10/22/22 that responded to compazine. He again had vomiting on 10/23. Imaging: Abdominal [id number] bowel gas pattern Chest x-ray-no acute process Head CT-no acute intracranial process Facial bone CT-no depressed or displaced facial bone fractures CT chest/abdomen/pelvis-no evidence of traumatic injury EEG-background disorganization suggestive of medication effect related to encephalopathy, no epileptiform activity seen Echocardiogram-ejection fraction 55% Patient seen and examined at bedside. He is feeling good today. No chest pain, breathing well. Had another bout of vomiting early this morning. Denies any abdominal pain. General: non toxic, no distress, appears at stated age Derm: warm, dry Head: Normocephalic, bruising bilateral orbital areas, bruising over the bridge of the nose Mouth: no lip lesion, mucus membranes dry, ET tube inplace Cardiovascular: S1S2 reg, no murmur, positive posterior tibial pulse bilateral, Lungs: Coarse breath sounds bilateral, no rhonchi, no rales , no accessory muscle use Abdominal: soft, nontender to palpation, no guarding, no appreciable organomegaly Ext: no gross muscle atrophy, no edema, no contractures Neuro: CN II-XII grossly intact, no focal neuro deficits Psych: Alert, Oriented X 3, Appropriate affect Assessment/plan: Toxic metabolic encephalopathy, improved Acute hypoxic Respiratory Failure Aspiration pneumonia vs inflammatory rxn - continue with ba vargas disconitnued after discussion with Dr. Ruiz , off vanco - ID recs appreciated - Critical care recs - pulm hygeine - Improvement in CXR and O2 requirements after starting steroids on 10/20/22 - HUSSEIN, c-ANCA, p-ANCA, myeloperoxidase, double-stranded DNA, and GBM negative - C. diff negative - Hepatitis negative - HIV is negative - Sputum culture with Saige - WBC increasing likely due to steroids, will continue to follow-- AM labs are pending. Intractable nausea or vomiting - CT abd and pelvis - if continues could consider delayed gastric emptying as was having these issue at home for several months just not a severe. - outpatient GI follow-up - continue with PPI Microscopic hematuria - suspect due to olivera trauma - urine cleared recheck UA today Probable unwitnessed seizure - neurology recs Elevated troponin - echo normal - likely due to dehydration - cardiology signed off Hypokalemia, resolved Lacidosis, resolved Hemoconcentration, resolved Severe contraction Alkalosis , resolved Rhabdo, resolved Dehydration, Hyponatremia, resolved Transaminitis, resolved YENI, resolved Chronic: Cannabis Hyperemesis Syndrome DVT prophylaxis: Heparin Discussed with: nursing, PT, girlfriend, Dr. Ruiz Anticipated discharge: pending clinical course Anticipated discharge place: pending clinical course A total of 25 minutes was spent on the care of this complex patient more than 50% of the time was spent in counseling and care coordination. Active Medications Generic Name Dose Route Start Last Admin Trade Name Freq PRN Reason Stop Dose Admin Acetaminophen 650 mg 10/18/22 09:15 10/19/22 16:42 Acetaminophen Tab 325 Mg Tab PO 650 mg Q6HR PRN Administration Fever and/ or Pain Albuterol/Ipratropium 3 ml 10/17/22 16:00 10/24/22 07:49 Ipratropium-Albuterol 3 Ml Neb INHALATION Not Given RT-Q4H [facility] Benzonatate 200 mg 10/18/22 05:59 10/19/22 22:50 Benzonatate 100 Mg Cap PO 200 mg TID PRN Administration Cough Guaifenesin 600 mg 10/22/22 10:00 10/23/22 20:15 Guaifenesin 600 Mg Tablet.Er PO 600 mg Q12HR [facility] Administration Guaifenesin/Dextromethorphan 10 ml 10/18/22 09:15 10/19/22 22:50 Guaifenesin-Dm 100-10mg/5ml 10 Ml Cup PO 10 ml Q6HR PRN Administration Cough Haloperidol Lactate 4 mg 10/17/22 11:22 10/17/22 16:11 Haloperidol Lactate 5 Mg/Ml 1 Ml Vial IVP 4 mg Q1H PRN Administration Agitation or Acute Psychosis Heparin Sodium (Porcine) 5,000 unit 10/15/22 16:00 10/23/22 23:28 Heparin Sodium,Porcine/Pf 5,000 Unit/0.5 Ml Syringe SQ 5,000 unit Q8HR [facility] Administration Hydroxyzine Pamoate 25 mg 10/22/22 15:23 10/23/22 19:35 Hydroxyzine Pamoate 25 Mg Cap PO 25 mg Q8HR PRN Administration Anxiety Sodium Chloride 1,000 mls @ 10 mls/hr 10/16/22 10:00 10/22/22 22:35 Saline 0.9% IV Not Given .Q24H [facility] Piperacillin Sod/Tazobactam 100 mls @ 25 mls/hr 10/17/22 22:00 10/24/22 06:30 Sod 3.375 gm/ Sodium Chloride IVPB 25 mls/hr Q8H [facility] Administration Protocol Iopamidol 30 ml 10/24/22 08:10 Iopamidol Contrast (Oral Use) Vial PO 10/25/22 08:[address] Scan Lorazepam 1 mg 10/22/22 15:23 10/22/22 16:02 Lorazepam 2 Mg/Ml Inj IV 1 mg Q4HR PRN Administration Anxiety Methylprednisolone Sodium Succinate 60 mg 10/22/22 18:30 10/24/22 06:29 Methylprednisolone Sod Succi 125 Mg/2 Ml Vial IV 60 mg Q6HR [facility] Administration Mirtazapine 15 mg 10/18/22 21:00 10/23/22 20:16 Mirtazapine 15 Mg Tab PO 15 mg HS [facility] Administration Miscellaneous Information 1 each 10/17/22 09:01 Potassium Replacement Protocol 1 Each Misc MISCELLANE DAILY PRN Per Protocol Protocol Miscellaneous Information 1 each 10/20/22 06:16 Magnesium Replacement Protocol 1 Each Misc MISCELLANE DAILY PRN Per Protocol Protocol Naloxone HCl 0.2 mg 10/15/22 10:26 Naloxone 0.4 Mg/Ml 1 Ml Vial IV Q2M PRN Opioid Reversal Nystatin 500,000 unit 10/23/22 22:00 10/23/22 23:28 Nystatin 100,000 Unit/Ml Susp 500,000 Unit/5 Ml Cup PO 500,000 unit QID [facility] Administration Protocol Ondansetron HCl 4 mg 10/22/22 13:37 10/24/22 03:39 Ondansetron 4 Mg/2 Ml Vial IVP 4 mg Q6HR PRN Administration Nausea And Vomiting Pantoprazole Sodium 40 mg 10/17/22 15:30 10/23/22 08:31 Pantoprazole 40 Mg/10 Ml Vial IVP 40 mg DAILY [facility] Administration Prochlorperazine Edisylate 5 mg 10/22/22 15:24 10/22/22 23:48 Prochlorperazine Inj 10 Mg/2 Ml Vial IVP 5 mg Q6HR PRN Administration Nausea And Vomiting Sodium Chloride 2 spray 10/19/22 17:53 10/19/22 18:41 Sodium Chloride 0.65% Nasal Letart 44 Ml Btl NASAL 2 spray QID PRN Administration Nasal Congestion Objective - Vital Signs Vital signs: Vital Signs Temp 98.4 F 10/24/22 04:00 Pulse 64 10/24/22 07:00 Resp 18 10/24/22 07:00 BP 180/122 10/24/22 07:00 Pulse Ox 94 L 10/24/22 07:00 FiO2 55 10/23/22 08:35 Intake & Output 10/23/22 10/24/22 10/24/22 18:59 06:59 18:59 Intake Total 120 1200 Output Total 1125 2200 Balance -1005 -1000 Weight 60.3 kg Intake: IV 120 100 Piperacillin-Tazobactam 3 100 100 .375 gm In Sodium Chloride 0.9% 100 ml @ 25 mls/hr IVPB Q8H [facility] Rx#: [id number] Sodium Chloride 0.9% 1, 20 000 ml @ 10 mls/hr IV . Q24H [facility] Rx#:[id number] Oral 1100 Output: Urine 1125 1150 Oral Regurgitation 1050 Other: Voiding Method Toilet Toilet Urinal Urinal # Voids 0 0 # Bowel Movements 1 ABP, PAP, CO, CI - Last Documented Arterial Blood Pressure 147/90 - Labs CBC & Chem 7: 10/23/22 15:06 10/23/22 15:06 Labs: Abnormal Lab Results - Last 24 Hours (Table) 10/23/22 10/23/22 Range/Units 15:06 15:06 WBC 15.1 H (3.8-10.6) k/uL RBC 3.98 L (4.30-5.90) m/uL Hct 38.5 L (39.0-53.0) % Sodium 131 L (137-145) mmol/L BUN 28 H (9-20) mg/dL Glucose 125 H (74-99) mg/dL Calcium 8.2 L (8.4-10.2) mg/dL ALT 91 H (4-49) U/L Total Protein 5.6 L (6.3-8.2) g/dL Albumin 3.1 L (3.5-5.0) g/dL
[2022-10-24] MEDS: IOPAMIDOL CONTRAST (ORAL USE) VIAL PO PRN ×2 (09:34→10:35)
[2022-10-24] MEDS: PANTOPRAZOLE 40 MG/10 ML VIAL IVP SCH (09:45)
[2022-10-24] MEDS: HEPARIN SODIUM,PORCINE/PF 5,000 UNIT/0.5 ML SYRINGE SQ SCH ×2 (09:49→17:33)
--- NOTE | 2022-10-24 09:56 | XR ---
EXAMINATION TYPE: XR chest 1V portable DATE OF EXAM: 10/24/2022 COMPARISON: 10/23/2022 INDICATION: Pneumonia TECHNIQUE: Single frontal view of the chest is obtained. FINDINGS: The heart size is normal. The pulmonary vasculature is normal. Bilateral lung infiltrates are present greater on the right. Findings are stable from comparison. Lef t-sided central venous catheter is present with the tip in the proximal right atrium. No pneumothorax is evident. IMPRESSION: 1. Stable bilateral lung infiltrates. Correlate for pneumonia. Continued Follow-up is recommended.
--- NOTE | 2022-10-24 11:43 | CT ---
EXAMINATION TYPE: CT abdomen pelvis wo con DATE OF EXAM: 10/24/2022 COMPARISON: 10/15/2022 INDICATION: Vomiting DLP: 374.4 mGycm, Automated exposure control for dose reduction was used. CONTRAST: 0 mL of Isovue 300. Study performed with Oral Contrast TECHNIQUE: Axial images were obtained from above the diaphragm to the pubic rami in the axial plane a t 5 mm thick sections. Reconstructed images are reviewed on the computer in the coronal plane. FINDINGS: Limited CT sections are obtained the lung bases. Small bilateral pleural effusions are present. Mini mal infiltrate is present within the lung bases which is nonspecific. Correlate for atelectasis. Atyp ical pneumonia could be considered. Small hiatal hernia may be present. CT ABDOMEN: Liver: Normal Spleen: Normal Pancreas: Normal Adrenal glands: The adrenal glands are normal. Gallbladder: Normal Kidneys: No masses are evident. No hydronephrosis is present. No cysts are present. No renal stone s are evident. Aorta: Normal Inferior vena cava: Normal. CT PELVIS: Loops of bowel within the abdomen and pelvis are normal. There are loops of bowel which are incom pletely distended or lack oral contrast limiting their evaluation. Oral contrast extends to the rectu m. Appendix: Normal as visualized. Urinary bladder: Normal. Genitourinary structures: Prostate is normal. Osseous structures: No suspicious lytic or sclerotic lesions. IMPRESSIONS: 1. No suspicious changes to suggest ileus or obstruction. 2. Small bilateral pleural effusions. 3. Mild changes at the lung bases is nonspecific. Correlate for atelectasis. Consider atypical pneumo bertin.
[2022-10-24] MEDS: NYSTATIN 100,000 UNIT/ML SUSP 500,000 UNIT/5 ML CUP PO SCH ×4 (11:59→21:55)
[2022-10-24] MEDS: guaiFENesin 600 MG TABLET.ER PO SCH ×2 (11:59→21:55)
--- NOTE | 2022-10-24 12:23 | P.PN ---
Subjective Progress Note Date: 10/24/22 I am seeing the patient for the first time during this admission. Patient is accompanied by his mother. According to patient he is doing drastically better compared to initial presentation. It seems he presented confused and per mother he was found having repeated head banging his head and was confused. He denies history of seizure and it appear possible unwitnessed seizure. Patient presented with electrolyte imbalance and it was felt that provoked his seizure. He presented with wbc of 51K and predominately neutrophilic and presented with fever. It was though due to aspiration pneumonia and completed Vacomycin, Levaquin and Zosyn. I.D. and Pulmonary team are on board. Dr. Eduardo felt he had toxic-metbaolic encephalopathy as result of marijuana hyperemesis syndrome with metabolic derangement. Please refer to Dr. Eduardo's notes for further details. Objective - Vital Signs Vital signs: Vital Signs Temp 97.9 F 10/24/22 08:00 Pulse 73 10/24/22 08:00 Resp 12 10/24/22 08:00 BP 150/98 10/24/22 11:00 Pulse Ox 95 10/24/22 08:00 FiO2 55 10/23/22 08:35 Intake & Output 10/23/22 10/24/22 10/24/22 18:59 06:59 18:59 Intake Total 120 1200 1300 Output Total 1125 2200 Balance -1005 -1000 1300 Weight 60.3 kg Intake: IV 120 100 100 Piperacillin-Tazobactam 3 100 100 100 .375 gm In Sodium Chloride 0.9% 100 ml @ 25 mls/hr IVPB Q8H [facility] Rx#: [id number] Sodium Chloride 0.9% 1, 20 000 ml @ 10 mls/hr IV . Q24H [facility] Rx#:[id number] Oral 1100 1200 Output: Urine 1125 1150 Oral Regurgitation 1050 Other: Voiding Method Toilet Toilet Urinal Urinal # Voids 0 0 1 # Bowel Movements 1 ABP, PAP, CO, CI - Last Documented Arterial Blood Pressure 147/90 - Exam GENERAL: The patient is lying in bed and is not in acute distress. HENT: Supple Neck. NEUROLOGICAL: Higher mental function: The patient is awake, alert, oriented to self, place and time. Patient is following simple commands. No aphasia and no neglect. Cranial nerves: The pupils are round, equal and reactive to light and accommodation. Visual martínez are full to confrontation throughout. Extraocular movement is intact no nystagmus is noted. Facial sensation is normal to touch throughout. Has multiple old bruises on face. The facial strength is normal throughout. Tongue is midline and moved [id number] without any difficulty. No dysarthria is noted. Shoulder shrug is normal bilaterally. Motor: The strength is 5 over 5 throughout. Normal tone and bulk. Cerebellum: Normal finger to nose bilaterally. Sensation: Sensation is normal to touch throughout. SOME OF THE WORK-UP DURING THIS HOSPITAL VISIT CONSISTED OF: EEG 10/17/2022 was mildly abnormal due to background disorganization with fast and some slow frequency due to medication effect or encephalopathy. No epilepti form activity was seen. B12 1071, folate 15.2, MMA, B6 levels pending HUSSEIN negative, myeloperoxidase antibodies, dsDNA, C and P-ANCA, hepatitis panel, HIV, price virus negative. CT head is reported as no acute intracranial process seen at this time. - Labs CBC & Chem 7: 10/23/22 15:06 10/23/22 15:06 Labs: Abnormal Lab Results - Last 24 Hours (Table) 10/23/22 10/23/22 Range/Units 15:06 15:06 WBC 15.1 H (3.8-10.6) k/uL RBC 3.98 L (4.30-5.90) m/uL Hct 38.5 L (39.0-53.0) % Sodium 131 L (137-145) mmol/L BUN 28 H (9-20) mg/dL Glucose 125 H (74-99) mg/dL Calcium 8.2 L (8.4-10.2) mg/dL ALT 91 H (4-49) U/L Total Protein 5.6 L (6.3-8.2) g/dL Albumin 3.1 L (3.5-5.0) g/dL Assessment and Plan Assessment: Encephalopathy felt due to component of Toxic-metabolic encephalopathy with metabolic derangements from hyperemesis including hyponatremia, hypokalemia, pneumonia, hypoxemia and acute renal failure. But patient also had fever with extreme leukocytosis with neutrophilic predominate and was felt due to Pneumonia but I cannot exclude meningitis. Patient completed IV Vancomycin, Zosyn and Levaquin and feels drastically improved (denies any headaches, neck pain, no focal deficits and confusion has resolved). Possible unwitnessed seizure, with postictal state possibly provoked due to electrolyte imbalance. Acute hypoxic respiratory failure with multifocal pneumonia, requiring mechanical ventilation 10/20/2022--extubated. Acute renal failure, recovered completely. Multifocal pneumonia, on antibiotics. Marijuana use. Long-standing history of heavy alcoholism, quit 09/02/2022 per patient. Plan: I ordered MRI Brain w/ and w/o to rule out any mass or central causes since had episode of confusion. His confusion has resolved. As stated patient already completed IV Vancomycin, Zosyn and Levaquin. He feels drastically better and no focal deficits. I.D. is on board. Pulmonary team is on board. The plan is discussed with patient, his mother who is at bedside and primary team. Time with Patient: Less than 30
--- NOTE | 2022-10-24 12:43 | P.PN ---
Subjective Progress Note Date: 10/24/22 Principal diagnosis: Pneumonia Patient is a 27-year-old male presenting to the hospital for decreased level of consciousness weakness did have nausea vomiting and cold symptoms prior to that patient did have worsening respiratory status requiring intubation. The patient was successfully extubated on 10/22/2022 On today's evaluation that is 10/24/2022, the patient remains to be afebrile the patient is breathing comfortably on room air, the patient denies having any chest pain, the patient cough has decreased in density mostly dry in nature, patient denies nausea no vomiting no abdominal pain or diarrhea Objective - Vital Signs Vital signs: Vital Signs Temp 97.9 F 10/24/22 08:00 Pulse 73 10/24/22 08:00 Resp 12 10/24/22 08:00 BP 166/110 10/24/22 10:00 Pulse Ox 95 10/24/22 08:00 FiO2 55 10/23/22 08:35 Intake & Output 10/23/22 10/24/22 10/24/22 18:59 06:59 18:59 Intake Total 120 1200 25 Output Total 1125 2200 Balance -1005 -1000 25 Weight 60.3 kg Intake: IV 120 100 25 Piperacillin-Tazobactam 3 100 100 25 .375 gm In Sodium Chloride 0.9% 100 ml @ 25 mls/hr IVPB Q8H [facility] Rx#: [id number] Sodium Chloride 0.9% 1, 20 000 ml @ 10 mls/hr IV . Q24H [facility] Rx#:[id number] Oral 1100 Output: Urine 1125 1150 Oral Regurgitation 1050 Other: Voiding Method Toilet Toilet Urinal Urinal # Voids 0 0 # Bowel Movements 1 ABP, PAP, CO, CI - Last Documented Arterial Blood Pressure 147/90 - Exam GENERAL DESCRIPTION: Middle-aged intubated on the vent RESPIRATORY SYSTEM: Unlabored breathing , decreased breath sounds at bases HEART: S1 S2 regular rate and rhythm , ABDOMEN: Soft , no tenderness EXTREMITIES: No edema feet - Labs CBC & Chem 7: 10/23/22 15:06 10/23/22 15:06 Labs: Abnormal Lab Results - Last 24 Hours (Table) 10/23/22 10/23/22 Range/Units 15:06 15:06 WBC 15.1 H (3.8-10.6) k/uL RBC 3.98 L (4.30-5.90) m/uL Hct 38.5 L (39.0-53.0) % Sodium 131 L (137-145) mmol/L BUN 28 H (9-20) mg/dL Glucose 125 H (74-99) mg/dL Calcium 8.2 L (8.4-10.2) mg/dL ALT 91 H (4-49) U/L Total Protein 5.6 L (6.3-8.2) g/dL Albumin 3.1 L (3.5-5.0) g/dL Assessment and Plan (1) Pneumonia Current Visit: Yes Status: Acute Code(s): J18.9 - PNEUMONIA, UNSPECIFIED ORGANISM SNOMED Code(s): 194806198 Plan: 1patient with acute respiratory failure with which is likely multifactorial in this patient initial admission to the hospital with mental status changes and decreased level of responsiveness patient fever initially resolved but now has worsening of his respiratory status requiring intubation and recurrence of fever elevated white count with a question of possible aspiration pneumonia blood culture has been negative so far. 2BAL cultures are currently pending, sputum culture showing Saige more likely colonizer 3-patient continued to show clinical improvement and will continue with the Zosyn while inpatient with a plan to finish therapy with oral Augmentin 4-the patient did have worsening of the white count more likely related to Solu-Medrol and a questionable possible oropharyngeal candidiasis patient to continue with nystatin swish and swallow and will repeat a CBC and inflammatory markers Time with Patient: Less than 30
--- NOTE | 2022-10-24 13:10 | P.PN ---
Subjective Progress Note Date: 10/24/22 Principal diagnosis: Acute hypoxic failure secondary to pneumonia and acute lung injury On 10/23/2022, the patient is being seen for a follow-up. Earlier this morning, the patient was on high flow oxygen with a flow of 40 L. After being extubated, the patient nasalcannula.Yesterday, the patient had a large meal followed by and emesis. At that point, his oxygen requirements went up. I was able to put him back on 7 L and we're in the process of weaning him slowly. Chest x-ray shows ongoing improvement of bilateral pulmonary infiltrates which I think it's an acute lung injury from inhalation injury of marijuana and its derivatives and additives. Cultures are negative. Is having some liquidy diarrhea. We'll recheck stool for C. diff. The patient remains on accommodation of Levaquin and Zosyn. Levaquin will be discontinued today. IV fluids are currently of KVO. His resting comfortably in bed. He is back on IV Solu-Medrol 60 mg every 6 hours. Blood work shows a white second of 12.2 with a hemoglobin 11.7 and all of the electrolytes are within normal limits Reevaluated today on 10/24/22, patient remains in the ICU as an overflow. Patient is doing well, he is presently on room air, his mentation is back to baseline, mental status is adequate. Patient is not in any distress, and I plan to transfer the patient out of the ICU to regular medical floor hoping to work on discharging the patient in the next 24 hours. WBC count is 15.1 hemoglobin 13.2. Basic metabolic profile is basically unremarkable, renal profile is normal. Chest x-ray showed stable bilateral infiltrates, consistent with pneumonia. CT of the abdomen and pelvis showed no suspicious changes to suggest ileus or obstruction. Objective - Vital Signs Vital signs: Vital Signs Temp 97.9 F 10/24/22 08:00 Pulse 73 10/24/22 08:00 Resp 12 10/24/22 08:00 BP 150/98 10/24/22 11:00 Pulse Ox 95 10/24/22 08:00 FiO2 55 10/23/22 08:35 Intake & Output 10/23/22 10/24/22 10/24/22 18:59 06:59 18:59 Intake Total 120 1200 1300 Output Total 1125 2200 Balance -1005 -1000 1300 Weight 60.3 kg Intake: IV 120 100 100 Piperacillin-Tazobactam 3 100 100 100 .375 gm In Sodium Chloride 0.9% 100 ml @ 25 mls/hr IVPB Q8H [facility] Rx#: [id number] Sodium Chloride 0.9% 1, 20 000 ml @ 10 mls/hr IV . Q24H [facility] Rx#:[id number] Oral 1100 1200 Output: Urine 1125 1150 Oral Regurgitation 1050 Other: Voiding Method Toilet Toilet Toilet Urinal Urinal Urinal # Voids 0 0 1 # Bowel Movements 1 ABP, PAP, CO, CI - Last Documented Arterial Blood Pressure 147/90 - Exam Physical Exam: Revealed a 27-year-old white male in no distress. On room air. Head: Atraumatic, normocephalic. HEENT:[Neck is supple.] [No neck masses.] [No thyromegaly.] [No JVD.] Chest: [Minimal crackles at the bases no rhonchi and no wheezes Cardiac Exam: [Normal S1 and S2, no S3 gallop, no murmur.] Abdomen: [Soft, nontender, no megaly, no rebound, no guarding, normal bowel sounds.] Extremities: [No clubbing, no edema, no cyanosis.] Neurological Exam: [No focal neurologic deficit.] Psychiatric: Normal mood affect and normal mental status examination. Skin: No rashes - Labs CBC & Chem 7: 10/23/22 15:06 10/23/22 15:06 Labs: Abnormal Lab Results - Last 24 Hours (Table) 10/23/22 10/23/22 Range/Units 15:06 15:06 WBC 15.1 H (3.8-10.6) k/uL RBC 3.98 L (4.30-5.90) m/uL Hct 38.5 L (39.0-53.0) % Sodium 131 L (137-145) mmol/L BUN 28 H (9-20) mg/dL Glucose 125 H (74-99) mg/dL Calcium 8.2 L (8.4-10.2) mg/dL ALT 91 H (4-49) U/L Total Protein 5.6 L (6.3-8.2) g/dL Albumin 3.1 L (3.5-5.0) g/dL Assessment and Plan Assessment: Impression: Acute hypoxic respiratory failure, multifocal pneumonia, suspect aspiration pneumonia. Possible acute lung injury from inhaling significant quantities of cannabis Delirium, resolved, most likely secondary to substance abuse. Acute rhabdomyolysis, resolved. History of bleeding ulcer. History of pericarditis. History of cyclic nausea and vomiting secondary to marijuana use. Recommendation: Continue present treatment plan Transfer patient out of the ICU to a regular medical floor Continue steroids, Continue Zosyn. Continue GI and DVT prophylaxis. Possible discharge planning in the next 24-48 hours Time with Patient: Less than 30
[2022-10-24 13:51] VITALS: BMI 22.1
--- NOTE | 2022-10-24 13:55 | CDI ---
Documentation Clarification Form Date: 10/24/2022 01:26:40 PM From: Krupa Stevenson RN, CCDS Phone: [phone] Admit Date: 10/15/2022 12:53:00 PM Patient Name: Florentino Zaragoza Visit Number: [id number] Discharge Date: ATTENTION: The Clinical Documentation Specialists (CDI) and [facility] Coding Staff appreciate your assistance in clarifying documentation. Please respond to the clarification below the line at the bottom and electronically sign. The CDI & [facility] Coding staff will review the response and follow-up if needed. Please note: Queries are made part of the Legal Health Record. If you have any questions, please contact the author of this message via ITS. Dr. Corona Acosta There is documentation of rhabdomyolysis due to immobility in the nephrology consult and subsequent progress notes. Additional clarification is requested. History/Risk Factors: Pericarditis, Cannabis hyperemesis syndrome Clinical Indicators: 27-year-old male present with altered mental status. He was found lying on the ground unresponsive and kicking and flailing. 10/15 Creatine Kinase 3001, BUN 56 Creatine 1, 99 10/16 Creatine Kinase 5834, 4238 BUN 52, Creatine 1.68 Treatment: .9NS @150ml hr Monitor renal function and urine output Avoid nephrotoxins Can you please further clarify Rhabdomyolysis? [x ] Traumatic Rhabdomyolysis due to immobility [ ] Other, please specify [ ] Unable to determine (Template Last Revised: January 2021) MTDD
[2022-10-24] MEDS ORDERED: cloNIDine HCL 0.1 MG TAB PO PRN (16:08)
[2022-10-24 17:57] LABS: Appearance,Urine Clear (Clear); Bilirubin,Urine Negative (Negative); Blood,Urine Trace (Negative); Color,Urine Light Yellow; Glucose,Urine (UA) Trace (Negative); Ketones,Urine Negative (Negative); Leukocyte Esterase,Urine Negative (Negative); Nitrite,Urine Negative (Negative); Protein,Urine Trace (Negative); RBC,Urine 8 /hpf (0-5); Specific Gravity,Urine 1.023 (1.001-1.035); Urobilinogen,Urine <2.0 mg/dL (<2.0); WBC,Urine 3 /hpf (0-5)
[2022-10-24] MEDS: MIRTAZAPINE 15 MG TAB PO SCH (21:55)
[2022-10-25] MEDS: methylPREDNISolone SOD SUCCI 125 MG/2 ML VIAL IV SCH ×2 (01:10→06:11)
[2022-10-25] MEDS: HEPARIN SODIUM,PORCINE/PF 5,000 UNIT/0.5 ML SYRINGE SQ SCH ×2 (01:10→08:20)
[2022-10-25] MEDS: IPRATROPIUM-ALBUTEROL 3 ML NEB INHALATION SCH ×3 (03:46→10:47)
[2022-10-25] MEDS: PIPERACILLIN-TAZOBACTAM 3.375 GM in SODIUM CHLORIDE 0.9% 100 ML IVPB SCH (06:12)
[2022-10-25 07:52] VITALS: BP 152/89; RESP 24; TEMP 98.1
[2022-10-25] MEDS: NYSTATIN 100,000 UNIT/ML SUSP 500,000 UNIT/5 ML CUP PO SCH (08:20)
[2022-10-25] MEDS: PANTOPRAZOLE 40 MG/10 ML VIAL IVP SCH (08:20)
[2022-10-25] MEDS: guaiFENesin 600 MG TABLET.ER PO SCH (08:20)
[2022-10-25 09:07] LABS: HCT 42.9 % (39.6-50.0); HGB 14.5 g/dL (13.0-17.0); MCH 31.7 pg (27.0-32.0); MCHC 33.8 g/dL (32.0-37.0); MCV 93.7 fL (80.0-97.0); NRBC Per 100 WBC 0 /100 WBCS (0.0-0.0); Platelet Count 462 X 10*3/uL (140-440); RBC 4.58 X 10*6/uL (4.40-5.60); RDW 12.4 % (11.5-14.5); WBC 20.87 X 10*3/uL (4.50-10.00)
[2022-10-25] MEDS ORDERED: predniSONE 20 MG TAB PO STA (09:08)
[2022-10-25 09:13] LABS: African American GFR (CKD) 117.4 (60.0-200.0); Albumin 3.2 g/dL (3.8-4.9); Albumin/Globulin Ratio 1.6 (1.60-3.17); Anion Gap 8.7 mmol/L (10.00-18.00); BUN/Creat Ratio 25.3 Ratio (12.00-20.00); Blood Urea Nitrogen 25.3 mg/dL (9.0-27.0); Calcium 8.8 mg/dL (8.7-10.3); Carbon Dioxide 25.3 mmol/L (20.0-27.5); Magnesium 1.9 mg/dL (1.5-2.4); Non-African American GFR(CKD) 101.3 (60.0-200.0); Phosphorus 3.3 mg/dL (2.4-5.1); Potassium 4.2 mmol/L (3.5-5.5); Total Bilirubin 0.4 mg/dL (0.30-1.20); Total Protein 5.2 g/dL (6.2-8.2)
[2022-10-25 10:57] VITALS: PULSE 72
[2022-10-25] MEDS ORDERED: ANIDULAFUNGIN 200 MG in SODIUM CHLORIDE 0.9% 200 ML IVPB ONE (12:00)
--- NOTE | 2022-10-25 12:58 | P.PN ---
Subjective Progress Note Date: 10/25/22 Principal diagnosis: Acute lung injury, Acute hypoxic respiratory failure On 10/23/2022, the patient is being seen for a follow-up. Earlier this morning, the patient was on high flow oxygen with a flow of 40 L. After being extubated, the patient nasalcannula.Yesterday, the patient had a large meal followed by and emesis. At that point, his oxygen requirements went up. I was able to put him back on 7 L and we're in the process of weaning him slowly. Chest x-ray shows ongoing improvement of bilateral pulmonary infiltrates which I think it's an acute lung injury from inhalation injury of marijuana and its derivatives and additives. Cultures are negative. Is having some liquidy diarrhea. We'll recheck stool for C. diff. The patient remains on accommodation of Levaquin and Zosyn. Levaquin will be discontinued today. IV fluids are currently of KVO. His resting comfortably in bed. He is back on IV Solu-Medrol 60 mg every 6 hours. Blood work shows a white second of 12.2 with a hemoglobin 11.7 and all of the electrolytes are within normal limits Reevaluated today on 10/24/22, patient remains in the ICU as an overflow. Patient is doing well, he is presently on room air, his mentation is back to baseline, mental status is adequate. Patient is not in any distress, and I plan to transfer the patient out of the ICU to regular medical floor hoping to work on discharging the patient in the next 24 hours. WBC count is 15.1 hemoglobin 13.2. Basic metabolic profile is basically unremarkable, renal profile is normal. Chest x-ray showed stable bilateral infiltrates, consistent with pneumonia. CT of the abdomen and pelvis showed no suspicious changes to suggest ileus or obstruction. I'm evaluating this patient today on 10/25/2022. Patient appears quite comfortable sitting at the edge of the bed in no acute distress. He is on room air. He denies shortness of breath, cough, fever. Mentation is back to baseline. Patient is telling me that he is ready for discharge. CBC from today shows some leukocytosis WBCs are 21, hemoglobin 14.5, hematocrit 43, platelet 462,000. BMP from today shows sodium 133, potassium 4.2, chloride 99, BUN 25, creatinine 1, glucose 124. No fluids infusing. Patient remains emphatically covered on Zosyn. No new chest x-ray from today. Computed tomography scan of the abdomen without contrast 10/24/2022 showed no evidence of ileus or obstruction, there were some small bilateral pleural effusions. He is rece iving Solu-Medrol, DuoNeb inhalations every 4 hour, Mucinex, Robitussin. Vital signs remain stable. Objective - Vital Signs Vital signs: Vital Signs Temp 98.1 F 10/25/22 07:47 Pulse 72 10/25/22 10:56 Resp 24 10/25/22 07:47 BP 152/89 10/25/22 07:47 Pulse Ox 98 10/25/22 07:47 FiO2 55 10/23/22 08:35 Intake & Output 10/24/22 10/25/22 10/25/22 18:59 06:59 18:59 Intake Total 1275 Balance 1275 Weight 60.3 kg 56.1 kg Intake: IV 75 Piperacillin-Tazobactam 3 75 .375 gm In Sodium Chloride 0.9% 100 ml @ 25 mls/hr IVPB Q8H [facility] Rx#: [id number] Oral 1200 Other: Voiding Method Toilet Toilet Urinal Urinal # Voids 2 4 ABP, PAP, CO, CI - Last Documented Arterial Blood Pressure 147/90 - Exam Physical Exam: Revealed a 27-year-old white male in no distress. On room air. Head: Atraumatic, normocephalic. HEENT:[Neck is supple.] [No neck masses.] [No thyromegaly.] [No JVD.] Chest: [Minimal crackles at the bases no rhonchi and no wheezes Cardiac Exam: [Normal S1 and S2, no S3 gallop, no murmur.] Abdomen: [Soft, nontender, no megaly, no rebound, no guarding, normal bowel sounds.] Extremities: [No clubbing, no edema, no cyanosis.] Neurological Exam: [No focal neurologic deficit.] Psychiatric: Normal mood affect and normal mental status examination. Skin: No rashes - Labs CBC & Chem 7: 10/25/22 06:11 10/25/22 06:11 Labs: Abnormal Lab Results - Last 24 Hours (Table) 10/24/22 10/25/22 10/25/22 Range/Units 17:33 06:11 06:11 WBC 20.87 H (4.50-10.00) X 10*3/uL Plt Count 462 H (140-440) X 10*3/uL MPV 9.0 L (9.5-12.2) fL Sodium 133 L (135-145) mmol/L Anion Gap 8.70 L (10.00-18.00) mmol/L BUN/Creatinine Ratio 25.30 H (12.00-20.00) Ratio Glucose 124 H (70-110) mg/dL ALT 63 H (10-49) U/L Total Protein 5.2 L (6.2-8.2) g/dL Albumin 3.2 L (3.8-4.9) g/dL Urine Protein Trace H (Negative) Urine Glucose (UA) Trace H (Negative) Urine Blood Trace H (Negative) Urine RBC 8 H (0-5) /hpf Microbiology - Last 24 Hours (Table) 10/20/22 05:19 Fungal Culture - Preliminary Bronchial Washings - Random Saige albicans Assessment and Plan Assessment: Acute hypoxic respiratory failure, multifocal pneumonia, suspect aspiration pneumonia. Possible acute lung injury from inhaling significant quantities of cannabis Delirium, resolved, most likely secondary to substance abuse. Acute rhabdomyolysis, resolved. History of bleeding ulcer. History of pericarditis. History of cyclic nausea and vomiting secondary to marijuana use. Plan: Discontinue Solu-Medrol and start taper dose of prednisone. Discontinue Zosyn and start by mouth Augmentin and preparation for discharge. Abstain from marijuana smoking. Clear for discharge from a pulmonary standpoint. I have personally seen and examined the patient, performed the documentation and the assessment and plan as written. Number of minutes spent on the visit: [ 10]. Time with Patient: Less than 30
--- NOTE | 2022-10-25 15:13 | P.PN ---
Subjective Progress Note Date: 10/25/22 The patient seen at bedside and she denies of any headaches, focal weakness numbness any further nausea or vomiting. Patient stated that he does not 1 a pursue with MRI since she does not want to be liable for the Bill and will consider it as an outpatient. Objective - Vital Signs Vital signs: Vital Signs Temp 98.1 F 10/25/22 07:47 Pulse 72 10/25/22 10:56 Resp 24 10/25/22 07:47 BP 152/89 10/25/22 07:47 Pulse Ox 98 10/25/22 07:47 FiO2 55 10/23/22 08:35 Intake & Output 10/24/22 10/25/22 10/25/22 18:59 06:59 18:59 Intake Total 1275 Balance 1275 Weight 60.3 kg 56.1 kg Intake: IV 75 Piperacillin-Tazobactam 3 75 .375 gm In Sodium Chloride 0.9% 100 ml @ 25 mls/hr IVPB Q8H [facility] Rx#: [id number] Oral 1200 Other: Voiding Method Toilet Toilet Urinal Urinal # Voids 2 4 ABP, PAP, CO, CI - Last Documented Arterial Blood Pressure 147/90 - Labs CBC & Chem 7: 10/25/22 06:11 10/25/22 06:11 Labs: Abnormal Lab Results - Last 24 Hours (Table) 10/24/22 10/25/22 10/25/22 Range/Units 17:33 06:11 06:11 WBC 20.87 H (4.50-10.00) X 10*3/uL Plt Count 462 H (140-440) X 10*3/uL MPV 9.0 L (9.5-12.2) fL Sodium 133 L (135-145) mmol/L Anion Gap 8.70 L (10.00-18.00) mmol/L BUN/Creatinine Ratio 25.30 H (12.00-20.00) Ratio Glucose 124 H (70-110) mg/dL ALT 63 H (10-49) U/L Total Protein 5.2 L (6.2-8.2) g/dL Albumin 3.2 L (3.8-4.9) g/dL Urine Protein Trace H (Negative) Urine Glucose (UA) Trace H (Negative) Urine Blood Trace H (Negative) Urine RBC 8 H (0-5) /hpf Microbiology - Last 24 Hours (Table) 10/20/22 05:19 Fungal Culture - Preliminary Bronchial Washings - Random Saige albicans Assessment and Plan Assessment: Encephalopathy felt due to component of Toxic-metabolic encephalopathy with metabolic derangements from hyperemesis including hyponatremia, hypokalemia, pneumonia, hypoxemia and acute renal failure. But patient also had fever with extreme leukocytosis with neutrophilic predominate and was felt due to Pneumonia but I cannot exclude meningitis. Patient completed IV Vancomycin, Zosyn and Levaquin and feels drastically improved (denies any headaches, neck pain, no focal deficits and confusion has resolved). Possible unwitnessed seizure, with postictal state possibly provoked due to electrolyte imbalance. Acute hypoxic respiratory failure with multifocal pneumonia, requiring mechanical ventilation 10/20/2022--extubated. Acute renal failure, recovered completely. Multifocal pneumonia, on antibiotics. Marijuana use. Long-standing history of heavy alcoholism, quit 09/02/2022 per patient. Plan: I ordered MRI Brain w/ and w/o to rule out any mass or central causes since had episode of confusion. His confusion has resolved and he has no focal deficits. Patient does not want to pursue with MRI since does not want to be liable for the bill and consider it as outpatient. As stated patient already completed IV Vancomycin, Zosyn and Levaquin. He feels drastically better and no focal deficits. I.D. is on board. Pulmonary team is on board. The plan is discussed with patient and primary team. No additional neurological work-up. Time with Patient: Less than 30
--- NOTE | 2022-10-25 15:16 | P.DS ---
Providers Date of admission: 10/15/22 12:53 Expected date of discharge: 10/25/22 Attending physician: Daryl Horan MD Consults: 10/15/22 12:47 Consult Physician Urgent Consulting Provider: Corona Acosta Consult Reason/Comments: YENI, dehydration, hypokalemia Do you want consulting provider notified?: Yes 10/15/22 12:48 Consult Physician Urgent Consulting Provider: Ranjan Ac Consult Reason/Comments: encephalopathy, severe hypokalemia, severely dehydrated, may need ICU Do you want consulting provider notified?: Yes 10/16/22 10:18 Consult Physician Urgent Consulting Provider: Anand Ac Consult Reason/Comments: acute encephalopathy Do you want consulting provider notified?: Yes 10/17/22 11:33 Consult Physician Urgent Consulting Provider: Tonny Velasco Consult Reason/Comments: acute psycosis Do you want consulting provider notified?: Yes 10/20/22 08:13 Consult Physician Routine Consulting Provider: Estella Martinez Consult Reason/Comments: atypical pneumonia Do you want consulting provider notified?: Yes Primary care physician: Stated None Hospital Course: Discharge Diagnosis: Toxic metabolic encephalopathy, improved Acute hypoxic Respiratory Failure Severe thrush Probable aspiration PNA in ocnjunction wtih allergic reaction Intractable nausea or vomiting Microscopic hematuria unwitnessed seizure, ruled out Type II myocardial infarction secondary to metabolic derangements Hypokalemia, resolved Lacidosis, resolved Hemoconcentration, resolved Severe contraction Alkalosis , resolved Rhabdo, resolved Dehydration, Hyponatremia, resolved Transaminitis, resolved YENI, resolved Cannabis Hyperemesis Syndrome Hospital Course: Patient is a 27-year-old male with known hyperemesis syndrome, chronic marijuana use, and prior pericarditis who presented with altered mentation. In the ER he was noted to be febrile and tachycardic. Initial laboratory analysis showed white blood cell count 51.1, hemoglobin 20.1, sodium 124, potassium 3, chloride 54, bicarb 41, BUN 63, creatinine 2.1 crit, and lactic acidosis 10.4. CK was 3000, troponin 0.7, an ABG revealed a pH of 7.71 with a CO2 of 36. He underwent a head CT which showed no acute process. EKG showed sinus tachycardia. He was given 3 L of IV fluids, Zyprexa, Ativan, Rocephin, and vancomycin. He was admitted to the ICU, additionally nephrology and neurology were consulted. Nephrology recommended IV fluids. Cardiology was consulted and recommended an echocardiogram. He was started on dexmedetomidine. He was seen by neurology who recommended an EEG. Patient has remained on antibiotics as well as Precedex. He has required multiple medications to help with agitation. He was found to have pneumonia vs inflammatory reaction on repeat chest x-ray. Influenza A/B, RSV, and COVID-19 testing negative. Over the late evening of 10/20 to early AM on 10/20 his respiratory status declined, He required intubation, bronch with BAL, and right IJ TLC and artline was placed. He did require levophed for one day. His vent requirements decreased be 10/21, He was successfully extubated on the morning of 10/22/22. He did develop some nausea and vomiting after eating on 10/22/22 that responded to compazine. He again had vomiting on 10/23, which resolved spontanously. He had a repeat CT which was unrevealing. He conitnued to improve. On the morning of 10/25/22 patient was insisting on being discharged. I encouraged him to stay hospitalized overnight, however he declined. For more details see subjective below. Follow-up: Patient to complete an additional 4 days of Augmentin, 2 weeks worth of Diflucan and nystatin swish and swallow, he will follow up with Dr. Ruiz in 1-2 weeks, his PCP in 1-2 days, and Dr. Joshua in one month. He'll complete a prednisone taper. He was also given prescriptions for Vistaril, Compazine, Remeron, and Protonix. He will continue to follow up with a motor racer of his choice. Imaging: Abdominal j-kss-[id number] bowel gas pattern Chest x-ray-no acute process Head CT-no acute intracranial process Facial bone CT-no depressed or displaced facial bone fractures CT chest/abdomen/pelvis-no evidence of traumatic injury EEG-background disorganization suggestive of medication effect related to encephalopathy, no epileptiform activity seen Echocardiogram-ejection fraction 55% CT abdomen and pelvis without contrast- Subjective: Patient seen and examined at bedside. Initially had discussion with him in the morning as he was asking to leave. I told him that I was concerned if he left today he could have possible rebound symptoms as his steroids had been yet to be weaned. I also explained to him that his white blood cell count was increasing and he has significant thrush. At that point in time he was amenable to staying in the hospital. However pulmonary clear him for discharge and the patient insisted on being discharged. I returned his bedside where his mother was present and attempted to convince him to stay in the hospital, however he insisted that he be discharged as he would not stay 1 more night in the hospital. I explained to him that discharge now, that his symptoms could worsen at home leading to sepsis and even possibly . Him that it is not in his best interest to be discharged today. Patient remained insistent that he be discharged home. Mother given instructions and will stay with the patient. I did refill all prescriptions for the patient as needed. He states he feels fine he has been up and walking around, he's been eating fine, no recurrent nausea or vomiting. Shortness of breath is resolved. Vital signs reviewed and stable. General: nontoxic, no distress, appears at stated age Derm: warm, dry Head: atraumatic, normocephalic, symmetric Eyes: EOMI, no lid lag, anicteric sclera Mouth: no lip lesion, mucus membranes moist Cardiovascular: S1S2 reg, no murmur, positive posterior tibial pulse bilateral, Lungs: CTA bilateral, no rhonchi, no rales , no accessory muscle use Abdominal: soft, nontender to palpation, no guarding, no appreciable organomegaly Ext: no gross muscle atrophy, no edema, no contractures Neuro: CN II-XI grossly intact, no focal neuro deficits Psych: Alert, oriented, appropriate affect A total of 55 minutes of time were spent preparing this complex discharge summary. Patient was discharged on 10/25/22. Plan - Discharge Summary Discharge Rx Participant: No New Discharge Prescriptions: New predniSONE [Deltasone] 40 mg PO DAILY #14 tab hydrOXYzine pamoate [Vistaril] 25 mg PO Q8HR PRN #30 cap PRN Reason: Anxiety Prochlorperazine [Compazine] 5 mg PO Q6HR PRN #30 tab PRN Reason: Nausea Fluconazole [Diflucan] 100 mg PO DAILY #14 tab Amoxic-Pot Clav 875-125Mg [Augmentin 875-125] 1 each PO Q12HR #8 tab Nystatin 100,000 Unit/ml Susp [Mycostatin Oral Susp] 500,000 unit PO QID 14 Days #280 ml Mirtazapine [Remeron] 15 mg PO HS #15 tab Pantoprazole [Protonix] 40 mg PO DAILY #30 tab Discharge Medication List Amoxic-Pot Clav 875-125Mg [Augmentin 875-125] 1 each PO Q12HR #8 tab 10/25/22 [Rx] Fluconazole [Diflucan] 100 mg PO DAILY #14 tab 10/25/22 [Rx] Mirtazapine [Remeron] 15 mg PO HS #15 tab 10/25/22 [Rx] Nystatin 100,000 Unit/ml Susp [Mycostatin Oral Susp] 500,000 unit PO QID 14 Days #280 ml 10/25/22 [Rx] Pantoprazole [Protonix] 40 mg PO DAILY #30 tab 10/25/22 [Rx] Prochlorperazine [Compazine] 5 mg PO Q6HR PRN #30 tab 10/25/22 [Rx] hydrOXYzine pamoate [Vistaril] 25 mg PO Q8HR PRN #30 cap 10/25/22 [Rx] predniSONE [Deltasone] 40 mg PO DAILY #14 tab 10/25/22 [Rx] Follow up Appointment(s)/Referral(s): Erika Joshua MD [STAFF PHYSICIAN] - 1 Week (Outpatient evaluation for hypokalemia periodic paralysis Office not available please call to make appoitment) None,Stated [Primary Care Provider] - 1-2 days Amanda Ruiz MD [STAFF PHYSICIAN] - 11/21/22 9:30 am (With Bekah) Patient Instructions/Handouts: Sepsis (DC) Activity/Diet/Wound Care/Special Instructions: Activity: as tolerated Diet: heart healthy Special Instructions: return if confusion, fevers, increased work of breath. It was recommended to you that you stay in the hospital at this time. However you declined and asked to be discharged. We were concerned about worsening of your respiratory status with steroids being weaned, additional possibility of infection with white blood cell count decreasing. You are at risk for worsening respiratory status and worsening illness by leaving today. As discussed you are aware of these risks. Discharge/Stand Alone Forms: AA Meetings [facility], Who Do I Call?, Community Resources, Outpatient Counseling, Inp Substance Abuse Facilities Discharge Disposition: HOME SELF-CARE
[2022-10-25] MEDS ORDERED: AMOXIC-POT CLAV 875-125MG 1 EACH TAB PO SCH (21:00)
[2022-10-26] MEDS ORDERED: predniSONE 20 MG TAB PO SCH (09:00)
[2022-10-26] MEDS ORDERED: ANIDULAFUNGIN 100 MG in SODIUM CHLORIDE 0.9% 100 ML IVPB SCH (12:00)
--- NOTE | 2022-10-27 10:28 | CDI ---
Documentation Clarification Form Date: 10/27/22 From: Therese Aquino Admit Date: 10/15/2022 12:53:00 PM Patient Name: Florentino Zaragoza Visit Number: [id number] Discharge Date: 10/25/2022 12:18:00 PM ATTENTION: The Clinical Documentation Specialists (CDI) and [facility] Coding Staff appreciate your assistance in clarifying documentation. Please respond to the clarification below the line at the bottom and electronically sign. The CDI & [facility] Coding staff will review the response and follow-up if needed. Please note: Queries are made part of the Legal Health Record. If you have any questions, please contact the author of this message via ITS. Dr. Ruby Caal, Sepsis is documented in the ED Note, but is not noted in subsequent documentation. Clarification is requested. History/Risk Factors: marijuana use, cannabis hyperemesis syndrome Clinical Indicators: WBC 51.1, Neutrophils 44.9, Plasma lactic acid 10.4, Lactic Ac sepsis rflx Yes, bilirubin 3.5, Cr 3.13, CO2 41, VBG pH 7.71, VBG pCO2 36, VBG HCO3 47 Treatment: IV fluids, IV Vancomycin, IV Rocephin, Please clarify if the Sepsis is : [ ] Sepsis confirmed, remains under treatment [ X ] Sepsis ruled out [ ] Other condition, please specify [ ] Unable to determine MTDD
--- NOTE | 2022-10-28 22:34 | P.PN ---
Subjective Progress Note Date: 10/25/22 Principal diagnosis: Pneumonia Patient is a 27-year-old male presenting to the hospital for decreased level of consciousness weakness did have nausea vomiting and cold symptoms prior to that patient did have worsening respiratory status requiring intubation. The patient was successfully extubated on 10/22/2022 On today's evaluation that is 10/25/2022, the patient rcontinuousnts to be afebrile the patient is breathing comfortably on room air, the patient denies having any chest pain, the patient cough has decreased in intensity and not bringing up any sputum, patient denies nausea no vomiting no abdominal pain or diarrhea, patient has been insisting on going home Objective - Vital Signs Vital signs: Vital Signs Temp 98.1 F 10/25/22 07:47 Pulse 68 10/25/22 10:47 Resp 24 10/25/22 07:47 BP 152/89 10/25/22 07:47 Pulse Ox 98 10/25/22 07:47 FiO2 55 10/23/22 08:35 Intake & Output 10/24/22 10/25/22 10/25/22 18:59 06:59 18:59 Intake Total 1275 Balance 1275 Weight 60.3 kg 56.1 kg Intake: IV 75 Piperacillin-Tazobactam 3 75 .375 gm In Sodium Chloride 0.9% 100 ml @ 25 mls/hr IVPB Q8H [facility] Rx#: [id number] Oral 1200 Other: Voiding Method Toilet Toilet Urinal Urinal # Voids 2 4 ABP, PAP, CO, CI - Last Documented Arterial Blood Pressure 147/90 - Exam GENERAL DESCRIPTION: Middle-aged intubated on the vent RESPIRATORY SYSTEM: Unlabored breathing , decreased breath sounds at bases HEART: S1 S2 regular rate and rhythm , ABDOMEN: Soft , no tenderness EXTREMITIES: No edema feet - Labs CBC & Chem 7: 10/25/22 06:11 10/25/22 06:11 Labs: Abnormal Lab Results - Last 24 Hours (Table) 10/24/22 10/25/22 10/25/22 Range/Units 17:33 06:11 06:11 WBC 20.87 H (4.50-10.00) X 10*3/uL Plt Count 462 H (140-440) X 10*3/uL MPV 9.0 L (9.5-12.2) fL Sodium 133 L (135-145) mmol/L Anion Gap 8.70 L (10.00-18.00) mmol/L BUN/Creatinine Ratio 25.30 H (12.00-20.00) Ratio Glucose 124 H (70-110) mg/dL ALT 63 H (10-49) U/L Total Protein 5.2 L (6.2-8.2) g/dL Albumin 3.2 L (3.8-4.9) g/dL Urine Protein Trace H (Negative) Urine Glucose (UA) Trace H (Negative) Urine Blood Trace H (Negative) Urine RBC 8 H (0-5) /hpf Microbiology - Last 24 Hours (Table) 10/20/22 05:19 Fungal Culture - Preliminary Bronchial Washings - Random Saige albicans Assessment and Plan (1) Pneumonia Status: Acute Code(s): J18.9 - PNEUMONIA, UNSPECIFIED ORGANISM SNOMED Code(s): 314474016 Plan: 1patient with acute respiratory failure with which is likely multifactorial in this patient initial admission to the hospital with mental status changes and decreased level of responsiveness patient fever initially resolved but now has worsening of his respiratory status requiring intubation and recurrence of fever elevated white count with a question of possible aspiration pneumonia blood culture has been negative so far. 2BAL cultures are currently pending, sputum culture showing Saige more likely colonizer 3-patient continued to show clinical improvement and plan to finish therapy with oral Augmentin 4-the patient did have worsening of the white count more likely related to Solu-Medrol and a questionable possible oropharyngeal candidiasis patient to continue with nystatin swish and swallow , discussed with the admitting team if no need for Haldol patient can be given oral Diflucan and a close outpatient follow-up as the patient has been reluctant to stay in the hospitall Time with Patient: Less than 30
== END 2022-10-25 12:18 | disposition home or self-care (01) | DRG 91 ==
LOC: EC 05:54 → 3SCARD 12:53 → 2SICU 14:44 → 4SSUR 10-24 15:28
PROVIDERS: ADMIT Student in an Organized Health Care Education/Training Program; ATTEND Student in an Organized Health Care Education/Training Program
PROC: 5A1945Z Respiratory Ventilation, 24-96 Consecutive Hours (ICD-10-PCS; principal; 2022-10-20)
PROC: 4A133B1 Monitoring of Arterial Pressure, Peripheral, Percutaneous Approach (ICD-10-PCS; principal; 2022-10-20)
PROC: 02H633Z Insertion of Infusion Device into Right Atrium, Percutaneous Approach (ICD-10-PCS; principal; 2022-10-20)
PROC: 3E0G76Z Introduction of Nutritional Substance into Upper GI, Via Natural or Artificial Opening (ICD-10-PCS; principal; 2022-10-20)
PROC: 0B9D8ZX Drainage of Right Middle Lung Lobe, Via Natural or Artificial Opening Endoscopic, Diagnostic (ICD-10-PCS; principal; 2022-10-20)
PROC: 3E043XZ Introduction of Vasopressor into Central Vein, Percutaneous Approach (ICD-10-PCS; principal; 2022-10-20)
PROC: 4A133J1 Monitoring of Arterial Pulse, Peripheral, Percutaneous Approach (ICD-10-PCS; principal; 2022-10-20)
PROC: 03HY32Z Insertion of Monitoring Device into Upper Artery, Percutaneous Approach (ICD-10-PCS; principal; 2022-10-20)
PROC: 0D9670Z Drainage of Stomach with Drainage Device, Via Natural or Artificial Opening (ICD-10-PCS; principal; 2022-10-20)
PROC: 0BH17EZ Insertion of Endotracheal Airway into Trachea, Via Natural or Artificial Opening (ICD-10-PCS; 2022-10-20)
DX: G92.8 Other toxic encephalopathy (principal); I21.A1 Myocardial infarction type 2; J69.0 Pneumonitis due to inhalation of food and vomit; J96.01 Acute respiratory failure with hypoxia; N17.9 Acute kidney failure, unspecified; F23 Brief psychotic disorder; E87.1 Hypo-osmolality and hyponatremia; B37.0 Candidal stomatitis; E87.4 Mixed disorder of acid-base balance; I95.9 Hypotension, unspecified; F12.288 Cannabis dependence with other cannabis-induced disorder; T79.6XXA Traumatic ischemia of muscle, initial encounter; F10.21 Alcohol dependence, in remission; Z20.822 Contact with and (suspected) exposure to COVID-19; Z28.310 Unvaccinated for COVID-19; E87.8 Other disorders of electrolyte and fluid balance, not elsewhere classified; E86.0 Dehydration; R11.2 Nausea with vomiting, unspecified; E87.6 Hypokalemia; S00.81XA Abrasion of other part of head, initial encounter; S00.31XA Abrasion of nose, initial encounter; E86.1 Hypovolemia; F41.9 Anxiety disorder, unspecified; S00.33XA Contusion of nose, initial encounter; S00.10XA Contusion of unspecified eyelid and periocular area, initial encounter; R31.0 Gross hematuria; R74.01 Elevation of levels of liver transaminase levels; R19.7 Diarrhea, unspecified; Y90.0 Blood alcohol level of less than 20 mg/100 ml; Z79.899 Other long term (current) drug therapy; Z78.1 Physical restraint status; Z71.51 Drug abuse counseling and surveillance of drug abuser; Z87.11 Personal history of peptic ulcer disease; F98.4 Stereotyped movement disorders; J00 Acute nasopharyngitis [common cold]; T38.0X5A Adverse effect of glucocorticoids and synthetic analogues, initial encounter
CPT/HCPCS: 36415; 36600; 70450; 70486; 71045; 71250; 74018; 74176; 80048; 80053; 80202; 80306; 80320; 81001; 82140; 82550; 82553; 82565; 82607; 82746; 82803; 82805; 83516; 83605; 83735; 83921; 84100; 84132; 84145; 84207; 84484; 85025; 85027; 85610; 85730; 86038; 86225; 86255; 86706; 86803; 87040; 87070; 87102; 87116; 87205; 87206; 87252; 87324; 87340; 87390; 87496; 87498; 87502; 87529; 87634; 87636; 87798; 88108; 88305; 89050; 93005; 93306; 94003; 94640; 95816; 96365; 96366; 96372; 96375; 96376; 99291

== ENCOUNTER 2023-01-04 08:15 | Observation (INO) | payer OTHER ==
[2023-01-04] MEDS ORDERED: ONDANSETRON 4 MG/2 ML VIAL IVP STA (08:47)
[2023-01-04] MEDS ORDERED: SODIUM CHLORIDE 0.9% 1,000 ML IV STA ×2 (08:47→10:02)
--- NOTE | 2023-01-04 09:21 | ED ---
Nausea/Vomiting/Diarrhea HPI - General Chief complaint: Recheck/Abnormal Lab/Rx Stated complaint: nausea, bodyaches Time Seen by Provider: 01/04/23 08:39 Source: patient, RN notes reviewed Mode of arrival: ambulatory Limitations: no limitations - History of Present Illness Initial comments: This is a 27-year-old male who presents to the emergency department for nausea, vomiting, and diarrhea. States that this started approximately 3 days ago and he is unable to keep anything down. States that he did have an alcoholic beverage 3 days ago, and wonders if that may have caused the vomiting. He was admitted in October for severe hypokalemia secondary to the same symptoms, and he is worried about this happening again. He feels like his joints are starting to lock up on him. When he was admitted for hypokalemia in October, the patient was sent in with altered mental status and was subsequently found unresponsive in his apartment. This was not the case this time. Denies any chest pain or shortness of breath. Denies any fevers, chills, sore throat, cough, dyspnea, chest pain, palpitations, abdominal pain, back pain, or headaches. MD complaint: nausea, vomiting, diarrhea Onset/Timin -: days(s) Associated Abdominal Pain: No - Related Data Home Medications Medication Instructions Recorded Confirmed Omeprazole [PriLOSEC] 20 mg PO HS 01/04/23 01/04/23 Allergies Allergy/AdvReac Type Severity Reaction Status Date / Time No Known Allergies Allergy Verified 01/04/23 10:23 Review of Systems ROS Statement: Those systems with pertinent positive or pertinent negative responses have been documented in the HPI. ROS Other: All systems not noted in ROS Statement are negative. Past Medical History Past Medical History: GI Bleed Additional Past Medical History / Comment(s): pericarditis History of Any Multi-Drug Resistant Organisms: None Reported Past Surgical History: No Surgical Hx Reported Past Psychological History: No Psychological Hx Reported Smoking Status: Never smoker Past Alcohol Use History: None Reported Past Drug Use History: Marijuana General Exam Limitations: no limitations General appearance: alert, in no apparent distress Head exam: Present: atraumatic, normocephalic, normal inspection Respiratory exam: Present: normal lung sounds bilaterally. Absent: respiratory distress, wheezes, rales, rhonchi, stridor Cardiovascular Exam: Present: regular rate, normal rhythm, normal heart sounds. Absent: systolic murmur, diastolic murmur, rubs, gallop, clicks Neurological exam: Present: alert, oriented X3, CN II-XII intact Psychiatric exam: Present: normal affect, normal mood Skin exam: Present: warm, dry, intact, normal color. Absent: rash Course Vital Signs 01/04/23 01/04/23 01/04/23 08:35 11:00 12:00 Temperature 98.1 F Pulse Rate 131 H 87 84 Respiratory 18 16 17 Rate Blood Pressure 132/81 120/74 143/76 O2 Sat by Pulse 98 98 98 Oximetry 01/04/23 14:00 Temperature 97.9 F Pulse Rate Respiratory Rate Blood Pressure O2 Sat by Pulse Oximetry Medical Decision Making - Medical Decision Making This is a 27-year-old male who presents to the emergency department for nausea, vomiting, and diarrhea. Was pt. sent in by a medical professional or institution? @ -No Did you speak to anyone other than the patient for history? @ -No Did you review nursing and triage notes? @ -Yes, and I agree, it is accurate with regards to the patient's symptoms. Were old charts reviewed? @ -Yes, admission records from 10/15/22-10/25/22. Differential Diagnosis? @ -Differential Nausea and Vomiting: Gastroenteritis, cholecystitis, appendicitis, pancreatitis, migraine, benign positional vertigo, food borne illness, pyelonephritis, irritable bowel syndrome, influenza, Covid, GERD, incarcerated hernia, intestinal obstruction, this is not meant to be an all-inclusive list. EKG interpreted by me (3pts min.)? @ -Sinus tachycardia with short TX interval and occasional PVCs. Peaked T waves. Ventricular rate 131 bpm, TX interval 118 ms, QRS duration 90 ms, QTC 411 ms. What testing was considered but not performed? (CT, X-rays, U/S, labs)? Why? @ -None What meds were considered but not given? Why? @ -None Did you discuss the management of the patient with other professionals? @ -No Did you reconcile home meds? @ -No Was smoking cessation discussed for >3mins.? @ -No Was critical care preformed (if so, how long)? @ -Yes, >31 minutes. Were there social determinants of health that impacted care today? How? (Homelessness, low income, unemployed, alcoholism, drug addiction, bonilla sportation, low edu. Level, literacy, decrease access to med. care, long term, rehab)? @ -No Was there de-escalation of care discussed even if they declined? (Discuss DNR or withdrawal of care, Hospice)? @ -No What co-morbidities impacted this encounter? (DM, HTN, Smoking, COPD, CAD, Cancer, CVA, Hep., AIDS, mental health diagnosis, sleep apnea, morbid obesity)? @ -None Was patient admitted / discharged? @ -Admitted. Lab work obtained revealing severe dehydration with a sodium of 127, chloride of 69, lactic acid of 7.7, and hemoglobin of 19.6. He was given a liter bolus of IV fluids and started on maintenance IV fluids at 130 mL an hour. 40 mEq of k-dur administered for hypokalemia. The patient did have discoloration to areas of his skin, particularly his abdomen, as well as polyuria and polydipsia, which is the reason for ordering an acetone and cortisol level to evaluate for any signs of an undiagnosed type I diabetes with DKA or [place]'s disease. Acetone negative. Cortisol pending at the time of admission. The vomiting may have been due to the patient's note of recent alcohol consumption or related to his marijuana use causing cannabinoid hype remesis syndrome. Patient admitted to medicine for further management. Undiagnosed new problem with uncertain prognosis? @ -None Drug Therapy requiring intensive monitoring for toxicity (Heparin, Nitro, Insulin, Cardizem)? @ -None Were any procedures done? @ -None Diagnosis/symptom? @ -Hyponatremia, hypokalemia, dehydration Acute, or Chronic, or Acute on Chronic? @ -Acute Uncomplicated (without systemic symptoms) or Complicated (systemic symptoms)? @ -Complicated Side effects of treatment? @ -None Exacerbation, Progression, or Severe Exacerbation] @ -Not applicable Poses a threat to life or bodily function? @ -Yes This case was discussed in detail with the attending ED physician, Dr. Sky. Presentation, findings, and treatment plan discussed in detail as well. - Lab Data Result diagrams: 01/04/23 12:17 01/04/23 12:17 Lab Results 01/04/23 01/04/23 01/04/23 Range/Units 09:04 09:04 09:49 WBC 16.4 H (3.8-10.6) k/uL RBC 5.99 H (4.30-5.90) m/uL Hgb 19.6 H* (13.0-17.5) gm/dL Hct 53.4 H (39.0-53.0) % MCV 89.2 (80.0-100.0) fL MCH 32.6 (25.0-35.0) pg MCHC 36.6 (31.0-37.0) g/dL RDW 11.9 (11.5-15.5) % Plt Count 451 H (150-450) k/uL MPV 7.4 Neutrophils % 80 % Lymphocytes % 9 % Monocytes % 9 % Eosinophils % 0 % Basophils % 0 % Neutrophils # 13.2 H (1.3-7.7) k/uL Lymphocytes # 1.4 (1.0-4.8) k/uL Monocytes # 1.5 H (0-1.0) k/uL Eosinophils # 0.1 (0-0.7) k/uL Basophils # 0.1 (0-0.2) k/uL Manual Slide Review Performed Hyperchromasia Slight Sodium 127 L (137-145) mmol/L Potassium 3.0 L (3.5-5.1) mmol/L Chloride 69 L* (98-107) mmol/L Carbon Dioxide 35 H (22-30) mmol/L Anion Gap 23 mmol/L BUN 29 H (9-20) mg/dL Creatinine 1.37 H (0.66-1.25) mg/dL Est GFR (CKD-EPI)AfAm 80 (>60 ml/min/1.73 sqM) Est GFR (CKD-EPI)NonAf 69 (>60 ml/min/1.73 sqM) Glucose 162 H (74-99) mg/dL Plasma Lactic Acid Marshall 7.7 H* (0.7-2.0) mmol/L Calcium 10.6 H (8.4-10.2) mg/dL Phosphorus 2.4 L (2.5-4.5) mg/dL Magnesium 1.8 (1.6-2.3) mg/dL Total Bilirubin 1.9 H (0.2-1.3) mg/dL AST 54 (17-59) U/L ALT 57 H (4-49) U/L Alkaline Phosphatase 147 H (38-126) U/L Total Protein 8.9 H (6.3-8.2) g/dL Albumin 5.5 H (3.5-5.0) g/dL Cortisol 86 ug/dL Acetone, Qual Negative (Negative) Disposition Clinical Impression: Hypokalemia, Hyponatremia Disposition: ADMITTED IP TO THIS HOSP
[2023-01-04 09:27] LABS: Basophils # (A) 0.1 k/uL (0-0.2); Basophils % (A) 0 %; Eosinophils # (A) 0.1 k/uL (0-0.7); Eosinophils % (A) 0 %; HCT 53.4 % (39.0-53.0); Hyperchromasia Slight; Lymphocytes # (A) 1.4 k/uL (1.0-4.8); Lymphocytes % (A) 9 %; MCH 32.6 pg (25.0-35.0); MCHC 36.6 g/dL (31.0-37.0); MCV 89.2 fL (80.0-100.0); Mean Platelet Volume 7.4; Monocytes # (A) 1.5 k/uL (0-1.0); Monocytes % (A) 9 %; Neutrophils # (A) 13.2 k/uL (1.3-7.7); Neutrophils % (A) 80 %; Platelet Count 451 k/uL (150-450); RBC 5.99 m/uL (4.30-5.90); RDW 11.9 % (11.5-15.5); WBC 16.4 k/uL (3.8-10.6)
[2023-01-04 09:41] LABS: African American GFR (CKD) 80 (>60 ml/min/1.73 sqM); Albumin 5.5 g/dL (3.5-5.0); Alkaline Phosphatase 147 U/L (38-126); Anion Gap 23 mmol/L; Blood Urea Nitrogen 29 mg/dL (9-20); Calcium 10.6 mg/dL (8.4-10.2); Carbon Dioxide 35 mmol/L (22-30); Glucose 162 mg/dL (74-99); Magnesium 1.8 mg/dL (1.6-2.3); Non-African American GFR(CKD) 69 (>60 ml/min/1.73 sqM); Phosphorus 2.4 mg/dL (2.5-4.5); Sodium 127 mmol/L (137-145); Total Bilirubin 1.9 mg/dL (0.2-1.3); Total Protein 8.9 g/dL (6.3-8.2)
[2023-01-04 09:52] LABS: Chloride 69 mmol/L (98-107)
[2023-01-04 10:00] LABS: HGB 19.6 gm/dL (13.0-17.5)
[2023-01-04 10:06] LABS: ALT 57 U/L (4-49); AST 54 U/L (17-59)
[2023-01-04] MEDS ORDERED: POTASSIUM CHLORIDE ER 20 MEQ TAB.ER PO STA (10:07)
[2023-01-04] MEDS ORDERED: NALOXONE 0.4 MG/ML 1 ML VIAL IV PRN (10:12)
[2023-01-04 11:23] LABS: Appearance,Urine Clear (Clear); Bilirubin,Urine Negative (Negative); Blood,Urine Negative (Negative); Color,Urine Light Yellow; Glucose,Urine (UA) Negative (Negative); Ketones,Urine 1+ (Negative); Leukocyte Esterase,Urine Negative (Negative); Nitrite,Urine Negative (Negative); Protein,Urine 1+ (Negative); RBC,Urine <1 /hpf (0-5); Specific Gravity,Urine 1.007 (1.001-1.035); Urobilinogen,Urine <2.0 mg/dL (<2.0); WBC,Urine 2 /hpf (0-5)
[2023-01-04 11:38] LABS: Amphetamine Screen,Urine Not Detected (NotDetected); Barbiturate Screen,Urine Not Detected (NotDetected); Benzodiazepines Screen,Urine Not Detected (NotDetected); Cocaine Screen,Urine Not Detected (NotDetected); Methadone Screen, Urine Not Detected (NotDetected); Opiate Screen,Urine Not Detected (NotDetected); Oxycodone Screen, Urine Not Detected (NotDetected); Phencyclidine Screen,Urine Not Detected (NotDetected); Tricyclic Antidepressant,Urine Not Detected (NotDetected); Urn Cannabinoid Scrn Detected (NotDetected)
[2023-01-04] MEDS ORDERED: SODIUM CHLORIDE 0.9% 1,000 ML IV SCH (12:00)
--- NOTE | 2023-01-04 12:31 | CT ---
EXAMINATION TYPE: CT abdomen pelvis wo con CT DLP: 285.5 mGycm, Automated exposure control for dose reduction was used. DATE OF EXAM: 01/04/2023 12:20 PM COMPARISON: CT abdomen pelvis most recent from 10/24/2022. CLINICAL INDICATION:Male, 27 years old with history of N/V and diarrhea; Nausea, vomiting, and diarrh ea TECHNIQUE: Axial CT of the abdomen and pelvis. Sagittal and coronal reformats were created on a [employer] workstation. Contrast used: None Oral contrast used: without Oral Contrast FINDINGS: LOWER CHEST: Resolution of prior pleural effusions. Lung parenchymal densities have also resolved. ABDOMEN LIVER: Unremarkable GALLBLADDER AND BILE DUCTS: Unremarkable. PANCREAS: Unremarkable. SPLEEN: Unremarkable. ADRENAL GLANDS: Unremarkable. KIDNEYS AND URETERS: No evidence of hydronephrosis or renal calculus. The ureters are unremarkable. PELVIS BLADDER: Unremarkable REPRODUCTIVE: Unremarkable. ABDOMEN & PELVIS STOMACH AND BOWEL: No evidence of bowel obstruction. PERITONEUM/RETROPERITONEUM: No evidence of pneumoperitoneum or free fluid. VASCULATURE: No evidence of aortic aneurysm. MUSCULOSKELETAL: No acute osseous abnormalities, transitional vertebrae of the L5 vertebra. LYMPH NODES: No gross evidence for lymphadenopathy. SOFT TISSUE/ABDOMINAL WALL: Unremarkable IMPRESSION: 1. No evidence for acute abdominal process. No evidence for obstructive uropathy. No evidence for bow el obstruction. 2. Resolution of bilateral pleural effusions and lung parenchymal densities.
[2023-01-04 12:40] LABS: VBG PH 7.69 (7.31-7.41)
[2023-01-04 12:52] LABS: Basophils # (A) 0.1 k/uL (0-0.2); Basophils % (A) 0 %; Eosinophils % (A) 0 %; HCT 48.5 % (39.0-53.0); HGB 17.4 gm/dL (13.0-17.5); Hyperchromasia Slight; Lymphocytes # (A) 0.9 k/uL (1.0-4.8); Lymphocytes % (A) 4 %; MCHC 35.9 g/dL (31.0-37.0); MCV 89.3 fL (80.0-100.0); Mean Platelet Volume 7.8; Monocytes # (A) 1.7 k/uL (0-1.0); Monocytes % (A) 8 %; Neutrophils # (A) 17.2 k/uL (1.3-7.7); Neutrophils % (A) 86 %; Platelet Count 299 k/uL (150-450); RBC 5.43 m/uL (4.30-5.90); RDW 12.4 % (11.5-15.5); WBC 20.1 k/uL (3.8-10.6)
[2023-01-04 13:31] LABS: ALT 32 U/L (4-49); AST 49 U/L (17-59); African American GFR (CKD) >90 (>60 ml/min/1.73 sqM); Albumin 4.4 g/dL (3.5-5.0); Alkaline Phosphatase 106 U/L (38-126); Blood Urea Nitrogen 30 mg/dL (9-20); Calcium 9.4 mg/dL (8.4-10.2); Chloride 75 mmol/L (98-107); Glucose 116 mg/dL (74-99); Non-African American GFR(CKD) 87 (>60 ml/min/1.73 sqM); Sodium 126 mmol/L (137-145); Total Bilirubin 1.9 mg/dL (0.2-1.3); Total Protein 7.1 g/dL (6.3-8.2)
[2023-01-04 13:38] LABS: Anion Gap 12 mmol/L
[2023-01-04 13:45] LABS: Carbon Dioxide 39 mmol/L (22-30); Potassium 2.5 mmol/L (3.5-5.1)
[2023-01-04] MEDS ORDERED: POTASSIUM CHLORIDE 40 MEQ in WATER FOR INJECTION 1 100ML.BAG IVPB STA (14:22)
[2023-01-04 14:33] LABS: ABG Oxygen Saturation 98.5 % (94-97); ABG PCO2 23 mmHg (35-45); ABG PO2 111 mmHg (83-108); Allen Test Performed? Yes
[2023-01-04 14:44] LABS: ABG PH >7.70 (7.35-7.45)
[2023-01-04] MEDS: POTASSIUM CHLORIDE ER 20 MEQ TAB.ER PO STA ×2 (14:49→15:11)
[2023-01-04] MEDS: POTASSIUM CHLORIDE 20 MEQ in WATER FOR INJECTION 1 100ML.BAG IVPB SCH ×2 (14:53→17:02)
[2023-01-04 14:59] LABS: T4, Free (Free Thyroxine) 2.28 ng/dL (0.78-2.19)
[2023-01-04] MEDS: MAGNESIUM SULFATE-D5W PMX 1 GM in DEXTROSE/WATER 1 100ML.BAG IVPB SCH ×2 (15:04→16:03)
[2023-01-04] MEDS ORDERED: PROCHLORPERAZINE INJ 10 MG/2 ML VIAL IVP PRN (15:57)
[2023-01-04] MEDS: ONDANSETRON 4 MG/2 ML VIAL IVP PRN (16:09)
--- NOTE | 2023-01-04 16:28 | P.HPIM ---
History of Present Illness H&P Date: 01/04/23 This is a 27-year-old male who presents to [facility] with nausea, and vomiting. Patient states ever since since he quit drinking alcohol about 4 months ago and then he drank a beer on Monday he developed increased nausea and vomiting. Patient also admits to marijuana use. Patient has not been able to keep anything down for the past 3 days. Patient was hospitalized this past October when he was found unresponsive. At that time, he was treated for toxic metabolic encephalopathy, severe hypokalemia, YENI, and severe dehydration. During his October 2022 hospital stay patient was intubated due to acute hypoxic respiratory failure secondary to multifocal pneumonia. Patient currently denies nausea, vomiting, diarrhea, fevers or chills. Patient states since being treated in the ER symptoms have resolved. His medical history includes GERD and marijuana use. I ordered a TSH and free T4. This revealed hyperthyroidism. I asked the patient if he was ever diagnosed with any thyroid issues in the past. Patient states that he has no history of thyroid issues. Family members were in the room at the time of discussion. Patient's mother stated that she was in the medical field but did not state exactly what she did. Patient's mother was frustrated that this was not diagnosed before since he had prior hospital visits for the same issue. On prior admissions patient was told that his nausea and vomiting was likely due to marijuana. Patient's mother was upset that this was not diagnosed at that time. I informed the patient and his mother that nausea and vomiting can cause nausea and vomiting. As for the hyperthyroidism, this is a separate issue that can also cause nausea and vomiting. I do not have any prior test results to verify if this is old or new. Since he has not been following a primary care physician as an outpatient until recently, this is likely a new diagnosis. Review of Systems A 14 point review systems was assessed patient was only positive for those discussed in HPI Past Medical History Past Medical History: GI Bleed Additional Past Medical History / Comment(s): pericarditis History of Any Multi-Drug Resistant Organisms: None Reported Past Surgical History: No Surgical Hx Reported Past Psychological History: No Psychological Hx Reported Smoking Status: Never smoker Past Alcohol Use History: None Reported Past Drug Use History: Marijuana Medications and Allergies Home Medications Medication Instructions Recorded Confirmed Type Omeprazole [PriLOSEC] 20 mg PO HS 01/04/23 01/04/23 History Allergies Allergy/AdvReac Type Severity Reaction Status Date / Time No Known Allergies Allergy Verified 01/04/23 10:23 Physical Exam Osteopathic Statement: *. No significant issues noted on an osteopathic structural exam other than those noted in the History and Physical/Consult. Vitals: Vital Signs Temp Pulse Resp BP Pulse Ox 01/04/23 14:00 97.9 F 01/04/23 12:00 84 17 143/76 98 01/04/23 11:00 87 16 120/74 98 01/04/23 08:35 98.1 F 131 H 18 132/81 98 Intake and Output 01/04/23 01/04/23 01/04/23 06:59 14:59 22:59 Other: Weight 58.967 kg General: [non toxic], [no distress], [appears at stated age] Derm: [warm], [dry] patient's skin was orange tinted per patient this is due the mineral water he showers with all time Head: [atraumatic], [normocephalic], [symmetric] Eyes: [EOMI], [no lid lag], [anicteric sclera] Mouth: [no lip lesion], [mucus membranes moist] Cardiovascular: [S1S2 reg], [no murmur], [positive posterior tibial pulse bilateral], Lungs: [CTA bilateral], [no rhonchi, no rales] , [no accessory muscle use] Abdominal: [soft], [ nontender to palpation], [no guarding], [no appreciable organomegaly] Ext: [no gross muscle atrophy], [no edema], [no contractures] Neuro: [ CN II-XI grossly intact], [no focal neuro deficits] Psych: [Alert], [oriented], [appropriate affect] Results CBC & Chem 7: 01/04/23 12:17 01/04/23 12:17 Labs: Abnormal Lab Results - Last 24 Hours (Table) 01/04/23 01/04/23 01/04/23 Range/Units 09:04 09:04 09:49 WBC 16.4 H (3.8-10.6) k/uL RBC 5.99 H (4.30-5.90) m/uL Hgb 19.6 H* (13.0-17.5) gm/dL Hct 53.4 H (39.0-53.0) % Plt Count 451 H (150-450) k/uL Neutrophils # 13.2 H (1.3-7.7) k/uL Lymphocytes # (1.0-4.8) k/uL Monocytes # 1.5 H (0-1.0) k/uL ABG pH (7.35-7.45) ABG pCO2 (35-45) mmHg ABG pO2 (83-108) mmHg ABG O2 Saturation (94-97) % VBG pH (7.31-7.41) VBG pCO2 (37-51) mmHg VBG HCO3 (24-28) mmol/L Sodium 127 L (137-145) mmol/L Potassium 3.0 L (3.5-5.1) mmol/L Chloride 69 L* (98-107) mmol/L Carbon Dioxide 35 H (22-30) mmol/L BUN 29 H (9-20) mg/dL Creatinine 1.37 H (0.66-1.25) mg/dL Glucose 162 H (74-99) mg/dL Plasma Lactic Acid Marshall 7.7 H* (0.7-2.0) mmol/L Calcium 10.6 H (8.4-10.2) mg/dL Ionized Calcium Kayla (4.5-5.3) mg/dL Phosphorus 2.4 L (2.5-4.5) mg/dL Total Bilirubin 1.9 H (0.2-1.3) mg/dL ALT 57 H (4-49) U/L Alkaline Phosphatase 147 H (38-126) U/L Total Protein 8.9 H (6.3-8.2) g/dL Albumin 5.5 H (3.5-5.0) g/dL TSH (0.465-4.680) mIU/L Free T4 (0.78-2.19) ng/dL Urine Protein (Negative) Urine Ketones (Negative) U Marijuana (THC) Screen (NotDetected) 01/04/23 01/04/23 01/04/23 Range/Units 10:54 12:17 12:17 WBC 20.1 H (3.8-10.6) k/uL RBC (4.30-5.90) m/uL Hgb (13.0-17.5) gm/dL Hct (39.0-53.0) % Plt Count (150-450) k/uL Neutrophils # 17.2 H (1.3-7.7) k/uL Lymphocytes # 0.9 L (1.0-4.8) k/uL Monocytes # 1.7 H (0-1.0) k/uL ABG pH (7.35-7.45) ABG pCO2 (35-45) mmHg ABG pO2 (83-108) mmHg ABG O2 Saturation (94-97) % VBG pH 7.69 H* (7.31-7.41) VBG pCO2 31 L (37-51) mmHg VBG HCO3 38 H (24-28) mmol/L Sodium (137-145) mmol/L Potassium (3.5-5.1) mmol/L Chloride (98-107) mmol/L Carbon Dioxide (22-30) mmol/L BUN (9-20) mg/dL Creatinine (0.66-1.25) mg/dL Glucose (74-99) mg/dL Plasma Lactic Acid Marshall (0.7-2.0) mmol/L Calcium (8.4-10.2) mg/dL Ionized Calcium Kayla (4.5-5.3) mg/dL Phosphorus (2.5-4.5) mg/dL Total Bilirubin (0.2-1.3) mg/dL ALT (4-49) U/L Alkaline Phosphatase (38-126) U/L Total Protein (6.3-8.2) g/dL Albumin (3.5-5.0) g/dL TSH (0.465-4.680) mIU/L Free T4 (0.78-2.19) ng/dL Urine Protein 1+ H (Negative) Urine Ketones 1+ H (Negative) U Marijuana (THC) Screen Detected H (NotDetected) 01/04/23 01/04/23 Range/Units 12:17 14:30 WBC (3.8-10.6) k/uL RBC (4.30-5.90) m/uL Hgb (13.0-17.5) gm/dL Hct (39.0-53.0) % Plt Count (150-450) k/uL Neutrophils # (1.3-7.7) k/uL Lymphocytes # (1.0-4.8) k/uL Monocytes # (0-1.0) k/uL ABG pH >7.70 H* (7.35-7.45) ABG pCO2 23 L (35-45) mmHg ABG pO2 111 H (83-108) mmHg ABG O2 Saturation 98.5 H (94-97) % VBG pH (7.31-7.41) VBG pCO2 (37-51) mmHg VBG HCO3 (24-28) mmol/L Sodium 126 L (137-145) mmol/L Potassium 2.5 L* (3.5-5.1) mmol/L Chloride 75 L (98-107) mmol/L Carbon Dioxide 39 H (22-30) mmol/L BUN 30 H (9-20) mg/dL Creatinine (0.66-1.25) mg/dL Glucose 116 H (74-99) mg/dL Plasma Lactic Acid Marshall (0.7-2.0) mmol/L Calcium (8.4-10.2) mg/dL Ionized Calcium Kayla 4.0 L (4.5-5.3) mg/dL Phosphorus (2.5-4.5) mg/dL Total Bilirubin 1.9 H (0.2-1.3) mg/dL ALT (4-49) U/L Alkaline Phosphatase (38-126) U/L Total Protein (6.3-8.2) g/dL Albumin (3.5-5.0) g/dL TSH 0.364 L (0.465-4.680) mIU/L Free T4 2.28 H (0.78-2.19) ng/dL Urine Protein (Negative) Urine Ketones (Negative) U Marijuana (THC) Screen (NotDetected) Assessment and Plan Assessment: 1. Intractable nausea and vomiting likely secondary to new onset HYPERthyroid ism and chronic marijuana use Check anti TPO and thyroglobulin antibodies to r/o abdias thyroiditis Patient will require endocrinology follow-up upon discharge Zofran prn nausea and vomiting Compazine prn if zofran is not helping recommend starting Methimazole 5mg po q day when all electrolyte abnormalities are corrected and patient received proper hydration consult for GI placed to r/o gastrointestinal etiology with elevated bilirubin 2. Metabolic alkalosis secondary to #1 IV hydration correct electrolyte abnormalities 3. hyponatremia secondary to #1 slow IV hydration check urine sodium, serum osmol and urine osmol nephrology consulted 4. hypokalemia secondary to #1 trend BMP potassium replacement protocol in place 5. Leukocytosis likely reactive r/o infectious etiology vitals are nomal. Patient is afebrile CT ABD/pelvis unremarkable procalcitonin level pending culture blood x 2 pending UA negative for evidence of UTI 6. lactic acidosis resolved 7. GERD restart omeprazole 20mg po day 8. GI/DVT prophylaxis 9. AM labs Patient is a Full code Disposition: Home pending clinical course Greater than 45 minutes spent coordinating care, counselling, and documenting.
[2023-01-04] MEDS: SODIUM CHLORIDE 0.9% 1,000 ML IV SCH (16:33)
[2023-01-04 16:59] LABS: African American GFR (CKD) >90 (>60 ml/min/1.73 sqM); Anion Gap 13 mmol/L; Blood Urea Nitrogen 27 mg/dL (9-20); Calcium 9.6 mg/dL (8.4-10.2); Carbon Dioxide 37 mmol/L (22-30); Chloride 75 mmol/L (98-107); Glucose 112 mg/dL (74-99); Non-African American GFR(CKD) 86 (>60 ml/min/1.73 sqM); Sodium 125 mmol/L (137-145)
[2023-01-04 17:09] LABS: Potassium 2.5 mmol/L (3.5-5.1)
[2023-01-04 19:36] LABS: Magnesium 2.3 mg/dL (1.6-2.3)
[2023-01-04] MEDS: LORazepam 2 MG/ML INJ IV PRN (22:46)
[2023-01-04 23:11] LABS: African American GFR (CKD) >90 (>60 ml/min/1.73 sqM); Anion Gap 13 mmol/L; Blood Urea Nitrogen 25 mg/dL (9-20); Calcium 9.5 mg/dL (8.4-10.2); Carbon Dioxide 36 mmol/L (22-30); Chloride 78 mmol/L (98-107); Glucose 112 mg/dL (74-99); Non-African American GFR(CKD) 79 (>60 ml/min/1.73 sqM); Sodium 127 mmol/L (137-145)
[2023-01-04 23:49] LABS: Potassium 2.5 mmol/L (3.5-5.1)
[2023-01-05] MEDS: POTASSIUM CHLORIDE 10 MEQ in WATER FOR INJECTION 1 100ML.BAG IVPB SCH ×6 (00:14→22:48)
[2023-01-05] MEDS: ONDANSETRON 4 MG/2 ML VIAL IVP PRN ×3 (00:14→22:48)
[2023-01-05 02:41] LABS: Thyroid Peroxidase Antibodies 9.3 U/mL (0.0-33.0)
[2023-01-05] MEDS: POTASSIUM CHLORIDE ER 20 MEQ TAB.ER PO SCH ×2 (03:15→04:24)
[2023-01-05 03:31] LABS: % Iron Saturation 60.06 (15.00-50.00); Iron 185 ug/dL (65-175); Total Iron Binding Capacity 308 ug/dL (228-460)
[2023-01-05] MEDS: SODIUM CHLORIDE 0.9% 1,000 ML IV SCH ×2 (06:51→17:26)
[2023-01-05 08:52] LABS: Basophils % (A) 0 %; Eosinophils % (A) 0 %; HCT 47.7 % (39.0-53.0); HGB 16.9 gm/dL (13.0-17.5); Lymphocytes # (A) 1.7 k/uL (1.0-4.8); Lymphocytes % (A) 11 %; MCH 31.8 pg (25.0-35.0); MCHC 35.5 g/dL (31.0-37.0); MCV 89.8 fL (80.0-100.0); Mean Platelet Volume 7.8; Monocytes # (A) 1.3 k/uL (0-1.0); Monocytes % (A) 8 %; Neutrophils # (A) 12.3 k/uL (1.3-7.7); Neutrophils % (A) 79 %; Platelet Count 310 k/uL (150-450); RBC 5.32 m/uL (4.30-5.90); RDW 11.9 % (11.5-15.5); WBC 15.4 k/uL (3.8-10.6)
[2023-01-05] MEDS ORDERED: PANTOPRAZOLE 40 MG/10 ML VIAL IVP SCH (09:00)
[2023-01-05 09:10] LABS: ALT 36 U/L (4-49); AST 77 U/L (17-59); African American GFR (CKD) >90 (>60 ml/min/1.73 sqM); Albumin 4.5 g/dL (3.5-5.0); Alkaline Phosphatase 97 U/L (38-126); Anion Gap 13 mmol/L; Blood Urea Nitrogen 21 mg/dL (9-20); Calcium 9.3 mg/dL (8.4-10.2); Carbon Dioxide 36 mmol/L (22-30); Chloride 81 mmol/L (98-107); Glucose 88 mg/dL (74-99); Magnesium 2.3 mg/dL (1.6-2.3); Non-African American GFR(CKD) >90 (>60 ml/min/1.73 sqM); Sodium 130 mmol/L (137-145); Total Bilirubin 1.7 mg/dL (0.2-1.3); Total Protein 7.1 g/dL (6.3-8.2)
[2023-01-05 09:23] LABS: Potassium 2.6 mmol/L (3.5-5.1)
[2023-01-05] MEDS ORDERED: POTASSIUM CHLORIDE ER 20 MEQ TAB.ER PO STA ×2 (10:33→21:38)
--- NOTE | 2023-01-05 10:39 | P.NPCON ---
History of Present Illness - Reason for Consult hyponatremia, hypokalemia - History of Present Illness Reason for consultation: Hyponatremia and hypokalemia History of present illness: Patient is a 27-year-old male seen in consultation for hyponatremia and hypokalemia. Patient's sodium level was 125 and potassium level was 2.5. He was noted to be alkalotic with a bicarbonate level of 37. Creatinine was 1.15. Patient states he has history of hypokalemia in the past and is usually triggered by alcohol. Patient states he did not drink alcohol for 4 months but 2 days ago he had 2 drinks. He had a shot of whiskey and also beer. Subsequently he developed severe nausea and vomiting and was not able to keep anything down. He denies gross hematuria or dysuria. Denies strenuous exercise. Denies muscle weakness after meals. No diarrhea. No chest pain or shortness of breath. No history of hypertension. No vomiting today. Denies family history of kidney disease or electrolyte imbalance. Patient's TSH was noted to be low and free T4 was elevated concerning for hyperthyroidism. Workup is in progress. He denies any prior history of thyroid related disease. Magnesium was noted to be normal. Patient had developed acute kidney injury in October 2022 due to pneumonia.at that time creatinine was 3.13 on admission and subsequently improved to near 1. Vital signs are stable. General: No acute distress. HEENT: Head exam is unremarkable. LUNGS: No audible rhonchi or wheezes. HEART: Rate and Rhythm are regular. ABDOMEN: No distention. EXTREMITITES: No edema. Past Medical History Past Medical History: GI Bleed Additional Past Medical History / Comment(s): pericarditis History of Any Multi-Drug Resistant Organisms: None Reported Past Surgical History: No Surgical Hx Reported Additional Past Surgical History / Comment(s): EGD , [place] teeth pulled Past Anesthesia/Blood Transfusion Reactions: No Reported Reaction Past Psychological History: No Psychological Hx Reported Smoking Status: Never smoker Past Alcohol Use History: None Reported Past Drug Use History: Marijuana - Past Family History Father Family Medical History: Liver Disease Additional Family Medical History / Comment(s): of liver cirrohis Mother Family Medical History: Cancer Additional Family Medical History / Comment(s): breast cancer Medications and Allergies Home Medications Medication Instructions Recorded Confirmed Type Omeprazole [PriLOSEC] 20 mg PO HS 01/04/23 01/04/23 History Allergies Allergy/AdvReac Type Severity Reaction Status Date / Time No Known Allergies Allergy Verified 01/04/23 10:23 Physical Exam Vitals: Vital Signs Temp Pulse Pulse Resp BP BP Pulse Ox 01/05/23 04:00 98.5 F 84 18 133/82 98 01/05/23 02:00 76 16 01/05/23 00:00 98.0 F 76 16 146/79 99 01/04/23 20:10 98.4 F 99 20 153/94 100 01/04/23 19:43 90 18 100 01/04/23 19:18 93 16 119/87 95 01/04/23 16:16 97.9 F 102 H 16 111/62 100 01/04/23 14:00 97.9 F 01/04/23 12:00 84 17 143/76 98 01/04/23 11:00 87 16 120/74 98 Intake and Output 01/04/23 01/05/23 01/05/23 22:59 06:59 14:59 Intake Total 10 Balance 10 Intake: IV 10 Invasive Line 2 10 Other: Voiding Method Toilet # Voids 1 1 Weight 58.967 kg Results - Lab Results Most recent lab results ABG pH >7.70 (7.35-7.45) H* 01/04/23 14:30 ABG pCO2 23 mmHg (35-45) L 01/04/23 14:30 ABG pO2 111 mmHg (83-108) H 01/04/23 14:30 ABG O2 Saturation 98.5 % (94-97) H 01/04/23 14:30 Calcium 9.3 mg/dL (8.4-10.2) 01/05/23 07:27 Phosphorus 2.4 mg/dL (2.5-4.5) L 01/04/23 09:04 Magnesium 2.3 mg/dL (1.6-2.3) 01/05/23 07:27 01/05/23 07:27 01/05/23 07:27 Assessment and Plan Plan: Assessment: 1. Hypovolemic hyponatremia improving with IV hydration. 2. Hypokalemia secondary to vomiting causing aldosterone mediated renal losses. TSH low, FT4 high, thyroid peroxidase ab negative. Possible triggers include alcohol and marijuana use. ?Cyclic vomiting vs thyrotoxic PP. Also concern for hypokalemic periodic paralysis although patient denies muscle weakness after meals. Patient was seen outpatient and was offered genetic testing but was concerned regarding the cost of testing. QT not prolonged. 3. Metabolic alkalosis secondary to vomiting as well as hypochloremia which will impair bicarb secretion. 4. Mild acute kidney injury mostly prerenal improved with IV hydration. Creatinine 1.03 today. Plan: Maintain IV fluids. Continue with aggressive potassium replacement. Repeat potassium level this afternoon. Follow-up urine potassium level. Thank you for the consultation. I will continue to follow the patient with you during his hospital stay.
[2023-01-05] MEDS ORDERED: POTASSIUM CHLORIDE ER 20 MEQ TAB.ER PO ONE (12:00)
--- NOTE | 2023-01-05 14:59 | P.CONS ---
History of Present Illness - Reason for Consult Consult date: 01/05/23 Nausea and vomiting Requesting physician: Moraima Hidalgo - Chief Complaint Nausea and vomiting - History of Present Illness This is a 27-year-old male who presented to the emergency department yesterday with complaints of nausea vomiting and diarrhea. He states he's had nausea vomiting and diarrhea since Monday. He states that he was vomiting about every 20 minutes he had diarrhea 1-2 times day nonbloody. Patient apparently was recently hospitalized 1-2 months ago with similar symptoms, he was admitted to the ICU, he had pneumonia, and his mother is at the bedside who also states that he has had these symptoms with nausea and vomiting for years intermittently. Patient states he's not had any vomiting today no further diarrhea. He has some mild nausea. Data computed tomography scan of the abdomen and pelvis with no evidence for acute abdominal process. With resolution of bilateral pleural pleural effusions and lung parenchymal densities. Patient was noted to be hypokalemic and hyponatremic on admission. Gastroenterology was consulted for nausea and vomiting. Potassium replacement has been ordered but patient was refusing throughout the night. Again today he states he has no abdominal pain, no vomiting does have some nausea. Denied any hematemesis. Does have a history of marijuana use for years, he states that since his last admission he was trying to cut back. He states that he had an EGD many years ago and had an esophageal ulcer. Nothing recently. No history of colonoscopy. He was on Prilosec, states that his PCP told him to wean off of it. Labs: WBC 15.4 hemoglobin 16.9 hematocrit 47 platelet count 310,000 sodium 1:30 potass ium 2.6 BUN 21 creatinine 1.0 glucose 88 total bilirubin 1.7 AST 77 ALT 36 alkaline phosphatase 97 Review of Systems REVIEW OF SYSTEMS: CARDIOPULMONARY: No chest pain or shortness of breath. Gastrointestinal: Intractable nausea and vomiting which has improved, patient r emains nauseated. No hematemesis, coffee-ground emesis. No rectal bleeding, or melena. GENITOURINARY: No dysuria or hematuria. MUSCULOSKELETAL: Reports normal range of motion. SKIN: No rashes. No jaundice. ENDOCRINE: No chills, fevers. No excessive weight gain or loss. No polydipsia or polyuria. PSYCHIATRIC: Unremarkable. NEUROLOGY: No change in mental status. Denies dizziness, headache. ENT: Vision unremarkable. CONSTITUTIONAL: No recent weight loss. No fever, chills, night sweats. Past Medical History Past Medical History: GI Bleed Additional Past Medical History / Comment(s): pericarditis History of Any Multi-Drug Resistant Organisms: None Reported Past Surgical History: No Surgical Hx Reported Additional Past Surgical History / Comment(s): EGD , Tasley teeth pulled Past Anesthesia/Blood Transfusion Reactions: No Reported Reaction Past Psychological History: No Psychological Hx Reported Smoking Status: Never smoker Past Alcohol Use History: None Reported Past Drug Use History: Marijuana - Past Family History Father Family Medical History: Liver Disease Additional Family Medical History / Comment(s): of liver cirrohis Mother Family Medical History: Cancer Additional Family Medical History / Comment(s): breast cancer Medications and Allergies Home Medications Medication Instructions Recorded Confirmed Type Omeprazole [PriLOSEC] 20 mg PO HS 01/04/23 01/04/23 History Allergies Allergy/AdvReac Type Severity Reaction Status Date / Time No Known Allergies Allergy Verified 01/04/23 10:23 Physical Exam Vitals: Vital Signs Temp Pulse Pulse Resp BP BP Pulse Ox 01/05/23 04:00 98.5 F 84 18 133/82 98 01/05/23 02:00 76 16 01/05/23 00:00 98.0 F 76 16 146/79 99 01/04/23 20:10 98.4 F 99 20 153/94 100 01/04/23 19:43 90 18 100 01/04/23 19:18 93 16 119/87 95 01/04/23 16:16 97.9 F 102 H 16 111/62 100 01/04/23 14:00 97.9 F 01/04/23 12:00 84 17 143/76 98 01/04/23 11:00 87 16 120/74 98 Intake and Output 01/04/23 01/05/23 01/05/23 22:59 06:59 14:59 Intake Total 10 Balance 10 Intake: IV 10 Invasive Line 2 10 Other: Voiding Method Toilet # Voids 1 1 Weight 58.967 kg General appearance: The patient is alert, oriented, appears in no acute distress. HET: Head is normocephalic and atraumatic. Conjunctiva pink. Sclera anicteric. Neck: Supple without lymphadenopathy. Trachea midline. Heart: S1 S2. Regular rate and rhythm. Lungs: Clear to auscultation. Abdomen: Soft, nontender, thin, nondistended with bowel sounds. No guarding or rigidity. Skin: No rashes. No jaundice. Extremities: Normal skin color and turgor. No pedal edema. Neurological: No focal deficits. Alert and oriented x3. Results CBC & Chem 7: 01/05/23 07:27 01/05/23 07:27 Labs: Abnormal Lab Results - Last 24 Hours (Table) 01/04/23 01/04/23 01/04/23 Range/Units 09:04 09:49 10:54 WBC (3.8-10.6) k/uL Neutrophils # 13.2 H (1.3-7.7) k/uL Lymphocytes # (1.0-4.8) k/uL Monocytes # 1.5 H (0-1.0) k/uL ABG pH (7.35-7.45) ABG pCO2 (35-45) mmHg ABG pO2 (83-108) mmHg ABG O2 Saturation (94-97) % VBG pH (7.31-7.41) VBG pCO2 (37-51) mmHg VBG HCO3 (24-28) mmol/L Sodium (137-145) mmol/L Potassium (3.5-5.1) mmol/L Chloride (98-107) mmol/L Carbon Dioxide (22-30) mmol/L BUN (9-20) mg/dL Glucose (74-99) mg/dL Osmolality (280-301) mosm/kg Plasma Lactic Acid Marshall 7.7 H* (0.7-2.0) mmol/L Ionized Calcium Kayla (4.5-5.3) mg/dL Magnesium (1.6-2.3) mg/dL Iron (65-175) ug/dL % Saturation (15.00-50.00) Total Bilirubin (0.2-1.3) mg/dL AST (17-59) U/L TSH (0.465-4.680) mIU/L Free T4 (0.78-2.19) ng/dL Urine Protein 1+ H (Negative) Urine Ketones 1+ H (Negative) Ur Random Sodium (40-220) mmol/L U Marijuana (THC) Screen Detected H (NotDetected) 01/04/23 01/04/23 01/04/23 Range/Units 10:54 12:17 12:17 WBC 20.1 H (3.8-10.6) k/uL Neutrophils # 17.2 H (1.3-7.7) k/uL Lymphocytes # 0.9 L (1.0-4.8) k/uL Monocytes # 1.7 H (0-1.0) k/uL ABG pH (7.35-7.45) ABG pCO2 (35-45) mmHg ABG pO2 (83-108) mmHg ABG O2 Saturation (94-97) % VBG pH 7.69 H* (7.31-7.41) VBG pCO2 31 L (37-51) mmHg VBG HCO3 38 H (24-28) mmol/L Sodium (137-145) mmol/L Potassium (3.5-5.1) mmol/L Chloride (98-107) mmol/L Carbon Dioxide (22-30) mmol/L BUN (9-20) mg/dL Glucose (74-99) mg/dL Osmolality (280-301) mosm/kg Plasma Lactic Acid Marshall (0.7-2.0) mmol/L Ionized Calcium Kayla (4.5-5.3) mg/dL Magnesium (1.6-2.3) mg/dL Iron (65-175) ug/dL % Saturation (15.00-50.00) Total Bilirubin (0.2-1.3) mg/dL AST (17-59) U/L TSH (0.465-4.680) mIU/L Free T4 (0.78-2.19) ng/dL Urine Protein (Negative) Urine Ketones (Negative) Ur Random Sodium <20 L (40-220) mmol/L U Marijuana (THC) Screen (NotDetected) 01/04/23 01/04/23 01/04/23 Range/Units 12:17 14:30 16:06 WBC (3.8-10.6) k/uL Neutrophils # (1.3-7.7) k/uL Lymphocytes # (1.0-4.8) k/uL Monocytes # (0-1.0) k/uL ABG pH >7.70 H* (7.35-7.45) ABG pCO2 23 L (35-45) mmHg ABG pO2 111 H (83-108) mmHg ABG O2 Saturation 98.5 H (94-97) % VBG pH (7.31-7.41) VBG pCO2 (37-51) mmHg VBG HCO3 (24-28) mmol/L Sodium 126 L 125 L (137-145) mmol/L Potassium 2.5 L* 2.5 L* (3.5-5.1) mmol/L Chloride 75 L 75 L (98-107) mmol/L Carbon Dioxide 39 H 37 H (22-30) mmol/L BUN 30 H 27 H (9-20) mg/dL Glucose 116 H 112 H (74-99) mg/dL Osmolality 266 L (280-301) mosm/kg Plasma Lactic Acid Marshall (0.7-2.0) mmol/L Ionized Calcium Kayla 4.0 L (4.5-5.3) mg/dL Magnesium (1.6-2.3) mg/dL Iron 185 H (65-175) ug/dL % Saturation 60.06 H (15.00-50.00) Total Bilirubin 1.9 H (0.2-1.3) mg/dL AST (17-59) U/L TSH 0.364 L (0.465-4.680) mIU/L Free T4 2.28 H (0.78-2.19) ng/dL Urine Protein (Negative) Urine Ketones (Negative) Ur Random Sodium (40-220) mmol/L U Marijuana (THC) Screen (NotDetected) 01/04/23 01/04/23 01/05/23 Range/Units 20:13 22:30 07:27 WBC 15.4 H (3.8-10.6) k/uL Neutrophils # 12.3 H (1.3-7.7) k/uL Lymphocytes # (1.0-4.8) k/uL Monocytes # 1.3 H (0-1.0) k/uL ABG pH (7.35-7.45) ABG pCO2 (35-45) mmHg ABG pO2 (83-108) mmHg ABG O2 Saturation (94-97) % VBG pH (7.31-7.41) VBG pCO2 (37-51) mmHg VBG HCO3 (24-28) mmol/L Sodium 127 L (137-145) mmol/L Potassium 2.5 L* (3.5-5.1) mmol/L Chloride 78 L (98-107) mmol/L Carbon Dioxide 36 H (22-30) mmol/L BUN 25 H (9-20) mg/dL Glucose 112 H (74-99) mg/dL Osmolality (280-301) mosm/kg Plasma Lactic Acid Marshall (0.7-2.0) mmol/L Ionized Calcium Kayla (4.5-5.3) mg/dL Magnesium 2.7 H (1.6-2.3) mg/dL Iron (65-175) ug/dL % Saturation (15.00-50.00) Total Bilirubin (0.2-1.3) mg/dL AST (17-59) U/L TSH (0.465-4.680) mIU/L Free T4 (0.78-2.19) ng/dL Urine Protein (Negative) Urine Ketones (Negative) Ur Random Sodium (40-220) mmol/L U Marijuana (THC) Screen (NotDetected) 01/05/23 Range/Units 07:27 WBC (3.8-10.6) k/uL Neutrophils # (1.3-7.7) k/uL Lymphocytes # (1.0-4.8) k/uL Monocytes # (0-1.0) k/uL ABG pH (7.35-7.45) ABG pCO2 (35-45) mmHg ABG pO2 (83-108) mmHg ABG O2 Saturation (94-97) % VBG pH (7.31-7.41) VBG pCO2 (37-51) mmHg VBG HCO3 (24-28) mmol/L Sodium 130 L (137-145) mmol/L Potassium 2.6 L* (3.5-5.1) mmol/L Chloride 81 L (98-107) mmol/L Carbon Dioxide 36 H (22-30) mmol/L BUN 21 H (9-20) mg/dL Glucose (74-99) mg/dL Osmolality (280-301) mosm/kg Plasma Lactic Acid Marshall (0.7-2.0) mmol/L Ionized Calcium Kayla (4.5-5.3) mg/dL Magnesium (1.6-2.3) mg/dL Iron (65-175) ug/dL % Saturation (15.00-50.00) Total Bilirubin 1.7 H (0.2-1.3) mg/dL AST 77 H (17-59) U/L TSH (0.465-4.680) mIU/L Free T4 (0.78-2.19) ng/dL Urine Protein (Negative) Urine Ketones (Negative) Ur Random Sodium (40-220) mmol/L U Marijuana (THC) Screen (NotDetected) CT scan - abdomen: report reviewed (No evidence for acute abdominal process. No evidence for obstructive uropathy. No evidence for bowel obstruction. Resolution of bilateral pleural effusions and lung parenchymal densities) Assessment and Plan (1) Nausea and vomiting Narrative/Plan: 27-year-old with a history of cyclic nausea and vomiting. Has had episodes of severe nausea and vomiting for several years. Patient is a regular marijuana user and has been told that possibly related to cannabinoid use disorder. Nausea and vomiting for several days presenting with hyponatremia and hypokalemia. Nausea and vomiting improved. Unclear etiology at this time. Again possible cannabinoid hyperemesis, cyclic vomiting, regarding this treatment is symptomatic. Discussed with him the importance of complete cessation of THC use to see if that improves symptoms. Recommend Protonix 40 mg twice a day and follow-up with gastroenterology. No plans an endoscopic evaluation at this time. Diabetes tolerated. Current Visit: Yes Status: Acute Code(s): R11.2 - NAUSEA WITH VOMITING, UNSPECIFIED SNOMED Code(s): 92816596 (2) Marijuana use Current Visit: Yes Status: Acute Code(s): F12.90 - CANNABIS USE, UNSPECIFIED, UNCOMPLICATED SNOMED Code(s): 026504126 (3) Hypokalemia Current Visit: Yes Status: Acute Code(s): E87.6 - HYPOKALEMIA SNOMED Code( s): 35604997 (4) Hyponatremia Current Visit: Yes Status: Acute Code(s): E87.1 - HYPO-OSMOLALITY AND HYPONATREMIA SNOMED Code(s): 05080666 Plan: 1. Continue symptomatic and supportive care 2. Advance Diet as tolerated 3. Protonix 40 mg twice a day 4. Continue antiemetics as needed 5. Marijuana abstinence 6. Replace electrolytes per protocol 7. No planes and endoscopic evaluation Thank you for this consultation, gastroenterology will sign off at this time. Patient to follow-up with Dr. Conrad in 3-[address] Sandro Conrad I agree with the dictator's note, documented as a scribe by Ewa De Leon.
--- NOTE | 2023-01-05 15:30 | P.PN ---
Subjective Progress Note Date: 01/05/23 This is a 27-year-old male who presents to [facility] with nausea, and vomiting. Patient states ever since since he quit drinking alcohol about 4 months ago and then he drank a beer on Monday he developed increased nausea and vomiting. Patient also admits to marijuana use. Patient has not been able to keep anything down for the past 3 days. Patient was hospitalized this past October when he was found unresponsive. At that time, he was treated for toxic metabolic encephalopathy, severe hypokalemia, YENI, and severe dehydration. During his October 2022 hospital stay patient was intubated due to acute hypoxic respiratory failure secondary to multifocal pneumonia. On admission, patient was tachycardic with heart rate in the 130s. Vital signs were otherwise stable. CBC showed WBC count of 16.4 and hemoglobin of 19.6 with platelet count of 451. CMP showed sodium 127, potassium of 3, chloride of 69, bicarb of 35, BUN 29, creatinine 1.37, glucose of 162, calcium of 10.6, phosphorus of 2.4, total bilirubin of 1.9, ALT of 57, alkaline phosphatase 147, albumin of 5.5. Lactic acid was 7.7. TSH was 0.364 with free T4 of 2.28. Cortisol was 86. Urinalysis showed 1+ ketones. UDS positive for marijuana. Acetone negative. CT AP showed no acute process. Patient was admitted for further management of symptoms. Patient was seen and examined this morning. He reports that his nausea and vomiting has resolved. He states that he feels at baseline. His mother is at bedside. He denies any complaints today. General: non toxic, no distress, appears at stated age Derm: warm, dry Head: atraumatic, normocephalic, symmetric Eyes: EOMI, no lid lag, anicteric sclera Mouth: no lip lesion, mucus membranes moist Cardiovascular: S1S2 reg, no murmur Lungs: CTA bilateral, no rhonchi, no rales , no accessory muscle use Ext: no gross muscle atrophy, no edema, no contractures Neuro: no focal neuro deficits Psych: Alert, oriented, appropriate affect #Intractable nausea and vomiting likely secondary to cyclical vomiting for marijuana use #Hypothyroidism #Metabolic alkalosis #Hyponatremia #Severe hypokalemia #Leukocytosis Resolved: Lactic acidosis Based on my assessment of this patient, this patient meets a high complexity level of care. I have reviewed the following lactation consultant notes: Gastroenterology note reviewed 01/05, continue symptomatic and supportive care, advance diet as tolerated, Protonix 40 mg by mouth twice a day, marijuana abstinence, replace electrolytes, no endoscopic evaluation. Nephrology note reviewed 01/05, maintain IV fluids, aggressive potassium replacement, follow urine potassium level. I have reviewed the results of the following tests: CBC today shows a leukocytosis of 15.4. CMP today shows sodium of 130, potassium of 2.6, chloride of 81, bicarb of 36, BUN of 21, total bilirubin of 1.7, AST of 77. I have ordered the following tests: BMP is ordered for tomorrow morning. I have discussed the care of this patient with the following independent historian: Case was also discussed with the mother at bedside. I have independently interpreted the following test below: None. I have discussed the management of this patient with the following physician: Case was discussed with Dr. Acosta who recommends potassium chloride 60 mEq by mouth and 40 mEq IV. This patient has a high risk of morbidity due to the following reasons: Patient has an acute diagnosis of severe electrolyte derangement secondary to intractable nausea and vomiting that poses a threat to life or bodily function. Patient will be given potassium chloride 60 mEq by mouth and 40 mEq IV. Zofran 4 mg IV every 6 hours as needed for nausea and vomiting. Continue Protonix 40 mg IV twice a day. Continue normal saline at 75 mL per hour. Telemetry monitoring. Advance to regular diet. Objective - Vital Signs Vital signs: Vital Signs Temp 98.0 F 01/05/23 08:00 Pulse 77 01/05/23 12:00 Resp 18 01/05/23 08:00 BP 108/64 01/05/23 12:00 Pulse Ox 98 01/05/23 12:00 FiO2 Intake & Output 01/04/23 01/05/23 01/05/23 18:59 06:59 18:59 Intake Total 10 240 Balance 10 240 Weight 58.967 kg 58.967 kg Intake: IV 10 Invasive Line 2 10 Oral 240 Other: Voiding Method Toilet Toilet # Voids 1 - Labs CBC & Chem 7: 01/05/23 07:27 01/05/23 07:27 Labs: Abnormal Lab Results - Last 24 Hours (Table) 01/04/23 01/04/2301/04/23 Range/Units 10:54 12:17 16:06 WBC (3.8-10.6) k/uL Neutrophils # (1.3-7.7) k/uL Monocytes # (0-1.0) k/uL Sodium 125 L (137-145) mmol/L Potassium 2.5 L* (3.5-5.1) mmol/L Chloride 75 L (98-107) mmol/L Carbon Dioxide 37 H (22-30) mmol/L BUN 27 H (9-20) mg/dL Glucose 112 H (74-99) mg/dL Osmolality 266 L (280-301) mosm/kg Magnesium (1.6-2.3) mg/dL Iron 185 H (65-175) ug/dL % Saturation 60.06 H (15.00-50.00) Total Bilirubin (0.2-1.3) mg/dL AST (17-59) U/L Ur Random Sodium <20 L (40-220) mmol/L 01/04/23 01/04/23 01/05/23 Range/Units 20:13 22:30 07:27 WBC 15.4 H (3.8-10.6) k/uL Neutrophils # 12.3 H (1.3-7.7) k/uL Monocytes # 1.3 H (0-1.0) k/uL Sodium 127 L (137-145) mmol/L Potassium 2.5 L* (3.5-5.1) mmol/L Chloride 78 L (98-107) mmol/L Carbon Dioxide 36 H (22-30) mmol/L BUN 25 H (9-20) mg/dL Glucose 112 H (74-99) mg/dL Osmolality (280-301) mosm/kg Magnesium 2.7 H (1.6-2.3) mg/dL Iron (65-175) ug/dL % Saturation (15.00-50.00) Total Bilirubin (0.2-1.3) mg/dL AST (17-59) U/L Ur Random Sodium (40-220) mmol/L 01/05/23 Range/Units 07:27 WBC (3.8-10.6) k/uL Neutrophils # (1.3-7.7) k/uL Monocytes # (0-1.0) k/uL Sodium 130 L (137-145) mmol/L Potassium 2.6 L* (3.5-5.1) mmol/L Chloride 81 L (98-107) mmol/L Carbon Dioxide 36 H (22-30) mmol/L BUN 21 H (9-20) mg/dL Glucose (74-99) mg/dL Osmolality (280-301) mosm/kg Magnesium (1.6-2.3) mg/dL Iron (65-175) ug/dL % Saturation (15.00-50.00) Total Bilirubin 1.7 H (0.2-1.3) mg/dL AST 77 H (17-59) U/L Ur Random Sodium (40-220) mmol/L
[2023-01-05] MEDS: LORazepam 2 MG/ML INJ IV PRN (16:00)
[2023-01-05] MEDS: PANTOPRAZOLE 40 MG/10 ML VIAL IVP SCH (20:24)
[2023-01-06] MEDS: LORazepam 2 MG/ML INJ IV PRN (00:04)
[2023-01-06 03:18] VITALS: BP 123/87; PULSE 108; RESP 18; TEMP 98.3
[2023-01-06 07:49] LABS: African American GFR (CKD) >90 (>60 ml/min/1.73 sqM); Anion Gap 7 mmol/L; Blood Urea Nitrogen 17 mg/dL (9-20); Calcium 9.2 mg/dL (8.4-10.2); Carbon Dioxide 36 mmol/L (22-30); Chloride 92 mmol/L (98-107); Glucose 91 mg/dL (74-99); Magnesium 2.3 mg/dL (1.6-2.3); Non-African American GFR(CKD) >90 (>60 ml/min/1.73 sqM); Potassium 3.6 mmol/L (3.5-5.1); Sodium 135 mmol/L (137-145)
[2023-01-06] MEDS: PANTOPRAZOLE 40 MG/10 ML VIAL IVP SCH (09:16)
--- NOTE | 2023-01-06 14:17 | P.DS ---
Providers Date of admission: 01/04/23 10:03 Expected date of discharge: 01/06/23 Attending physician: Reymundo Hinds MD Consults: 01/04/23 14:24 Consult Physician Routine Consulting Provider: Corona Acosta Consult Reason/Comments: hyponatremia Do you want consulting provider notified?: Yes Primary care physician: [place] Hospital Course: This is a 27-year-old male who presents to [facility] with nausea, and vomiting. Patient states ever since since he quit drinking alcohol about 4 months ago and then he drank a beer on Monday he developed increased nausea and vomiting. Patient also admits to marijuana use. Patient has not been able to keep anything down for the past 3 days. Patient was hospitalized this past October when he was found unresponsive. At that time, he was treated for toxic metabolic encephalopathy, severe hypokalemia, YENI, and severe dehydration. During his October 2022 hospital stay patient was intubated due to acute hypoxic respiratory failure secondary to multifocal pneumonia. On admission, patient was tachycardic with heart rate in the 130s. Vital signs were otherwise stable. CBC showed WBC count of 16.4 and hemoglobin of 19.6 with platelet count of 451. CMP showed sodium 127, potassium of 3, chloride of 69, bicarb of 35, BUN 29, creatinine 1.37, glucose of 162, calcium of 10.6, phosphorus of 2.4, total bilirubin of 1.9, ALT of 57, alkaline phosphatase 147, albumin of 5.5. Lactic acid was 7.7. TSH was 0.364 with free T4 of 2.28. Cortisol was 86. Urinalysis showed 1+ ketones. UDS positive for marijuana. Acetone negative. CT AP showed no acute process. Patient was admitted for further management of symptoms. His potassium was replaced aggressively. He was hydrated aggressively with normal saline IV. Nephrology was involved in the management of this patient. Gastroenterology was consulted and recommended supportive care and outpatient follow-up. His electrolytes considerably improved in a sodium was 135, potassium of 3.6 on the day of discharge. Patient was seen and examined this morning. He reports that his nausea and vomiting has resolved. He states that he feels at baseline. Pertinent studies include CTAP. General: non toxic, no distress, appears at stated age Derm: warm, dry Head: atraumatic, normocephalic, symmetric Eyes: EOMI, no lid lag, anicteric sclera Mouth: no lip lesion, mucus membranes moist Cardiovascular: S1S2 reg, no murmur Lungs: CTA bilateral, no rhonchi, no rales , no accessory muscle use Ext: no gross muscle atrophy, no edema, no contractures Neuro: no focal neuro deficits Psych: Alert, oriented, appropriate affect Discharge diagnosis: #Intractable nausea and vomiting likely secondary to cyclical vomiting for marijuana use #Hypothyroidism #Metabolic alkalosis #Hyponatremia #Severe hypokalemia #Leukocytosis Resolved: Lactic acidosis This complex discharge took 35 minutes to complete. Patient Condition at Discharge: Stable Plan - Discharge Summary New Discharge Prescriptions: New Pantoprazole Sodium [Protonix] 40 mg PO BID #60 tab LORazepam [Ativan] 1 mg PO TID PRN 3 Days #9 tab PRN Reason: Agitation Or Acute Anxiety Ondansetron Odt [Zofran Odt] 4 mg PO Q8HR PRN #30 tab PRN Reason: Nausea And Vomiting Discontinued Omeprazole [PriLOSEC] 20 mg PO HS Discharge Medication List Pantoprazole Sodium [Protonix] 40 mg PO BID #60 tab 01/05/23 [Rx] LORazepam [Ativan] 1 mg PO TID PRN 3 Days #9 tab 01/06/23 [Rx] Ondansetron Odt [Zofran Odt] 4 mg PO Q8HR PRN #30 tab 01/06/23 [Rx] Follow up Appointment(s)/Referral(s): Baron Huang MD [Primary Care Provider] - 1-2 days Berto Curran MD [REFERRING] - 1 Week Ani Conrad MD [STAFF PHYSICIAN] - 3 Weeks Patient Instructions/Handouts: Dehydration (DC), Hypokalemia (DC) Activity/Diet/Wound Care/Special Instructions: Diet: Regular Follow up with your PCP within 1-2 days of discharge. Follow up with Gastroenterology and Endocrinology within 1 week of discharge. Take all medications as advised. Avoid marijuana products and alcohol. Discharge Disposition: HOME SELF-CARE
== END 2023-01-06 09:27 | disposition home or self-care (01) ==
LOC: EC 08:15 → INTOOBSV 10:03 → 3SCARD 10:03 → UNDODISIN 01-06 09:27
PROVIDERS: ADMIT Family Medicine; ATTEND Family Medicine
DX: R11.2 Nausea with vomiting, unspecified (principal); E87.6 Hypokalemia; E87.1 Hypo-osmolality and hyponatremia; F12.90 Cannabis use, unspecified, uncomplicated; E87.3 Alkalosis; E87.8 Other disorders of electrolyte and fluid balance, not elsewhere classified; N17.9 Acute kidney failure, unspecified; D72.829 Elevated white blood cell count, unspecified; K21.9 Gastro-esophageal reflux disease without esophagitis; E03.9 Hypothyroidism, unspecified; Z79.899 Other long term (current) drug therapy
CPT/HCPCS: 96366 ×2; 96375 ×3; 96376 ×3; 96361; 96365; 99285; 36415; 36600; 93005; 84439; 84300; 83930; 80053 ×2; 80048 ×2; 84443; 84133; 82330; 82533; 82728; 82805; 82803; 83540; 83550; 82009; 83605; 83735 ×3; 84100 ×2; 84132; 85025 ×2; 81001; 83935; 87040; 86800; 86376; 84466; 80306; 83036; 84145; 74176; G0378 ×3; J2060 ×3; J3480 ×2; J2405 ×2; J3475; C9113; 96368; 99291

== ENCOUNTER 2023-02-04 17:25 | Observation (INO) | payer OTHER ==
[2023-02-04] MEDS ORDERED: ONDANSETRON 4 MG/2 ML VIAL IVP STA (17:35)
[2023-02-04] MEDS ORDERED: SODIUM CHLORIDE 0.9% 1,000 ML IV STA (17:35)
--- NOTE | 2023-02-04 17:47 | ED ---
Nausea/Vomiting/Diarrhea HPI - General Chief complaint: Nausea/Vomiting/Diarrhea Stated complaint: Nausea,vomiting Time Seen by Provider: 02/04/23 17:35 Source: patient, RN notes reviewed Limitations: no limitations - History of Present Illness Initial comments: Patient is a 27-year-old male presenting to the emergency room with complaints of nausea and vomiting ongoing for a few days. He was recently discharged on January 26 for similar complaints and was found to be hypokalemic with metabolic acidosis at that time. Workup included nephrology and gastroenterology evaluations. He was deemed to have electrolyte derailment with metabolic acidosis due to cyclic vomiting secondary to marijuana use. 6 being discharged home he has continued to utilize marijuana daily but reports a reduced marijuana use. He states the last time that he has utilized THC was approximately 2 days ago. He denies any other associated symptoms with his nausea and vomiting including any hemoptysis emesis, diarrhea, abdominal pain not directly related to vomiting, chest pain, shortness of breath, dysuria, hematuria, fevers or chills. He has a past medical history significant for GI bleed and pericarditis. - Related Data Previous Rx's Medication Instructions Recorded Pantoprazole Sodium [Protonix] 40 mg PO BID #60 tab 01/05/23 LORazepam [Ativan] 1 mg PO TID PRN 3 Days #9 tab 01/06/23 Ondansetron Odt [Zofran Odt] 4 mg PO Q8HR PRN #30 tab 01/06/23 Allergies Allergy/AdvReac Type Severity Reaction Status Date / Time No Known Allergies Allergy Verified 02/04/23 20:31 Review of Systems ROS Statement: Those systems with pertinent positive or pertinent negative responses have been documented in the HPI. ROS Other: All systems not noted in ROS Statement are negative. Past Medical History Past Medical History: GI Bleed Additional Past Medical History / Comment(s): pericarditis History of Any Multi-Drug Resistant Organisms: None Reported Past Surgical History: No Surgical Hx Reported Additional Past Surgical History / Comment(s): EGD , [place] teeth pulled Past Anesthesia/Blood Transfusion Reactions: No Reported Reaction Past Psychological History: No Psychological Hx Reported Smoking Status: Never smoker Past Alcohol Use History: None Reported Past Drug Use History: Marijuana - Past Family History Father Family Medical History: Liver Disease Additional Family Medical History / Comment(s): of liver cirrohis Mother Family Medical History: Cancer Additional Family Medical History / Comment(s): breast cancer General Exam - General Exam Comments Initial Comments: GENERAL: No acute distress, well developed, well nourished. Smells of marijuana HEENT: Normocephalic, atraumatic. Pupils equal, round, reactive to light. Moist mucous membranes. LUNGS: No respiratory distress. Clear to auscultation, no adventitious sounds, no use of accessory muscles. HEART: Mild tachycardia. Normal rhythm without murmur, rub, or gallop. ABDOMEN: Normal bowel sounds. Soft, non-tender, non-distended. No guarding or rebound tenderness BACK: Normal inspection. EXTREMITIES: No edema. No tenderness. Moves all extremities. NEUROLOGIC: Alert & oriented x 3. CN II-XII grossly intact. PSYCHIATRIC: Normal affect and behavior. DERMATOLOGIC: Skin intact, without rashes or lesions noted. Limitations: no limitations Course Vital Signs 02/04/23 02/04/23 02/04/23 17:30 18:34 20:16 Temperature 97.4 F L 98.3 F Pulse Rate 125 H 89 Respiratory 20 17 Rate Blood Pressure 153/103 118/75 116/73 O2 Sat by Pulse 100 97 95 Oximetry Medical Decision Making - Medical Decision Making Was pt. sent in by a medical professional or institution (, PA, MANAGER TERMINAL, urgent care, hospital, or care home...) When possible be specific @ -No Did you speak to anyone other than the patient for history (EMS, parent, family, police, friend...)? What history was obtained from this source @ -No Did you review nursing and triage notes (agree or disagree)? Why? @ -I reviewed and agree with nursing and triage notes Were old charts reviewed (outside hosp., previous admission, EMS record, old EKG , old radiological studies, urgent care reports/EKG's, care home records)? Report findings @ -Yes, discharge summary, nephrology and gastroenterology consults, laboratory studies and EKG reviewed from most recent hospitalization 01/04/2023 through 01/06/2023 Differential Diagnosis (chest pain, altered mental status, abdominal pain women, abdominal pain men, vaginal bleeding, weakness, fever, dyspnea, syncope, headache, dizziness, GI bleed, back pain, seizure, CVA, palpatations, mental health, musculoskeletal)? @ -Differential Abdominal Pain Men: Appendicitis, cholecystitis, diverticulosis, ischemic bowel, pancreatitis, hepatitis, UTI, gastroenteritis, AAA, incarcerated hernia, bowel obstruction, constipation, inflammatory bowel, hepatitis, peptic ulcer disease, splenic infarction, perforated viscus, testicular torsion, cyclic vomiting syndrome this is not meant to be an all-inclusive list EKG interpreted by me (3pts min.). @ -None done X-rays interpreted by me (1pt min.). @ -None done CT interpreted by me (1pt min.). @ -CT abdomen pelvis with contrast: No evidence of obstruction, pancreatic enlargement, free air or free fluid in the abdomen. U/S interpreted by me (1pt. min.). @ -None done What testing was considered but not performed or refused? (CT, X-rays, U/S, labs)? Why? @ -None What meds were considered but not given or refused? Why? @ -None Did you discuss the management of the patient with other professionals (professionals i.e. , PA, MANAGER TERMINAL, lab, RT, psych nurse, social and human services assistant, counselor camp, teacher, aviation safety officer, outsole caser)? Give summary @ -yes, spoke with Dr. Goodman with [facility] regarding patient's presentation and workup recommending admission for continued monitoring of electrolyte abnormalities and treatment for intractable nausea and vomiting likely secondary to cyclic vomiting syndrome. He is accepting of admission. Was smoking cessation discussed for >3mins.? @ -No Was critical care preformed (if so, how long)? @ -No Were there social determinants of health that impacted care today? How? (Homelessness, low income, unemployed, alcoholism, drug addiction, transportation, low edu. Level, literacy, decrease access to med. care, senior living, rehab)? @ -No Was there de-escalation of care discussed even if they declined (Discuss DNR or withdrawal of care, Hospice)? DNR status @ -No What co-morbidities impacted this encounter? (DM, HTN, Smoking, COPD, CAD, Cancer, CVA, ARF, Chemo, Hep., AIDS, mental health diagnosis, sleep apnea, morbid obesity)? @ -Cyclic vomiting syndrome Was patient admitted / discharged? Hospital course, mention meds given and route, prescriptions, significant lab abnormalities, going to OR and other pertinent info. @ -27-year-old male presenting to the emergency room with complaints of nausea and vomiting. Stabilization for hypokalemia, metabolic acidosis and nausea and vomiting which evaluation deemed to be due to cyclic vomiting syndrome secondary to THC abuse. Symptoms were better upon discharge. Upon returning home resumed THC use at a decreased quantity. Now with increased nausea and vomiting again. No indication for diagnostic imaging. Will obtain laboratory studies of CBC, amylase and lipase. Will give IV hydration and Zofran. Laboratory studies revealed WBC 12.7 hemoglobin elevated 18 likely concentrated due to dehydration, neutrophils elevated 10.2 monocytes elevated 1.1 electrolyte derailment noted with sodium 134 potassium 2.9 chloride 83, sodium 134 carbon dioxide 38 anion gap normal BUN and creatinine normal glucose elevated 123 calcium elevated 10.4 with normal corrected calcium in the setting of albumin at 5, AST, ALT and bilirubin normal, amylase and lipase both elevated amylase 203 lipase 803, magnesium normal 1.7. In the setting of nausea and vomiting with elevated amylase and lipase will obtain CT of the abdomen and pelvis with contrast. No further vomiting after IV hydration and Zofran. Will replete potassium levels both IV and orally with potassium chloride 20 mEq IV and 40 orally. Computed tomography scan negative for acute findings. Discussed recommendation of admission for intractable nausea vomiting and electrolyte derailment. Spoke with Dr. Goodman with [facility] regarding recommendation for admission. He is accepting of admission and has ordered further laboratory monitoring/replete. He denies any further orders at this time. Will place admission orders. Will admit patient in stable condition for intractable nausea and vomiting hypokalemia to medical surgical unit under [facility]. Undiagnosed new problem with uncertain prognosis? @ -No Drug Therapy requiring intensive monitoring for toxicity (Heparin, Nitro, Insulin, Cardizem)? @ -No Were any procedures done? @ -No Diagnosis/symptom? @ -Nausea vomiting Acute, or Chronic, or Acute on Chronic? @ -Acute Uncomplicated (without systemic symptoms) or Complicated (systemic symptoms)? @ -Complicated Side effects of treatment? @ -No Exacerbation, Progression, or Severe Exacerbation? @ -No Poses a threat to life or bodily function? How? (Chest pain, [place], [place], pneumonia, PE, COPD, DKA, ARF, appy, cholecystitis, CVA, Diverticulitis, Homicidal, Suicidal, threat to staff... and all critical care pts) @ -Yes, due to electrolyte abnormalities. Diagnosis/symptom? @ -hypokalemia Acute, or Chronic, or Acute on Chronic? @ -Acute Uncomplicated (without systemic symptoms) or Complicated (systemic symptoms)? @ -Complicated Side effects of treatment? @ -[none] Exacerbation, Progression, or Severe Exacerbation] @ -[no] Poses a threat to life or bodily function? @ -Yes, risk for arrhythmia and cardiac arrest. Case discussed with Dr. Good. - Lab Data Result diagrams: 02/04/23 18:02 02/04/23 18:02 Lab Results 02/04/23 02/04/23 02/04/23 Range/Units 18:02 18:02 18:02 WBC 12.7 H (3.8-10.6) k/uL RBC 5.55 (4.30-5.90) m/uL Hgb 18.0 H (13.0-17.5) gm/dL Hct 49.6 (39.0-53.0) % MCV 89.4 (80.0-100.0) fL MCH 32.3 (25.0-35.0) pg MCHC 36.2 (31.0-37.0) g/dL RDW 12.7 (11.5-15.5) % Plt Count 366 (150-450) k/uL MPV 7.6 Neutrophils % 80 % Lymphocytes % 9 % Monocytes % 9 % Eosinophils % 0 % Basophils % 0 % Neutrophils # 10.2 H (1.3-7.7) k/uL Lymphocytes # 1.2 (1.0-4.8) k/uL Monocytes # 1.1 H (0-1.0) k/uL Eosinophils # 0.0 (0-0.7) k/uL Basophils # 0.0 (0-0.2) k/uL Sodium 134 L (137-145) mmol/L Potassium 2.9 L (3.5-5.1) mmol/L Chloride 83 L (98-107) mmol/L Carbon Dioxide 38 H (22-30) mmol/L Anion Gap 13 mmol/L BUN 16 (9-20) mg/dL Creatinine 0.87 (0.66-1.25) mg/dL Est GFR (CKD-EPI)AfAm >90 (>60 ml/min/1.73 sqM) Est GFR (CKD-EPI)NonAf >90 (>60 ml/min/1.73 sqM) Glucose 123 H (74-99) mg/dL Calcium 10.4 H (8.4-10.2) mg/dL Magnesium 1.7 (1.6-2.3) mg/dL Total Bilirubin 1.2 (0.2-1.3) mg/dL AST 32 (17-59) U/L ALT 28 (4-49) U/L Alkaline Phosphatase 94 (38-126) U/L Total Protein 8.3 H (6.3-8.2) g/dL Albumin 5.0 (3.5-5.0) g/dL Amylase 203 H (30-110) U/L Lipase 803 H (23-300) U/L - Radiology Data Radiology results: report reviewed, image reviewed Disposition Clinical Impression: Hypokalemia, Nausea and vomiting Disposition: ADMITTED IP TO THIS [facility] Referrals: Baron Huang MD [Primary Care Provider] - 1-2 days Time of Disposition: 19:55
[2023-02-04 18:10] LABS: Basophils % (A) 0 %; Eosinophils % (A) 0 %; HCT 49.6 % (39.0-53.0); Lymphocytes # (A) 1.2 k/uL (1.0-4.8); Lymphocytes % (A) 9 %; MCH 32.3 pg (25.0-35.0); MCHC 36.2 g/dL (31.0-37.0); MCV 89.4 fL (80.0-100.0); Mean Platelet Volume 7.6; Monocytes # (A) 1.1 k/uL (0-1.0); Monocytes % (A) 9 %; Neutrophils # (A) 10.2 k/uL (1.3-7.7); Neutrophils % (A) 80 %; Platelet Count 366 k/uL (150-450); RBC 5.55 m/uL (4.30-5.90); RDW 12.7 % (11.5-15.5); WBC 12.7 k/uL (3.8-10.6)
[2023-02-04 18:21] LABS: ALT 28 U/L (4-49); AST 32 U/L (17-59); African American GFR (CKD) >90 (>60 ml/min/1.73 sqM); Alkaline Phosphatase 94 U/L (38-126); Amylase 203 U/L (30-110); Anion Gap 13 mmol/L; Blood Urea Nitrogen 16 mg/dL (9-20); Calcium 10.4 mg/dL (8.4-10.2); Carbon Dioxide 38 mmol/L (22-30); Chloride 83 mmol/L (98-107); Glucose 123 mg/dL (74-99); Lipase 803 U/L (23-300); Non-African American GFR(CKD) >90 (>60 ml/min/1.73 sqM); Potassium 2.9 mmol/L (3.5-5.1); Sodium 134 mmol/L (137-145); Total Bilirubin 1.2 mg/dL (0.2-1.3); Total Protein 8.3 g/dL (6.3-8.2)
[2023-02-04] MEDS ORDERED: POTASSIUM CHLORIDE 20 MEQ in WATER FOR INJECTION 1 100ML.BAG IVPB STA (18:38)
--- NOTE | 2023-02-04 19:14 | CT ---
EXAMINATION TYPE: CT abdomen pelvis w con CT DLP: 500.7 mGycm, Automated exposure control for dose reduction was used. DATE OF EXAM: 02/04/2023 7:02 PM COMPARISON: CT abdomen pelvis most recent from 01/04/2023 CLINICAL INDICATION:Male, 27 years old with history of nausea vomiting; nausea, vomiting TECHNIQUE: Axial CT of the abdomen and pelvis. Sagittal and coronal reformats were created on a [employer] workstation. Contrast used:100 mL of Isovue 300 with IV Contrast, Oral contrast used: without Oral Contrast FINDINGS: LOWER CHEST: Unremarkable ABDOMEN LIVER: Unremarkable GALLBLADDER AND BILE DUCTS: Unremarkable. PANCREAS: Unremarkable. SPLEEN: Unremarkable. ADRENAL GLANDS: Unremarkable. KIDNEYS AND URETERS: No evidence of hydronephrosis or renal calculus. The ureters are unremarkable. PELVIS BLADDER: Unremarkable REPRODUCTIVE: Unremarkable. ABDOMEN & PELVIS STOMACH AND BOWEL: No evidence of bowel obstruction. PERITONEUM/RETROPERITONEUM: No evidence of pneumoperitoneum or free fluid. VASCULATURE: No evidence of aortic aneurysm. MUSCULOSKELETAL: No acute osseous abnormalities LYMPH NODES: No gross evidence for lymphadenopathy. SOFT TISSUE/ABDOMINAL WALL: Unremarkable IMPRESSION: No acute abdominal process. No evidence for ileus or obstruction.
[2023-02-04] MEDS: POTASSIUM CHLORIDE ER 20 MEQ TAB.ER PO STA (19:17)
[2023-02-04] MEDS ORDERED: LACTATED RINGERS 1,000 ML IV ONE (19:52)
[2023-02-04] MEDS ORDERED: ONDANSETRON 4 MG/2 ML VIAL IVP PRN (19:53)
[2023-02-04] MEDS ORDERED: NALOXONE 0.4 MG/ML 1 ML VIAL IV PRN (20:07)
[2023-02-04] MEDS ORDERED: SODIUM CHLORIDE 0.9% 1,000 ML IV SCH (20:15)
[2023-02-05] MEDS: ONDANSETRON 4 MG/2 ML VIAL IVP PRN ×2 (00:14→08:27)
[2023-02-05 02:58] VITALS: RESP 18
--- NOTE | 2023-02-05 02:59 | P.HPIM ---
History of Present Illness H&P Date: 02/04/23 Chief Complaint: nausea and vomiting 27 year old male heavy user of marijuana , coming in today due to 1-2 days of severe repeated refractory nausea and vomiting, non bloody non bilious, denies any associated fever, chills, abd pain , GI bleeding, changes in urinary or bowel habits. he recognizes that these recurrent episodes of nausea and vomiting, are possibly due to him abusing marijuana , he has been trying to quit but its difficult for him. he denies any alcohol , or other drug abuse. he reports poor oral intake as he does not tolerate anything at this time Review of Systems Pertinent positives as noted in HPI. All other systems were reviewed and are negative Past Medical History Past Medical History: GI Bleed Additional Past Medical History / Comment(s): pericarditis History of Any Multi-Drug Resistant Organisms: None Reported Past Surgical History: No Surgical Hx Reported Additional Past Surgical History / Comment(s): EGD , [place] teeth pulled Past Anesthesia/Blood Transfusion Reactions: No Reported Reaction Past Psychological History: No Psychological Hx Reported Smoking Status: Never smoker Past Alcohol Use History: None Reported Past Drug Use History: Marijuana - Past Family History Father Family Medical History: Liver Disease Additional Family Medical History / Comment(s): of liver cirrohis Mother Family Medical History: Cancer Additional Family Medical History / Comment(s): breast cancer Medications and Allergies Home Medications Medication Instructions Recorded Confirmed Type Pantoprazole Sodium [Protonix] 40 mg PO BID #60 tab 01/05/23 02/04/23 Rx LORazepam [Ativan] 1 mg PO TID PRN 3 Days #9 tab 01/06/23 02/04/23 Rx Ondansetron Odt [Zofran Odt] 4 mg PO Q8HR PRN #30 tab 01/06/23 02/04/23 Rx Allergies Allergy/AdvReac Type Severity Reaction Status Date / Time No Known Allergies Allergy Verified 02/04/23 20:31 Physical Exam Vitals: Vital Signs Temp Pulse Resp BP Pulse Ox 02/04/23 18:34 118/75 97 02/04/23 17:30 97.4 F L 125 H 20 153/103 100 Intake and Output 02/04/23 02/04/23 02/04/23 06:59 14:59 22:59 Other: Weight 61.235 kg Constitutional: No acute distress, feeling very nauseated Eyes: Anicteric sclerae, moist conjunctiva, Pupils equal round reactive to light ENMT: NC/AT Oropharynx clear, no erythema, or exudates Neck: Supple, no masses, or JVD No carotid bruits No thyromegaly Lungs: Clear to auscultation Clear to percussion Normal respiratory effort, no accessory muscle use Cardiovascular: Heart regular in rate and rhythm, No murmurs, gallops, or rubs No peripheral edema Abdominal: Soft Nontender, no guarding, rebound or rigidity Abdomen moving with respiration Normoactive bowel sounds No hepatomegaly, No splenomegaly No palpable mass No abdominal wall hernia noted Skin: Normal temperature, tone, texture, turgor No induration No subcutaneous nodules No rash, lesions No ulcers Extremities: No digital cyanosis No clubbing Pedal pulses intact and symmetrical Radial pulses intact and symmetrical No calf tenderness Psychiatric: Alert and oriented to person, place and time Neuro Muscles Strength 5/5 in all 4 extremities Sensation to light touch grossly present throughout Cranial nerves II-XII grossly intact Lymphatics: no palpable cervical or supraclavicular lymph nodes Results CBC & Chem 7: 02/04/23 18:02 02/05/23 01:26 Labs: Abnormal Lab Results - Last 24 Hours (Table) 02/04/23 02/04/23 Range/Units 18:02 18:02 WBC 12.7 H (3.8-10.6) k/uL Hgb 18.0 H (13.0-17.5) gm/dL Neutrophils # 10.2 H (1.3-7.7) k/uL Monocytes # 1.1 H (0-1.0) k/uL Sodium 134 L (137-145) mmol/L Potassium 2.9 L (3.5-5.1) mmol/L Chloride 83 L (98-107) mmol/L Carbon Dioxide 38 H (22-30) mmol/L Glucose 123 H (74-99) mg/dL Calcium 10.4 H (8.4-10.2) mg/dL Total Protein 8.3 H (6.3-8.2) g/dL Amylase 203 H (30-110) U/L Lipase 803 H (23-300) U/L Assessment and Plan Assessment: 27 year old male with cyclical vomiting syndrome and heavy marijuana user, presented with intractable nausea and vomiting, I discussed the case with ed doc, and I accepted the admission to control patient symptoms with IV meds, and IVF hydration , with anticipated length of stay < 2 midnights cyclical vomiting syndrome, refractory nausea and vomiting heavy marijuana user. patient counseled to quit marijuana Lipase elevated 803, amylase 203 both elevated , CT abd perlvis no acute pathology , and no acute pancrease abnormalities. hyponatremia with sodium level 136 , IVF hydration with normal saline bolus 1 L , then lactated ringer at 150 cc per hour hypokalemia 2.9 and hypomagnesemia 1.7 possibly due to repeated vomiting replace IV and monitor level of K replace Mg IV and monitor level full code dvt ppx SCDs
[2023-02-05] MEDS: POTASSIUM CHLORIDE ER 20 MEQ TAB.ER PO STA (03:25)
[2023-02-05] MEDS: PANTOPRAZOLE 40 MG TABLET PO SCH ×2 (03:25→08:24)
[2023-02-05] MEDS: MAGNESIUM SULFATE-D5W PMX 1 GM in DEXTROSE/WATER 1 100ML.BAG IVPB SCH ×2 (03:48→04:57)
[2023-02-05] MEDS: POTASSIUM CHLORIDE 10 MEQ in WATER FOR INJECTION 1 100ML.BAG IVPB SCH ×4 (03:49→08:25)
[2023-02-05 07:08] LABS: African American GFR (CKD) >90 (>60 ml/min/1.73 sqM); Anion Gap 9 mmol/L; Blood Urea Nitrogen 14 mg/dL (9-20); Calcium 9.6 mg/dL (8.4-10.2); Carbon Dioxide 37 mmol/L (22-30); Chloride 87 mmol/L (98-107); Glucose 114 mg/dL (74-99); Non-African American GFR(CKD) >90 (>60 ml/min/1.73 sqM); Potassium 3.1 mmol/L (3.5-5.1); Sodium 133 mmol/L (137-145)
[2023-02-05 07:25] LABS: Basophils # (A) 0.1 k/uL (0-0.2); Basophils % (A) 1 %; Eosinophils % (A) 0 %; HCT 47.2 % (39.0-53.0); HGB 16.9 gm/dL (13.0-17.5); Lymphocytes # (A) 1.1 k/uL (1.0-4.8); Lymphocytes % (A) 8 %; MCH 31.8 pg (25.0-35.0); MCHC 35.7 g/dL (31.0-37.0); MCV 89.1 fL (80.0-100.0); Mean Platelet Volume 7.7; Monocytes # (A) 0.8 k/uL (0-1.0); Monocytes % (A) 6 %; Neutrophils # (A) 10.9 k/uL (1.3-7.7); Neutrophils % (A) 83 %; Platelet Count 326 k/uL (150-450); RDW 12.5 % (11.5-15.5); WBC 13.1 k/uL (3.8-10.6)
[2023-02-05] MEDS ORDERED: SODIUM CHLORIDE 0.9% 1,000 ML IV SCH (08:45)
[2023-02-05] MEDS ORDERED: POTASSIUM CHLORIDE 10 MEQ in WATER FOR INJECTION 1 100ML.BAG IVPB SCH (09:00)
[2023-02-05 12:02] VITALS: BP 106/67; PULSE 82; TEMP 98.2
--- NOTE | 2023-02-05 12:47 | P.PN ---
Subjective Progress Note Date: 02/05/23 This is a 27-year-old male who presents to [facility] with nausea, and vomiting. He was previously admitted for cyclical vomiting syndrome abuse. In the ED, he was noted to be tachycardic with heart rate of 125 and BP 153/103. CBC showed leukocytosis of 12.7. CMP showed sodium 134, potassium 2.9, chloride of 83, bicarbonate 38, glucose of 123, calcium of 10.4. Amylase was 203 and lipase was 803. CTAP was negative for acute finding. Patient was admitted for further management of symptoms. Patient was seen and examined this morning. He reports improvement in his na usea and vomiting. He denies any chest pain, shortness of breath or palpitations. General: non toxic, no distress, appears at stated age Derm: warm, dry Head: atraumatic, normocephalic, symmetric Eyes: EOMI, no lid lag, anicteric sclera Mouth: no lip lesion, mucus membranes moist Cardiovascular: S1S2 reg, no murmur Lungs: CTA bilateral, no rhonchi, no rales , no accessory muscle use Ext: no gross muscle atrophy, no edema, no contractures Neuro: no focal neuro deficits Psych: Alert, oriented, appropriate affect #Intractable nausea and vomiting likely secondary to cyclical vomiting for zeny janae use #Metabolic alkalosis #Hyponatremia #Hypokalemia #Leukocytosis Resolved: Lactic acidosis Based on my assessment of this patient, this patient meets a moderate complexity level of care. I have reviewed the following database reporting consultant notes: None. I have reviewed the results of the following tests: CBC today shows a leukocytosis of 13.1. BMP showed sodium 133, potassium of 3.1, chloride of 87, bicarb of 37 and glucose 114. I have ordered the following tests: BMP is ordered for tomorrow morning. I have discussed the care of this patient with the following independent historian: None. I have independently interpreted the following test below: None. I have discussed the management of this patient with the following physician: None. This patient has a moderate risk of morbidity due to the following reasons: Patient has an acute diagnosis of severe electrolyte derangement secondary to intractable nausea and vomiting that poses a threat to life or bodily function. Patient will be given potassium chloride 40 mEq IV. Zofran 4 mg IV every 6 hours as needed for nausea and vomiting. Continue Protonix 40 mg by mouth daily. Continue normal saline at 130 mL per hour. Advance diet as tolerated. Objective - Vital Signs Vital signs: Vital Signs Temp 98.2 F 02/05/23 11:45 Pulse 82 02/05/23 11:45 Resp 18 02/05/23 11:45 BP 106/67 02/05/23 11:45 Pulse Ox 100 02/05/23 11:45 FiO2 Intake & Output 02/04/23 02/05/23 02/05/23 18:59 06:59 18:59 Intake Total 0 Balance 0 Weight 61.235 kg 61.235 kg Intake: Oral 0 Other: # Voids 1 - Labs CBC & Chem 7: 02/05/23 06:08 02/05/23 06:08 Labs: Abnormal Lab Results - Last 24 Hours (Table) 02/04/23 02/04/23 02/05/23 Range/Units 18:02 18:02 01:26 WBC 12.7 H (3.8-10.6) k/uL Hgb 18.0 H (13.0-17.5) gm/dL Neutrophils # 10.2 H (1.3-7.7) k/uL Monocytes # 1.1 H (0-1.0) k/uL Sodium 134 L (137-145) mmol/L Potassium 2.9 L 2.8 L (3.5-5.1) mmol/L Chloride 83 L (98-107) mmol/L Carbon Dioxide 38 H (22-30) mmol/L Glucose 123 H (74-99) mg/dL Calcium 10.4 H (8.4-10.2) mg/dL Total Protein 8.3 H (6.3-8.2) g/dL Amylase 203 H (30-110) U/L Lipase 803 H (23-300) U/L 02/05/23 02/05/23 Range/Units 06:08 06:08 WBC 13.1 H (3.8-10.6) k/uL Hgb (13.0-17.5) gm/dL Neutrophils # 10.9 H (1.3-7.7) k/uL Monocytes # (0-1.0) k/uL Sodium 133 L (137-145) mmol/L Potassium 3.1 L (3.5-5.1) mmol/L Chloride 87 L (98-107) mmol/L Carbon Dioxide 37 H (22-30) mmol/L Glucose 114 H (74-99) mg/dL Calcium (8.4-10.2) mg/dL Total Protein (6.3-8.2) g/dL Amylase (30-110) U/L Lipase (23-300) U/L
--- NOTE | 2023-02-05 15:12 | P.DS ---
Providers Date of admission: 02/04/23 20:22 Expected date of discharge: 02/05/23 Attending physician: Candice Goodman MD Primary care physician: Baron Huang [facility] Course: This is a 27-year-old male who presents to [facility] with nausea, and vomiting. He was previously admitted for cyclical vomiting syndrome abuse. In the ED, he was noted to be tachycardic with heart rate of 125 and BP 153/103. CBC showed leukocytosis of 12.7. CMP showed sodium 134, potassium 2.9, chloride of 83, bicarbonate 38, glucose of 123, calcium of 10.4. Amylase was 203 and lipase was 803. CTAP was negative for acute finding. Patient was admitted for further management of symptoms. Patient was hydrated with normal saline and his potassium was replaced. Patient decided to leave against medical advice on 02/05. Pertinent studies include CTAP. Refer to progress note for physical exam. Discharge Diagnosis: #Intractable nausea and vomiting likely secondary to cyclical vomiting for marijuana use #Metabolic alkalosis #Hyponatremia #Hypokalemia #Leukocytosis Resolved: Lactic acidosis Patient Condition at Discharge: Undetermined Plan - Discharge Summary Discharge Rx Participant: Yes New Discharge Prescriptions: No Action Pantoprazole Sodium [Protonix] 40 mg PO BID #60 tab LORazepam [Ativan] 1 mg PO TID PRN 3 Days #9 tab PRN Reason: Agitation Or Acute Anxiety Ondansetron Odt [Zofran Odt] 4 mg PO Q8HR PRN #30 tab PRN Reason: Nausea And Vomiting Discharge Medication List Pantoprazole Sodium [Protonix] 40 mg PO BID #60 tab 01/05/23 [Rx] LORazepam [Ativan] 1 mg PO TID PRN 3 Days #9 tab 01/06/23 [Rx] Ondansetron Odt [Zofran Odt] 4 mg PO Q8HR PRN #30 tab 01/06/23 [Rx] Follow up Appointment(s)/Referral(s): Baron Huang MD [Primary Care Provider] - 1-2 days Discharge Disposition: Left Against Medical Advice
== END 2023-02-05 13:47 | disposition left against medical advice (07) ==
LOC: EC 17:25 → 5NMEDONC 20:22 → INTOOBSV 20:22 → 5NMEDONC 20:57 → UNDODISIN 02-05 13:47
PROVIDERS: ADMIT Internal Medicine; ATTEND Internal Medicine
DX: R11.2 Nausea with vomiting, unspecified (principal); E87.6 Hypokalemia; E83.42 Hypomagnesemia; E87.3 Alkalosis; E87.1 Hypo-osmolality and hyponatremia; D72.829 Elevated white blood cell count, unspecified; E87.20 Acidosis, unspecified; F12.10 Cannabis abuse, uncomplicated; Z79.899 Other long term (current) drug therapy; Z80.3 Family history of malignant neoplasm of breast; Z83.79 Family history of other diseases of the digestive system; Z53.29 Procedure and treatment not carried out because of patient's decision for other reasons
CPT/HCPCS: 36415; 74177; 80048; 80053; 82150; 83690; 83735; 84132; 85025; 96361; 96365; 96366; 96375; 96376; 99285

== ENCOUNTER 2023-03-30 22:06 | Observation (INO) | payer OTHER ==
[2023-03-30] MEDS ORDERED: SODIUM CHLORIDE 0.9% 1,000 ML IV STA (22:47)
[2023-03-30] MEDS ORDERED: ONDANSETRON 4 MG/2 ML VIAL IVP STA (22:47)
--- NOTE | 2023-03-30 23:06 | ED ---
General Adult HPI - General Chief complaint: Nausea/Vomiting/Diarrhea Stated complaint: Dehydration,Cramps,Nausea Time Seen by Provider: 03/30/23 22:36 Source: patient, RN notes reviewed, old records reviewed Mode of arrival: ambulatory Limitations: no limitations - History of Present Illness Initial comments: 27-year-old male presents for evaluation of nausea and vomiting. 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 He states that he's had multiple episodes of vomiting today. He states that he believes he is dehydrated because his hands been cramping. He's had several episodes similar to this in the past. Denies abdominal pain. Denies fever. - Related Data Previous Rx's Medication Instructions Recorded Pantoprazole Sodium [Protonix] 40 mg PO BID #60 tab 01/05/23 LORazepam [Ativan] 1 mg PO TID PRN 3 Days #9 tab 01/06/23 Ondansetron Odt [Zofran Odt] 4 mg PO Q8HR PRN #30 tab 01/06/23 Allergies Allergy/AdvReac Type Severity Reaction Status Date / Time No Known Allergies Allergy Verified 03/30/23 22:25 Review of Systems ROS Statement: Those systems with pertinent positive or pertinent negative responses have been documented in the HPI. ROS Other: All systems not noted in ROS Statement are negative. Past Medical History Past Medical History: GI Bleed Additional Past Medical History / Comment(s): pericarditis History of Any Multi-Drug Resistant Organisms: None Reported Past Surgical History: No Surgical Hx Reported Additional Past Surgical History / Comment(s): EGD , [place] teeth pulled Past Anesthesia/Blood Transfusion Reactions: No Reported Reaction Past Psychological History: No Psychological Hx Reported Smoking Status: Current every day smoker Past Alcohol Use History: None Reported Past Drug Use History: Marijuana - Past Family History Father Family Medical History: Liver Disease Additional Family Medical History / Comment(s): of liver cirrohis Mother Family Medical History: Cancer Additional Family Medical History / Comment(s): breast cancer General Exam Limitations: no limitations General appearance: alert, in no apparent distress Head exam: Present: atraumatic, normocephalic Eye exam: Present: normal appearance, PERRL ENT exam: Present: mucous membranes dry Respiratory exam: Present: normal lung sounds bilaterally. Absent: respiratory distress, wheezes Cardiovascular Exam: Present: normal rhythm, tachycardia GI/Abdominal exam: Present: soft. Absent: distended, tenderness, guarding Extremities exam: Present: normal inspection, normal capillary refill Neurological exam: Present: alert, oriented X3 Psychiatric exam: Present: normal affect, normal mood Skin exam: Present: warm, dry, intact Course Vital Signs 03/30/23 22:22 Pulse Rate 131 H Respiratory 20 Rate Blood Pressure 144/93 O2 Sat by Pulse 95 Oximetry Medical Decision Making - Medical Decision Making Was pt. sent in by a medical professional or institution (NIDIA Ortega, FINISHED YARN EXAMINER, urgent care, hospital, or fdc...) When possible be specific @ -No Did you speak to anyone other than the patient for history (EMS, parent, family, police, friend...)? What history was obtained from this source @ -No Did you review nursing and triage notes (agree or disagree)? Why? @ -I reviewed and agree with nursing and triage notes Were old charts reviewed (outside hosp., previous admission, EMS record, old EKG, old radiological studies, urgent care reports/EKG's, fdc records)? Report findings @ -No old charts were reviewed Differential Diagnosis (chest pain, altered mental status, abdominal pain women, abdominal pain men, vaginal bleeding, weakness, fever, dyspnea, syncope, headache, dizziness, GI bleed, back pain, seizure, CVA, palpatations, mental health, musculoskeletal)? @Nausea vomiting, dehydration, bowel obstruction, electrolyte abnormality, gastroenteritis EKG interpreted by me (3pts min.). @ -Sinus tachycardia rate of 1:30 MO interval 128, QRS duration 84, QTC 421 X-rays interpreted by me (1pt min.). @ -None done CT interpreted by me (1pt min.). @ -None done U/S interpreted by me (1pt. min.). @ -None done What testing was considered but not performed or refused? (CT, X-rays, U/S, labs)? Why? @ -None What meds were considered but not given or refused? Why? @ -None Did you discuss the management of the patient with other professionals (professionals i.e. NIDIA Ortega, FINISHED YARN EXAMINER, lab, RT, psych nurse, social sciences instructor, carton folder, teacher, chairman & chief executive officer, immigration case worker)? Give summary @Dr. Arguello Was smoking cessation discussed for >3mins.? @ -No Was critical care preformed (if so, how long)? @ -No Were there social determinants of health that impacted care today? How? (Homelessness, low income, unemployed, alcoholism, drug addiction, transportation, low edu. Level, literacy, decrease access to med. care, half-way, rehab)? @ -No Was there de-escalation of care discussed even if they declined (Discuss DNR or withdrawal of care, Hospice)? DNR status @ -No What co-morbidities impacted this encounter? (DM, HTN, Smoking, COPD, CAD, Cancer, CVA, ARF, Chemo, Hep., AIDS, mental health diagnosis, sleep apnea, morbid obesity)? @ -Marijuana use Was patient admitted / discharged? Hospital course, mention meds given and route, prescriptions, significant lab abnormalities, going to OR and other pertinent info. @27-year-old male with history of cannabis hyperemesis syndrome presenting with nausea vomiting, dehydration. Patient is tachycardic, dry mucous membranes. IV established and blood testing is obtained per patient has significant lab abnormalities including leukocytosis which is likely reactive from vomiting. He also is hemoconcentrated with a hemoglobin of 17.8. His sodium is 129. Potassium is 23. He has a chloride of 65 and bicarb of 48. Magnesium is pending. Urinalysis is pending. Patient given normal saline and potassium replacement in the emergency department. He will be continued on D5 0.9 with 40 mEq of potassium and will be admitted for rehydration and likely replacement. Admitted to internal medicine. Undiagnosed new problem with uncertain prognosis? @ -No Drug Therapy requiring intensive monitoring for toxicity (Heparin, Nitro, Insulin, Cardizem)? @ -No Were any procedures done? @ -No Diagnosis/symptom? @ -Cannabis hyperemesis, metabolic alkalosis secondary to significant vomiting, hypokalemia, dehydration Acute, or Chronic, or Acute on Chronic? @Acute on chronic Uncomplicated (without systemic symptoms) or Complicated (systemic symptoms)? @ -[Complicated Side effects of treatment? @ -No Exacerbation, Progression, or Severe Exacerbation? @ -No Poses a threat to life or bodily function? How? (Chest pain, [place], [place], pneumonia, PE, COPD, DKA, ARF, appy, cholecystitis, CVA, Diverticulitis, Homicidal, Suicidal, threat to staff... and all critical care pts) @Yes, electrolyte abnormality, arrhythmia - Lab Data Result diagrams: 03/30/23 23:00 03/30/23 23:00 Lab Results 03/30/23 03/30/23 03/30/23 Range/Units 23:00 23:00 23:00 WBC 15.3 H (3.8-10.6) k/uL RBC 5.56 (4.30-5.90) m/uL Hgb 17.8 H (13.0-17.5) gm/dL Hct 51.4 (39.0-53.0) % MCV 92.4 (80.0-100.0) fL MCH 32.0 (25.0-35.0) pg MCHC 34.7 (31.0-37.0) g/dL RDW 12.5 (11.5-15.5) % Plt Count 373 (150-450) k/uL MPV 7.5 Neutrophils % 82 % Lymphocytes % 7 % Monocytes % 10 % Eosinophils % 0 % Basophils % 0 % Neutrophils # 12.5 H (1.3-7.7) k/uL Lymphocytes # 1.0 (1.0-4.8) k/uL Monocytes # 1.5 H (0-1.0) k/uL Eosinophils # 0.1 (0-0.7) k/uL Basophils # 0.0 (0-0.2) k/uL Sodium 129 L (137-145) mmol/L Potassium 2.3 L* (3.5-5.1) mmol/L Chloride 65 L* (98-107) mmol/L Carbon Dioxide 48 H* (22-30) mmol/L Anion Gap 16 mmol/L BUN 31 H (9-20) mg/dL Creatinine 1.23 (0.66-1.25) mg/dL Est GFR (CKD-EPI)AfAm >90 (>60 ml/min/1.73 sqM) Est GFR (CKD-EPI)NonAf 79 (>60 ml/min/1.73 sqM) Glucose 152 H (74-99) mg/dL Plasma Lactic Acid Marshall 1.9 (0.7-2.0) mmol/L Calcium 9.7 (8.4-10.2) mg/dL Total Bilirubin 1.3 (0.2-1.3) mg/dL AST 41 (17-59) U/L ALT 31 (4-49) U/L Alkaline Phosphatase 148 H (38-126) U/L Total Protein 8.9 H (6.3-8.2) g/dL Albumin 5.2 H (3.5-5.0) g/dL Amylase 76 (30-110) U/L Lipase 102 (23-300) U/L Critical Care Time Critical Care Time: Yes Total Critical Care Time: 35 Disposition Clinical Impression: Hypokalemia, Marijuana use, Nausea and vomiting, Cannabis hyperemesis syndrome concurrent with and due to cannabis abuse, Metabolic alkalosis Disposition: ADMITTED IP TO THIS HOSP Is patient prescribed a controlled substance at d/c from ED?: No Referrals: Baron Huang MD [Primary Care Provider] - 1-2 days Time of Disposition: 00:09
[2023-03-30 23:10] LABS: Basophils % (A) 0 %; Eosinophils # (A) 0.1 k/uL (0-0.7); Eosinophils % (A) 0 %; HCT 51.4 % (39.0-53.0); HGB 17.8 gm/dL (13.0-17.5); Lymphocytes % (A) 7 %; MCHC 34.7 g/dL (31.0-37.0); MCV 92.4 fL (80.0-100.0); Mean Platelet Volume 7.5; Monocytes # (A) 1.5 k/uL (0-1.0); Monocytes % (A) 10 %; Neutrophils # (A) 12.5 k/uL (1.3-7.7); Neutrophils % (A) 82 %; Platelet Count 373 k/uL (150-450); RBC 5.56 m/uL (4.30-5.90); RDW 12.5 % (11.5-15.5); WBC 15.3 k/uL (3.8-10.6)
[2023-03-30 23:20] LABS: ALT 31 U/L (4-49); AST 41 U/L (17-59); African American GFR (CKD) >90 (>60 ml/min/1.73 sqM); Albumin 5.2 g/dL (3.5-5.0); Alkaline Phosphatase 148 U/L (38-126); Amylase 76 U/L (30-110); Blood Urea Nitrogen 31 mg/dL (9-20); Calcium 9.7 mg/dL (8.4-10.2); Glucose 152 mg/dL (74-99); Lipase 102 U/L (23-300); Non-African American GFR(CKD) 79 (>60 ml/min/1.73 sqM); Sodium 129 mmol/L (137-145); Total Bilirubin 1.3 mg/dL (0.2-1.3); Total Protein 8.9 g/dL (6.3-8.2)
[2023-03-30 23:27] LABS: Anion Gap 16 mmol/L
[2023-03-30 23:28] LABS: Potassium 2.3 mmol/L (3.5-5.1)
[2023-03-30 23:29] LABS: Chloride 65 mmol/L (98-107)
[2023-03-30 23:30] LABS: Carbon Dioxide 48 mmol/L (22-30)
[2023-03-30] MEDS ORDERED: SODIUM CHLORIDE 0.9% 500 ML 500 ML IV ONE (23:36)
[2023-03-30] MEDS: POTASSIUM CHLORIDE 10 MEQ in WATER FOR INJECTION 1 100ML.BAG IVPB SCH (23:51)
[2023-03-31] MEDS ORDERED: NALOXONE 0.4 MG/ML 1 ML VIAL IV PRN
[2023-03-31] MEDS ORDERED: HYDROmorphone 0.5 MG/0.5 ML SYRINGE IVP PRN
[2023-03-31] MEDS: POTASSIUM CHLORIDE 10 MEQ in WATER FOR INJECTION 1 100ML.BAG IVPB SCH ×5 (01:01→23:23)
[2023-03-31] MEDS: D5-0.9% NACL WITH KCL 40 MEQ/L 1,000 ML IV SCH ×4 (02:50→22:04)
[2023-03-31 02:55] LABS: Appearance,Urine Clear (Clear); Bilirubin,Urine Negative (Negative); Blood,Urine Negative (Negative); Color,Urine Light Yellow; Glucose,Urine (UA) Negative (Negative); Ketones,Urine 1+ (Negative); Leukocyte Esterase,Urine Negative (Negative); Nitrite,Urine Negative (Negative); Protein,Urine Trace (Negative); Specific Gravity,Urine 1.007 (1.001-1.035); Urobilinogen,Urine <2.0 mg/dL (<2.0)
--- NOTE | 2023-03-31 03:54 | P.HPIM ---
History of Present Illness H&P Date: 03/31/23 The patient is a 27-year-old male with a PMH of significant marijuana abuse who presents to the emergency room with complaints of nausea and vomiting. The patient reports that he has been experiencing persistent nausea with intractable vomiting over the past 2 days. He reports long-standing history of daily marijuana use. He has had prior episodes of cannabinoid hyperemesis and states that this feels similar. The patient reports that he does not plan on quitting marijuana use. He reported feeling significantly better at the time of interview and states that his nausea and vomiting is almost resolved. He denied experiencing chest discomfort, shortness of breath, fever, chills, cough, ab dominal pain or diarrhea. In the emergency room, EKG revealed sinus tachycardia at [address]/T- wave changes noted as reviewed by me. Laboratory evaluation is remarkable for leukocytosis of 15.3, sodium 129, potassium 2.3, chloride 65, CO2 48, BUN 31, creatinine 1.23, and an unremarkable UA. ED documentation reviewed and case discussed with ED provider. Review of systems: Pertinent positives and negatives as discussed in HPI, a complete review of systems was performed and all other systems are negative. Physical examination: Vital signs reviewed General: non toxic, no distress, appears at stated age, normal weight Derm: no unusual rashes/lesions, warm Head: atraumatic, normocephalic, symmetric Eyes: EOMI, no lid lag, anicteric sclera, pupils equal round reactive to light ENT: Nose and ears atraumatic Neck: No cervical lymphadenopathy, trachea midline, supple Mouth: no lip lesion, mucus membranes moist Cardiovascular: S1S2 reg, no murmur, positive dorsalis pedis pulse bilateral, no edema Lungs: CTA bilateral, no rhonchi, no rales, no accessory muscle use Abdominal: soft, nontender to palpation, no guarding Ext: muscle strength 5 out of 5 in all 4 extremities grossly, no gross muscle atrophy, no contractures, Neuro: CN II-XI grossly intact, no gross focal neuro deficits Psych: Alert, oriented, appropriate affect Assessment: Cannabinoid hyperemesis syndrome Hypochloremic hyponatremia, likely due to persistent vomiting Severe metabolic alkalosis Severe hypokalemia Imaging: EKG revealed sinus tachycardia at [address]/T-wave changes noted as reviewed by me. Data Review: Laboratory evaluation is remarkable for leukocytosis of 15.3, sodium 129, potassium 2.3, chloride 65, CO2 48, BUN 31, creatinine 1.23, and an unremarkable UA. Plan: Strongly advised the patient on importance of cessation for marijuana use Replace potassium aggressively and monitor for improvement Status post 2 L of normal saline in the emergency room Currently on D5NS with KCl Monitor sodium closely with goal of correction no greater than 6-8 mmol/L in 24 hours DVT prophylaxis: Heparin subq The patient is admitted with an anticipated greatly than 2 midnight stay for evaluation of nausea and vomiting CODE STATUS: Full Code Discussed with: Patient Anticipated discharge place: Home Past Medical History Past Medical History: GI Bleed Additional Past Medical History / Comment(s): pericarditis History of Any Multi-Drug Resistant Organisms: None Reported Past Surgical History: No Surgical Hx Reported Additional Past Surgical History / Comment(s): EGD , [place] teeth pulled Past Anesthesia/Blood Transfusion Reactions: No Reported Reaction Past Psychological History: No Psychological Hx Reported Smoking Status: Current every day smoker Past Alcohol Use History: None Reported Past Drug Use History: Marijuana - Past Family History Father Family Medical History: Liver Disease Additional Family Medical History / Comment(s): of liver cirrohis Mother Family Medical History: Cancer Additional Family Medical History / Comment(s): breast cancer Medications and Allergies Home Medications Medication Instructions Recorded Confirmed Type Pantoprazole Sodium [Protonix] 40 mg PO BID #60 tab 01/05/23 02/04/23 Rx LORazepam [Ativan] 1 mg PO TID PRN 3 Days #9 tab 01/06/23 02/04/23 Rx Ondansetron Odt [Zofran Odt] 4 mg PO Q8HR PRN #30 tab 01/06/23 02/04/23 Rx Allergies Allergy/AdvReac Type Severity Reaction Status Date / Time No Known Allergies Allergy Verified 03/30/23 22:25 Physical Exam Vitals: Vital Signs Pulse Resp BP Pulse Ox 03/31/23 03:32 96 14 126/84 96 03/31/23 02:42 110 H 18 119/73 97 03/31/23 01:18 84 14 122/80 97 03/30/23 22:22 131 H 20 144/93 95 Intake and Output 03/30/23 03/30/23 03/31/23 14:59 22:59 06:59 Other: Weight 58.967 kg Results CBC & Chem 7: 03/30/23 23:00 03/30/23 23:00 Labs: Abnormal Lab Results - Last 24 Hours (Table) 03/30/23 03/30/23 03/31/23 Range/Units 23:00 23:00 02:48 WBC 15.3 H (3.8-10.6) k/uL Hgb 17.8 H (13.0-17.5) gm/dL Neutrophils # 12.5 H (1.3-7.7) k/uL Monocytes # 1.5 H (0-1.0) k/uL Sodium 129 L (137-145) mmol/L Potassium 2.3 L* (3.5-5.1) mmol/L Chloride 65 L* (98-107) mmol/L Carbon Dioxide 48 H* (22-30) mmol/L BUN 31 H (9-20) mg/dL Glucose 152 H (74-99) mg/dL Alkaline Phosphatase 148 H (38-126) U/L Total Protein 8.9 H (6.3-8.2) g/dL Albumin 5.2 H (3.5-5.0) g/dL Urine Protein Trace H (Negative) Urine Ketones 1+ H (Negative)
[2023-03-31 06:14] LABS: African American GFR (CKD) >90 (>60 ml/min/1.73 sqM); Blood Urea Nitrogen 24 mg/dL (9-20); Calcium 8.8 mg/dL (8.4-10.2); Chloride 82 mmol/L (98-107); Glucose 133 mg/dL (74-99); Non-African American GFR(CKD) >90 (>60 ml/min/1.73 sqM); Potassium 2.8 mmol/L (3.5-5.1); Sodium 133 mmol/L (137-145)
[2023-03-31 06:21] LABS: Anion Gap 14 mmol/L; Carbon Dioxide 37 mmol/L (22-30)
[2023-03-31] MEDS: HEPARIN SODIUM,PORCINE/PF 5,000 UNIT/0.5 ML SYRINGE SQ SCH ×2 (07:35→16:56)
[2023-03-31] MEDS: ONDANSETRON 4 MG/2 ML VIAL IVP PRN ×2 (08:04→19:47)
[2023-03-31] MEDS: MAGNESIUM SULFATE-D5W PMX 1 GM in DEXTROSE/WATER 1 100ML.BAG IVPB SCH ×2 (09:56→11:12)
[2023-03-31] MEDS ORDERED: PROCHLORPERAZINE INJ 10 MG/2 ML VIAL IVP PRN (18:56)
--- NOTE | 2023-03-31 18:59 | P.PN ---
Subjective Progress Note Date: 03/31/23 Hospital course: Patient is a 27-year-old male with a past medical history of cannabis abuse/use. He presented to the emergency department with a chief complaint of nausea and vomiting 2 days. He underwent full evaluation in the emergency department. CBC revealed leukocytosis with the .WBC count of 15.3, polycythemia with hemoglobin of 17.8. BMP revealing hypernatremia with sodium of 129, hypokalemia with potassium of 2.3, hypochloremia with chloride of 65, hypercarbia with bicarb of 48, and anion gap was 16. BUN 31. Patient was admitted under our services for severe metabolic alkalosis resulting from dehydration from cannabinoid hyperemesis Physical exam: Vital signs reviewed and stable. General: Nontoxic, no distress and appears stated age. Derm: Skin warm and dry, normal coloration for ethnicity. Head: Atraumatic, normocephalic and symmetric. Eyes: EOMs intact, no lid lag, and anicteric sclera Mouth: no lip lesions, mucus membranes moist Cardiovascular: regular rate and rhythm with normal S1S2, no murmur, positive posterior tibial pulses bilaterally, and cap refill < 2 seconds. Lungs: Respirations even, regular, and unlabored on room air. Lungs CTA b ilaterally, no rhonchi, no rales, no wheezing, and no accessory muscle usage. Abdominal: soft, nontender to palpation, no guarding, no appreciable organomegaly Ext: ROM intact. No gross muscle atrophy, no edema, no contractures Neuro: Speech clear, face symmetrical and CN II-XII grossly intact with no noted focal neuro deficits Psych: Alert and oriented to person, place, time, and situation. Appropriate and pleasant affect. Assessment and Plan of Care: Severe metabolic alkolosis Cannabinoid hyperemesis Severe dehydration secondary to above Hyponatremia Hypokalemia Hypochloremia Hypercarbia Hypomagnesemia Prerenal azotemia -CBC revealed leukocytosis with the .WBC count of 15.3, polycythemia with hemoglobin of 17.8. BMP revealing hypernatremia with sodium of 129, hypokalemia with potassium of 2.3, hypochloremia with chloride of 65, hypercarbia with bicarb of 48, and anion gap was 16. BUN 31. -Patient was admitted under our services for severe metabolic alkalosis resulting from dehydration from cannabinoid hyperemesis -Continue with D5 0.45% NS at 50 mL per hour. -Continue antiemetics with Zofran and Compazine. -symptomatic care and pain management -Continue close monitoring of electrolytes. CODE STATUS: Full code DVT prophylaxis: Heparin Discussed with: Patient and RN Anticipated discharge date: Clinical course to determine Anticipated discharge place: Home Patient was seen independently by Nurse Pracitioner. This document was prepared using [employer] dictation software. Please allow for errors in director of capital giving, while rare they do occur. Ariel Bolanos NP rendered care for this patient independently, reviewed the findings and plan as documented in the note above. I did not physically speak with or examine the patient on this date. Objective - Vital Signs Vital signs: Vital Signs Temp 98.5 F 03/31/23 07:56 Pulse 102 H 03/31/23 09:28 Resp 18 03/31/23 09:28 BP 118/89 03/31/23 09:28 Pulse Ox 98 03/31/23 09:28 FiO2 Intake & Output 03/30/23 03/31/23 03/31/23 18:59 06:59 18:59 Weight 58.967 kg - Labs CBC & Chem 7: 04/01/23 04:17 04/01/23 04:17 Labs: Abnormal Lab Results - Last 24 Hours (Table) 03/30/23 03/30/23 03/31/23 Range/Units 23:00 23:00 02:48 WBC 15.3 H (3.8-10.6) k/uL Hgb 17.8 H (13.0-17.5) gm/dL Neutrophils # 12.5 H (1.3-7.7) k/uL Monocytes # 1.5 H (0-1.0) k/uL Sodium 129 L (137-145) mmol/L Potassium 2.3 L* (3.5-5.1) mmol/L Chloride 65 L* (98-107) mmol/L Carbon Dioxide 48 H* (22-30) mmol/L BUN 31 H (9-20) mg/dL Glucose 152 H (74-99) mg/dL Alkaline Phosphatase 148 H (38-126) U/L Total Protein 8.9 H (6.3-8.2) g/dL Albumin 5.2 H (3.5-5.0) g/dL Urine Protein Trace H (Negative) Urine Ketones 1+ H (Negative) 03/31/23 Range/Units 05:15 WBC (3.8-10.6) k/uL Hgb (13.0-17.5) gm/dL Neutrophils # (1.3-7.7) k/uL Monocytes # (0-1.0) k/uL Sodium 133 L (137-145) mmol/L Potassium 2.8 L (3.5-5.1) mmol/L Chloride 82 L (98-107) mmol/L Carbon Dioxide 37 H (22-30) mmol/L BUN 24 H (9-20) mg/dL Glucose 133 H (74-99) mg/dL Alkaline Phosphatase (38-126) U/L Total Protein (6.3-8.2) g/dL Albumin (3.5-5.0) g/dL Urine Protein (Negative) Urine Ketones (Negative)
[2023-03-31 20:13] LABS: HCT 51.1 % (39.0-53.0); HGB 17.6 gm/dL (13.0-17.5); MCH 32.7 pg (25.0-35.0); MCHC 34.3 g/dL (31.0-37.0); MCV 95.3 fL (80.0-100.0); Mean Platelet Volume 7.7; Platelet Count 370 k/uL (150-450); RBC 5.36 m/uL (4.30-5.90); RDW 12.7 % (11.5-15.5); WBC 17.5 k/uL (3.8-10.6)
[2023-03-31 20:20] LABS: African American GFR (CKD) >90 (>60 ml/min/1.73 sqM); Blood Urea Nitrogen 18 mg/dL (9-20); Calcium 10.1 mg/dL (8.4-10.2); Chloride 78 mmol/L (98-107); Glucose 132 mg/dL (74-99); Magnesium 2.5 mg/dL (1.6-2.3); Non-African American GFR(CKD) >90 (>60 ml/min/1.73 sqM); Sodium 132 mmol/L (137-145)
[2023-03-31 20:27] LABS: Anion Gap 13 mmol/L
[2023-03-31 20:35] LABS: Carbon Dioxide 41 mmol/L (22-30)
[2023-03-31] MEDS: POTASSIUM CHLORIDE ER 20 MEQ TAB.ER PO SCH (23:24)
[2023-04-01] MEDS: HEPARIN SODIUM,PORCINE/PF 5,000 UNIT/0.5 ML SYRINGE SQ SCH ×2 (00:46→07:50)
[2023-04-01] MEDS: POTASSIUM CHLORIDE ER 20 MEQ TAB.ER PO SCH (00:48)
[2023-04-01] MEDS: POTASSIUM CHLORIDE 10 MEQ in WATER FOR INJECTION 1 100ML.BAG IVPB SCH ×5 (00:49→14:57)
[2023-04-01] MEDS: D5-0.9% NACL WITH KCL 40 MEQ/L 1,000 ML IV SCH ×2 (01:58→11:49)
[2023-04-01 09:25] VITALS: RESP 16
[2023-04-01 10:08] LABS: African American GFR (CKD) 117.4 (60.0-200.0); Anion Gap 11.5 mmol/L (10.00-18.00); BUN/Creat Ratio 13.8 Ratio (12.00-20.00); Blood Urea Nitrogen 13.8 mg/dL (9.0-27.0); Calcium 9.8 mg/dL (8.7-10.3); Carbon Dioxide 38.5 mmol/L (20.0-27.5); Magnesium 2.2 mg/dL (1.5-2.4); Non-African American GFR(CKD) 101.3 (60.0-200.0); Potassium 3.1 mmol/L (3.5-5.5)
[2023-04-01 10:15] LABS: HCT 46.4 % (39.6-50.0); MCH 31.7 pg (27.0-32.0); MCHC 34.5 g/dL (32.0-37.0); MCV 92.1 fL (80.0-97.0); NRBC Per 100 WBC 0 /100 WBCS (0.0-0.0); Platelet Count 332 X 10*3/uL (140-440); RBC 5.04 X 10*6/uL (4.40-5.60); RDW 12.8 % (11.5-14.5); WBC 15.99 X 10*3/uL (4.50-10.00)
[2023-04-01] MEDS: ONDANSETRON 4 MG/2 ML VIAL IVP PRN (11:29)
[2023-04-01 14:04] VITALS: BP 153/81; PULSE 91; TEMP 97.8
--- NOTE | 2023-04-01 15:14 | P.PN ---
Subjective Progress Note Date: 04/01/23 Hospital course: Patient is a 27-year-old male with a past medical history of cannabis abuse/use. He presented to the emergency department with a chief complaint of nausea and vomiting 2 days. He underwent full evaluation in the emergency department. CBC revealed leukocytosis with the .WBC count of 15.3, polycythemia with hemoglobin of 17.8. BMP revealing hypernatremia with sodium of 129, hypokalemia with potassium of 2.3, hypochloremia with chloride of 65, hypercarbia with bicarb of 48, and anion gap was 16. BUN 31. Patient was admitted under our services for severe metabolic alkalosis resulting from dehydration from cannabinoid hyperemesis Physical exam: Patient seen and fully evaluated at bedside this morning. He continues to have episodes of nausea and receiving IV antiemetic Compazine and Zofran as ordered. Patient also very fidgety, jittery, and anxious this morning concerns for possible withdrawal from something other than marijuana. Patient denies. Morning labs reviewed showing continued metabolic alkalosis, slowly improving. Hyponatremia did resolve with morning sodium 139, potassium remains low at 3.1, chloride also remains low at 85, and bicarb also remains elevated but improving down to 38.5. Hypomagnesemia resolved with magnesium of 2.2. Vital signs reviewed and stable. General: Nontoxic, no distress and appears stated age. Derm: Skin warm and dry, normal coloration for ethnicity. Head: Atraumatic, normocephalic and symmetric. Eyes: EOMs intact, no lid lag, and anicteric sclera Mouth: no lip lesions, mucus membranes moist Cardiovascular: regular rate and rhythm with normal S1S2, no murmur, positive posterior tibial pulses bilaterally, and cap refill < 2 seconds. Lungs: Respirations even, regular, and unlabored on room air. Lungs CTA bilaterally, no rhonchi, no rales, no wheezing, and no accessory muscle usage. Abdominal: soft, nontender to palpation, no guarding, no appreciable organomegaly Ext: ROM intact. No gross muscle atrophy, no edema, no contractures Neuro: Speech clear, face symmetrical and CN II-XII grossly intact with no noted focal neuro deficits Psych: Alert and oriented to person, place, time, and situation. Appropriate and pleasant affect. Assessment and Plan of Care: Severe metabolic alkolosis Cannabinoid hyperemesis Severe dehydration secondary to above. Patient IV fluid hydration. Hypokalemia, slowly improving Hypochloremia, slowly improving Hypercarbia, slowly improving Hypomagnesemia, resolved status post replacement Prerenal azotemia, resolved after aggressive IV fluid hydration. Hyponatremia, resolved after aggressive IV fluid hydration -Patient seen and fully evaluated at bedside this morning. He continues to have episodes of nausea and receiving IV antiemetic Compazine and Zofran as ordered. -Morning labs reviewed showing continued metabolic alkalosis, slowly improving. Hyponatremia did resolve with morning sodium 139, potassium remains low at 3.1, chloride also remains low at 85, and bicarb also remains elevated but improving down to 38.5. Hypomagnesemia resolved with magnesium of 2.2. -Continue with D5 0.45% NS at 150 mL per hour. -Continue antiemetics with Zofran and Compazine. -Symptomatic care and pain management -Continue close monitoring of electrolytes. CODE STATUS: Full code DVT prophylaxis: Heparin Discussed with: Patient and RN Anticipated discharge date: Clinical course to determine Anticipated discharge place: Home Patient was seen independently by Nurse Pracitioner. This document was prepared using [employer] dictation software. Please allow for errors in system support analyst, while rare they do occur. Ariel Bolanos NP rendered care for this patient independently, reviewed the findings and plan as documented in the note above. I did not physically speak with or examine the patient on this date. Objective - Vital Signs Vital signs: Vital Signs Temp 98.9 F 04/01/23 08:09 Pulse 86 04/01/23 08:09 Resp 16 04/01/23 08:09 BP 158/88 04/01/23 08:09 Pulse Ox 99 04/01/23 08:09 FiO2 Intake & Output 03/31/23 04/01/23 04/01/23 18:59 06:59 18:59 Intake Total 1400 Balance 1400 Weight 58.967 kg Intake: Intake, IV Titration 1400 Amount D5-0.9% NaCl with KCl 40 1200 Meq/l 1,000 ml @ 150 mls/ hr IV .[id number] [facility] Rx#: [id number] Magnesium Sulfate-D5w Pmx 200 1 gm In Dextrose/Water 1 100ml.bag @ 100 mls/hr IVPB Q1H [facility] Rx#: [id number] Other: Voiding Method Toilet # Voids 4 2 - Labs CBC & Chem 7: 04/01/23 04:17 04/01/23 04:17 Labs: Abnormal Lab Results - Last 24 Hours (Table) 03/31/23 03/31/23 04/01/23 Range/Units 19:16 19:16 04:17 WBC 17.5 H 15.99 H (3.8-10.6) k/uL Hgb 17.6 H (13.0-17.5) gm/dL Sodium 132 L (137-145) mmol/L Potassium 3.0 L (3.5-5.1) mmol/L Chloride 78 L (98-107) mmol/L Carbon Dioxide 41 H* (22-30) mmol/L Glucose 132 H (74-99) mg/dL Magnesium 2.5 H (1.6-2.3) mg/dL 04/01/23 Range/Units 04:17 WBC (3.8-10.6) k/uL Hgb (13.0-17.5) gm/dL Sodium (137-145) mmol/L Potassium 3.1 L (3.5-5.1) mmol/L Chloride 85 L (98-107) mmol/L Carbon Dioxide 38.5 H (22-30) mmol/L Glucose 137 H (74-99) mg/dL Magnesium (1.6-2.3) mg/dL
--- NOTE | 2023-04-01 15:30 | P.DS ---
Providers Date of admission: 03/31/23 00:00 Attending physician: Олег Arguello MD Primary care physician: Baron Huang [facility] Course: THIS IS NOT A DISCHARGE SUMMARY BUT A SUMMARY OF CARE PATIENT LEFT AGAINST MEDICAL ADVICE on 04/01/23 at 2:39 PM Diagnosis: Severe metabolic alkolosis Cannabinoid hyperemesis Severe dehydration secondary to above. Patient IV fluid hydration. Hypokalemia, slowly improving Hypochloremia, slowly improving Hypercarbia, slowly improving Hypomagnesemia, resolved status post replacement Prerenal azotemia, resolved after aggressive IV fluid hydration. Hyponatremia, resolved after aggressive IV fluid hydration Hospital Course: Patient is a 27-year-old male with a past medical history of cannabis abuse/use. He presented to the emergency department with a chief complaint of nausea and vomiting 2 days. He underwent full evaluation in the emergency department. CBC revealed leukocytosis with the .WBC count of 15.3, polycythemia with hemoglobin of 17.8. BMP revealing hypernatremia with sodium of 129, hypokalemia with potassium of 2.3, hypochloremia with chloride of 65, hypercarbia with bicarb of 48, and anion gap was 16. BUN 31. Patient was admitted under our services for severe metabolic alkalosis resulting from dehydration from cannabinoid hyperemesis. Patient underwent a 2 night hospitalization course and remained in metabolic alkalosis with electrolyte abnormalities. Electrolyte abnormalities were replaced daily and still in the process of being replaced and patient remained on vigorous IV fluid hydration. Patient was still not tolerating clear liquid diet and receiving IV antibiotics with Compazine and Zofran for cyclic vomiting. Patient was very anxious and jittery, there were concerns for underlying withdraw from unknown substance however patient denied alcohol or any other drug use. Received notification from RN on 04/01/23 at 2:39 PM the patient signed out AGAINST MEDICAL ADVICE. This document was prepared using [employer] dictation software. Please allow for errors in lombardi developer while rare they do occur. Ariel Bolanos NP rendered care for this patient independently, reviewed the findings and plan as documented in the note above. I did not physically speak with or examine the patient on this date. Patient Condition at Discharge: Undetermined Plan - Discharge Summary Discharge Rx Participant: No New Discharge Prescriptions: No Action No Known Home Medications Discharge Medication List No Known Home Medications 03/31/23 [History] Follow up Appointment(s)/Referral(s): Baron Huang MD [Primary Care Provider] - 1-2 days Discharge Disposition: Left Against Medical Advice
== END 2023-04-01 14:38 | disposition left against medical advice (07) ==
LOC: EC 22:06 → 3SCARD 03-31 → INTOOBSV 03-31 → 4SSUR 03-31 06:51 → UNDODISIN 04-01 14:38
PROVIDERS: ADMIT Internal Medicine; ATTEND Internal Medicine
DX: R11.2 Nausea with vomiting, unspecified (principal); F12.10 Cannabis abuse, uncomplicated; E86.0 Dehydration; E87.0 Hyperosmolality and hypernatremia; E87.8 Other disorders of electrolyte and fluid balance, not elsewhere classified; R06.89 Other abnormalities of breathing; E83.42 Hypomagnesemia; F17.200 Nicotine dependence, unspecified, uncomplicated; E87.1 Hypo-osmolality and hyponatremia; R00.0 Tachycardia, unspecified; E87.3 Alkalosis; E87.6 Hypokalemia; Z79.899 Other long term (current) drug therapy; Z83.79 Family history of other diseases of the digestive system; Z80.3 Family history of malignant neoplasm of breast; Z53.29 Procedure and treatment not carried out because of patient's decision for other reasons
CPT/HCPCS: 96376 ×3; 96366 ×5; 96367; 96375 ×3; 96365 ×2; 99291; 36415; 93005; 80053; 80048 ×2; 82150; 83605; 83690; 83735 ×2; 85025; 85027 ×2; 81003; G0378 ×2; J0780; J2405 ×3; J3475; J3480 ×3; J1170; 96361

== ENCOUNTER 2023-06-25 20:13 | Inpatient (IN) | payer OTHER ==
[2023-06-25 20:20] VITALS: TEMP 97.9
[2023-06-25] MEDS ORDERED: ONDANSETRON 4 MG/2 ML VIAL IVP STA (20:30)
[2023-06-25] MEDS ORDERED: SODIUM CHLORIDE 0.9% 1,000 ML IV ONE (20:30)
[2023-06-25 20:57] LABS: Basophils % (A) 0 %; Eosinophils # (A) 0.2 k/uL (0-0.7); Eosinophils % (A) 1 %; HCT 50.7 % (39.0-53.0); Lymphocytes # (A) 1.1 k/uL (1.0-4.8); Lymphocytes % (A) 7 %; MCH 33.5 pg (25.0-35.0); MCHC 35.5 g/dL (31.0-37.0); MCV 94.3 fL (80.0-100.0); Mean Platelet Volume 7.5; Monocytes # (A) 1.3 k/uL (0-1.0); Monocytes % (A) 8 %; Neutrophils # (A) 13.1 k/uL (1.3-7.7); Neutrophils % (A) 82 %; Platelet Count 349 k/uL (150-450); RBC 5.38 m/uL (4.30-5.90); RDW 12.6 % (11.5-15.5); WBC 15.9 k/uL (3.8-10.6)
--- NOTE | 2023-06-25 21:01 | ED ---
General Adult HPI - General Chief complaint: Nausea/Vomiting/Diarrhea Stated complaint: vomiting,cramping Time Seen by Provider: 06/25/23 20:26 Source: patient Mode of arrival: ambulatory Limitations: no limitations - History of Present Illness Initial comments: 27-year-old male presenting with chief complaint of nausea and vomiting. Symptoms ongoing since yesterday. Patient has been seen here multiple times for recurrent episodes of refractory nausea and vomiting. He is having no abdominal pain. No hematochezia or melena. No chest pain or difficulty breathing. No URI like symptoms. No dysuria, hematuria, flank pain. - Related Data Home Medications Medication Instructions Recorded Confirmed No Known Home Medications 03/31/23 03/31/23 Allergies Allergy/AdvReac Type Severity Reaction Status Date / Time No Known Allergies Allergy Verified 06/25/23 20:20 Review of Systems ROS Statement: Those systems with pertinent positive or pertinent negative responses have been documented in the HPI. ROS Other: All systems not noted in ROS Statement are negative. Past Medical History Past Medical History: GI Bleed Additional Past Medical History / Comment(s): pericarditis, esophageal ulcer History of Any Multi-Drug Resistant Organisms: None Reported Past Surgical History: No Surgical Hx Reported Additional Past Surgical History / Comment(s): EGD, [place] teeth pulled Past Anesthesia/Blood Transfusion Reactions: No Reported Reaction Past Psychological History: No Psychological Hx Reported Smoking Status: Never smoker Past Alcohol Use History: Occasional Past Drug Use History: Marijuana - Past Family History Father Family Medical History: Liver Disease Additional Family Medical History / Comment(s): of liver cirrohis Mother Family Medical History: Cancer Additional Family Medical History / Comment(s): breast cancer General Exam Limitations: no limitations General appearance: alert, in no apparent distress Head exam: Present: atraumatic, normocephalic, normal inspection Eye exam: Present: normal appearance, EOMI. Absent: scleral icterus, periorbital swelling Neck exam: Present: normal inspection, full ROM Respiratory exam: Present: normal lung sounds bilaterally. Absent: respiratory distress, wheezes, rales, rhonchi, stridor Cardiovascular Exam: Present: regular rate, normal rhythm, normal heart sounds. Absent: systolic murmur, diastolic murmur, rubs, gallop, clicks GI/Abdominal exam: Present: soft. Absent: distended, tenderness, guarding, rebound, rigid Neurological exam: Present: alert, oriented X3, CN II-XII intact Psychiatric exam: Present: normal affect, normal mood Skin exam: Present: warm, dry, intact, normal color. Absent: rash Course Vital Signs 06/25/23 06/25/23 20:16 23:00 Temperature 97.9 F Pulse Rate 80 77 Respiratory 18 22 Rate Blood Pressure 155/101 150/101 O2 Sat by Pulse 100 96 Oximetry Medical Decision Making - Medical Decision Making Was pt. sent in by a medical professional or institution (, [facility], ELIGIBILITY CONSULTANT, urgent care, hospital, or penitentiary...) When possible be specific @ -No Did you speak to anyone other than the patient for history (EMS, parent, family, police, friend...)? What history was obtained from this source @ -No Did you review nursing and triage notes (agree or disagree)? Why? @ -I reviewed and agree with nursing and triage notes Were old charts reviewed (outside hosp., previous admission, EMS record, old EKG, old radiological studies, urgent care reports/EKG's, penitentiary records)? Report findings @ -Previous admissions are reviewed Differential Diagnosis (chest pain, altered mental status, abdominal pain women, abdominal pain men, vaginal bleeding, weakness, fever, dyspnea, syncope, headache, dizziness, GI bleed, back pain, seizure, CVA, palpatations, mental health, musculoskeletal)? @ -Differential includes pancreatitis, gastroenteritis, cannabinoid induced hyperemesis, this is not an all-inclusive list EKG interpreted by me (3pts min.). @ -As above X-rays interpreted by me (1pt min.). @ -None done CT interpreted by me (1pt min.). @ -None done U/S interpreted by me (1pt. min.). @ -None done What testing was considered but not performed or refused? (CT, X-rays, U/S, labs)? Why? @ -None What meds were considered but not given or refused? Why? @ -None Did you discuss the management of the patient with other professionals (professionals i.e. [facility] Ortega, ELIGIBILITY CONSULTANT, lab, RT, psych nurse, social organization professor, home care aide, teacher, submarine advisory team watch officer, case picker)? Give summary @ -Spoke with Dr. Goodman who accepted admission Was smoking cessation discussed for >3mins.? @ -No Was critical care preformed (if so, how long)? @ -No Were there social determinants of health that impacted care today? How? (Homelessness, low income, unemployed, alcoholism, drug addiction, transportation, low edu. Level, literacy, decrease access to med. care, prison, rehab)? @ -No Was there de-escalation of care discussed even if they declined (Discuss DNR or withdrawal of care, Hospice)? DNR status @ -No What co-morbidities impacted this encounter? (DM, HTN, Smoking, COPD, CAD, Cancer, CVA, ARF, Chemo, Hep., AIDS, mental health diagnosis, sleep apnea, morbid obesity)? @ -None Was patient admitted / discharged? Hospital course, mention meds given and r oute, prescriptions, significant lab abnormalities, going to OR and other pertinent info. @ -27-year-old male presenting with chief complaint of nausea and vomiting since yesterday. On physical examination abdomen is soft, nontender, nondistended. WBC 15.9, likely reactive. Sodium 1:30 and potassium 2.4, patient is receiving IV fluids and IV and oral potassium replacement. Lipase 783 and amylase 124. Patient will be admitted. He is agreeable with this plan. I spoke with Dr. Hutchinson who accepted admission. I discussed this case with my attending Dr. Almaguer. Undiagnosed new problem with uncertain prognosis? @ -No Drug Therapy requiring intensive monitoring for toxicity (Heparin, Nitro, Insulin, Cardizem)? @ -No Were any procedures done? @ -No Diagnosis/symptom? @ Intractable nausea and vomiting, hypokalemia, pancreatitis, hyponatremia Acute, or Chronic, or Acute on Chronic? @ -Acute Uncomplicated (without systemic symptoms) or Complicated (systemic symptoms)? @ -Complicated Side effects of treatment? @ -No Exacerbation, Progression, or Severe Exacerbation? @ -No Poses a threat to life or bodily function? How? (Chest pain, [place], ME, pneumonia, PE, COPD, DKA, ARF, appy, cholecystitis, CVA, Diverticulitis, Homicidal, Suicidal, threat to staff... and all critical care pts) @ -Yes - Lab Data Result diagrams: 06/25/23 20:47 06/25/23 20:47 Lab Results 06/25/23 06/25/2323 Range/Units 20:47 20:47 20:47 WBC 15.9 H (3.8-10.6) k/uL RBC 5.38 (4.30-5.90) m/uL Hgb 18.0 H (13.0-17.5) gm/dL Hct 50.7 (39.0-53.0) % MCV 94.3 (80.0-100.0) fL MCH 33.5 (25.0-35.0) pg MCHC 35.5 (31.0-37.0) g/dL RDW 12.6 (11.5-15.5) % Plt Count 349 (150-450) k/uL MPV 7.5 Neutrophils % 82 % Lymphocytes % 7 % Monocytes % 8 % Eosinophils % 1 % Basophils % 0 % Neutrophils # 13.1 H (1.3-7.7) k/uL Lymphocytes # 1.1 (1.0-4.8) k/uL Monocytes # 1.3 H (0-1.0) k/uL Eosinophils # 0.2 (0-0.7) k/uL Basophils # 0.0 (0-0.2) k/uL Sodium 130 L (137-145) mmol/L Potassium 2.4 L* (3.5-5.1) mmol/L Chloride 77 L (98-107) mmol/L Carbon Dioxide 37 H (22-30) mmol/L Anion Gap 16 mmol/L BUN 25 H (9-20) mg/dL Creatinine 0.87 (0.66-1.25) mg/dL Est GFR (CKD-EPI)AfAm >90 (>60 ml/min/1.73 sqM) Est GFR (CKD-EPI)NonAf >90 (>60 ml/min/1.73 sqM) Glucose 138 H (74-99) mg/dL Calcium 9.9 (8.4-10.2) mg/dL Magnesium 2.0 (1.6-2.3) mg/dL Total Bilirubin 1.0 (0.2-1.3) mg/dL AST 45 (17-59) U/L ALT 29 (4-49) U/L Alkaline Phosphatase 125 (38-126) U/L Total Protein 8.7 H (6.3-8.2) g/dL Albumin 5.0 (3.5-5.0) g/dL Amylase 124 H (30-110) U/L Lipase 783 H (23-300) U/L Disposition Clinical Impression: Refractory nausea and vomiting, Hypokalemia, Pancreatitis Disposition: ADMITTED IP TO THIS HOSP Condition: Fair Time of Disposition: 22:59
[2023-06-25 21:23] LABS: ALT 29 U/L (4-49); AST 45 U/L (17-59); African American GFR (CKD) >90 (>60 ml/min/1.73 sqM); Alkaline Phosphatase 125 U/L (38-126); Amylase 124 U/L (30-110); Blood Urea Nitrogen 25 mg/dL (9-20); Calcium 9.9 mg/dL (8.4-10.2); Glucose 138 mg/dL (74-99); Lipase 783 U/L (23-300); Non-African American GFR(CKD) >90 (>60 ml/min/1.73 sqM); Total Protein 8.7 g/dL (6.3-8.2)
[2023-06-25 21:44] LABS: Carbon Dioxide 37 mmol/L (22-30)
[2023-06-25 22:00] LABS: Anion Gap 16 mmol/L; Chloride 77 mmol/L (98-107); Sodium 130 mmol/L (137-145)
[2023-06-25 22:09] LABS: Potassium 2.4 mmol/L (3.5-5.1)
[2023-06-25] MEDS ORDERED: Potassium Replacement Protocol 1 EACH MISC MISCELLANE PRN (22:13)
[2023-06-25] MEDS: POTASSIUM CHLORIDE 10 MEQ in WATER FOR INJECTION 1 100ML.BAG IVPB SCH (22:46)
[2023-06-25] MEDS: POTASSIUM CHLORIDE ER 20 MEQ TAB.ER PO SCH (22:46)
[2023-06-25] MEDS ORDERED: METOCLOPRAMIDE 5 MG/ML 2 ML VIAL IVP STA (22:53)
[2023-06-25] MEDS ORDERED: ONDANSETRON 4 MG/2 ML VIAL IVP PRN (23:00)
[2023-06-25] MEDS ORDERED: NALOXONE 0.4 MG/ML 1 ML VIAL IV PRN (23:00)
[2023-06-25] MEDS ORDERED: PROCHLORPERAZINE SUPPOSITORY 25 MG SUPP RECTAL PRN (23:00)
[2023-06-25] MEDS: LACTATED RINGERS 1,000 ML IV SCH ×2 (23:12→23:13)
[2023-06-25] MEDS: FAMOTIDINE 20 MG/2 ML VIAL IV SCH (23:58)
[2023-06-26] MEDS: POTASSIUM CHLORIDE 10 MEQ in WATER FOR INJECTION 1 100ML.BAG IVPB SCH ×5 (00:23→04:36)
[2023-06-26] MEDS: LACTATED RINGERS 1,000 ML IV SCH ×2 (00:26→06:16)
[2023-06-26] MEDS: POTASSIUM CHLORIDE ER 20 MEQ TAB.ER PO SCH ×2 (00:27→01:28)
--- NOTE | 2023-06-26 04:29 | P.HPIM ---
History of Present Illness H&P Date: 06/25/23 Chief Complaint: repeated nausea and vomiting 27 year old male with cyclical vomiting syndrome patient claims last time he smoked marijuana was about 1 week ago , he started vomiting since Monday, repeated episodes throughout the day , getting worse,non bloody non bilious , denies abd pain , denies fever, chills, he reports thats its similar to his prior episodes of cyclical vomiting , denies any fever, chills, denies GI bleeding, denies diarrhea , or any known sick contacts. Review of Systems Pertinent positives as noted in HPI. All other systems were reviewed and are negative Past Medical History Past Medical History: GI Bleed Additional Past Medical History / Comment(s): pericarditis, esophageal ulcer History of Any Multi-Drug Resistant Organisms: None Reported Past Surgical History: No Surgical Hx Reported Additional Past Surgical History / Comment(s): EGD, [place] teeth pulled Past Anesthesia/Blood Transfusion Reactions: No Reported Reaction Past Psychological History: No Psychological Hx Reported Smoking Status: Never smoker Past Alcohol Use History: Occasional Past Drug Use History: Marijuana - Past Family History Father Family Medical History: Liver Disease Additional Family Medical History / Comment(s): of liver cirrohis Mother Family Medical History: Cancer Additional Family Medical History / Comment(s): breast cancer Medications and Allergies Home Medications Medication Instructions Recorded Confirmed Type No Known Home Medications 03/31/23 03/31/23 History Allergies Allergy/AdvReac Type Severity Reaction Status Date / Time No Known Allergies Allergy Verified 06/25/23 20:20 Physical Exam Vitals: Vital Signs Temp Pulse Resp BP Pulse Ox 06/26/23 03:30 60 19 98/64 97 06/26/23 02:30 68 18 100/70 96 06/26/23 02:00 75 19 114/76 96 06/26/23 01:30 107 H 20 116/71 97 06/26/23 01:00 82 22 119/71 94 L 06/26/23 00:30 75 18 134/77 100 06/26/23 00:00 100 21 153/96 100 06/25/23 23:30 80 16 129/89 96 06/25/23 23:26 70 18 129/89 100 06/25/23 23:00 77 22 150/101 96 06/25/23 20:16 97.9 F 80 18 155/101 100 Intake and Output 06/25/23 06/25/23 06/26/23 14:59 22:59 06:59 Other: Weight 58.967 kg on exam Constitutional: No acute distress, conversant, pleasant Eyes: Anicteric sclerae, moist conjunctiva, Pupils equal round reactive to light ENMT: NC/AT Oropharynx clear, no erythema, or exudates Neck: Supple, no masses, or JVD No carotid bruits No thyromegaly Lungs: Clear to auscultation Clear to percussion Normal respiratory effort, no accessory muscle use Cardiovascular: Heart regular in rate and rhythm, No murmurs, gallops, or rubs No peripheral edema Abdominal: Soft Nontender, no guarding, rebound or rigidity Abdomen moving with respiration Normoactive bowel sounds No hepatomegaly, No splenomegaly No palpable mass No abdominal wall hernia noted Skin: Normal temperature, tone, texture, turgor No induration No subcutaneous nodules No rash, lesions No ulcers Extremities: No digital cyanosis No clubbing Pedal pulses intact and symmetrical Radial pulses intact and symmetrical No calf tenderness Psychiatric: Alert and oriented to person, place and time Appropriate affect fair judgement Neuro Muscles Strength 5/5 in all 4 extremities Sensation to light touch grossly present throughout Cranial nerves II-XII grossly intact Lymphatics: no palpable cervical or supraclavicular lymph nodes Results CBC & Chem 7: 06/25/23 20:47 06/25/23 20:47 Labs: Abnormal Lab Results - Last 24 Hours (Table) 06/25/23 06/25/23 Range/Units 20:47 20:47 WBC 15.9 H (3.8-10.6) k/uL Hgb 18.0 H (13.0-17.5) gm/dL Neutrophils # 13.1 H (1.3-7.7) k/uL Monocytes # 1.3 H (0-1.0) k/uL Sodium 130 L (137-145) mmol/L Potassium 2.4 L* (3.5-5.1) mmol/L Chloride 77 L (98-107) mmol/L Carbon Dioxide 37 H (22-30) mmol/L BUN 25 H (9-20) mg/dL Glucose 138 H (74-99) mg/dL Total Protein 8.7 H (6.3-8.2) g/dL Amylase 124 H (30-110) U/L Lipase 783 H (23-300) U/L Assessment and Plan Assessment: 27 year old male with marijuana abuse, and episodes of cyclical vomiting, I discussed the case with ED doc and I accepted the admission for IVF hydration and symptomatic control with anticipated length of stay < 2 midnights cyclical vomiting syndrome zofran 4 mg IVP PRN q8hr IVF hydration with 1 L bolus normal saline , then continue with LR 125 cc per hour monitor vital signs advance diet as tolerated counseled to quit marijuana hypokalemia replace IV and oral as needed follow up K level Mg level is 2.0 unremarkable blood work showed elevated lipase 783 (< 3 times upper normal level) no abd tenderness to exam doubt pancreatitis full code DVT PPX heparin sc tid 5000 units
[2023-06-26] MEDS ORDERED: HEPARIN SODIUM,PORCINE 5,000 UNIT/ML 1 ML VIAL SQ SCH (08:00)
[2023-06-26 08:28] LABS: African American GFR (CKD) >90 (>60 ml/min/1.73 sqM); Blood Urea Nitrogen 15 mg/dL (9-20); Calcium 9.2 mg/dL (8.4-10.2); Carbon Dioxide 36 mmol/L (22-30); Glucose 102 mg/dL (74-99); Non-African American GFR(CKD) >90 (>60 ml/min/1.73 sqM)
[2023-06-26 08:50] LABS: Anion Gap 4 mmol/L; Chloride 92 mmol/L (98-107); Potassium 3.4 mmol/L (3.5-5.1); Sodium 132 mmol/L (137-145)
[2023-06-26] MEDS: FAMOTIDINE 20 MG/2 ML VIAL IV SCH (09:14)
[2023-06-26 09:43] LABS: Amphetamine Screen,Urine Not Detected (NotDetected); Barbiturate Screen,Urine Not Detected (NotDetected); Benzodiazepines Screen,Urine Not Detected (NotDetected); Cocaine Screen,Urine Not Detected (NotDetected); Methadone Screen, Urine Not Detected (NotDetected); Opiate Screen,Urine Not Detected (NotDetected); Oxycodone Screen, Urine Not Detected (NotDetected); Phencyclidine Screen,Urine Not Detected (NotDetected); Tricyclic Antidepressant,Urine Not Detected (NotDetected); Urn Cannabinoid Scrn Detected (NotDetected)
[2023-06-26 10:39] VITALS: PULSE 56; RESP 20
[2023-06-26 10:39] LABS: HCT 46.2 % (39.0-53.0); HGB 15.7 gm/dL (13.0-17.5); MCH 33.3 pg (25.0-35.0); MCHC 33.9 g/dL (31.0-37.0); MCV 98.1 fL (80.0-100.0); Platelet Count 274 k/uL (150-450); RBC 4.71 m/uL (4.30-5.90); RDW 12.7 % (11.5-15.5); WBC 12.6 k/uL (3.8-10.6)
[2023-06-26 10:40] VITALS: BP 116/72
[2023-06-26 12:26] LABS: Magnesium 2.1 mg/dL (1.6-2.3)
[2023-06-26] MEDS ORDERED: POTASSIUM CHLORIDE ER 20 MEQ TAB.ER PO STA (15:18)
--- NOTE | 2023-06-26 15:27 | P.PN ---
Subjective Progress Note Date: 06/26/23 Late documentation, patient seen this morning at 9:40 AM. Hospital course: Patient is a very pleasant 27-year-old male with a past medical history of daily cannabinoid use/abuse, recurrent episodes of cyclic vomiting, pericarditis, and esophageal ulcer. Patient reports that he was trying to cut down with his daily cannabinoid use and last smoked marijuana on Monday (06/21) or (06/22) but began having abdominal pain and cyclic vomiting on Monday06/23/23 with no relief. Patient presented to the emergency department overnight on 06/25/23 with reports of continued abdominal pain and persistent vomiting. Patient underwent full evaluation in the emergency department. Labs completed and reviewed. CBC showing leukocytosis with WBC count of 15.9. BMP showing hyponatremia with sodium 130, hypokalemia with potassium 2.4, an elevated anion gap metabolic alkalosis with hypochloremia with chloride of 77, bicarbonate 37, and anion gap of 16. BUN also elevated at 25 with blood glucose levels of 138. Amylase elevated at 124 and lipase of 783. Patient was admitted under our services for cannabinoid induced hyperemesis and she received continuous IV fluid hydration. Physical exam: Vital signs reviewed and stable. General: Nontoxic, no distress and appears stated age. Derm: Skin warm and dry, normal coloration for ethnicity. Head: Atraumatic, normocephalic and symmetric. Eyes: EOMs intact, no lid lag, and anicteric sclera Mouth: no lip lesions, mucus membranes moist Cardiovascular: regular rate and rhythm with normal S1S2, no murmur, positive posterior tibial pulses bilaterally, and cap refill < 2 seconds. Lungs: Respirations even, regular, and unlabored on room air. Lungs CTA bilaterally, no rhonchi, no rales, no wheezing, and no accessory muscle usage. Abdominal: soft, nontender to palpation, no guarding, no appreciable organomegaly Ext: ROM intact. No gross muscle atrophy, no edema, no contractures Neuro: Speech clear, face symmetrical and CN II-XII grossly intact with no noted focal neuro deficits Psych: Alert and oriented to person, place, time, and situation. Appropriate and pleasant affect. Assessment and Plan of Care: Abdominal pain with cyclic vomiting secondary to Cannabinoid induced hyperemesis Elevated anion gap Metabolic alkalosis resulting from above Elevated lipase Hyponatremia Hypokalemia Prerenal azotemia Leukocytosis reactive secondary to cyclic vomiting -Urine drug screen positive for marijuana. -Patient to be kept nothing by mouth with continued aggressive IV fluid hydration with LR at 125 mL's per hour. -Will advance patient's diet to clear liquid as he tolerates and once no longer vomiting. -Repeat potassium 3.4 orders placed for K Dur 40 mEq 1 dose. -Symptomatic care and pain management. Data review: Vital signs reviewed and stable. Blood pressure 100/65, heart rate 80, respiratory rate 18, and SpO2 of 100% on room air. Morning labs reviewed. CBC showing improvement of leukocytosis with WBC count decreasing from 15.9 down to 12.6 and hemoglobin stable at 15.7. BMP showing improvement of hyponatremia with previous sodium 1:30 and repeat morning sodium of 132 as well as improvement of hypokalemia with potassium increasing from previous 2.4-3.4 this morning. BMP otherwise showing chloride improving to 92 and bicarb decreasing to 36. Prerenal azotemia resolved with previous BUN of 25 and current BUN of 15 after IV fluid hydration. Lipase improving from 783 down to 57. CODE STATUS: Full code DVT prophylaxis: Heparin Discussed with: Patient and RN Anticipated discharge date: 24-[address]: Home Patient was seen independently by Nurse Pracitioner. This document was prepared using [employer] dictation software. Please allow for errors in crop adjuster, while rare they do occur. I reviewed the documentation as provided by the JEREMY above, who is the original author of this note. I agree with the documented assessment and plan, with the following changes: none Objective - Vital Signs Vital signs: Vital Signs Temp 97.9 F 06/25/23 20:16 Pulse 56 L 06/26/23 10:38 Resp 20 06/26/23 10:38 BP 116/72 06/26/23 10:38 Pulse Ox 98 06/26/23 10:38 FiO2 Intake & Output 06/25/23 06/26/23 06/26/23 18:59 06:59 18:59 Weight 58.967 kg - Labs CBC & Chem 7: 06/26/23 07:33 06/26/23 07:33 Labs: Abnormal Lab Results - Last 24 Hours (Table) 06/25/23 06/25/23 06/26/23 Range/Units 20:47 20:47 07:33 WBC 15.9 H (3.8-10.6) k/uL Hgb 18.0 H (13.0-17.5) gm/dL Neutrophils # 13.1 H (1.3-7.7) k/uL Monocytes # 1.3 H (0-1.0) k/uL Sodium 130 L 132 L (137-145) mmol/L Potassium 2.4 L* 3.4 L (3.5-5.1) mmol/L Chloride 77 L 92 L (98-107) mmol/L Carbon Dioxide 37 H 36 H (22-30) mmol/L BUN 25 H (9-20) mg/dL Glucose 138 H 102 H (74-99) mg/dL Total Protein 8.7 H (6.3-8.2) g/dL Amylase 124 H (30-110) U/L Lipase 783 H (23-300) U/L U Marijuana (THC) Screen (NotDetected) 06/26/23 06/26/23 Range/Units 07:33 09:17 WBC 12.6 H (3.8-10.6) k/uL Hgb (13.0-17.5) gm/dL Neutrophils # (1.3-7.7) k/uL Monocytes # (0-1.0) k/uL Sodium (137-145) mmol/L Potassium (3.5-5.1) mmol/L Chloride (98-107) mmol/L Carbon Dioxide (22-30) mmol/L BUN (9-20) mg/dL Glucose (74-99) mg/dL Total Protein (6.3-8.2) g/dL Amylase (30-110) U/L Lipase (23-300) U/L U Marijuana (THC) Screen Detected H (NotDetected)
--- NOTE | 2023-06-26 17:09 | P.DS ---
Providers Date of admission: 06/25/23 23:02 Expected date of discharge: 06/26/23 Attending physician: Candice Goodman MD Primary care physician: Luis Huang [facility] Course: THIS IS NOT A DISCHARGE SUMMARY, THIS IS A SUMMARY OF CARE PATIENT LEFT AGAINST MEDICAL ADVICE on 06/26/23 of 4:32 PM Discharge Diagnosis: Abdominal pain with cyclic vomiting secondary to Cannabinoid induced hyperemesis Elevated anion gap Metabolic alkalosis resulting from above Elevated lipase Hyponatremia Hypokalemia Prerenal azotemia. Leukocytosis reactive secondary to cyclic vomiting Hospital Course: Patient is a very pleasant 27-year-old male with a past medical history of daily cannabinoid use/abuse, recurrent episodes of cyclic vomiting, pericarditis, and esophageal ulcer. Patient reports that he was trying to cut down with his daily cannabinoid use and last smoked marijuana on Monday (06/21) or (06/22) but began having abdominal pain and cyclic vomiting on Monday06/23/23 with no relief. Patient presented to the emergency department overnight on 06/25/23 with reports of continued abdominal pain and persistent vomiting. Patient underwent full evaluation in the emergency department. Labs completed and reviewed. CBC showing leukocytosis with WBC count of 15.9. BMP showing hyponatremia with sodium 130, hypokalemia with potassium 2.4, an elevated anion gap metabolic alkalosis with hypochloremia with chloride of 77, bicarbonate 37, and anion gap of 16. BUN also elevated at 25 with blood glucose levels of 138. Amylase elevated at 124 and lipase of 783. Patient was admitted under our services for cannabinoid induced hyperemesis and she received continuous IV fluid hydration. Urine drug screen positive for marijuana. Patient was kept NPO and receiving IV fluid hydration. Received notification from RN at 4:02 PM the patient was requesting to leave and would like to speak with provider for discharge. Called and discussed with RN that we can do an oral challenge and determine if patient is tolerating oral intake and I will be done to evaluate shortly. Arrived to bedside at 4:40 PM and was notified by RN that patient had artery left AGAINST MEDICAL ADVICE. Per documentation in chart, patient left AGAINST MEDICAL ADVICE on 06/26/23 at 4:32 PM. PATIENT LEFT AGAINST MEDICAL ADVICE on 06/26/23 of 4:32 PM Patient was seen independently by Nurse Practitioner. This document was prepared using Dragon dictation software. Please allow for errors in office support while rare they do occur. I reviewed the documentation as provided by the JEREMY above, who is the original author of this note. I agree with the documented assessment and plan, with the following changes: none Patient Condition at Discharge: Stable Plan - Discharge Summary New Discharge Prescriptions: No Action No Known Home Medications Discharge Medication List No Known Home Medications 03/31/23 [History] Follow up Appointment(s)/Referral(s): Luis Huang MD [Primary Care Provider] - 1-2 days Discharge Disposition: LEFT AGAINST MEDICAL ADVICE
== END 2023-06-26 16:34 | disposition left against medical advice (07) | DRG 392 ==
LOC: EC 20:13 → 4SSUR 23:02 → 5NMEDONC 06-26 08:03 → 6NMEDSUR 06-26 16:33
PROVIDERS: ADMIT Internal Medicine; ATTEND Internal Medicine
DX: R11.10 Vomiting, unspecified (principal); E87.1 Hypo-osmolality and hyponatremia; E87.20 Acidosis, unspecified; T40.722A Poisoning by synthetic cannabinoids, intentional self-harm, initial encounter; E87.3 Alkalosis; Z53.29 Procedure and treatment not carried out because of patient's decision for other reasons; D72.829 Elevated white blood cell count, unspecified; R25.2 Cramp and spasm; R11.2 Nausea with vomiting, unspecified; E87.6 Hypokalemia; E87.8 Other disorders of electrolyte and fluid balance, not elsewhere classified; Z87.19 Personal history of other diseases of the digestive system; X58.XXXA Exposure to other specified factors, initial encounter; F12.10 Cannabis abuse, uncomplicated
CPT/HCPCS: 36415; 80048; 80053; 80306; 82150; 83690; 83735; 85025; 85027; 96361; 96365; 96366; 96375; 96376; 99285

== ENCOUNTER 2023-08-29 19:03 | Inpatient (IN) | payer OTHER ==
[2023-08-29] MEDS ORDERED: ONDANSETRON 4 MG/2 ML VIAL IVP STA (19:59)
[2023-08-29] MEDS ORDERED: SODIUM CHLORIDE 0.9% 1,000 ML IV STA (19:59)
--- NOTE | 2023-08-29 20:01 | ED ---
Nausea/Vomiting/Diarrhea HPI - General Source: patient Mode of arrival: ambulatory Limitations: no limitations <Ruben Downey - Last Filed: 09/08/23 05:06> - History of Present Illness MD complaint: nausea, vomiting Onset/Timin -: days(s) Description of Vomiting: food contents, watery Associated Abdominal Pain: No Consistency: constant Improves with: none Worsens with: none Associated Symptoms: nausea/vomiting, other (Muscle spasms) <Saul Sam - Last Filed: 09/11/23 07:40> - General Chief complaint: Nausea/Vomiting/Diarrhea Stated complaint: vomiting Time Seen by Provider: 08/29/23 20:00 - History of Present Illness Initial comments: 27-year-old male presenting with chief complaint of nausea and vomiting symptoms have been ongoing since Monday. Patient has had episodes of vomiting similar to this in the past. States that he previously smoked marijuana" hasn't smoked in a while". (Ruben Downey) This patient is 27-year-old man presents with intractable vomiting since Monday. The patient relates that he has been having episodes like this approximately every 2 months going back to October. I initially this was attributed to cannabis related hyperemesis, with the patient quit smoking marijuana. The patient states he is not tolerating any oral intake, vomiting approximately every 5 minutes now with basically dry heaves. He is having muscle spasms he believes due to dehydration. No real abdominal pain. No change in bowel movements. (Saul Sam) - Related Data Home Medications Medication Instructions Recorded Confirmed No Known Home Medications 03/31/23 08/30/23 Allergies Allergy/AdvReac Type Severity Reaction Status Date / Time No Known Allergies Allergy Verified 08/30/23 08:14 Review of Systems ROS Other: All systems not noted in ROS Statement are negative. <Ruben Downey - Last Filed: 09/08/23 05:06> ROS Other: All systems not noted in ROS Statement are negative. Constitutional: Denies: fever, chills, weakness Respiratory: Denies: cough, dyspnea Cardiovascular: Denies: chest pain, palpitations, edema Gastrointestinal: Reports: nausea, vomiting. Denies: diarrhea, constipation, hematemesis, melena, hematochezia Genitourinary: Denies: dysuria, hematuria Musculoskeletal: Denies: back pain Skin: Denies: rash Neurological: Denies: headache, weakness <SanjuanitajeffSaul - Last Filed: 09/11/23 07:40> ROS Statement: Those systems with pertinent positive or pertinent negative responses have been documented in the HPI. Past Medical History Past Medical History: GI Bleed Additional Past Medical History / Comment(s): pericarditis, esophageal ulcer History of Any Multi-Drug Resistant Organisms: None Reported Past Surgical History: No Surgical Hx Reported Additional Past Surgical History / Comment(s): EGD, [place] teeth pulled Past Anesthesia/Blood Transfusion Reactions: No Reported Reaction Past Psychological History: No Psychological Hx Reported Smoking Status: Never smoker Past Alcohol Use History: Occasional Past Drug Use History: Marijuana - Past Family History Father Family Medical History: Liver Disease Additional Family Medical History / Comment(s): of liver cirrohis Mother Family Medical History: Cancer Additional Family Medical History / Comment(s): breast cancer <NasreenRuben - Last Filed: 09/08/23 05:06> General Exam Limitations: no limitations <NasreenKaljonas - Last Filed: 09/08/23 05:06> General appearance: alert, in no apparent distress Head exam: Present: atraumatic, normocephalic Eye exam: Present: normal appearance. Absent: scleral icterus, conjunctival i njection ENT exam: Present: mucous membranes dry Neck exam: Present: normal inspection Respiratory exam: Present: normal lung sounds bilaterally. Absent: respiratory distress, wheezes, rales, rhonchi, stridor, accessory muscle use Cardiovascular Exam: Present: normal rhythm, tachycardia, normal heart sounds. Absent: systolic murmur, diastolic murmur, rubs, gallop GI/Abdominal exam: Present: soft. Absent: distended, tenderness, guarding, rebound, rigid, mass Extremities exam: Present: normal inspection, normal capillary refill. Absent: pedal edema, calf tenderness Back exam: Present: normal inspection. Absent: CVA tenderness (R), CVA tenderness (L) Neurological exam: Present: alert Skin exam: Present: warm, dry, intact, normal color. Absent: rash <CecySaul - Last Filed: 09/11/23 07:40> - General Exam Comments Initial Comments: Visual Physical Exam Vital signs reviewed General: Well-appearing, nontoxic, no acute distress. Head: Normocephalic, atraumatic Eyes: PERRLA, EOMI ENT: Airway patent Chest: Nonlabored breathing Skin: No visual rash, normal skin tone Neuro: Alert and oriented 3 Musculoskeletal: No gross abnormalities (Ruben Downey) Course Vital Signs 08/29/23 08/30/23 08/30/23 19:09 01:13 03:14 Temperature 97.3 F L 97.5 F L Pulse Rate 125 H 111 H 83 Respiratory 18 20 18 Rate Blood Pressure 144/113 157/107 118/71 O2 Sat by Pulse 100 100 100 Oximetry Medical Decision Making - Lab Data Result diagrams: 08/30/23 09:55 08/31/23 07:25 <Ruben Downey - Last Filed: 09/08/23 05:06> - Lab Data Result diagrams: 08/30/23 09:55 08/31/23 07:25 <Saul Sam - Last Filed: 09/11/23 07:40> - Medical Decision Making I performed the quick note portion of this visit signed Ruben Downey PA-C (Ruben Downey) Was pt. sent in by a medical professional or institution (NIDIA Ortega, [employer] SUPERVISOR, urgent care, hospital, or halfway...) When possible be specific @ -[No] Did you speak to anyone other than the patient for history (EMS, parent, family, police, friend...)? What history was obtained from this source @ -[Patient's family did give history Did you review nursing and triage notes (agree or disagree)? Why? @ -[I reviewed and agree with nursing and triage notes] Were old charts reviewed (outside hosp., previous admission, EMS record, old EKG, old radiological studies, urgent care reports/EKG's, halfway records)? Report findings @ -[Yes, old charts were reviewed] Differential Diagnosis (chest pain, altered mental status, abdominal pain women, abdominal pain men, vaginal bleeding, weakness, fever, dyspnea, syncope, headache, dizziness, GI bleed, back pain, seizure, CVA, palpatations, mental health, musculoskeletal)? @ -[Differential Abdominal Pain Men: Appendicitis, cholecystitis, diverticulosis, ischemic bowel, pancreatitis, hepatitis, UTI, gastroenteritis, AAA, incarcerated hernia, bowel obstruction, constipation, inflammatory bowel, hepatitis, peptic ulcer disease, splenic infarction, perforated viscus, testicular torsion, this is not meant to be an al l-inclusive list EKG interpreted by me (3pts min.). @ -[As above] X-rays interpreted by me (1pt min.). @ -[None done] CT interpreted by me (1pt min.). @ -[None done] U/S interpreted by me (1pt. min.). @ -[None done] What testing was considered but not performed or refused? (CT, X-rays, U/S, labs)? Why? @ -[None] What meds were considered but not given or refused? Why? @ -[None] Did you discuss the management of the patient with other professionals (sher shaikh i.e. , PA, [employer] SUPERVISOR, lab, RT, psych nurse, clinical social work aide, bioengineer, teacher, lodge officer, case planner)? Give summary @ -[Case discussed with the admitting physician and treatment recommendations incorporated Was smoking cessation discussed for >3mins.? @ -[No] Was critical care preformed (if so, how long)? @ -[No] Were there social determinants of health that impacted care today? How? (Homelessness, low income, unemployed, alcoholism, drug addiction, transportation, low edu. Level, literacy, decrease access to med. care, custodial, rehab)? @ -[No] Was there de-escalation of care discussed even if they declined (Discuss DNR or withdrawal of care, Hospice)? DNR status @ -[No] What co-morbidities impacted this encounter? (DM, HTN, Smoking, COPD, CAD, Cancer, CVA, ARF, Chemo, Hep., AIDS, mental health diagnosis, sleep apnea, morbid obesity)? @ -[None] Was patient admitted / discharged? Hospital course, mention meds given and route, prescriptions, significant lab abnormalities, going to OR and other pertinent info. @ -[Patient is 27-year-old man with intractable nausea and vomiting he'll be admitted to have further IV fluid and antiemetic as well as electrolyte correction Undiagnosed new problem with uncertain prognosis? @ -[No] Drug Therapy requiring intensive monitoring for toxicity (Heparin, Nitro, Insulin, Cardizem)? @ -[No] Were any procedures done? @ -[No] Diagnosis/symptom? @ -[Recurrent intractable vomiting Hyponatremia Hypokalemia Dehydration Acute, or Chronic, or Acute on Chronic? @ -[Acute Uncomplicated (without systemic symptoms) or Complicated (systemic symptoms)? @ -[Uncomplicated Side effects of treatment? @ -[No] Exacerbation, Progression, or Severe Exacerbation? @ -[No] Poses a threat to life or bodily function? How? (Chest pain, [place], [place], pneumonia, PE, COPD, DKA, ARF, appy, cholecystitis, CVA, Diverticulitis, Homicidal, Suicidal, threat to staff... and all critical care pts) @ -[No] (Saul Sam) - Lab Data Lab Results 08/29/23 08/29/23 08/30/23 Range/Units 20:17 20:17 05:30 WBC 13.5 H (3.8-10.6) k/uL RBC 5.95 H (4.30-5.90) m/uL Hgb 19.7 H* D (13.0-17.5) gm/dL Hct 55.8 H (39.0-53.0) % MCV 93.7 (80.0-100.0) fL MCH 33.2 (25.0-35.0) pg MCHC 35.4 (31.0-37.0) g/dL RDW 11.7 (11.5-15.5) % Plt Count 482 H (150-450) k/uL MPV 6.9 Neutrophils % 85 % Lymphocytes % 9 % Monocytes % 5 % Eosinophils % 1 % Basophils % 0 % Neutrophils # 11.4 H (1.3-7.7) k/uL Lymphocytes # 1.2 (1.0-4.8) k/uL Monocytes # 0.7 (0-1.0) k/uL Eosinophils # 0.1 (0-0.7) k/uL Basophils # 0.0 (0-0.2) k/uL Sodium 128 L (137-145) mmol/L Potassium 3.3 L (3.5-5.1) mmol/L Chloride 72 L* (98-107) mmol/L Carbon Dioxide 37 H (22-30) mmol/L Anion Gap 19 mmol/L BUN 26 H (9-20) mg/dL Creatinine 0.98 (0.66-1.25) mg/dL Est GFR (CKD-EPI)AfAm >90 (>60 ml/min/1.73 sqM) Est GFR (CKD-EPI)NonAf >90 (>60 ml/min/1.73 sqM) Glucose 135 H (74-99) mg/dL Calcium 10.9 H (8.4-10.2) mg/dL Magnesium (1.6-2.3) mg/dL Total Bilirubin 1.6 H (0.2-1.3) mg/dL AST 39 (17-59) U/L ALT 28 (4-49) U/L Alkaline Phosphatase 130 H (38-126) U/L Total Protein 9.1 H (6.3-8.2) g/dL Albumin 5.3 H (3.5-5.0) g/dL Amylase 126 H (30-110) U/L Lipase 249 (23-300) U/L Urine Color Yellow Urine Appearance Clear (Clear) Urine pH 7.5 (5.0-8.0) Ur Specific [place] 1.010 (1.001-1.035) Urine Protein Negative (Negative) Urine Glucose (UA) Negative (Negative) Urine Ketones 1+ H (Negative) Urine Blood Negative (Negative) Urine Nitrite Negative (Negative) Urine Bilirubin Negative (Negative) Urine Urobilinogen <2.0 (<2.0) mg/dL Ur Leukocyte Esterase Negative (Negative) Urine Opiates Screen (Negative) Urine Methadone Screen (Negative) Ur Propoxyphene Screen (Negative) Urine Barbiturates (Negative) Ur Phencyclidine Scrn (Negative) Ur Amphetamine Screen (Negative) U Benzodiazepines Scrn (Negative) Urine Cocaine Screen (Negative) U Cannabinoids Screen (Negative) Urine Alcohol (Negative) 08/30/23 08/30/23 08/30/23 Range/Units 05:30 09:55 09:55 WBC 13.2 H (3.8-10.6) k/uL RBC 4.95 (4.30-5.90) m/uL Hgb 16.3 D (13.0-17.5) gm/dL Hct 46.9 (39.0-53.0) % MCV 94.7 (80.0-100.0) fL MCH 32.8 (25.0-35.0) pg MCHC 34.7 (31.0-37.0) g/dL RDW 12.1 (11.5-15.5) % Plt Count 399 (150-450) k/uL MPV 7.5 Neutrophils % % Lymphocytes % % Monocytes % % Eosinophils % % Basophils % % Neutrophils # (1.3-7.7) k/uL Lymphocytes # (1.0-4.8) k/uL Monocytes # (0-1.0) k/uL Eosinophils # (0-0.7) k/uL Basophils # (0-0.2) k/uL Sodium 131 L (137-145) mmol/L Potassium 2.4 L* (3.5-5.1) mmol/L Chloride 79 L (98-107) mmol/L Carbon Dioxide 38 H (22-30) mmol/L Anion Gap 14 mmol/L BUN 22 H (9-20) mg/dL Creatinine 0.94 (0.66-1.25) mg/dL Est GFR (CKD-EPI)AfAm >90 (>60 ml/min/1.73 sqM) Est GFR (CKD-EPI)NonAf >90 (>60 ml/min/1.73 sqM) Glucose 113 H (74-99) mg/dL Calcium 9.4 (8.4-10.2) mg/dL Magnesium (1.6-2.3) mg/dL Total Bilirubin (0.2-1.3) mg/dL AST (17-59) U/L ALT (4-49) U/L Alkaline Phosphatase (38-126) U/L Total Protein (6.3-8.2) g/dL Albumin (3.5-5.0) g/dL Amylase (30-110) U/L Lipase (23-300) U/L Urine Color Urine Appearance (Clear) Urine pH (5.0-8.0) Ur Specific [place] (1.001-1.035) Urine Protein (Negative) Urine Glucose (UA) (Negative) Urine Ketones (Negative) Urine Blood (Negative) Urine Nitrite (Negative) Urine Bilirubin (Negative) Urine Urobilinogen (<2.0) mg/dL Ur Leukocyte Esterase (Negative) Urine Opiates Screen Negative (Negative) Urine Methadone Screen Negative (Negative) Ur Propoxyphene Screen Negative (Negative) Urine Barbiturates Negative (Negative) Ur Phencyclidine Scrn Negative (Negative) Ur Amphetamine Screen Negative (Negative) U Benzodiazepines Scrn Negative (Negative) Urine Cocaine Screen Negative (Negative) U Cannabinoids Screen Positive A (Negative) Urine Alcohol Negative (Negative) 08/30/23 Range/Units 09:55 WBC (3.8-10.6) k/uL RBC (4.30-5.90) m/uL Hgb (13.0-17.5) gm/dL Hct (39.0-53.0) % MCV (80.0-100.0) fL MCH (25.0-35.0) pg MCHC (31.0-37.0) g/dL RDW (11.5-15.5) % Plt Count (150-450) k/uL MPV Neutrophils % % Lymphocytes % % Monocytes % % Eosinophils % % Basophils % % Neutrophils # (1.3-7.7) k/uL Lymphocytes # (1.0-4.8) k/uL Monocytes # (0-1.0) k/uL Eosinophils # (0-0.7) k/uL Basophils # (0-0.2) k/uL Sodium (137-145) mmol/L Potassium (3.5-5.1) mmol/L Chloride (98-107) mmol/L Carbon Dioxide (22-30) mmol/L Anion Gap mmol/L BUN (9-20) mg/dL Creatinine (0.66-1.25) mg/dL Est GFR (CKD-EPI)AfAm (>60 ml/min/1.73 sqM) Est GFR (CKD-EPI)NonAf (>60 ml/min/1.73 sqM) Glucose (74-99) mg/dL Calcium (8.4-10.2) mg/dL Magnesium 1.8 (1.6-2.3) mg/dL Total Bilirubin (0.2-1.3) mg/dL AST (17-59) U/L ALT (4-49) U/L Alkaline Phosphatase (38-126) U/L Total Protein (6.3-8.2) g/dL Albumin (3.5-5.0) g/dL Amylase (30-110) U/L Lipase (23-300) U/L Urine Color Urine Appearance (Clear) Urine pH (5.0-8.0) Ur Specific [place] (1.001-1.035) Urine Protein (Negative) Urine Glucose (UA) (Negative) Urine Ketones (Negative) Urine Blood (Negative) Urine Nitrite (Negative) Urine Bilirubin (Negative) Urine Urobilinogen (<2.0) mg/dL Ur Leukocyte Esterase (Negative) Urine Opiates Screen (Negative) Urine Methadone Screen (Negative) Ur Propoxyphene Screen (Negative) Urine Barbiturates (Negative) Ur Phencyclidine Scrn (Negative) Ur Amphetamine Screen (Negative) U Benzodiazepines Scrn (Negative) Urine Cocaine Screen (Negative) U Cannabinoids Screen (Negative) Urine Alcohol (Negative) Disposition <Ruben Downey - Last Filed: 09/08/23 05:06> Is patient prescribed a controlled substance at d/c from ED?: No <Saul Sam - Last Filed: 09/11/23 07:40> Clinical Impression: Intractable nausea and vomiting, Hyponatremia, Hypokalemia, Dehydration Disposition: ADMITTED IP TO THIS HOSP Condition: Serious
[2023-08-29 21:00] LABS: Basophils % (A) 0 %; Eosinophils # (A) 0.1 k/uL (0-0.7); Eosinophils % (A) 1 %; Lymphocytes # (A) 1.2 k/uL (1.0-4.8); Lymphocytes % (A) 9 %; MCH 33.2 pg (25.0-35.0); MCHC 35.4 g/dL (31.0-37.0); MCV 93.7 fL (80.0-100.0); Mean Platelet Volume 6.9; Monocytes # (A) 0.7 k/uL (0-1.0); Monocytes % (A) 5 %; Neutrophils # (A) 11.4 k/uL (1.3-7.7); Neutrophils % (A) 85 %; Platelet Count 482 k/uL (150-450); RBC 5.95 m/uL (4.30-5.90); RDW 11.7 % (11.5-15.5); WBC 13.5 k/uL (3.8-10.6)
[2023-08-29 21:10] LABS: HCT 55.8 % (39.0-53.0)
[2023-08-29 21:12] LABS: HGB 19.7 gm/dL (13.0-17.5)
[2023-08-29 21:29] LABS: ALT 28 U/L (4-49); African American GFR (CKD) >90 (>60 ml/min/1.73 sqM); Albumin 5.3 g/dL (3.5-5.0); Amylase 126 U/L (30-110); Anion Gap 19 mmol/L; Blood Urea Nitrogen 26 mg/dL (9-20); Calcium 10.9 mg/dL (8.4-10.2); Carbon Dioxide 37 mmol/L (22-30); Glucose 135 mg/dL (74-99); Lipase 249 U/L (23-300); Non-African American GFR(CKD) >90 (>60 ml/min/1.73 sqM); Sodium 128 mmol/L (137-145); Total Bilirubin 1.6 mg/dL (0.2-1.3); Total Protein 9.1 g/dL (6.3-8.2)
[2023-08-29 21:40] LABS: AST 39 U/L (17-59); Alkaline Phosphatase 130 U/L (38-126); Chloride 72 mmol/L (98-107); Potassium 3.3 mmol/L (3.5-5.1)
[2023-08-29] MEDS ORDERED: SODIUM CHLORIDE 0.9% 1,000 ML IV ONE (21:52)
[2023-08-30] MEDS ORDERED: NALOXONE 0.4 MG/ML 1 ML VIAL IV PRN (00:38)
[2023-08-30] MEDS: SODIUM CHLORIDE 0.9% 1,000 ML IV SCH ×3 (01:13→17:36)
--- NOTE | 2023-08-30 03:12 | P.HPIM ---
History of Present Illness H&P Date: 08/30/23 Patient is a 27-year-old male with a PMH of tobacco abuse and history of cyclic vomiting syndrome and cannabinoid hyperemesis who presents to the emergency room with complaints of intractable nausea and vomiting. Patient reports that he last smoked marijuana over 2 weeks ago. He reports having persistent nausea with too many episodes of vomiting to count over the past 3 days. Denies experiencing fever, chills, diarrhea. Also denied chest pain or shortness of breath. Reports an inability to tolerate any fluids during this time. In the emergency room, laboratory evaluation is remarkable for leukocytosis of 13.5, hgb 19.7, platelets 482, sodium 128, potassium 3.3, chloride 72, BUN 26, creatinine 0.98, calcium 10.9, alk phos 130, total protein 9.1. ED documentation reviewed and case discussed with ED provider. [] Review of systems: Pertinent positives and negatives as discussed in HPI, a complete review of systems was performed and all other systems are negative. Physical examination: Vital signs reviewed General: non toxic, no distress, appears at stated age, normal weight Derm: no unusual rashes/lesions, warm Head: atraumatic, normocephalic, symmetric Eyes: EOMI, no lid lag, anicteric sclera, pupils equal round reactive to light ENT: Nose and ears atraumatic Neck: No cervical lymphadenopathy, trachea midline, supple Mouth: no lip lesion, mucus membranes dry Cardiovascular: S1S2 reg, no murmur, positive dorsalis pedis pulse bilateral, no edema Lungs: CTA bilateral, no rhonchi, no rales, no accessory muscle use Abdominal: soft, nontender to palpation, no guarding Ext: muscle strength 5 out of 5 in all 4 extremities grossly, no gross muscle a trophy, no contractures, Neuro: CN II-XI grossly intact, no gross focal neuro deficits Psych: Alert, oriented, appropriate affect Assessment: Intractable nausea and vomiting, suspect cyclic vomiting syndrome Pancytosis, suspected to severe dehydration Hypochloremic hyponatremia, suspected to dehydration and poor oral intake Hypokalemia, hypercalcemia Imaging: None performed Data Review: In the emergency room, laboratory evaluation is remarkable for leukocytosis of 13.5, hgb 19.7, platelets 482, sodium 128, potassium 3.3, chloride 72, BUN 26, creatinine 0.98, calcium 10.9, alk phos 130, total protein 9.1. Plan: Continue with antiemetics IV fluids with normal saline 130 mL an hour Clear liquid diet Obtain urine drug screen Replace potassium and monitor DVT prophylaxis: Lovenox subcu The patient is admitted with an anticipated less than 2 midnight stay for evaluation of intractable nausea and vomiting CODE STATUS: Full Code Discussed with: Patient Anticipated discharge place: Home Past Medical History Past Medical History: GI Bleed Additional Past Medical History / Comment(s): pericarditis, esophageal ulcer History of Any Multi-Drug Resistant Organisms: None Reported Past Surgical History: No Surgical Hx Reported Additional Past Surgical History / Comment(s): EGD, [place] teeth pulled Past Anesthesia/Blood Transfusion Reactions: No Reported Reaction Past Psychological History: No Psychological Hx Reported Smoking Status: Never smoker Past Alcohol Use History: Occasional Past Drug Use History: Marijuana - Past Family History Father Family Medical History: Liver Disease Additional Family Medical History / Comment(s): of liver cirrohis Mother Family Medical History: Cancer Additional Family Medical History / Comment(s): breast cancer Medications and Allergies Home Medications Medication Instructions Recorded Confirmed Type No Known Home Medications 03/31/23 06/26/23 History Allergies Allergy/AdvReac Type Severity Reaction Status Date / Time No Known Allergies Allergy Verified 08/29/23 19:13 Physical Exam Vitals: Vital Signs Temp Pulse Resp BP Pulse Ox 08/30/23 01:13 111 H 20 157/107 100 08/29/23 19:09 97.3 F L 125 H 18 144/113 100 Intake and Output 08/29/23 08/29/23 08/30/23 14:59 22:59 06:59 Other: Weight 56.699 kg Results CBC & Chem 7: 08/29/23 20:17 08/29/23 20:17 Labs: Abnormal Lab Results - Last 24 Hours (Table) 08/29/23 08/29/23 Range/Units 20:17 20:17 WBC 13.5 H (3.8-10.6) k/uL RBC 5.95 H (4.30-5.90) m/uL Hgb 19.7 H* D (13.0-17.5) gm/dL Hct 55.8 H (39.0-53.0) % Plt Count 482 H (150-450) k/uL Neutrophils # 11.4 H (1.3-7.7) k/uL Sodium 128 L (137-145) mmol/L Potassium 3.3 L (3.5-5.1) mmol/L Chloride 72 L* (98-107) mmol/L Carbon Dioxide 37 H (22-30) mmol/L BUN 26 H (9-20) mg/dL Glucose 135 H (74-99) mg/dL Calcium 10.9 H (8.4-10.2) mg/dL Total Bilirubin 1.6 H (0.2-1.3) mg/dL Alkaline Phosphatase 130 H (38-126) U/L Total Protein 9.1 H (6.3-8.2) g/dL Albumin 5.3 H (3.5-5.0) g/dL Amylase 126 H (30-110) U/L
[2023-08-30] MEDS: ONDANSETRON 4 MG/2 ML VIAL IVP PRN ×2 (05:54→14:42)
[2023-08-30] MEDS: POTASSIUM CHLORIDE ER 20 MEQ TAB.ER PO SCH ×3 (05:54→06:50)
[2023-08-30 06:18] LABS: Appearance,Urine Clear (Clear); Bilirubin,Urine Negative (Negative); Blood,Urine Negative (Negative); Color,Urine Yellow; Glucose,Urine (UA) Negative (Negative); Ketones,Urine 1+ (Negative); PH, Urine 7.5 (5.0-8.0); Protein,Urine Negative (Negative)
[2023-08-30 06:19] LABS: Leukocyte Esterase,Urine Negative (Negative); Nitrite,Urine Negative (Negative); Urobilinogen,Urine <2.0 mg/dL (<2.0)
[2023-08-30 09:47] LABS: Urine Alcohol Negative (Negative); Urine Barbiturate Negative (Negative); Urine Cocaine Negative (Negative); Urine Methadone Negative (Negative); Urine Opiates Negative (Negative); Urine Phencyclidine Negative (Negative)
[2023-08-30] MEDS: ENOXAPARIN 40 MG/0.4 ML SYRINGE SQ SCH (10:41)
[2023-08-30 11:16] LABS: HCT 46.9 % (39.0-53.0); MCH 32.8 pg (25.0-35.0); MCHC 34.7 g/dL (31.0-37.0); MCV 94.7 fL (80.0-100.0); Mean Platelet Volume 7.5; Platelet Count 399 k/uL (150-450); RBC 4.95 m/uL (4.30-5.90); RDW 12.1 % (11.5-15.5); WBC 13.2 k/uL (3.8-10.6)
[2023-08-30 11:19] LABS: African American GFR (CKD) >90 (>60 ml/min/1.73 sqM); Blood Urea Nitrogen 22 mg/dL (9-20); Calcium 9.4 mg/dL (8.4-10.2); Chloride 79 mmol/L (98-107); Glucose 113 mg/dL (74-99); Non-African American GFR(CKD) >90 (>60 ml/min/1.73 sqM); Sodium 131 mmol/L (137-145)
[2023-08-30 11:24] LABS: HGB 16.3 gm/dL (13.0-17.5)
[2023-08-30 11:27] LABS: Anion Gap 14 mmol/L
[2023-08-30 11:34] LABS: Carbon Dioxide 38 mmol/L (22-30); Potassium 2.4 mmol/L (3.5-5.1)
[2023-08-30] MEDS ORDERED: POTASSIUM CHLORIDE ER 20 MEQ TAB.ER PO STA (11:39)
[2023-08-30] MEDS: POTASSIUM CHLORIDE 10 MEQ in WATER FOR INJECTION 1 100ML.BAG IVPB SCH ×4 (11:56→19:04)
[2023-08-30] MEDS: LORazepam 1 MG TAB PO PRN ×2 (11:56→19:59)
[2023-08-31] MEDS: POTASSIUM CHLORIDE 10 MEQ in WATER FOR INJECTION 1 100ML.BAG IVPB SCH ×2 (00:58→05:00)
[2023-08-31] MEDS: SODIUM CHLORIDE 0.9% 1,000 ML IV SCH ×2 (03:47→06:03)
[2023-08-31] MEDS: ONDANSETRON 4 MG/2 ML VIAL IVP PRN (05:00)
[2023-08-31 08:28] LABS: African American GFR (CKD) >90 (>60 ml/min/1.73 sqM); Anion Gap 6 mmol/L; Blood Urea Nitrogen 17 mg/dL (9-20); Calcium 9.2 mg/dL (8.4-10.2); Carbon Dioxide 36 mmol/L (22-30); Chloride 89 mmol/L (98-107); Glucose 89 mg/dL (74-99); Non-African American GFR(CKD) >90 (>60 ml/min/1.73 sqM); Potassium 3.5 mmol/L (3.5-5.1); Sodium 131 mmol/L (137-145)
[2023-08-31] MEDS: ENOXAPARIN 40 MG/0.4 ML SYRINGE SQ SCH (08:52)
[2023-08-31 09:07] VITALS: BP 136/69; PULSE 78; RESP 17; TEMP 97.8
--- NOTE | 2023-08-31 12:37 | P.DS ---
Providers Date of admission: 08/30/23 12:36 Attending physician: Олег Arguello MD Primary care physician: Luis Briones [facility] Course: Patient is a 27-year-old male with a PMH of tobacco abuse and history of cyclic vomiting syndrome and cannabinoid hyperemesis who presents to the emergency room with complaints of intractable nausea and vomiting. Patient reports that he last smoked marijuana over 2 weeks ago. He reports having persistent nausea with too many episodes of vomiting to count over the past 3 days. Denies experiencing fever, chills, diarrhea. Also denied chest pain or shortness of breath. Reports an inability to tolerate any fluids during this time. In the emergency room, laboratory evaluation is remarkable for leukocytosis of 13.5, hgb 19.7, platelets 482, sodium 128, potassium 3.3, chloride 72, BUN 26, creatinine 0.98, calcium 10.9, alk phos 130, total protein 9.1. He was started on IVF. Potassium was replaced. Patient left AMA prior to being seen on 08/31. No physical exam was done as patient left AMA prior to being seen on 08/31. Pertinent studies and procedures as above. Discharge Diagnosis: Intractable nausea and vomiting, suspect cyclic vomiting syndrome Pancytosis, suspected to severe dehydration Hypochloremic hyponatremia, suspected to dehydration and poor oral intake Hypokalemia, hypercalcemia Patient Condition at Discharge: Serious Plan - Discharge Summary Discharge Rx Participant: No New Discharge Prescriptions: No Action No Known Home Medications Discharge Medication List No Known Home Medications 03/31/23 [History] Follow up Appointment(s)/Referral(s): Luis Huang MD [Primary Care Provider] - 1-2 days Discharge Disposition: LEFT AGAINST MEDICAL ADVICE
== END 2023-08-31 09:24 | disposition left against medical advice (07) | DRG 394 ==
LOC: EC 19:03 → 6NMEDSUR 08-30 00:38 → 3SCARD 08-30 01:33 → OBSVTOIN 08-30 12:36
PROVIDERS: ADMIT Internal Medicine; ATTEND Internal Medicine
DX: R11.15 Cyclical vomiting syndrome unrelated to migraine (principal); E87.1 Hypo-osmolality and hyponatremia; E87.8 Other disorders of electrolyte and fluid balance, not elsewhere classified; Z28.310 Unvaccinated for COVID-19; E86.0 Dehydration; E87.6 Hypokalemia; E83.52 Hypercalcemia; D72.829 Elevated white blood cell count, unspecified; M62.838 Other muscle spasm; R19.7 Diarrhea, unspecified; Z53.29 Procedure and treatment not carried out because of patient's decision for other reasons; Z87.891 Personal history of nicotine dependence
CPT/HCPCS: 36415; 80048; 80053; 80306; 81003; 82150; 83690; 83735; 85025; 85027; 96361; 96374; 99285

== ENCOUNTER 2024-02-17 17:33 | Inpatient (IN) | payer OTHER ==
--- NOTE | 2024-02-17 18:02 | ED ---
Chest Pain HPI - General Source: patient Mode of arrival: wheelchair Limitations: no limitations <Aren Strickland - Last Filed: 02/17/24 19:30> - General Source: RN notes reviewed, old records reviewed Mode of arrival: wheelchair Limitations: altered mental status, physical limitation - History of Present Illness -: days(s) Onset: associated with drug use Pain Location: substernal Severity: severe Quality: aching Consistency: constant Improves With: nothing Worsens With: nothing Anginal Symptoms: diaphoresis, dyspnea, sense of impending doom Other Symptoms: cough, palpitations Treatments Prior to Arrival: none <Andrés Duran - Last Filed: 02/21/24 06:18> - General Chief Complaint: Chest Pain Stated Complaint: Chest pains Time Seen by Provider: 02/17/24 17:45 - History of Present Illness Initial Comments: 28-year-old male with a past medical history significant for history of cyclic vomiting syndrome and cannabis hyperemesis presenting to the ED with complaint nausea and vomiting ongoing for the last 3 days. No diarrhea. No abdominal pain. Also notes that his muscles feel "crampy" and today started to feel a pressure on the left side of his chest. Otherwise denies chest pain or shortness of breath. No hematemesis. No changes in bowel or bladder habits. No fever or chills. No other complaints at this time. Patient reports his last marijuana intake was 6 months ago. (Aren Strickland) This is a 28-year-old male with significant cyclic vomiting and hyperemesis significant nausea and vomiting with chest pain and chest pressure. (Andrés Duran) - Related Data Home Medications Medication Instructions Recorded Confirmed No Known Home Medications 03/31/23 08/30/23 Allergies Allergy/AdvReac Type Severity Reaction Status Date / Time No Known Allergies Allergy Verified 02/17/24 17:42 Review of Systems ROS Other: All systems not noted in ROS Statement are negative. <Aren Strickland - Last Filed: 02/17/24 19:30> ROS Other: All systems not noted in ROS Statement are negative. <Andrés Duran - Last Filed: 02/21/24 06:18> ROS Statement: Those systems with pertinent positive or pertinent negative responses have been documented in the HPI. Past Medical History Past Medical History: GI Bleed Additional Past Medical History / Comment(s): pericarditis, esophageal ulcer History of Any Multi-Drug Resistant Organisms: None Reported Past Surgical History: No Surgical Hx Reported Additional Past Surgical History / Comment(s): EGD, [place] teeth pulled Past Anesthesia/Blood Transfusion Reactions: No Reported Reaction Past Psychological History: No Psychological Hx Reported Smoking Status: Vaper Past Alcohol Use History: Occasional Past Drug Use History: None Reported - Past Family History Father Family Medical History: Liver Disease Additional Family Medical History / Comment(s): of liver cirrohis Mother Family Medical History: Cancer Additional Family Medical History / Comment(s): breast cancer <Aren Strickland - Last Filed: 02/17/24 19:30> General Exam Limitations: no limitations General appearance: alert, in no apparent distress Eye exam: Present: normal appearance Neck exam: Present: normal inspection Respiratory exam: Present: normal lung sounds bilaterally Cardiovascular Exam: Present: regular rate GI/Abdominal exam: Present: soft Neurological exam: Present: alert, oriented X3 Skin exam: Present: warm, dry <Aren Strickland - Last Filed: 02/17/24 19:30> Limitations: altered mental status, physical limitation General appearance: alert, in no apparent distress, anxious, in distress Head exam: Present: atraumatic, normocephalic, normal inspection Eye exam: Present: normal appearance, PERRL, EOMI. Absent: scleral icterus, conjunctival injection, periorbital swelling ENT exam: Present: normal exam, mucous membranes dry Neck exam: Present: normal inspection. Absent: tenderness, meningismus, lymphadenopathy Respiratory exam: Present: normal lung sounds bilaterally. Absent: respiratory distress, wheezes, rales, rhonchi, stridor Cardiovascular Exam: Present: regular rate, normal rhythm, normal heart sounds. Absent: systolic murmur, diastolic murmur, rubs, gallop, clicks GI/Abdominal exam: Present: soft, normal bowel sounds. Absent: distended, tenderness, guarding, rebound, rigid Extremities exam: Present: normal inspection, full ROM, normal capillary refill. Absent: tenderness, pedal edema, joint swelling, calf tenderness Back exam: Present: normal inspection Neurological exam: Present: alert, oriented X3, CN II-XII intact Psychiatric exam: Present: normal affect, normal mood Skin exam: Present: warm, dry, intact, normal color. 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 ] Respiratory 20 18 Rate Blood Pressure 104/71 116/78 O2 Sat by Pulse 99 100 Oximetry - Reevaluation(s) Reevaluation #1: 02/17/24 19:20 Medical records reviewed (Andrés Duran) Reevaluation #2: 02/17/24 19:20 Patient is still remains in distress with vomiting (Andrés Duran) Reevaluation #3: 02/17/24 19:20 Patient informed of results and questions answered (Andrés Duran) - Consultations Consultation #1: Poke with sound who agrees to admit this patient (Andrés Duran) Consultation #2: Spoke with ICU who agreed to accept this patient to the ICU (Andrés Duran) Consultation #3: Spoke with nephrology regarding electrolyte management (Andrés Duran) Chest Pain MDM <Aren Strickland - Last Filed: 02/17/24 19:30> - MDM Was pt. sent in by a medical professional or institution (, PA, ROAD MECHANIC, urgent care, hospital, or intermediate...) When possible be specific @ -No Did you speak to anyone other than the patient for history (EMS, parent, family, police, friend...)? What history was obtained from this source @ -No Did you review nursing and triage notes (agree or disagree)? Why? @ -I reviewed and agree with nursing and triage notes Were old charts reviewed (outside hosp., previous admission, EMS record, old EKG, old radiological studies, urgent care reports/EKG's, intermediate records)? Report findings @ -Prior charts reviewed showing history of tobacco abuse, cyclic vomiting syndrome, and cannabinoid hyperemesis. Differential Diagnosis (chest pain, altered mental status, abdominal pain women, abdominal pain men, vaginal bleeding, weakness, fever, dyspnea, syncope, headache, dizziness, GI bleed, back pain, seizure, CVA, palpatations, mental health, musculoskeletal)? @ -Differential Abdominal Pain Men: Appendicitis, cholecystitis, diverticulosis, ischemic bowel, pancreatitis, hepatitis, UTI, gastroenteritis, AAA, incarcerated hernia, bowel obstruction, constipation, inflammatory bowel, hepatitis, peptic ulcer disease, splenic infarction, perforated viscus, testicular torsion, this is not meant to be an all-inclusive list Differential Chest Pain: Stable Angina, Unstable Angina, STEMI, NSTEMI Aortic Dissection, Pneumothorax, Musculoskeletal, Esophageal Spasm GERD, Cholecystitis, Pancreatitis, Zoster, this is not meant to be an all-inclusive list. EKG interpreted by me (3pts min.). @ -EKG interpreted me showing a sinus tachycardia 103 bpm, OR 132, QRS 85, QT/QTc 395/455. There does appear to be nonspecific ST and T wave changes however does appear largely similar to prior. Does appear to have ST depression in lead I. X-rays interpreted by me (1pt min.). @ -Chest x-ray interpreted by me which revealed no evidence of acute finding. CT interpreted by me (1pt min.). @ -None done U/S interpreted by me (1pt. min.). @ -None done What testing was considered but not performed or refused? (CT, X-rays, U/S, labs)? Why? @ -None What meds were considered but not given or refused? Why? @ -None Did you discuss the management of the patient with other professionals (professionals i.e. , PA, ROAD MECHANIC, lab, RT, psych nurse, geriatric social worker, boom tender, teacher, chief supply chain officer, nurse case management)? Give summary @ -No Was smoking cessation discussed for >3mins.? @ -No Was critical care preformed (if so, how long)? @ -Yes, 35 Were there social determinants of health that impacted care today? How? (Homelessness, low income, unemployed, alcoholism, drug addiction, transportation, low edu. Level, literacy, decrease access to med. care, fpc, rehab)? @ -No Was there de-escalation of care discussed even if they declined (Discuss DNR or withdrawal of care, Hospice)? DNR status @ -No What co-morbidities impacted this encounter? (DM, HTN, Smoking, COPD, CAD, Cancer, CVA, ARF, Chemo, Hep., AIDS, mental health diagnosis, sleep apnea, morbid obesity)? @ -Cyclic vomiting syndrome Was patient admitted / discharged? Hospital course, mention meds given and route, prescriptions, significant lab abnormalities, going to OR and other pertinent info. @ -Admission 28-year-old male with a past medical history significant for cyclic vomiting syndrome and cannabis hyperemesis presenting to the ED with complaints of nausea and vomiting for the past 3 days, muscle cramps, and pressure around the left side of his chest starting today. Laboratory studies reviewed. CBC shows elevated white blood cell count at 24.5, RBC 6.62, hemoglobin 21.4, hematocrit 58.1, likely hemoconcentrated. Chemistry panel shows a sodium of 118, potassium of 2.5, chloride of 60, CO2 of 36, BUN of 36, creatinine 1.6, calcium 10.4, magnesium 1.8, elevated troponin at 0.781. Patient will require admission at this point. My attending physician, Dr. Duran, will assume care of the patient. Plan of admission discussed with patient and family who are in agreement. Undiagnosed new problem with uncertain prognosis? @ -No Drug Therapy requiring intensive monitoring for toxicity (Heparin, Nitro, Insulin, Cardizem)? @ -No Were any procedures done? @ -No Diagnosis/symptom? @ -Hyponatremia, hypokalemia, elevated troponin Acute, or Chronic, or Acute on Chronic? @ -Acute Uncomplicated (without systemic symptoms) or Complicated (systemic symptoms)? @ -Complicated Side effects of treatment? @ -No Exacerbation, Progression, or Severe Exacerbation? @ -No Poses a threat to life or bodily function? How? (Chest pain, [place], [place], pneumonia, PE, COPD, DKA, ARF, appy, cholecystitis, CVA, Diverticulitis, Homicidal, Suicidal, threat to staff... and all critical care pts) @ -Yes (Aren Strickland) Critical Care Time Critical Care Time: Yes Total Critical Care Time: 31 <Andrés Duran - Last Filed: 02/21/24 06:18> Disposition <Aren Strickland - Last Filed: 02/17/24 19:30> Is patient prescribed a controlled substance at d/c from ED?: No Time of Disposition: 19:10 <Andrés Duran - Last Filed: 02/21/24 06:18> Clinical Impression: Altered mental status, Metabolic alkalosis, Refractory nausea and vomiting, Dehydration, Acute kidney failure, Nausea and vomiting, Hypokalemia, Hyponatremia, Cannabis hyperemesis syndrome concurrent with and due to cannabis abuse, Atypical chest pain, NSTEMI (non-ST elevated myocardial infarction) Disposition: ADMITTED IP TO THIS HOSP Condition: Critical
[2024-02-17] MEDS: SODIUM CHLORIDE 0.9% 1,000 ML IV STA ×2 (18:23→20:26)
[2024-02-17 18:42] LABS: AST 62 U/L (17-59); African American GFR (CKD) 66 (>60 ml/min/1.73 sqM); Albumin 4.9 g/dL (3.5-5.0); Alcohol <10 mg/dL; Alkaline Phosphatase 154 U/L (38-126); Amylase 79 U/L (30-110); Blood Urea Nitrogen 36 mg/dL (9-20); Calcium 10.4 mg/dL (8.4-10.2); Glucose 172 mg/dL (74-99); Lipase 163 U/L (23-300); Magnesium 1.8 mg/dL (1.6-2.3); Non-African American GFR(CKD) 57 (>60 ml/min/1.73 sqM); Total Bilirubin 3.4 mg/dL (0.2-1.3); Total Protein 8.1 g/dL (6.3-8.2)
[2024-02-17 18:44] LABS: INR 1.1 (<1.2); Partial Thromboplastin Time 25.8 sec (22.0-30.0); Prothrombin Time 11.6 sec (10.0-12.5)
[2024-02-17 18:45] LABS: MCH 32.3 pg (25.0-35.0); MCHC 36.8 g/dL (31.0-37.0); MCV 87.8 fL (80.0-100.0); Mean Platelet Volume 8.3; Platelet Count 421 k/uL (150-450); RBC 6.62 m/uL (4.30-5.90); RDW 12.2 % (11.5-15.5); WBC 24.5 k/uL (3.8-10.6)
[2024-02-17] MEDS: LORazepam 2 MG/ML INJ IV STA (18:46)
[2024-02-17 18:48] LABS: Anion Gap 22 mmol/L
--- NOTE | 2024-02-17 18:50 | XR ---
EXAMINATION TYPE: XR chest 2V DATE OF EXAM: 02/17/2024 6:40 PM CLINICAL INDICATION:Male, 28 years old with history of Chest Pain; [facility] COMPARISON: Chest radiographs from 10/24/2022 TECHNIQUE: XR chest 2V Frontal and lateral views of the chest. FINDINGS: Lungs/Pleura: There is no evidence of pleural effusion, focal consolidation, or pneumothorax. Pulmonary vascularity: Unremarkable. Heart/mediastinum: Cardiomediastinal silhouette is unremarkable. Musculoskeletal: No acute osseous pathology. IMPRESSION: No acute cardiopulmonary disease/process.
[2024-02-17 18:54] LABS: HCT 58.1 % (39.0-53.0); HGB 21.4 gm/dL (13.0-17.5)
[2024-02-17 19:01] LABS: ALT 42 U/L (4-49); Carbon Dioxide 36 mmol/L (22-30); Chloride 60 mmol/L (98-107); Potassium 2.5 mmol/L (3.5-5.1); Sodium 118 mmol/L (137-145)
[2024-02-17] MEDS: ONDANSETRON 4 MG/2 ML VIAL IVP STA (19:01)
[2024-02-17] MEDS ORDERED: Potassium Replacement Protocol 1 EACH MISC MISCELLANE PRN (19:15)
[2024-02-17] MEDS ORDERED: LORazepam 2 MG/ML INJ IV PRN ×2 (19:15)
[2024-02-17] MEDS ORDERED: LORazepam 1 MG TAB PO PRN ×4 (19:15)
[2024-02-17] MEDS ORDERED: Phosphorus Replacement Protoco 1 EACH MISC MISCELLANE PRN (19:15)
[2024-02-17] MEDS ORDERED: HYDROmorphone 1 MG/ML 1 ML SYRINGE IVP PRN (19:15)
[2024-02-17] MEDS ORDERED: NALOXONE 0.4 MG/ML 1 ML VIAL IV PRN ×2 (19:15)
[2024-02-17] MEDS ORDERED: Magnesium Replacement Protocol 1 EACH MISC MISCELLANE PRN (19:15)
[2024-02-17] MEDS: ASPIRIN 81 MG PO STA (19:23)
[2024-02-17] MEDS: POTASSIUM CHLORIDE ER 20 MEQ TAB.ER PO STA (19:25)
[2024-02-17] MEDS: POTASSIUM CHLORIDE 20 MEQ in WATER FOR INJECTION 1 100ML.BAG IVPB STA (19:28)
[2024-02-17 20:12] LABS: Band Neutrophils % 1 %; Lymphocytes # (M) 0.49 k/uL (1.0-4.8); Monocytes # (M) 2.21 k/uL (0-1.0); Neutrophils % (M) 88 %; Nucleated Red Blood Cells 0 /100 WBC (0-0); Total Cells Counted 100
[2024-02-17 20:14] LABS: RBC Morphology Normal
[2024-02-17] MEDS: SODIUM CHLORIDE 0.9% 1,000 ML IV SCH (20:27)
[2024-02-17] MEDS: HYDROmorphone 0.5 MG/0.5 ML SYRINGE IVP STA (20:28)
[2024-02-17] MEDS: LORazepam 0.5 MG TAB PO PRN (21:37)
[2024-02-17 22:06] LABS: Appearance,Urine Clear (Clear); Bilirubin,Urine Negative (Negative); Blood,Urine Negative (Negative); Color,Urine Colorless; Glucose,Urine (UA) Negative (Negative); Ketones,Urine Negative (Negative); Leukocyte Esterase,Urine Negative (Negative); Nitrite,Urine Negative (Negative); Protein,Urine Trace (Negative); Specific Gravity,Urine 1.006 (1.001-1.035); Urobilinogen,Urine <2.0 mg/dL (<2.0)
[2024-02-17 22:20] LABS: Amphetamine Screen,Urine Not Detected (NotDetected); Benzodiazepines Screen,Urine Not Detected (NotDetected); Cocaine Screen,Urine Not Detected (NotDetected); Methadone Screen, Urine Not Detected (NotDetected); Opiate Screen,Urine Not Detected (NotDetected); Phencyclidine Screen,Urine Not Detected (NotDetected); Tricyclic Antidepressant,Urine Not Detected (NotDetected); Urn Cannabinoid Scrn Detected (NotDetected)
[2024-02-17 22:21] LABS: Barbiturate Screen,Urine Not Detected (NotDetected); Oxycodone Screen, Urine Not Detected (NotDetected)
[2024-02-17 23:02] LABS: ALT 24 U/L (4-49); AST 42 U/L (17-59); African American GFR (CKD) 85 (>60 ml/min/1.73 sqM); Albumin 3.5 g/dL (3.5-5.0); Alkaline Phosphatase 116 U/L (38-126); Anion Gap 8 mmol/L; Blood Urea Nitrogen 32 mg/dL (9-20); Calcium 8.2 mg/dL (8.4-10.2); Carbon Dioxide 36 mmol/L (22-30); Chloride 82 mmol/L (98-107); Glucose 91 mg/dL (74-99); Non-African American GFR(CKD) 73 (>60 ml/min/1.73 sqM); Sodium 126 mmol/L (137-145); Total Bilirubin 2.8 mg/dL (0.2-1.3); Total Protein 6.1 g/dL (6.3-8.2)
[2024-02-17 23:19] LABS: Potassium 2.3 mmol/L (3.5-5.1)
[2024-02-18] MEDS ORDERED: POTASSIUM CHLORIDE 10 MEQ in WATER FOR INJECTION 1 100ML.BAG IVPB SCH
[2024-02-18] MEDS: DEXTROSE 5%-0.45% NACL 1,000 ML IV SCH (00:05)
[2024-02-18] MEDS: POTASSIUM CHLORIDE ER 20 MEQ TAB.ER PO SCH (00:44)
[2024-02-18] MEDS: ONDANSETRON 4 MG/2 ML VIAL IVP PRN (01:43)
[2024-02-18] MEDS: LORazepam 2 MG/ML INJ IV PRN (01:43)
[2024-02-18] MEDS: POTASSIUM CHLORIDE 10 MEQ in WATER FOR INJECTION 1 100ML.BAG IVPB SCH (02:15)
[2024-02-18] MEDS: DEXTROSE 5% IN WATER 1,000 ML IV SCH (03:30)
[2024-02-18 04:00] LABS: African American GFR (CKD) >90 (>60 ml/min/1.73 sqM); Anion Gap 2 mmol/L; Blood Urea Nitrogen 27 mg/dL (9-20); Calcium 8.5 mg/dL (8.4-10.2); Carbon Dioxide 39 mmol/L (22-30); Chloride 86 mmol/L (98-107); Glucose 110 mg/dL (74-99); Non-African American GFR(CKD) >90 (>60 ml/min/1.73 sqM); Potassium 2.8 mmol/L (3.5-5.1); Sodium 127 mmol/L (137-145)
[2024-02-18 05:55] VITALS: TEMP 97.7
--- NOTE | 2024-02-18 06:50 | P.HPIM ---
History of Present Illness H&P Date: 02/17/24 Chief Complaint: Repeated nausea vomiting 28-year-old male with history of cyclical vomiting Patient coming in seeking evaluation due to repeated nausea vomiting since Monday, he claims that he has not used any marijuana for the past 6 months however on Monday he took couple puffs and since then for the past 3 to 4 days he has been having repeated nausea vomiting denies any bleeding denies any chest pain denies any abdominal pain denies any fevers or chills denies any upper respiratory infection symptoms. Upon my evaluation patient seems to be well rested in bed having only dry heaves reports no other associated symptoms denies any pain issues. However upon initial discussion with the ED and initial evaluation by the nursing staff in the ED, it is reported that patient seemed to be slightly altered upon presentation with vague report of some chest pressure that currently patient is totally denying. Patient denies any associated fevers chills or changes in bowel or urinary habits. He claims that he is stubborn and stayed at home initially trying to self manage he had a lot of water and Gatorade however since he is unable to keep anything down and symptoms continued he decided to come into the hospital today Patient denies smoking or alcohol use. However he was started on CIWA precautions in the ED review of systems Pertinent positives as noted in HPI. All other systems were reviewed and are negative on exam Constitutional: No acute distress, conversant, pleasant Eyes: Anicteric sclerae, moist conjunctiva, Pupils equal round reactive to light ENMT: NC/AT Oropharynx clear, no erythema, or exudates Neck: Supple, no masses, or JVD No carotid bruits No thyromegaly Lungs: Clear to auscultation Clear to percussion Normal respiratory effort, no accessory muscle use Cardiovascular: Heart regular in rate and rhythm, No murmurs, gallops, or rubs No peripheral edema Abdominal: Soft Nontender, no guarding, rebound or rigidity Abdomen moving with respiration Normoactive bowel sounds Extremities: No digital cyanosis No clubbing Pedal pulses intact and symmetrical Radial pulses intact and symmetrical No calf tenderness Psychiatric: Alert and oriented to person, place and time Appropriate affect fair judgement Neuro Muscles Strength 5/5 in all 4 extremities Sensation to light touch grossly present throughout Cranial nerves II-XII grossly intact Past Medical History Past Medical History: GI Bleed Additional Past Medical History / Comment(s): pericarditis, esophageal ulcer History of Any Multi-Drug Resistant Organisms: None Reported Past Surgical History: No Surgical Hx Reported Additional Past Surgical History / Comment(s): EGD, [place] teeth pulled Past Anesthesia/Blood Transfusion Reactions: No Reported Reaction Smoking Status: Vaper - Past Family History Father Family Medical History: Liver Disease Additional Family Medical History / Comment(s): with cirrohsis of liver. Mother Family Medical History: No Reported History Additional Family Medical History / Comment(s): Anyersum on heart, inoperable. Medications and Allergies Home Medications Medication Instructions Recorded Confirmed Type No Known Home Medications 03/31/23 08/30/23 History Allergies Allergy/AdvReac Type Severity Reaction Status Date / Time No Known Allergies Allergy Verified 02/17/24 17:42 Physical Exam Vitals: Vital Signs Temp Pulse Pulse Resp BP Pulse Ox 02/17/24 20:13 86 18 116/78 100 02/17/24 18:48 83 20 104/71 99 02/17/24 18:27 104 H 02/17/24 18:21 104 H 20 110/84 98 02/17/24 17:45 24 02/17/24 17:35 97.3 F L 131 H 24 116/75 100 Intake and Output 02/17/24 02/17/24 02/18/24 14:59 22:59 06:59 Other: Weight 61.235 kg Results CBC & Chem 7: 02/17/24 18:17 02/18/24 05:25 Labs: Abnormal Lab Results - Last 24 Hours (Table) 02/17/24 02/17/24 02/17/24 Range/Units 18:17 18:17 18:17 WBC 24.5 H (3.8-10.6) k/uL RBC 6.62 H (4.30-5.90) m/uL Hgb 21.4 H* (13.0-17.5) gm/dL Hct 58.1 H* (39.0-53.0) % Neutrophils # (Manual) 21.80 H (1.3-7.7) k/uL Lymphocytes # (Manual) 0.49 L (1.0-4.8) k/uL Monocytes # (Manual) 2.21 H (0-1.0) k/uL Sodium 118 L* (137-145) mmol/L Potassium 2.5 L* (3.5-5.1) mmol/L Chloride 60 L* (98-107) mmol/L Carbon Dioxide 36 H (22-30) mmol/L BUN 36 H (9-20) mg/dL Creatinine 1.60 H (0.66-1.25) mg/dL Glucose 172 H (74-99) mg/dL Calcium 10.4 H (8.4-10.2) mg/dL Total Bilirubin 3.4 H (0.2-1.3) mg/dL AST 62 H (17-59) U/L Alkaline Phosphatase 154 H (38-126) U/L Troponin I 0.781 H* (0.000-0.034) ng/mL Urine Protein (Negative) U Marijuana (THC) Screen (NotDetected) 02/17/24 02/17/24 Range/Units 21:20 21:20 WBC (3.8-10.6) k/uL RBC (4.30-5.90) m/uL Hgb (13.0-17.5) gm/dL Hct (39.0-53.0) % Neutrophils # (Manual) (1.3-7.7) k/uL Lymphocytes # (Manual) (1.0-4.8) k/uL Monocytes # (Manual) (0-1.0) k/uL Sodium (137-145) mmol/L Potassium (3.5-5.1) mmol/L Chloride (98-107) mmol/L Carbon Dioxide (22-30) mmol/L BUN (9-20) mg/dL Creatinine (0.66-1.25) mg/dL Glucose (74-99) mg/dL Calcium (8.4-10.2) mg/dL Total Bilirubin (0.2-1.3) mg/dL AST (17-59) U/L Alkaline Phosphatase (38-126) U/L Troponin I (0.000-0.034) ng/mL Urine Protein Trace H (Negative) U Marijuana (THC) Screen Detected H (NotDetected) Thrombosis Risk Factor Assmnt - Choose All That Apply Any of the Below Risk Factors Present?: No Other Risk Factors: No Other congenital or acquired thrombophilia - If yes, enter type in comment: No Thrombosis Risk Factor Assessment Level: Very Low Risk Assessment and Plan Assessment: 28-year-old male known to have cyclical vomiting syndrome presented with refractory nausea vomiting I discussed case with ED doctor and accepted the admission for electrolyte imbalance and elevated tropes for further evaluation and monitoring in the ICU with anticipated length of stay more than 2 midnights Severe electrolyte imbalance Refractory nausea vomiting with history of cyclical vomiting syndrome suspected to be secondary to marijuana use Urine drug screen positive for marijuana Blood alcohol level negative Supportive care Patient was given IV fluid hydration with normal saline in the ED Initial sodium was 118 which was quickly corrected to 126 upon follow-up after ED transition to the ICU. Patient was switched to D5 with 0.45 normal saline with close monitoring of sodium every 2 hours however sodium continued to trend up therefore patient was switched to D5 water at 75 cc/h with close monitoring of sodium to avoid quick/overcorrection of sodium Nephrology evaluation Replace potassium as needed per potassium replacement protocol follow-up levels closely Magnesium 1.8 unremarkable Acute kidney injury most likely secondary to prerenal ATN and dehydration from poor p.o. intake and repeated nausea vomiting BUN 36 creatinine 1.6 this has resolved upon follow-up Avoid nephrotoxic meds Continue with IV fluid hydration as above Monitor urine output Blood work was also showing evidence of hemoconcentration Initial calcium was elevated 10.4 resolved Hemoglobin 21.4 white count 24.5 await follow-up in the morning this is most likely due to hemoconcentration Elevated troponin Patient denies any chest pain EKG showing evidence of LVH Patient reports history of pericarditis many years ago Cardiology evaluation Continue to trend troponins Chest x-ray no acute cardiopulmonary process Acute respiratory viral panel negative for COVID RSV and influenza Full code DVT prophylaxis heparin subcu 3 times daily Disposition currently in the ICU
[2024-02-18 07:20] VITALS: BP 93/67; PULSE 89; RESP 23
[2024-02-18 07:38] LABS: Basophils % (A) 0 %; Eosinophils % (A) 0 %; HCT 45.7 % (39.0-53.0); Hyperchromasia Slight; Lymphocytes # (A) 1.4 k/uL (1.0-4.8); Lymphocytes % (A) 8 %; MCHC 35.5 g/dL (31.0-37.0); MCV 90.3 fL (80.0-100.0); Mean Platelet Volume 8.1; Monocytes # (A) 1.3 k/uL (0-1.0); Monocytes % (A) 7 %; Neutrophils # (A) 14.9 k/uL (1.3-7.7); Neutrophils % (A) 84 %; Platelet Count 303 k/uL (150-450); RBC 5.07 m/uL (4.30-5.90); RDW 12.5 % (11.5-15.5); WBC 17.9 k/uL (3.8-10.6)
[2024-02-18 07:39] LABS: HGB 16.2 gm/dL (13.0-17.5)
[2024-02-18 07:53] LABS: ALT 23 U/L (4-49); AST 43 U/L (17-59); African American GFR (CKD) >90 (>60 ml/min/1.73 sqM); Albumin 3.4 g/dL (3.5-5.0); Alkaline Phosphatase 93 U/L (38-126); Anion Gap 3 mmol/L; Blood Urea Nitrogen 23 mg/dL (9-20); Calcium 8.9 mg/dL (8.4-10.2); Carbon Dioxide 38 mmol/L (22-30); Chloride 89 mmol/L (98-107); Glucose 111 mg/dL (74-99); Lipase 65 U/L (23-300); Magnesium 2.3 mg/dL (1.6-2.3); Non-African American GFR(CKD) >90 (>60 ml/min/1.73 sqM); Phosphorus 2.6 mg/dL (2.5-4.5); Sodium 130 mmol/L (137-145); Total Bilirubin 1.9 mg/dL (0.2-1.3); Total Protein 5.9 g/dL (6.3-8.2)
[2024-02-18] MEDS ORDERED: HEPARIN SODIUM,PORCINE 5,000 UNIT/ML 1 ML VIAL SQ SCH (08:00)
--- NOTE | 2024-02-18 08:03 | P.DS ---
Providers Date of admission: 02/17/24 19:15 Expected date of discharge: 02/18/24 Attending physician: Олег Arguello MD Consults: 02/17/24 19:15 Consult Physician Routine Consulting Provider: Amanda Ruiz Consult Reason/Comments: icu Do you want consulting provider notified?: Yes Consult Physician Routine Consulting Provider: Corona Acosta Consult Reason/Comments: Lytes,HypoNA Do you want consulting provider notified?: Yes 02/18/24 03:13 Consult Physician Routine Consulting Provider: Brady Lau Consult Reason/Comments: Increased Troponin Do you want consulting provider notified?: Yes, Notify in am Primary care physician: Luis Briones [facility] Hospital Course: 28 year old M with PMH of cyclical vomiting and chronic marijuana abuse presented to the ED for intractable N/V. In the ED he underwent extensive evaluation. BP 116/75, HR 131, T 97.3F, RR 24, 100% on 2L NC. CBC showed WBC 24.5 Hg 21.4 Hct 58.1. Coag panel within normal limits. CMP Na 118, K 2.5, Cl 60, bicarb 36, BUN 36, Cr 1.60, glu 172, Ca 10.4, T. Bili 3.4, AST 62, alk phos 154. Mag 1.8. Troponin 0.78, 0.971, 1.040. UA trace protein. UDS + THC. EtoH negative. Flu, RSV, COVID negative. EKG sinus tachycardia with ST wave abnormalities. CXR negative. Admitted to ICU for further workup and management. He was started on IV hydration and electrolytes were replaced. Nephrology was consulted for YENI and management of hyponatremia. Cardiology consulted for elevated troponins. Sodium improved quite quickly to 130 by 4AM on 02/17. K improved to 2.8. Patient decided to leave A as notified by nursing staff prior to being seen on 02/17. No physical exam was performed. Discharge Diagnosis: Severe hyponatremia due to N/V Severe hypokalemia due to N/V Troponin elevation SIRS Acute kidney injury Transaminits Hemoconcentration Patient Condition at Discharge: Critical Plan - Discharge Summary Discharge Rx Participant: Yes New Discharge Prescriptions: No Action No Known Home Medications Discharge Medication List No Known Home Medications 03/31/23 [History] Follow up Appointment(s)/Referral(s): uLis Huang MD [Primary Care Provider] - 1-2 days Discharge Disposition: LEFT AGAINST MEDICAL ADVICE
[2024-02-18] MEDS ORDERED: MULTIVITAMINS, THERA 1 EACH TAB PO SCH (09:00)
[2024-02-18] MEDS ORDERED: FOLIC ACID 1 MG TAB PO SCH (09:00)
== END 2024-02-18 07:35 | disposition left against medical advice (07) | DRG 640 ==
LOC: EC 17:33 → 2SICU 19:15
PROVIDERS: ADMIT Internal Medicine; ATTEND Internal Medicine
DX: E87.1 Hypo-osmolality and hyponatremia (principal); N17.0 Acute kidney failure with tubular necrosis; R65.10 Systemic inflammatory response syndrome (SIRS) of non-infectious origin without acute organ dysfunction; F12.10 Cannabis abuse, uncomplicated; R11.15 Cyclical vomiting syndrome unrelated to migraine; E86.0 Dehydration; E87.6 Hypokalemia; Z53.29 Procedure and treatment not carried out because of patient's decision for other reasons; R79.89 Other specified abnormal findings of blood chemistry; Z86.79 Personal history of other diseases of the circulatory system; Z11.52 Encounter for screening for COVID-19; Z87.891 Personal history of nicotine dependence
CPT/HCPCS: 36415; 71046; 80048; 80053; 80306; 80320; 81003; 82150; 83690; 83735; 84100; 84295; 84484; 85025; 85610; 85730; 87636; 93005; 96361; 96365; 96375; 99285

== ENCOUNTER 2024-04-28 12:37 | Observation (INO) | payer OTHER ==
--- NOTE | 2024-04-28 13:02 | ED ---
General Adult HPI - General Chief complaint: Nausea/Vomiting/Diarrhea Stated complaint: dehydration, Vomiting Time Seen by Provider: 04/28/24 12:46 Source: patient, RN notes reviewed Mode of arrival: ambulatory Limitations: no limitations - History of Present Illness Initial comments: Patient is a 28-year-old male present to the emergency department with concerns for emesis. Onset of symptoms was the past day or 2. Patient does have history of similar symptoms several times in the past. Last marijuana use was 2 weeks ago. Patient feels his body is cramping. Patient is also having some diarrhea. Patient feels dehydrated. Patient states previously with this he has had potassium problems also. - Related Data Home Medications Medication Instructions Recorded Confirmed No Known Home Medications 03/31/23 08/30/23 Allergies Allergy/AdvReac Type Severity Reaction Status Date / Time No Known Allergies Allergy Verified 04/28/24 12:49 Review of Systems ROS Statement: Those systems with pertinent positive or pertinent negative responses have been documented in the HPI. ROS Other: All systems not noted in ROS Statement are negative. Constitutional: Denies: fever Eyes: Denies: eye pain ENT: Denies: ear pain Respiratory: Denies: cough Cardiovascular: Denies: chest pain Gastrointestinal: Reports: nausea, vomiting, diarrhea Past Medical History Past Medical History: GI Bleed Additional Past Medical History / Comment(s): pericarditis, esophageal ulcer History of Any Multi-Drug Resistant Organisms: None Reported Past Surgical History: No Surgical Hx Reported Additional Past Surgical History / Comment(s): EGD, [place] teeth pulled Past Anesthesia/Blood Transfusion Reactions: No Reported Reaction Past Psychological History: No Psychological Hx Reported Smoking Status: Current some day smoker, Vaper Past Alcohol Use History: Occasional Past Drug Use History: Marijuana - Past Family History Father Family Medical History: Liver Disease Additional Family Medical History / Comment(s): with cirrohsis of liver. Mother Family Medical History: No Reported History Additional Family Medical History / Comment(s): Anyersum on heart, inoperable. General Exam Limitations: no limitations General appearance: alert Head exam: Present: normocephalic Eye exam: Present: normal appearance ENT exam: Present: normal oropharynx Neck exam: Present: normal inspection Respiratory exam: Present: normal lung sounds bilaterally Cardiovascular Exam: Present: tachycardia GI/Abdominal exam: Present: soft. Absent: tenderness, pulsatile mass Extremities exam: Present: normal inspection Neurological exam: Present: alert. Absent: motor sensory deficit Psychiatric exam: Present: normal affect, normal mood Skin exam: Present: normal color Course Vital Signs 04/28/24 04/28/24 12:45 14:19 Temperature 97.4 F L Pulse Rate 120 H 85 Respiratory 18 16 Rate Blood Pressure 131/89 99/63 O2 Sat by Pulse 99 97 Oximetry Medical Decision Making - Medical Decision Making Was pt. sent in by a medical professional or institution (, PA, HOUSE MANAGER, urgent care, hospital, or fpc...) When possible be specific @ -No Did you speak to anyone other than the patient for history (EMS, parent, family, police, friend...)? What history was obtained from this source @ -No Did you review nursing and triage notes (agree or disagree)? Why? @ -I reviewed and agree with nursing and triage notes Were old charts reviewed (outside hosp., previous admission, EMS record, old EKG, old radiological studies, urgent care reports/EKG's, fpc records)? Report findings @ -Previous visits reviewed and admission Differential Diagnosis (chest pain, altered mental status, abdominal pain women, abdominal pain men, vaginal bleeding, weakness, fever, dyspnea, syncope, headache, dizziness, GI bleed, back pain, seizure, CVA, palpatations, mental health, musculoskeletal)? @ -Differential Abdominal Pain Men: Appendicitis, cholecystitis, diverticulosis, ischemic bowel, pancreatitis, hepatitis, UTI, gastroenteritis, AAA, incarcerated hernia, bowel obstruction, constipation, inflammatory bowel, hepatitis, peptic ulcer disease, splenic infarction, perforated viscus, testicular torsion, this is not meant to be an all-inclusive list EKG interpreted by me (3pts min.). @ -As above X-rays interpreted by me (1pt min.). @ -None done CT interpreted by me (1pt min.). @ -None done U/S interpreted by me (1pt. min.). @ -None done What testing was considered but not performed or refused? (CT, X-rays, U/S, la bs)? Why? @ -Venous blood gas ordered What meds were considered but not given or refused? Why? @ -None Did you discuss the management of the patient with other professionals (professionals i.e. , PA, HOUSE MANAGER, lab, RT, psych nurse, social services coordinator, manager benefit, teacher, assurance officer, case management associate)? Give summary @ -Case discussed with Dr. Lugo who will admit covering Dr. Huang Was smoking cessation discussed for >3mins.? @ -No Was critical care preformed (if so, how long)? @ -31 minutes of critical care time performed Were there social determinants of health that impacted care today? How? ([place] elessness, low income, unemployed, alcoholism, drug addiction, transportation, low edu. Level, literacy, decrease access to med. care, nursing home, rehab)? @ -No Was there de-escalation of care discussed even if they declined (Discuss DNR or withdrawal of care, Hospice)? DNR status @ -No What co-morbidities impacted this encounter? (DM, HTN, Smoking, COPD, CAD, Cancer, CVA, ARF, Chemo, Hep., AIDS, mental health diagnosis, sleep apnea, morbid obesity)? @ -History of gastroparesis Was patient admitted / discharged? Hospital course, mention meds given and route, prescriptions, significant lab abnormalities, going to OR and other pertinent info. @ -Patient presents with nausea vomiting diarrhea. Patient has significant dehydration and hypochloremia. Patient has hypokalemia. Concern for metabolic alkalosis. His venous blood gas ordered. Fluid bolus is ordered. IV fluids will be continued. Patient admitted. Undiagnosed new problem with uncertain prognosis? @ -No Drug Therapy requiring intensive monitoring for toxicity (Heparin, Nitro, Insulin, Cardizem)? @ -No Were any procedures done? @ -No Diagnosis/symptom? @ -Dehydration, hypochloremia Acute, or Chronic, or Acute on Chronic? @ -Acute, acute Uncomplicated (without systemic symptoms) or Complicated (systemic symptoms)? @ -Complicated with hypokalemia Side effects of treatment? @ -No Exacerbation, Progression, or Severe Exacerbation? @ -No Poses a threat to life or bodily function? How? (Chest pain, [place], [place], pneumonia, PE, COPD, DKA, ARF, appy, cholecystitis, CVA, Diverticulitis, Homicidal, Suicidal, threat to staff... and all critical care pts) @ -Potential for metabolic derangement - Lab Data Result diagrams: 04/28/24 13:49 04/28/24 13:49 Lab Results 04/28/24 04/28/24 Range/Units 13:49 13:49 WBC 16.3 H (3.8-10.6) k/uL RBC 5.75 (4.30-5.90) m/uL Hgb 19.0 H (13.0-17.5) gm/dL Hct 54.9 H (39.0-53.0) % MCV 95.5 (80.0-100.0) fL MCH 33.1 (25.0-35.0) pg MCHC 34.7 (31.0-37.0) g/dL RDW 12.8 (11.5-15.5) % Plt Count 376 (150-450) k/uL MPV 7.8 Neutrophils % 85 % Lymphocytes % 7 % Monocytes % 7 % Eosinophils % 0 % Basophils % 0 % Neutrophils # 13.8 H (1.3-7.7) k/uL Lymphocytes # 1.1 (1.0-4.8) k/uL Monocytes # 1.1 H (0-1.0) k/uL Eosinophils # 0.0 (0-0.7) k/uL Basophils # 0.0 (0-0.2) k/uL Sodium 130 L (137-145) mmol/L Potassium 3.3 L (3.5-5.1) mmol/L Chloride 73 L* (98-107) mmol/L Carbon Dioxide 36 H (22-30) mmol/L Anion Gap 21 mmol/L BUN 41 H (9-20) mg/dL Creatinine 1.17 (0.66-1.25) mg/dL Est GFR (CKD-EPI)AfAm >90 (>60 ml/min/1.73 sqM) Est GFR (CKD-EPI)NonAf 83 (>60 ml/min/1.73 sqM) Glucose 121 H (74-99) mg/dL Calcium 10.0 (8.4-10.2) mg/dL Total Bilirubin 2.1 H (0.2-1.3) mg/dL AST 78 H (17-59) U/L ALT 39 (4-49) U/L Alkaline Phosphatase 154 H (38-126) U/L Total Protein 9.7 H (6.3-8.2) g/dL Albumin 5.8 H (3.5-5.0) g/dL Amylase 78 (30-110) U/L Lipase 104 (23-300) U/L Critical Care Time Critical Care Time: Yes Total Critical Care Time: 31 Disposition Clinical Impression: Hypochloremia Disposition: ADMITTED IP TO THIS [facility] Condition: Stable Is patient prescribed a controlled substance at d/c from ED?: No Referrals: Luis Huang MD [Primary Care Provider] - 1-2 days Time of Disposition: 14:52
[2024-04-28] MEDS: SODIUM CHLORIDE 0.9% 1,000 ML IV STA (13:52)
[2024-04-28] MEDS: FAMOTIDINE 20 MG/2 ML VIAL IV STA (13:53)
[2024-04-28] MEDS: diphenhydrAMINE 50 MG/ML 1 ML VIAL IVP STA (13:53)
[2024-04-28] MEDS: SODIUM CHLORIDE 0.9% 500 ML 500 ML IV STA (13:53)
[2024-04-28] MEDS: METOCLOPRAMIDE 5 MG/ML 2 ML VIAL IVP STA (13:53)
[2024-04-28] MEDS: LORazepam 2 MG/ML INJ IV STA (13:54)
[2024-04-28 14:11] LABS: Basophils % (A) 0 %; Eosinophils % (A) 0 %; HCT 54.9 % (39.0-53.0); Lymphocytes # (A) 1.1 k/uL (1.0-4.8); Lymphocytes % (A) 7 %; MCH 33.1 pg (25.0-35.0); MCHC 34.7 g/dL (31.0-37.0); MCV 95.5 fL (80.0-100.0); Mean Platelet Volume 7.8; Monocytes # (A) 1.1 k/uL (0-1.0); Monocytes % (A) 7 %; Neutrophils # (A) 13.8 k/uL (1.3-7.7); Neutrophils % (A) 85 %; Platelet Count 376 k/uL (150-450); RBC 5.75 m/uL (4.30-5.90); RDW 12.8 % (11.5-15.5); WBC 16.3 k/uL (3.8-10.6)
[2024-04-28 14:12] LABS: ALT 39 U/L (4-49); African American GFR (CKD) >90 (>60 ml/min/1.73 sqM); Amylase 78 U/L (30-110); Blood Urea Nitrogen 41 mg/dL (9-20); Glucose 121 mg/dL (74-99); Lipase 104 U/L (23-300); Non-African American GFR(CKD) 83 (>60 ml/min/1.73 sqM); Sodium 130 mmol/L (137-145); Total Bilirubin 2.1 mg/dL (0.2-1.3)
[2024-04-28 14:18] LABS: Anion Gap 21 mmol/L
[2024-04-28 14:33] LABS: Chloride 73 mmol/L (98-107); Total Protein 9.7 g/dL (6.3-8.2)
[2024-04-28 14:34] LABS: AST 78 U/L (17-59); Albumin 5.8 g/dL (3.5-5.0); Alkaline Phosphatase 154 U/L (38-126); Carbon Dioxide 36 mmol/L (22-30); Potassium 3.3 mmol/L (3.5-5.1)
[2024-04-28] MEDS ORDERED: ACETAMINOPHEN TAB 325 MG TAB PO PRN (14:52)
[2024-04-28] MEDS ORDERED: NALOXONE 0.4 MG/ML 1 ML VIAL IV PRN (14:52)
[2024-04-28] MEDS ORDERED: ONDANSETRON 4 MG/2 ML VIAL IVP PRN (14:52)
[2024-04-28] MEDS: POTASSIUM CHLORIDE 20 MEQ in WATER FOR INJECTION 1 100ML.BAG IVPB STA (15:43)
[2024-04-28] MEDS: SODIUM CHLORIDE 0.9% 1,000 ML IV SCH (15:43)
--- NOTE | 2024-04-28 16:00 | P.HPIM ---
History of Present Illness H&P Date: 04/28/24 Patient is a 28-year-old male with history of cyclical vomiting syndrome, marijuana dependence presenting with intractable nausea vomiting. Claims that he has been having nausea vomiting since yesterday. He has been vomiting every few minutes. He has not been able to keep anything down. Denies any abdominal pain, has some burning chest pain with vomiting. Denies any shortness of breath or palpitations, lightheadedness or dizziness. He denies any sick contacts or travel history. Denies any changes in his diet. He claims that he used to smoke marijuana multiple times during the day, now smokes maybe once or twice a week. He is unsure exactly when he last smoked. Occasionally drinks alcohol. Denies any cigarette smoking. In the ED, temperature was 97.4, pulse 120, respiratory rate 18, blood pressure 131/89, saturating at 99% on room air. WBC 16.3, hemoglobin 19, sodium 130, potassium 3.3, bicarb 36, chloride 73, anion gap 21, BUN 41, creatinine 1.17, glucose 121, total bili 2.1, AST 78, ALT 39, ALP 154, lipase 104. Patient was given IV potassium 20 mill equivalent, 1.5 L normal saline bolus, 10 mg Reglan IV, 1 mg IV Ativan, 20 mg IV Pepcid, 25 mg IV Benadryl, IV Zofran. Patient admitted for further evaluation with observation. Pertinent positives and negatives as discussed in HPI, a complete review of systems was performed and all other systems are negative. Patient seen and examined at bedside. Vital signs reviewed General: nontoxic, no distress, appears at stated age Derm: warm, dry Head: atraumatic, normocephalic, symmetric Eyes: EOMI, no lid lag, anicteric sclera, pupils equal round reactive to light ENT: Nose and ears atraumatic Neck: No thyromegaly, supple Mouth: no lip lesion, mucus membranes moist Cardiovascular: S1S2 reg, no murmur, no edema Lungs: clear to auscultation bilateral, no rhonchi, no rales, no wheeze, no accessory muscle use Abdominal: soft, nontender to palpation, no guarding, no appreciable organomegaly Ext: no gross muscle atrophy, muscle strength muscle strength 5 out of 5 in all 4 extremities, no contractures Neuro: CN II-XII grossly intact Psych: Alert, oriented, appropriate affect Assessment/Plan: Intractable nausea and vomiting Cyclic vomiting syndrome History of marijuana dependence Hyponatremia, hypovolemic Hypokalemia Mixed acid-base disorder Dehydration Leukocytosis Erythrocytosis Hyperbilirubinemia -Continue Zofran 4 mg IV every 8 hours -Continue IV fluids, normal saline at 130 cc an hour -IV Protonix 40 daily -Repeat CBC and CMP tomorrow -Received IV potassium in the ER -Clear liquid diet as tolerated -Venous gas and lactic acid pending The patient is admitted with an anticipated less than 2 midnight stay as observation status for evaluation of intractable nausea vomiting. Surrogate decision-maker: Mother CODE STATUS: Full code DVT prophylaxis: Lovenox Anticipated discharge date: Pending clinical course Anticipated discharge place: Pending clinical course A total of 55 minutes was spent on the care of this complex patient more than 50% of the time was spent in counseling and care coordination. Past Medical History Past Medical History: GI Bleed Additional Past Medical History / Comment(s): pericarditis, esophageal ulcer History of Any Multi-Drug Resistant Organisms: None Reported Past Surgical History: No Surgical Hx Reported Additional Past Surgical History / Comment(s): EGD, [place] teeth pulled Past Anesthesia/Blood Transfusion Reactions: No Reported Reaction Past Psychological History: No Psychological Hx Reported Smoking Status: Current some day smoker, Vaper Past Alcohol Use History: Occasional Past Drug Use History: Marijuana - Past Family History Father Family Medical History: Liver Disease Additional Family Medical History / Comment(s): with cirrohsis of liver. Mother Family Medical History: No Reported History Additional Family Medical History / Comment(s): Anyersum on heart, inoperable. Medications and Allergies Home Medications Medication Instructions Recorded Confirmed Type No Known Home Medications 03/31/23 04/28/24 History Allergies Allergy/AdvReac Type Severity Reaction Status Date / Time No Known Allergies Allergy Verified 04/28/24 15:17 Physical Exam Vitals: Vital Signs Temp Pulse Resp BP Pulse Ox 04/28/24 15:31 87 18 119/74 99 04/28/24 14:19 85 16 99/63 97 04/28/24 12:45 97.4 F L 120 H 18 131/89 99 Intake and Output 04/28/24 04/28/24 04/28/24 06:59 14:59 22:59 Other: Weight 61.235 kg Results CBC & Chem 7: 04/28/24 13:49 04/28/24 13:49 Labs: Abnormal Lab Results - Last 24 Hours (Table) 04/28/24 04/28/24 Range/Units 13:49 13:49 WBC 16.3 H (3.8-10.6) k/uL Hgb 19.0 H (13.0-17.5) gm/dL Hct 54.9 H (39.0-53.0) % Neutrophils # 13.8 H (1.3-7.7) k/uL Monocytes # 1.1 H (0-1.0) k/uL Sodium 130 L (137-145) mmol/L Potassium 3.3 L (3.5-5.1) mmol/L Chloride 73 L* (98-107) mmol/L Carbon Dioxide 36 H (22-30) mmol/L BUN 41 H (9-20) mg/dL Glucose 121 H (74-99) mg/dL Total Bilirubin 2.1 H (0.2-1.3) mg/dL AST 78 H (17-59) U/L Alkaline Phosphatase 154 H (38-126) U/L Total Protein 9.7 H (6.3-8.2) g/dL Albumin 5.8 H (3.5-5.0) g/dL
[2024-04-28 16:16] LABS: VBG PH 7.56 (7.31-7.41)
[2024-04-29 08:07] VITALS: BP 118/72; PULSE 99; RESP 15; TEMP 98.2
[2024-04-29] MEDS: ENOXAPARIN 40 MG/0.4 ML SYRINGE SQ SCH (08:47)
[2024-04-29] MEDS: PANTOPRAZOLE 40 MG/10 ML VIAL IV SCH (08:47)
--- NOTE | 2024-04-29 10:33 | P.PN ---
Subjective Progress Note Date: 04/29/24 Hospital Course: 28-year-old male with history of cyclical vomiting syndrome, marijuana depende nce presenting with intractable nausea vomiting. In the ED, temperature was 97.4, pulse 120, respiratory rate 18, blood pressure 131/89, saturating at 99% on room air. WBC 16.3, hemoglobin 19, sodium 130, potassium 3.3, bicarb 36, chloride 73, anion gap 21, BUN 41, creatinine 1.17, glucose 121, total bili 2.1, AST 78, ALT 39, ALP 154, lipase 104. Patient was given IV potassium 20 mill equivalent, 1.5 L normal saline bolus, 10 mg Reglan IV, 1 mg IV Ativan, 20 mg IV Pepcid, 25 mg IV Benadryl, IV Zofran. Patient admitted for further evaluation with observation. Improved with IV fluids Subjective: Patient seen and examined at bedside. No acute events overnight. Claims that he wants to go home today. Pertinent positives and negatives as discussed above, a complete review of systems was performed and all other systems are negative. Vitals Signs Reviewed. General: [nontoxic], [no distress], [appears at stated age] Derm: [warm], [dry] Head: [atraumatic], [normocephalic], [symmetric] Eyes: [EOMI], [no lid lag], [anicteric sclera] Mouth: [no lip lesion], [mucus membranes moist] Cardiovascular: [S1S2 reg], [no murmur] Lungs: [CTA bilateral], [no rhonchi, no rales] , [no accessory muscle use] Abdominal: [soft], [ nontender to palpation], [no guarding], [no appreciable organomegaly] Ext: [no gross muscle atrophy], [no edema], [no contractures] Neuro: [ CN II-XI grossly intact], [no focal neuro deficits] Psych: [Alert], [oriented], [appropriate affect] Data Reviewed Today: Pertinent Labs: No new labs available, CBC and CMP, magnesium pending, will be reviewed when available Imaging: No new imaging Assessment and Plan: Intractable nausea and vomiting Cyclic vomiting syndrome History of marijuana dependence Hyponatremia, hypovolemic Hypokalemia Metabolic alkalosis Dehydration Leukocytosis Erythrocytosis Hyperbilirubinemia -Continue Zofran 4 mg IV every 8 hours -Continue IV fluids, normal saline at 130 cc an hour -IV Protonix 40 daily -Repeat CBC and CMP pending -Clear liquid diet as tolerated DVT ppx: Lovenox Code status: Full code Anticipated discharge place: Pending clinical course Anticipated discharge time: Pending clinical course Objective - Vital Signs Vital signs: Vital Signs Temp 98.2 F 04/29/24 08:05 Pulse 99 04/29/24 08:05 Resp 15 04/29/24 08:05 BP 118/72 04/29/24 08:05 Pulse Ox 98 04/29/24 08:05 FiO2 Intake & Output 04/28/24 04/29/24 04/29/24 18:59 06:59 18:59 Weight 61.235 kg - Labs CBC & Chem 7: 04/28/24 13:49 04/28/24 13:49 Labs: Abnormal Lab Results - Last 24 Hours (Table) 04/28/24 04/28/24 04/28/24 Range/Units 13:49 13:49 16:00 WBC 16.3 H (3.8-10.6) k/uL Hgb 19.0 H (13.0-17.5) gm/dL Hct 54.9 H (39.0-53.0) % Neutrophils # 13.8 H (1.3-7.7) k/uL Monocytes # 1.1 H (0-1.0) k/uL VBG pH 7.56 H (7.31-7.41) VBG HCO3 41 H (24-28) mmol/L Sodium 130 L (137-145) mmol/L Potassium 3.3 L (3.5-5.1) mmol/L Chloride 73 L* (98-107) mmol/L Carbon Dioxide 36 H (22-30) mmol/L BUN 41 H (9-20) mg/dL Glucose 121 H (74-99) mg/dL Total Bilirubin 2.1 H (0.2-1.3) mg/dL AST 78 H (17-59) U/L Alkaline Phosphatase 154 H (38-126) U/L Total Protein 9.7 H (6.3-8.2) g/dL Albumin 5.8 H (3.5-5.0) g/dL
--- NOTE | 2024-04-29 10:34 | P.DS ---
Providers Date of admission: 04/28/24 14:53 Expected date of discharge: 04/29/24 Attending physician: Daryl Horan MD Primary care physician: Luis Briones [facility] Course: Patient left AMA. Labs not available. Patient Condition at Discharge: Undetermined Plan - Discharge Summary New Discharge Prescriptions: No Action No Known Home Medications Discharge Medication List No Known Home Medications 03/31/23 [History] Follow up Appointment(s)/Referral(s): Luis Huang MD [Primary Care Provider] - 1-2 days Discharge Disposition: LEFT AGAINST MEDICAL ADVICE
[2024-04-29 10:49] LABS: Basophils # (A) 0.06 X 10*3/uL (0.00-0.10); Basophils % (A) 0.5 %; Eosinophils # (A) 0.01 X 10*3/uL (0.04-0.35); Eosinophils % (A) 0.1 %; HCT 46.5 % (39.6-50.0); Lymphocytes # (A) 1.41 X 10*3/uL (0.90-5.00); Lymphocytes % (A) 12.8 %; MCH 33.5 pg (27.0-32.0); MCHC 34.4 g/dL (32.0-37.0); MCV 97.3 FL (80.0-97.0); Mean Platelet Volume 10.1 FL (9.5-12.2); Monocytes # (A) 0.92 X 10*3/uL (0.20-1.00); Monocytes % (A) 8.3 %; NRBC Per 100 WBC 0 X 10*3/uL (0.00-0.01); Neutrophils % (A) 77.8 %; Platelet Count 306 X 10*3/uL (140-440); RBC 4.78 X 10*6/uL (4.40-5.60); RDW 12.6 % (11.5-14.5); WBC 11.05 X 10*3/uL (4.50-10.00)
[2024-04-29 10:53] LABS: Magnesium 2.4 mg/dL (1.5-2.4); Phosphorus 2.1 mg/dL (2.4-5.1)
[2024-04-29 11:05] LABS: ALT 29 U/L (10-49); AST 47 U/L (14-35); Albumin 4.4 g/dL (3.8-4.9); Alkaline Phosphatase 110 U/L (41-126); BUN/Creat Ratio 22.64 Ratio (12.00-20.00); Blood Urea Nitrogen 24.9 mg/dL (9.0-27.0); Calcium 9.6 mg/dL (8.7-10.3); Carbon Dioxide 34.5 mmol/L (21.6-31.8); Chloride 88 mmol/L (96-109); Globulin 2.2 g/dL (1.6-3.3); Glucose 155 mg/dL (70-110); Potassium 2.6 mmol/L (3.5-5.5); Sodium 133 mmol/L (135-145); Total Bilirubin 1.4 mg/dL (0.3-1.2); Total Protein 6.6 g/dL (6.2-8.2)
== END 2024-04-29 09:33 | disposition left against medical advice (07) ==
LOC: EC 12:37 → 6NMEDSUR 14:53 → 5NMEDONC 04-29 03:27
PROVIDERS: ADMIT Student in an Organized Health Care Education/Training Program; ATTEND Student in an Organized Health Care Education/Training Program
DX: R11.2 Nausea with vomiting, unspecified (principal); E86.1 Hypovolemia; E87.1 Hypo-osmolality and hyponatremia; E87.6 Hypokalemia; E87.4 Mixed disorder of acid-base balance; E86.0 Dehydration; D72.829 Elevated white blood cell count, unspecified; D75.1 Secondary polycythemia; E80.6 Other disorders of bilirubin metabolism; F17.290 Nicotine dependence, other tobacco product, uncomplicated; Z53.29 Procedure and treatment not carried out because of patient's decision for other reasons
CPT/HCPCS: 96361 ×2; 96365; 96366; 96375; 99291; 36415; 93005; 80053 ×2; 82150; 82803; 83605; 83690; 83735; 84100; 85025 ×2; G0378 ×2; J2060; J1200; J2765; J3480; J3490

== ENCOUNTER 2024-06-13 18:15 | Inpatient (IN) | payer OTHER ==
[~2024-06-13 18:15] MED LIST changes: +DEXTROSE 5% IN WATER 1,000 ML BAG ONE; +FAMOTIDINE 20 MG/2 ML VIAL ONE; +LACTATED RINGERS 1,000 ML BAG ONE; -LORazepam 2 MG/ML INJ IV STA; +LORazepam 2 MG/ML INJ ONE; +MAGNESIUM SULFATE-D5W PMX 200 ML IVPB ONE; +ONDANSETRON 4 MG/2 ML VIAL ONE; +SODIUM CHLORIDE 0.9% 1,000 ML BAG ONE
[2024-06-13] MEDS ORDERED: POTASSIUM CHLORIDE 100 ML ONE ×5 (18:27→23:47)
[2024-06-13] MEDS ORDERED: LORazepam 2 MG/ML INJ ONE ×4 (19:56→23:29)
[2024-06-13] MEDS ORDERED: MAG HYDROX/AL HYDROX/SIMETH 30 ML CUP ONE (22:04)
[2024-06-13] MEDS ORDERED: ONDANSETRON 4 MG/2 ML VIAL ONE (22:45)
[2024-06-13] MEDS ORDERED: POTASSIUM CHLORIDE ER 20 MEQ TAB.ER PO ONE (22:45)
[2024-06-14] MEDS ORDERED: LORazepam 2 MG/ML INJ ONE ×11 (00:50→18:15)
[2024-06-14] MEDS ORDERED: POTASSIUM CHLORIDE 100 ML ONE ×11 (00:50→23:59)
[2024-06-14] MEDS ORDERED: HALOPERIDOL LACTATE 5 MG/ML 1 ML VIAL ONE ×5 (03:35→23:59)
[2024-06-14] MEDS ORDERED: HEPARIN SODIUM,PORCINE 5,000 UNIT/ML 1 ML VIAL ONE ×2 (10:33→20:16)
[2024-06-14] MEDS ORDERED: PANTOPRAZOLE 40 MG/10 ML VIAL ONE ×2 (11:29→20:16)
[2024-06-14] MEDS ORDERED: POTASSIUM CHLORIDE ER 20 MEQ TAB.ER PO ONE (11:29)
[2024-06-14] MEDS ORDERED: DEXMEDETOMIDINE/0.9% NACL(PMX) 400 MCG/100 ML IV ONE ×3 (12:48→23:59)
[2024-06-14] MEDS ORDERED: DESMOPRESSIN ACETATE 4 MCG/ML VIAL (MDV) ONE (23:59)
[2024-06-14] MEDS ORDERED: DEXTROSE 5% IN WATER 1,000 ML BAG ONE (23:59)
[2024-06-15] MEDS ORDERED: POTASSIUM CHLORIDE 100 ML ONE ×4 (01:37→04:49)
[2024-06-15] MEDS ORDERED: HEPARIN SODIUM,PORCINE 5,000 UNIT/ML 1 ML VIAL ONE (01:38)
[2024-06-15] MEDS ORDERED: POTASSIUM CHLORIDE ER 20 MEQ TAB.ER PO ONE ×2 (06:00→11:03)
[2024-06-15] MEDS ORDERED: SODIUM CHLORIDE 0.9% 1,000 ML BAG ONE (06:00)
[2024-06-15] MEDS ORDERED: THIAMINE 100 MG TAB ONE (10:09)
[2024-06-15] MEDS ORDERED: FOLIC ACID 1 MG TAB ONE (10:09)
[2024-06-15] MEDS ORDERED: MULTIVITAMINS, THERA 1 EACH TAB ONE (10:09)
[2024-06-15] MEDS ORDERED: PANTOPRAZOLE 40 MG/10 ML VIAL ONE (10:09)
[2024-06-15] MEDS ORDERED: chlordiazePOXIDE 25 MG CAP ONE ×2 (10:11→13:58)
[2024-06-15] MEDS ORDERED: LORazepam 2 MG/ML INJ ONE (10:12)
--- NOTE | 2024-07-01 09:38 | CT ---
EXAM: CT brain without contrast. INDICATION: Patient age:RADHA KILLIAN : 1995 Reason for study: HALLUCINATIONS, AMS DLP:1096.4 NO CONTRAST COMPARISON: None, please note PACS downtime occurred during the radiologist interpretation of these i mages with limited priors/reports.. TECHNIQUE: Multiple axial CT images of the brain were obtained without IV contrast. One or more CT do se reduction strategies were utilized during this examination. Total DLP administered was 1096 mGycm. FINDINGS: Extra-axial spaces: No abnormal extra-axial fluid collections. Ventricular system: Within normal limits Cerebral parenchyma: No acute intraparenchymal hemorrhage or mass effect. The parker-white junction is well differentiated. Cerebellum: Unremarkable. Mass effect: No evidence of midline shift. Intracranial vasculature: unremarkable Soft tissues: Normal. Calvarium/osseous structures: No depressed skull fracture. Paranasal sinuses and mastoid air cells: Clear. Visualized orbits: Orbital contents are intact. IMPRESSION: No acute intracranial process.
== END 2024-06-15 14:24 | disposition left against medical advice (07) | DRG 640 ==
LOC: UNDODISIN 18:15 → 3SCARD 18:15
PROVIDERS: ADMIT Emergency Medicine; ATTEND Emergency Medicine
DX: E87.1 Hypo-osmolality and hyponatremia (principal); G93.41 Metabolic encephalopathy; N17.0 Acute kidney failure with tubular necrosis; F10.231 Alcohol dependence with withdrawal delirium; F10.221 Alcohol dependence with intoxication delirium; E87.6 Hypokalemia; Z78.1 Physical restraint status
CPT/HCPCS: 70450; 80053; 80306; 80320; 82009; 82150; 83690; 83930; 85025; 85610; 85730; 96361; 96365; 96375; 96376; 99285

== ENCOUNTER 2024-06-16 09:56 | Emergency (ER) | payer SELFPAY ==
[2024-06-16] MEDS ORDERED: TOPICAL SKIN ADHESIVE 1 EACH AMP TOPICAL ONE (10:23)
[2024-06-16] MEDS ORDERED: DIPH,PERTUS(ACELL)TETVAC-LF 0.5 ML VIAL IM ONE (10:24)
== END 2024-06-16 10:37 | disposition home or self-care (01) ==
LOC: EC 09:56
CPT/HCPCS: 12011; 90471; 90715; 99282

== ENCOUNTER 2024-09-20 01:35 | Emergency (ER) | payer OTHER ==
[2024-09-20 01:41] VITALS: TEMP 98.2
--- NOTE | 2024-09-20 01:45 | ED ---
Nausea/Vomiting/Diarrhea HPI - General Chief complaint: Nausea/Vomiting/Diarrhea Stated complaint: Dehydration, Vomiting Time Seen by Provider: 09/20/24 01:41 Source: patient, RN notes reviewed, old records reviewed Mode of arrival: ambulatory - History of Present Illness Initial comments: This is a 29-year-old male with cannabinoid induced hyperemesis significant abdominal nausea with abdominal vomiting, no diarrhea no other complaints MD complaint: nausea, vomiting -: days(s) Description of Vomiting: food contents, watery, bilious Location: diffuse Severity: moderate Severity scale (1-10): 4 Quality: aching Consistency: constant Improves with: none Worsens with: none Associated Symptoms: loss of appetite, malaise, nausea/vomiting - Related Data Previous Rx's Medication Instructions Recorded Potassium Chloride ER [K-Dur 20] 20 meq PO TID #7 tab 04/29/24 Allergies Allergy/AdvReac Type Severity Reaction Status Date / Time No Known Allergies Allergy Verified 09/20/24 01:41 Review of Systems ROS Statement: Those systems with pertinent positive or pertinent negative responses have been documented in the HPI. ROS Other: All systems not noted in ROS Statement are negative. Past Medical History Past Medical History: GI Bleed Additional Past Medical History / Comment(s): pericarditis, esophageal ulcer History of Any Multi-Drug Resistant Organisms: None Reported Past Surgical History: No Surgical Hx Reported Additional Past Surgical History / Comment(s): EGD, [place] teeth pulled Past Anesthesia/Blood Transfusion Reactions: No Reported Reaction Past Psychological History: No Psychological Hx Reported Smoking Status: Current some day smoker, Vaper Past Alcohol Use History: Occasional Past Drug Use History: Marijuana - Past Family History Father Family Medical History: Liver Disease Additional Family Medical History / Comment(s): with cirrohsis of liver. Mother Family Medical History: No Reported History Additional Family Medical History / Comment(s): Anyersum on heart, inoperable. General Exam General appearance: alert, in no apparent distress Head exam: Present: atraumatic, normocephalic, normal inspection Eye exam: Present: normal appearance, PERRL, EOMI. Absent: scleral icterus, conjunctival injection, periorbital swelling ENT exam: Present: normal exam, mucous membranes moist Neck exam: Present: normal inspection. Absent: tenderness, meningismus, lymphadenopathy Respiratory exam: Present: normal lung sounds bilaterally. Absent: respiratory distress, wheezes, rales, rhonchi, stridor Cardiovascular Exam: Present: normal rhythm, tachycardia, normal heart sounds. Absent: systolic murmur, diastolic murmur, rubs, gallop, clicks GI/Abdominal exam: Present: soft, normal bowel sounds. Absent: distended, tenderness, guarding, rebound, rigid Extremities exam: Present: normal inspection, full ROM, normal capillary refill. Absent: tenderness, pedal edema, joint swelling, calf tenderness Back exam: Present: normal inspection Neurological exam: Present: alert, oriented X3, CN II-XII intact Psychiatric exam: Present: normal affect, normal mood Skin exam: Present: warm, dry, intact, normal color. Absent: rash Course Vital Signs 09/20/24 09/20/24 01:39 03:31 Temperature 98.2 F Pulse Rate 101 H 79 Respiratory 20 14 Rate Blood Pressure 149/112 135/80 O2 Sat by Pulse 100 98 Oximetry - Reevaluation(s) Reevaluation #1: 09/20/24 02:04 Medical records reviewed Reevaluation #2: 09/20/24 03:08 Patient symptoms continue to improve Reevaluation #3: 09/20/24 03:08 Patient informed of results and questions answered Reevaluation #4: Was pt. sent in by a medical professional or institution (Dr. PA, CASTING CARRIER, urgent care, hospital, or [facility]...) When possible be specific @ -no Did you speak to anyone other than the patient for history (EMS, parent, family, police, friend...)? What history was obtained from this source @ -no Did you review nursing and triage notes (agree or disagree)? Why? @ -agree Are old charts reviewed (outside hosp., previous admission, EMS record, old EKG, old radiological studies, urgent care reports/EKG's, [facility] records)? Report findings @ -yes Differential Diagnosis (chest pain, altered mental status, abdominal pain women, abdominal pain men, vaginal bleeding, weakness, fever, dyspnea, syncope, headache, dizziness, GI bleed, back pain, seizure, CVA, palpatations, mental health, musculoskeletal)? @ -prior EKG interpreted by me (3pts min.). @ -no X-rays interpreted by me (1pt min.). @ -no CT interpreted by me (1pt min.). @ -no U/S interpreted by me (1pt. min.). @ -no What testing was considered but not performed or refused? (CT, X-rays, U/S, labs)? Why? @ -none What meds were considered but not given or refused? Why? @ -none Did you discuss the management of the patient with other professionals (professionals i.e. DrCarly, PA, CASTING CARRIER, lab, RT, psych nurse, social worker aide, turret lathe operator, teacher, chemical instrumentation officer, test case developer)? Give summary @ -no Was smoking cessation discussed for >3mins.? @ -no Was critical care preformed (if so, how long)? @ -no Were there social determinants of health that impacted care today? How? ( Homelessness, low income, unemployed, alcoholism, drug addiction, transportation, low edu. Level, literacy, decrease access to med. care, assisted, rehab)? @ -none Was there de-escalation of care discussed even if they declined (Discuss DNR or withdrawal of care, Hospice)? DNR status @ -no What co-morbidities impacted this encounter? (DM, HTN, Smoking, COPD, CAD, Cancer, CVA, ARF, Chemo, Hep., AIDS, mental health diagnosis, sleep apnea, morbid obesity)? @ -none Was patient admitted / discharged? Hospital course, mention meds given and route, prescriptions, significant lab abnormalities, going to OR and other pertinent info. @ - 29 male to the ER for evaluation of nausea vomiting. Persistent and significant nausea vomiting here in the ER but symptoms dramatically improved throughout ER stay patient feels well and can be discharged home Discharge Undiagnosed new problem with uncertain prognosis? @ -no Drug Therapy requiring intensive monitoring for toxicity (Heparin, Nitro, Insulin, Cardizem)? @ -no Were any procedures done? @ -no Diagnosis/symptom? @ -Nausea vomiting Acute, or Chronic, or Acute on Chronic? @ -Acute Uncomplicated (without systemic symptoms) or Complicated (systemic symptoms)? @ -Complicated Side effects of treatment? @ -no Exacerbation, Progression, or Severe Exacerbation? @ -exacerbation Poses a threat to life or bodily function? How? (Chest pain, USA, MT, pneumonia, PE, COPD, DKA, ARF, appy, cholecystitis, CVA, Diverticulitis, Homicidal, Suicidal, threat to staff... and all critical care pts) @ -no Reevaluation #5: Differential Abdominal Pain Men: Appendicitis, cholecystitis, diverticulosis, ischemic bowel, pancreatitis, hepatitis, UTI, gastroenteritis, AAA, incarcerated hernia, bowel obstruction, constipation, inflammatory bowel, hepatitis, peptic ulcer disease, splenic infarction, perforated viscus, testicular torsion, this is not meant to be an all-inclusive list Medical Decision Making - Medical Decision Making 29 male to the ER for evaluation of nausea vomiting. Persistent and significant nausea vomiting here in the ER but symptoms dramatically improved throughout ER stay patient feels well and can be discharged home - Lab Data Result diagrams: 09/20/24 02:14 09/20/24 02:14 Lab Results 09/20/24 09/20/24 09/20/24 Range/Units 02:14 02:14 02:14 WBC 17.7 H (3.8-10.6) k/uL RBC 5.46 (4.30-5.90) m/uL Hgb 17.9 H (13.0-17.5) gm/dL Hct 51.6 (39.0-53.0) % MCV 94.6 (80.0-100.0) fL MCH 32.9 (25.0-35.0) pg MCHC 34.7 (31.0-37.0) g/dL RDW 12.1 (11.5-15.5) % Plt Count 333 (150-450) k/uL MPV 7.8 Neutrophils % 88 % Lymphocytes % 5 % Monocytes % 7 % Eosinophils % 0 % Basophils % 0 % Neutrophils # 15.5 H (1.3-7.7) k/uL Lymphocytes # 0.8 L (1.0-4.8) k/uL Monocytes # 1.2 H (0-1.0) k/uL Eosinophils # 0.1 (0-0.7) k/uL Basophils # 0.0 (0-0.2) k/uL Sodium 131 L (137-145) mmol/L Potassium 3.4 L (3.5-5.1) mmol/L Chloride 79 L (98-107) mmol/L Carbon Dioxide 40 H (22-30) mmol/L Anion Gap 12 mmol/L BUN 21 H (9-20) mg/dL Creatinine 1.14 (0.66-1.25) mg/dL Est GFR (CKD-EPI)AfAm >90 (>60 ml/min/1.73 sqM) Est GFR (CKD-EPI)NonAf 86 (>60 ml/min/1.73 sqM) Glucose 151 H (74-99) mg/dL Lactic Ac Sepsis Rflx Plasma Lactic Acid Marshall 2.6 H* (0.7-2.0) mmol/L Calcium 10.1 (8.4-10.2) mg/dL Phosphorus 2.7 (2.5-4.5) mg/dL Magnesium 1.8 (1.6-2.3) mg/dL Total Bilirubin 2.0 H (0.2-1.3) mg/dL AST 44 (17-59) U/L ALT 38 (4-49) U/L Alkaline Phosphatase 124 (38-126) U/L Total Protein 8.4 H (6.3-8.2) g/dL Albumin 5.3 H (3.5-5.0) g/dL Lipase 255 (23-300) U/L Serum Alcohol <10 mg/dL 09/20/24 Range/Units 03:19 WBC (3.8-10.6) k/uL RBC (4.30-5.90) m/uL Hgb (13.0-17.5) gm/dL Hct (39.0-53.0) % MCV (80.0-100.0) fL MCH (25.0-35.0) pg MCHC (31.0-37.0) g/dL RDW (11.5-15.5) % Plt Count (150-450) k/uL MPV Neutrophils % % Lymphocytes % % Monocytes % % Eosinophils % % Basophils % % Neutrophils # (1.3-7.7) k/uL Lymphocytes # (1.0-4.8) k/uL Monocytes # (0-1.0) k/uL Eosinophils # (0-0.7) k/uL Basophils # (0-0.2) k/uL Sodium (137-145) mmol/L Potassium (3.5-5.1) mmol/L Chloride (98-107) mmol/L Carbon Dioxide (22-30) mmol/L Anion Gap mmol/L BUN (9-20) mg/dL Creatinine (0.66-1.25) mg/dL Est GFR (CKD-EPI)AfAm (>60 ml/min/1.73 sqM) Est GFR (CKD-EPI)NonAf (>60 ml/min/1.73 sqM) Glucose (74-99) mg/dL Lactic Ac Sepsis Rflx Y Plasma Lactic Acid Marshall (0.7-2.0) mmol/L Calcium (8.4-10.2) mg/dL Phosphorus (2.5-4.5) mg/dL Magnesium (1.6-2.3) mg/dL Total Bilirubin (0.2-1.3) mg/dL AST (17-59) U/L ALT (4-49) U/L Alkaline Phosphatase (38-126) U/L Total Protein (6.3-8.2) g/dL Albumin (3.5-5.0) g/dL Lipase (23-300) U/L Serum Alcohol mg/dL Disposition Clinical Impression: Intractable nausea and vomiting, Refractory nausea and vomiting Disposition: HOME SELF-CARE Condition: Fair Instructions (If sedation given, give patient instructions): Acute Nausea and Vomiting (ED) Is patient prescribed a controlled substance at d/c from ED?: No Referrals: None,Stated [Primary Care Provider] - 1-2 days Time of Disposition: 03:00
[2024-09-20] MEDS: LORazepam 2 MG/ML INJ IV STA (02:05)
[2024-09-20] MEDS: ONDANSETRON 4 MG/2 ML VIAL IVP STA (02:05)
[2024-09-20] MEDS: PANTOPRAZOLE 40 MG/10 ML VIAL IVP STA (02:06)
[2024-09-20] MEDS: SODIUM CHLORIDE 0.9% 1,000 ML IV STA ×2 (02:09)
[2024-09-20 02:34] LABS: Basophils % (A) 0 %; Eosinophils # (A) 0.1 k/uL (0-0.7); Eosinophils % (A) 0 %; HCT 51.6 % (39.0-53.0); HGB 17.9 gm/dL (13.0-17.5); Lymphocytes # (A) 0.8 k/uL (1.0-4.8); Lymphocytes % (A) 5 %; MCH 32.9 pg (25.0-35.0); MCHC 34.7 g/dL (31.0-37.0); MCV 94.6 fL (80.0-100.0); Mean Platelet Volume 7.8; Monocytes # (A) 1.2 k/uL (0-1.0); Monocytes % (A) 7 %; Neutrophils # (A) 15.5 k/uL (1.3-7.7); Neutrophils % (A) 88 %; Platelet Count 333 k/uL (150-450); RBC 5.46 m/uL (4.30-5.90); RDW 12.1 % (11.5-15.5); WBC 17.7 k/uL (3.8-10.6)
[2024-09-20 02:49] LABS: ALT 38 U/L (4-49); AST 44 U/L (17-59); African American GFR (CKD) >90 (>60 ml/min/1.73 sqM); Albumin 5.3 g/dL (3.5-5.0); Alcohol <10 mg/dL; Alkaline Phosphatase 124 U/L (38-126); Anion Gap 12 mmol/L; Blood Urea Nitrogen 21 mg/dL (9-20); Calcium 10.1 mg/dL (8.4-10.2); Carbon Dioxide 40 mmol/L (22-30); Chloride 79 mmol/L (98-107); Glucose 151 mg/dL (74-99); Lipase 255 U/L (23-300); Magnesium 1.8 mg/dL (1.6-2.3); Non-African American GFR(CKD) 86 (>60 ml/min/1.73 sqM); Phosphorus 2.7 mg/dL (2.5-4.5); Potassium 3.4 mmol/L (3.5-5.1); Sodium 131 mmol/L (137-145); Total Protein 8.4 g/dL (6.3-8.2)
[2024-09-20 03:33] VITALS: BP 135/80; PULSE 79; RESP 14
[2024-09-20] MEDS: POTASSIUM BICARBONATE/CIT AC 20 MEQ TABLET.EFF PO ONE (03:33)
[2024-09-20] MEDS: MAGNESIUM OXIDE 400 MG TAB PO STA ×2 (03:33→03:34)
[2024-09-20] MEDS: droPERidol 5 MG/2 ML VIAL IVP ONE (03:38)
[2024-09-20] MEDS: ONDANSETRON 4 MG ODT STARTER PACK 2 TAB BTL PO STA (03:39)
[2024-09-20] MEDS: cloNIDine 0.2 MG/24HR PATCH TRANSDERM SCH (03:43)
== END 2024-09-20 03:49 | disposition home or self-care (01) ==
LOC: EC 01:35
DX: R11.2 Nausea with vomiting, unspecified (principal); F17.290 Nicotine dependence, other tobacco product, uncomplicated
CPT/HCPCS: 36415; 80053; 83605; 83690; 83735; 84100; 85025; 80320; 99284; 96374; 96375 ×3; 96361; J2060; J2405; S0119; J1790; J2470